=== PATIENT | male | born 1970 | race Caucasian/White ===

== ENCOUNTER 2016-08-08 20:23 | Observation (INO) | payer OTHER ==
[~2016-08-08] VITALS: Ht 182.9 cm; Wt 85.0 kg
[~2016-08-08 20:23] MED LIST: ACYC1CAP16 PO; METF500T PO; MULT-65 PO; OXYC1TAB13 PO; SUCR1S PO; VITA100T2 PO; XANA1TAB2 PO
[2016-08-08 20:35] VITALS: BP 156/89; PULSE 110; RESP 18; TEMP 98.6; O2SAT 93
--- NOTE | 2016-08-08 20:39 | PD ---
HPI Chief Complaint: Chest Pain Time Seen by Provider: 20:28 Travel History International Travel<30 days: No Contact w/Intl Traveler<30days: No Traveled to known affect area: No History of Present Illness HPI For 2 days this 45-year-old male has felt chest pressure. It started after he drank a glass and a half of wine and ate Italian food. He states at its worst the pain is 10 over 10. He reports radiation of pain to the posterior left neck. He reports chronic bilateral lower back pain which he attributes to the presence of cirrhosis. He suffers with diabetes mellitus 2 and reports noncompliance with medication times months at least. His father suffered a myocardial infarction at 55 years of age. The patient suffers alcohol-induced cirrhosis. He does not follow up with GI although did at one point in [place]. He smokes tobacco. He has not taken aspirin in the last week. He denies a history of recent stress test or cardiac catheterization. He denies hypertension hyperlipidemia. He tried drinking water after chest pain started however it made no difference. He arrives by EMS and notes that sublingual nitro alleviated his pain significantly. [facility] Past Medical History Arthritis: No Asthma: No Autoimmune Disease: No Blood Disorders: Yes (ESOPHAGEAL VARICES) Anxiety: No Depression: No Heart Rhythm Problems: No Cancer: No Cardiovascular Problems: Yes High Cholesterol: No Chemotherapy: No Chest Pain: No Congestive Heart Failure: No Cirrhosis: Yes (STAGE 4) COPD: No Diabetes: Yes Diminished Hearing: No Endocrine: No Gastrointestinal Disorders: Yes (CIRRHOSIS LIVER) GERD: Yes Genitourinary: No Hiatal Hernia: No Hypertension: Yes Immune Disorder: No Kidney Stones: No Musculoskeletal: No Neurologic: No Psychiatric: No Reproductive: No Respiratory: No Integumentary: Yes (PSORIASIS) Immunizations Current: Yes Migraines: No Pancreatitis: Yes Radiation Therapy: No Renal Failure: No Seizures: No Sickle Cell Disease: No Sleep Apnea: No Thyroid Disease: No Ulcer: No Past Surgical History Abdominal Surgery: No AICD: No Arteriovenous Shunt: No Cardiac Surgery: No Ear Surgery: No Endocrine Surgery: No Eye Surgery: No Genitourinary Surgery: No Gynecologic Surgery: No Insulin Pump: No Joint Replacement: No Neurologic Surgery: No Oral Surgery: No Pacemaker: No Thoracic Surgery: No Other Surgery: Yes (ESOPHAGEAL BANDING & LIVER BIOPSY) Social History Alcohol Use: Yes (pt states sober for 102 days and had 2 32 oz beer) Tobacco Use: Yes (1/2 PPD) Substance Use: Yes (marijaunia occasionally) Allergies-Medications (Allergen,Severity, Reaction): Coded Allergies: Dilaudid (Verified Allergy, Intermediate, HIVES, 01/23/16) *MDRO Multi-Drug Resistant Organism (Verified Adverse Reaction, Unknown, ) MRSA PCR (nares) positive - 12/02/15 Reported Meds & Prescriptions Reported Meds & Active Scripts Active Reported Xanax (Alprazolam) 1 Mg Tab 1 Mg PO Q6H PRN Zovirax (Acyclovir) 200 Mg Cap 200 Mg PO ONCE Roxicodone (Oxycodone HCl) 5 Mg Tab 5 Mg PO Q6H PRN Metformin (Metformin HCl) 500 Mg Tab 500 Mg PO BIDPC With meals Multi-Vitamin Daily (Multiple Vitamin) 1 Tab Tab 1 Tab PO DAILY Review of Systems Except as stated in HPI: all other systems reviewed are Neg Physical Exam Narrative GENERAL: 45-year-old male somewhat chronically ill in appearance SKIN: Warm and dry. HEAD: Atraumatic. Normocephalic. EYES: Pupils equal and round. Scleral icterus could be be present. ENT: No nasal bleeding or discharge. Mucous membranes pink and moist. NECK: Trachea midline. No JVD. CARDIOVASCULAR: Regular rate and rhythm. No murmur appreciated. RESPIRATORY: No accessory muscle use. Clear to auscultation. Breath sounds equal bilaterally. GASTROINTESTINAL: Diffuse nonspecific tenderness with voluntary guarding. No tenderness to percussion about the flanks. MUSCULOSKELETAL: No obvious deformities. No clubbing. No cyanosis. No edema. NEUROLOGICAL: Awake and alert. No obvious cranial nerve deficits. Motor grossly within normal limits. Normal speech. PSYCHIATRIC: Appropriate mood and affect; insight and judgment normal. Data Data Last Documented VS Vital Signs Date Time Temp Pulse Resp B/P Pulse Ox O2 Delivery O2 Flow Rate FiO2 08/08/16 20:48 109 18 97 Nasal Cannula 2 08/08/16 20:35 98.6 156/89 Orders Electrocardiogram (08/08/16 20:56) Ckmb (Isoenzyme) Profile (08/08/16 20:56) Complete Blood Count With Diff (08/08/16 20:56) Comprehensive Metabolic Panel (08/08/16 20:56) Magnesium (Mg) (08/08/16 20:56) Prothrombin Time / Inr (Pt) (08/08/16 20:56) Act Partial Throm Time (Ptt) (08/08/16 20:56) Troponin I (08/08/16 20:56) Lipase (08/08/16 20:56) Chest, Single Ap (08/08/16 20:56) Ecg Monitoring (08/08/16 20:56) Bilateral Bp Monitoring (08/08/16 20:56) Iv Access Insert/Monitor (08/08/16 20:56) Oximetry (08/08/16 20:56) Oxygen Administration (08/08/16 20:56) Sodium Chloride 0.9% Flush (Ns Flush) (08/08/16 21:00) Morphine Inj (Morphine Inj) (08/08/16 21:00) Aspirin (Aspirin) (08/08/16 21:00) CKMB (08/08/16 21:00) CKMB% (08/08/16 21:00) Insulin Human Regular Inj (Novolin R Inj (08/08/16 22:45) Blood Glucose (08/08/16 22:36) Blood Glucose (08/08/16 23:36) Morphine Inj (Morphine Inj) (08/08/16 22:45) Admit Order (Ed Use Only) (08/08/16 23:15) Activity Bed Rest With Brp (08/08/16 23:15) Vital Signs (Adult) Q4H (08/08/16 23:15) Cardiac Rhythm .As Directed (08/08/16 23:15) ^ Notify Dr: Other .PRN (08/08/16 23:15) ^ Notify DrMichele Parameters (08/08/16 23:15) Resp Oxygen Nasal Cannula (08/08/16 ) Ckmb (Isoenzyme) Profile (08/08/16 23:15) Ckmb (Isoenzyme) Profile (08/09/16 02:15) Troponin I (08/08/16 23:15) Troponin I (08/09/16 02:15) Electrocardiogram (08/08/16 23:15) Electrocardiogram (08/09/16 02:15) ^ Obtain (08/08/16 23:15) Sodium Chloride 0.9% Flush (Ns Flush) (08/08/16 23:15) Sodium Chloride 0.9% Flush (Ns Flush) (08/09/16 09:00) Morphine Inj (Morphine Inj) (08/08/16 23:15) Ondansetron Inj (Zofran Inj) (08/08/16 23:15) Nitroglycerin Sl (Nitrostat Sl) (08/08/16 23:15) Warehouse Helper / Telemetry DENNY.Q8H (08/08/16 23:15) CKMB (08/08/16 23:59) CKMB% (08/08/16 23:59) Labs Laboratory Tests Test 08/08/16 21:00 White Blood Count 4.5 TH/MM3 Red Blood Count 3.83 MIL/MM3 Hemoglobin 12.5 GM/DL Hematocrit 37.1 % Mean Corpuscular Volume 96.8 FL Mean Corpuscular Hemoglobin 32.8 PG Mean Corpuscular Hemoglobin 33.8 % Concent Red Cell Distribution Width 15.9 % Platelet Count 65 TH/MM3 Mean Platelet Volume 9.7 FL Neutrophils (%) (Auto) 54.8 % Lymphocytes (%) (Auto) 28.6 % Monocytes (%) (Auto) 13.6 % Eosinophils (%) (Auto) 1.9 % Basophils (%) (Auto) 1.1 % Neutrophils # (Auto) 2.4 TH/MM3 Lymphocytes # (Auto) 1.3 TH/MM3 Monocytes # (Auto) 0.6 TH/MM3 Eosinophils # (Auto) 0.1 TH/MM3 Basophils # (Auto) 0.0 TH/MM3 CBC Comment AUTO DIFF Differential Comment AUTO DIFF CONFIRMED Prothrombin Time 12.7 SEC Prothromb Time International 1.1 RATIO Ratio Activated Partial 27.2 SEC Thromboplast Time Sodium Level 143 MEQ/L Potassium Level 3.5 MEQ/L Chloride Level 105 MEQ/L Carbon Dioxide Level 28.8 MEQ/L Anion Gap 9 MEQ/L Blood Urea Nitrogen 3 MG/DL Creatinine 0.75 MG/DL Estimat Glomerular Filtration 114 ML/MIN Rate Random Glucose 329 MG/DL Calcium Level 7.7 MG/DL Magnesium Level 1.5 MG/DL Total Bilirubin 1.0 MG/DL Aspartate Amino Transf 91 U/L (AST/SGOT) Alanine Aminotransferase 50 U/L (ALT/SGPT) Alkaline Phosphatase 332 U/L Total Creatine Kinase 200 U/L Creatine Kinase MB 0.7 NG/ML Troponin I 0.05 NG/ML Total Protein 7.4 GM/DL Albumin 3.0 GM/DL Lipase 323 U/L MDM Medical Decision Making Medical Screen Exam Complete: Yes Emergency Medical Condition: Yes Medical Record Reviewed: Yes Differential Diagnosis NSTEMI, unstable angina, coronary vasospasm, PE, PTX, aortic dissection, pericarditis, myocarditis, endocarditis, PNA, esophageal disease, aneurysm, musculoskeletal etiologies, anxiety, cocaine/sympathomimetic abuse,Constipation , Gastritis, Acute Cholecystitis, Biliary Colic, Pancreatitis, PYLE, Hepatitis, Bowel Obstruction, Cystitis, Mesenteric Ischemia, AAA, Appendicitis, Renal Stone /Hydronephrosis, GERD, perforated viscous Narrative Course EKG reveals a sinus tachycardia at a rate of 105, normal axis and nonspecific T- wave changes throughout CBC & BMP Diagram 08/08/16 21:00 AST 91 Alk phos 332 Albumin 3.0 Lipase 323 Tn 0.05 INR 1.1 Overall the patient's LFTs and lipase are normal range for him. Hyperglycemia has been corrected. Serial enzymes and stress test considered reasonable next step for this patient. Diagnosis Primary Impression: Chest pain Qualified Code: R07.9 - Chest pain, unspecified type Additional Impressions: Elevated troponin I level Hyperglycemia Admitting Information Admitting Physician Requests: Observation Ishaan Haq MD Aug 08, 2016 20:39
[2016-08-08] MEDS ORDERED: SODIUM CHLORIDE 0.9% FLUSH 5 ML FLUSH IVF PRN ×2 (21:00→23:15)
[2016-08-08] MEDS ORDERED: ASPIRIN 325 MG TAB PO ONE (21:00)
[2016-08-08] MEDS ORDERED: MORPHINE SULFATE 4 MG/ML INJ IV PUSH ONE (21:00)
[2016-08-08 21:30] LABS: AUTOMATED NEUTROPHIL # 2.4 TH/MM3 (1.8-7.7); BASOPHIL % 1.1 % (0.0-2.0); EOSINOPHIL # 0.1 TH/MM3 (0-0.4); EOSINOPHIL % 1.9 % (0.0-4.0); HEMATOCRIT 37.1 % (39.0-51.0); LYMPH % 28.6 % (9.0-44.0); LYMPHOCYTE # 1.3 TH/MM3 (1.0-4.8); MEAN CELL VOLUME 96.8 FL (80.0-100.0); MEAN CORPUSCULAR HEMOGLOBIN 32.8 PG (27.0-34.0); MEAN CORPUSCULAR HGB CONC 33.8 % (32.0-36.0); MONO % 13.6 % (0.0-8.0); NEUT % 54.8 % (16.0-70.0); PLATELET COUNT 65 TH/MM3 (150-450); RED BLOOD COUNT 3.83 MIL/MM3 (4.50-5.90); RED CELL DISTRIBUTION WIDTH 15.9 % (11.6-17.2); WHITE BLOOD COUNT 4.5 TH/MM3 (4.0-11.0)
--- NOTE | 2016-08-08 21:35 | RADRPT ---
EXAM DATE/TIME: 08/08/2016 20:59 [facility] COMPARISON: CHEST SINGLE AP, December 06, 2015, 12:05. INDICATIONS : Chest pain for 2 days MEDICAL HISTORY : None. SURGICAL HISTORY : None. ENCOUNTER: Initial ACUITY: 2 days PAIN SCORE: 7/10 LOCATION: Right chest FINDINGS: A single view of the chest demonstrates the lungs to be symmetrically aerated without evidence of mas s, infiltrate or effusion. The cardiomediastinal contours are unremarkable. Osseous structures are intact. CONCLUSION: No acute disease. Kenneth Galvan MD on August 08, 2016 at 21:34 Board Certified Radiologist. This report was verified electronically.
[2016-08-08 21:39] LABS: HEMO FLAGS AUTO DIFF
[2016-08-08 21:42] LABS: APTT (PATIENT) 27.2 SEC (24.3-30.1); INTERNATIONAL NORMALIZED RATIO 1.1 RATIO; PROTHROMBIN TIME - PATIENT 12.7 SEC (9.8-11.6)
[2016-08-08 22:03] LABS: SCAN/DIFF AUTO DIFF CONFIRMED
[2016-08-08 22:18] LABS: ALKALINE PHOSPHATASE 332 U/L (45-117); ALT (GPT) 50 U/L (12-78); ANION GAP 9 MEQ/L (5-15); AST (GOT) 91 U/L (15-37); BICARBONATE 28.8 MEQ/L (21.0-32.0); BLOOD UREA NITROGEN 3 MG/DL (7-18); CHLORIDE 105 MEQ/L (98-107); CREATINE KINASE 200 U/L (39-308); GLOMERULAR FILTRATION RATE 114 ML/MIN (>89); MAGNESIUM 1.5 MG/DL (1.5-2.5); POTASSIUM 3.5 MEQ/L (3.5-5.1); SODIUM (NA) 143 MEQ/L (136-145)
[2016-08-08 22:31] LABS: CKMB 0.7 NG/ML (0.5-3.6)
[2016-08-08] MEDS ORDERED: MORPHINE SULFATE 8 MG/ML INJ IV PUSH ONE (22:45)
[2016-08-08] MEDS ORDERED: INSULIN HUMAN REGULAR 1,000 UNITS/10 ML VIAL IVP ONE (22:45)
[2016-08-08] MEDS ORDERED: ONDANSETRON HCL 4 MG/2 ML VIAL IV PRN (23:15)
[2016-08-08] MEDS ORDERED: NITROGLYCERIN 0.4 MG SL 25 TABS/BTL SL PRN (23:15)
[2016-08-08] MEDS ORDERED: MORPHINE SULFATE 4 MG/ML INJ IV PRN (23:15)
[2016-08-09 00:44] LABS: CREATINE KINASE 178 U/L (39-308)
[2016-08-09 00:45] VITALS: PULSE 116
[2016-08-09 00:57] LABS: CKMB 0.7 NG/ML (0.5-3.6)
[2016-08-09 03:42] VITALS: BP 140/83; PULSE 106; RESP 18; O2SAT 93
[2016-08-09 04:11] VITALS: PULSE 106
[2016-08-09 04:20] LABS: CREATINE KINASE 142 U/L (39-308)
[2016-08-09 04:33] LABS: CKMB 0.6 NG/ML (0.5-3.6)
[2016-08-09 06:56] VITALS: BP 117/71; PULSE 107; RESP 18; TEMP 97.9; O2SAT 95
[2016-08-09] MEDS ORDERED: SODIUM CHLORIDE 0.9% FLUSH 5 ML FLUSH IVF SCH (09:00)
[2016-08-09] MEDS ORDERED: REGADENOSON INJ 0.4 MG/5 ML SYR ONE (09:03)
[2016-08-09] MEDS ORDERED: MULTIVITAMIN TAB PO SCH (09:15)
[2016-08-09] MEDS ORDERED: GLUCAGON 1 MG/ML VIAL OTHER PRN (09:15)
[2016-08-09] MEDS ORDERED: DEXTROSE 50% IN WATER 50 ML VIAL(D50) IV PUSH PRN (09:15)
[2016-08-09] MEDS ORDERED: metFORMIN HCL 500 MG TAB PO SCH (09:15)
--- NOTE | 2016-08-09 10:53 | RADRPT ---
EXAM DATE/TIME: 08/09/2016 09:08 [facility] COMPARISON: No previous studies available for comparison. INDICATIONS : Chest pain radiating to back of neck for 2 days. Angina. DOSE: 26.9 mCi Tc99m Myoview at stress. 8.8 mCi Tc99m Myoview at rest. 0.4 mg Lexiscan STRESS SYMPTOMS: Nausea. EJECTION FRACTION: 67% MEDICAL HISTORY : Diabetes mellitus type 2. Gastroesophageal reflux disease. Hypertension. Cirrhosis SURGICAL HISTORY : Esophageal banding. ENCOUNTER: Initial ACUITY: 2 days PAIN SCALE: 10/10 LOCATION: chest TECHNIQUE: The patient underwent pharmacologic stress with infusion of prescribed dose. Continuous ECG tracing was monitored during stress. Gated SPECT imaging was performed after stress and conventional SPECT i maging was performed at rest. The examination was performed on a SPECT/CT scanner, both attenuation and non-corrected datasets were reviewed. FINDINGS: DISTRIBUTION: The maximum perfused segment at stress is in the inferior wall. PERFUSION STUDY: The pattern of perfusion at stress is within normal limits. GATED STUDY: There is intact wall motion and thickening without hypokinetic or dyskinetic segments. CONCLUSION: No reversible perfusion defects identified. No focal wall motion abnormalities. Ejection fraction wit hin normal limits. RISK CATEGORY: 1:Low Risk. Mark Lisa MD on August 09, 2016 at 10:48 Board Certified Radiologist. This report was verified electronically.
[2016-08-09 11:00] VITALS: PULSE 91
[2016-08-09] MEDS ORDERED: INSULIN ASPART SUPPLEMENTAL SCALE SQ SCH (11:00)
[2016-08-09 11:36] VITALS: BP 151/77; PULSE 85; RESP 20; TEMP 98.1; O2SAT 94
--- NOTE | 2016-08-09 11:38 | HHI.DCPOC ---
Discharge Care Plan Diagnosis: (1) Atypical chest pain Goals to Promote Your Health * To prevent worsening of your condition and complications * To maintain your health at the optimal level Directions to Meet Your Goals Take your medications as prescribed Follow your dietary instruction Follow activity as directed Keep your appointments as scheduled Take your immunizations and boosters as scheduled If your symptoms worsen call your PCP, if no PCP go to Urgent Care Center or Emergency Room Smoking is Dangerous to Your Health. Avoid second hand smoke Call the 24-hour hour crisis hotline for domestic abuse at Poonam Wilson Aug 09, 2016 11:38
--- NOTE | 2016-08-09 14:19 | MH ---
cc: ALAN MONTGOMERY MD DATE OF ADMISSION: 08/08/2016 DATE OF 1970 CHIEF COMPLAINT Chest pain. HISTORY OF PRESENT ILLNESS This is a 45-year-old patient who presents to the emergency room with an onset of chest pain two days ago. LOCATION His substernal left anterior chest with no radiation. Duration lasts approximately 10 minutes and described as a pressure. Associated symptoms included he was a little bit dizzy and nauseous. He denied any vomiting or diaphoresis or shortness of breath. No known precipitating factors or relieving factors. His primary care provider is Dr. Mathew. He denies having any chest pain in the past. PAST MEDICAL HISTORY 1. Hypertension. 2. Diabetes. 3. Cirrhosis. 4. Esophageal varices. PAST SURGICAL HISTORY He has had a liver biopsy. FAMILY HISTORY Noncontributory for any early onset cardiovascular disease. Both mother and father and younger siblings are alive and in good state of health. SOCIAL HISTORY He is currently not working. He is active, states he rides his bike and/or walks the beach on a daily basis. He smokes a 1/2-pack of cigarettes daily. This is decreased from 1-1/2 packs daily. He says he has been decreasing his tobacco use over the past 4-5 months. He will drink alcohol on occasionm, says he knows he is not supposed to drink alcohol and endorses drinking one to two glasses of wine weekly. Denies any illegal drug use past or present. PAST MEDICAL HISTORY Does have known hypertension and diabetes. No known hyperlipidemia. PAST CARDIAC TESTING None. ALLERGIES He has no allergies to medication. CURRENT MEDICATION LIST 1. Glucophage 500 mg b.i.d. 2. Multivitamin daily. 3. Xanax as needed for anxiety. 4. The patient also endorses he takes a medication for his esophageal varices; however, he is unsure of that name and/or dose. 5. Also states that he should be taking Glipizide daily. He is also unsure of that dose but had not been taking glipizide, in fact, he has not been taking his Glucophage either as he states he is trying to control his diabetes with diet and exercise. REVIEW OF SYSTEMS General: No fatigue, weakness, recent illness, fevers, chills or change in appetite. HEENT: Reports an occasional headache and was also dizzy a couple of days ago. He did not lose consciousness, although states he did fall due to his dizziness. No vision changes. No dysphagia. No nasal congestion or drainage. Cardiovascular: As stated above. Denies any current chest pain. There are no palpitations, intermittent leg pain. Reports dizziness over the past few months with position at times but it seems to be positional in time. Respiratory: No hemoptysis, cough or wheeze or shortness of breath. Abdomen: No bowel changes. No bloody stools. No melena, no constipation, pain or distension. Reports a good appetite. There is no nausea or vomiting. No hemoptysis. : No dysuria or hematuria. Extremities: No lower leg edema or pain. Musculoskeletal: No change in ROM. Reports chronic bilateral lower back pain for years. Neuro: No difficulty with balance, motor or sensory deficits. Psych: No anxiety or depression. Skin: No concerning lesions or rashes. Reports a healing sore on his right elbow that he sustained two days ago when he became dizzy and fell. PHYSICAL EXAMINATION Vital Signs: Temperature 98.1, pulse 85, respiratory 20, blood pressure 117/71 and he has 95% on room air. General: He is alert, well-nourished, well-developed, in no acute distress. A male who appears older than his stated age. Head: Normocephalic, atraumatic. Neck: Supple. Trachea is midline. Cardiovascular: Regular rate and rhythm without murmur, rub or gallop. S1, S2. No S3, no S4. Respiratory: Clear lungs throughout bilaterally with no crackles, wheezes or rhonchi. Nonlabored. Symmetrical chest rise. Abdomen: Soft, nontender, nondistended. Positive bowel tones. No masses. Extremities: Pulses +2 x 4. There is no dependent edema. Musculoskeletal: Normal tone x 4 nontender. No obvious deformities. Neuro Exam: CN II-XII grossly intact. Motor strength 5/5. He has high intact extraocular movements. Psych: He is alert and oriented x 3, has a pleasant affect, appropriate to mood, insight and judgment. Skin: Normal turgor, normal texture. Warm and dry and a healing abrasion on right elbow. LABORATORY CBC has a hemoglobin of 12.5 and a hematocrit of 37.1, otherwise unremarkable. Chemistry has a random glucose of 329 and alkaline phos of 332 and AST of 91, otherwise unremarkable. Three sets of cardiac enzymes all negative and unchanged. Coagulations unremarkable. CHEST X-RAY Read by the radiologist, has a conclusion of no acute disease. EKGS Three EKGs show a normal sinus rhythm with a nonspecific T-wave abnormality and a normal axis. ASSESSMENT AND PLAN 1. Chest pain. The patient has been [facility] He was ruled out with three sets of EKGs, cardiac enzymes and monitored throughout the evening. He was seen and evaluated by Dr. Alan Montgomery. It has been discussed with the patient that he will have had a chemical stress test this a.m. Naturally, if this test is unremarkable, he will be encouraged to follow with his primary care provider, Dr. Mathew. He is agreeable to this plan of care. 2. Anemia. His anemia is actually stable as the patient was admitted to the hospital last month and at that time his hemoglobin and hematocrit upon discharge was 11.4 and 33.3. He is not having any signs of bleeding. He has been encouraged to reestablish with a fraternity house cook in regards to his cirrhosis and esophageal varices and to remain compliant on the medication that is prescribed to him for his esophageal varices. 3. Diabetes. The patient has been strongly encouraged and stressed the importance of taking his prescription medication for his diabetes as prescribed. I encouraged him to continue to perform his daily activity, although educated the patient that diabetes is a progressive disease and therefore needs to be managed not only by medication, but also diet and exercise. The patient verbalizes understanding. 4. Tobacco use. He has been strongly encouraged and stressed the importance of tobacco cessation. Discussed and counseled the patient to quit smoking. 5. Chronic pain. The patient requesting a prescription for oxycodone, states he has been out for some time. Encouraged him to follow with primary care provider, Dr. Mathew, and he assured me that he is able to get an appointment with Dr. Mathew as a walk-in basis. Therefore, he will follow with primary care provider regarding prescription for pain medication. Dictated by: RICH Cruz MD DAVINA Arroyo/PALLAVI /12:32 PM /2:19 PM
--- NOTE | 2016-08-09 15:42 | EKG ---
Date Performed: 08/09/2016 Time Performed: 03:49:54 PTAGE: 45 years EKG: SINUS TACHYCARDIA NONSPECIFIC T-WAVE ABNORMALITY ABNORMAL RHYTHM ECG PREVIOUS TRACING : 08/08/2016 23.56 Since previous tracing, no significant change noted DOCTOR: Scott Vega Interpretating Date/Time 08/14/2016 07:45:20
--- NOTE | 2016-08-09 15:44 | EKG ---
Date Performed: 08/08/2016 Time Performed: 23:56:22 PTAGE: 45 years EKG: SINUS TACHYCARDIA NONSPECIFIC T-WAVE ABNORMALITY ABNORMAL RHYTHM ECG PREVIOUS TRACING : 08/08/2016 23.55 Since previous tracing, no significant change noted DOCTOR: Scott Vega Interpretating Date/Time 08/09/2016 15:42:33
--- NOTE | 2016-08-09 15:45 | EKG ---
Date Performed: 08/08/2016 Time Performed: 20:36:44 PTAGE: 45 years EKG: SINUS TACHYCARDIA NONSPECIFIC T-WAVE ABNORMALITY ABNORMAL RHYTHM ECG INTERPRETATION BASED O N A DEFAULT AGE OF 42 YEARS PREVIOUS TRACING : 12/02/2015 07.06 Since previous tracing, no significant change noted DOCTOR: Scott Vega Interpretating Date/Time 08/09/2016 15:43:16
--- NOTE | 2016-08-09 16:06 | TR ---
Date Performed: 08/09/2016 Time Performed: 09:41:51 DOCTOR: Scott Vega DRUG LIST: CLINICAL HISTORY: REASON FOR TEST: Angina REASON FOR ENDING: OBSERVATION: CONCLUSION: Lexiscan stress test was performed under standard four minute protocol. Radionuclid e was injected one minute prior to ending the test. No electrocardiographic abormalities were present to suggest ischemia. Nuclear imaging and interpretation are pending. COMMENTS:
== END 2016-08-09 12:51 | disposition home or self-care (01) ==
LOC: NEPE 20:23 → NEDA 23:18 → NEPFCDU 08-09 00:25
PROVIDERS: ADMIT Internal Medicine Cardiovascular Disease; ATTEND Internal Medicine Cardiovascular Disease
DX: R07.89 Other chest pain (principal); I10 Essential (primary) hypertension; E11.65 Type 2 diabetes mellitus with hyperglycemia; K74.60 Unspecified cirrhosis of liver; I85.10 Secondary esophageal varices without bleeding; D64.9 Anemia, unspecified; F17.210 Nicotine dependence, cigarettes, uncomplicated; F41.9 Anxiety disorder, unspecified; R42 Dizziness and giddiness
CPT/HCPCS: 71010; 78452; 80053; 82550; 82552; 82948; 83690; 83735; 84484; 85025; 85610; 85730; 93005; 93017; 96374; 96375; 96376; 99285; A9502; G0378; J1815; J2270; J2785

== ENCOUNTER 2016-08-11 21:06 | Emergency (ER) | payer OTHER ==
[~2016-08-11] VITALS: Ht 188 cm; Wt 82.0 kg
[~2016-08-11 21:06] MED LIST changes: -ACYC1CAP16 PO; -OXYC1TAB13 PO; -SUCR1S PO; -VITA100T2 PO
[2016-08-11] MEDS ORDERED: PROP20TA3 PO (21:10)
[2016-08-11 21:11] VITALS: BP 140/81; PULSE 88; RESP 16; TEMP 98.5; O2SAT 99
--- NOTE | 2016-08-11 21:52 | PD ---
HPI Chief Complaint: Back/ Neck Pain or Injury Time Seen by Provider: 21:31 Travel History International Travel<30 days: No Contact w/Intl Traveler<30days: No Traveled to known affect area: No History of Present Illness HPI The patient is a 45-year-old alcoholic male that complains of low back pain. He does have a history of chronic low back pain and history of pain shooting down his left leg months if not years. He does have a history of alcohol abuse. He denies any weakness or sensory loss on the legs. He does have pain located in the L5-S1 area. The pain is on both sides of the spinous processes and not in the middle. He does have a history of cirrhosis. His last drink of alcohol was around 7:45 PM tonight. He called the ambulance for his back pain. PFSH Past Medical History Arthritis: No Asthma: No Autoimmune Disease: No Blood Disorders: Yes (ESOPHAGEAL VARICES) Anxiety: No Depression: No Heart Rhythm Problems: No Cancer: No Cardiovascular Problems: Yes High Cholesterol: No Chemotherapy: No Chest Pain: No Congestive Heart Failure: No Cirrhosis: Yes (STAGE 4) COPD: No Diabetes: Yes Patient Takes Glucophage: Yes Diminished Hearing: No Endocrine: No Gastrointestinal Disorders: Yes (CIRRHOSIS LIVER) GERD: Yes Genitourinary: No Hiatal Hernia: No Hypertension: Yes Immune Disorder: No Kidney Stones: No Musculoskeletal: No Neurologic: No Psychiatric: No Reproductive: No Respiratory: No Integumentary: Yes (PSORIASIS) Immunizations Current: Yes Migraines: No Pancreatitis: Yes Radiation Therapy: No Renal Failure: No Seizures: No Sickle Cell Disease: No Sleep Apnea: No Thyroid Disease: No Ulcer: No ?: Not Past Surgical History Abdominal Surgery: No AICD: No Arteriovenous Shunt: No Cardiac Surgery: No Ear Surgery: No Endocrine Surgery: No Eye Surgery: No Genitourinary Surgery: No Gynecologic Surgery: No Insulin Pump: No Joint Replacement: No Neurologic Surgery: No Oral Surgery: No Pacemaker: No Thoracic Surgery: No Other Surgery: Yes (ESOPHAGEAL BANDING & LIVER BIOPSY) Social History Alcohol Use: Yes (OCC) Tobacco Use: Yes (1/2 PPD) Substance Use: Yes (marijaunia occasionally) Allergies-Medications (Allergen,Severity, Reaction): Coded Allergies: Dilaudid (Verified Allergy, Intermediate, HIVES, 01/23/16) *MDRO Multi-Drug Resistant Organism (Verified Adverse Reaction, Unknown, ) MRSA PCR (nares) positive - 12/02/15 Reported Meds & Prescriptions Reported Meds & Active Scripts Active Reported Propranolol (Propranolol HCl) 20 Mg Tab 20 Mg PO Q12HR Xanax (Alprazolam) 1 Mg Tab 1 Mg PO Q6H PRN Metformin (Metformin HCl) 500 Mg Tab 500 Mg PO BIDPC With meals Multi-Vitamin Daily (Multiple Vitamin) 1 Tab Tab 1 Tab PO DAILY Review of Systems Except as stated in HPI: all other systems reviewed are Neg Physical Exam Narrative GENERAL: The patient is alert, oriented 3 and slight apparent distress with his low back pain. His vital signs are essentially normal except for blood pressure 140/81. SKIN: Warm and dry. HEAD: Atraumatic. Normocephalic. EYES: Pupils equal and round. No scleral icterus. He does have conjunctival injection with clear drainage. ENT: No nasal bleeding or discharge. Mucous membranes pink and moist. NECK: Trachea midline. No JVD. CARDIOVASCULAR: Regular rate and rhythm. No murmur appreciated. RESPIRATORY: No accessory muscle use. Clear to auscultation. Breath sounds equal bilaterally. GASTROINTESTINAL: Abdomen soft, non-tender, nondistended. Hepatic and splenic margins not palpable. MUSCULOSKELETAL: No obvious deformities. No clubbing. No cyanosis. No edema. The patient is tender to both sides of the L4 5 S1 area and not directly over the spinous processes. Straight leg raising shows 2+ reflexes over the patella and 0+1 bilaterally over the Achilles. Pinprick shows decreased pinprick sensation on the right. Straight leg raising is normal. NEUROLOGICAL: Awake and alert. No obvious cranial nerve deficits. Motor grossly within normal limits. Normal speech. PSYCHIATRIC: Appropriate mood and affect; insight and judgment normal. Data Data Last Documented VS Vital Signs Date Time Temp Pulse Resp B/P Pulse Ox O2 Delivery O2 Flow Rate FiO2 08/11/16 21:11 98.5 88 16 140/81 99 Orders Complete Blood Count With Diff (08/11/16 21:56) Comprehensive Metabolic Panel (08/11/16 21:56) Magnesium (Mg) (08/11/16 21:56) Alcohol (Ethanol) (08/11/16 21:56) Ketorolac Inj (Toradol Inj) (08/11/16 22:00) Sodium Chlor 0.9% 1000 Ml Inj (Ns 1000 M (08/11/16 22:00) Calcium Carbonate (Oscal) (08/11/16 23:15) Labs Laboratory Tests Test 08/11/16 22:15 White Blood Count 3.9 TH/MM3 Red Blood Count 3.79 MIL/MM3 Hemoglobin 11.9 GM/DL Hematocrit 36.3 % Mean Corpuscular Volume 95.9 FL Mean Corpuscular Hemoglobin 31.4 PG Mean Corpuscular Hemoglobin 32.8 % Concent Red Cell Distribution Width 15.0 % Platelet Count 42 TH/MM3 Mean Platelet Volume 9.0 FL Neutrophils (%) (Auto) 56.5 % Lymphocytes (%) (Auto) 30.5 % Monocytes (%) (Auto) 8.8 % Eosinophils (%) (Auto) 2.5 % Basophils (%) (Auto) 1.7 % Neutrophils # (Auto) 2.2 TH/MM3 Lymphocytes # (Auto) 1.2 TH/MM3 Monocytes # (Auto) 0.3 TH/MM3 Eosinophils # (Auto) 0.1 TH/MM3 Basophils # (Auto) 0.1 TH/MM3 CBC Comment AUTO DIFF Differential Comment AUTO DIFF CONFIRMED Platelet Estimate LOW Platelet Morphology Comment NORMAL Sodium Level 144 MEQ/L Potassium Level 3.5 MEQ/L Chloride Level 107 MEQ/L Carbon Dioxide Level 27.6 MEQ/L Anion Gap 9 MEQ/L Blood Urea Nitrogen 3 MG/DL Creatinine 0.60 MG/DL Estimat Glomerular Filtration 147 ML/MIN Rate Random Glucose 293 MG/DL Calcium Level 7.1 MG/DL Protein Corrected Calcium 7.1 MG/DL Magnesium Level 1.3 MG/DL Total Bilirubin 1.1 MG/DL Aspartate Amino Transf 58 U/L (AST/SGOT) Alanine Aminotransferase 30 U/L (ALT/SGPT) Alkaline Phosphatase 288 U/L Total Protein 7.1 GM/DL Albumin 2.5 GM/DL Ethyl Alcohol Level 452 MG/DL MDM Medical Decision Making Medical Screen Exam Complete: Yes Emergency Medical Condition: Yes Medical Record Reviewed: Yes Interpretation(s) The alcohol level is 452. The CBC shows a white count of 3800 with a hemoglobin of 11.9 and hematocrit of 36.3 and platelet count of only 42,000 But is otherwise unremarkable. The complete metabolic profile shows a glucose of 293, calcium 7.1 which is protein corrected, magnesium level I.3, total bilirubin 1.1, AST of 58 and alkaline phosphatase of 288 and albumin of 2.5. Differential Diagnosis Acute exacerbation of chronic back pain, herniated nucleus pulposus, alcohol intoxication, hypomagnesemia, hypocalcemia, hypoproteinemia, renal insufficiency , cirrhosis Narrative Course The patient has alcohol intoxication/abuse, ongoing cirrhosis and hypomagnesemia and hypocalcemia. Plan: The patient was warned that he needs to quit alcohol, that his his most important problem, and he will of alcohol related problems if he does not quit. Diagnosis Primary Impression: Alcohol abuse with intoxication Additional Impressions: Hypomagnesemia Hypocalcemia Hypoproteinemia Additional Instructions: As we discussed, your life depends on you quitting alcohol. You have cirrhosis , low calcium, low magnesium and low protein and your blood. Major body does not get the nutrients it needs one so much of your food intake is alcohol. Med/Other Pt SpecificInfo: Prescription(s) given Scripts Calcium Carbonate 1,500 Mg Tab1,500 Mg PO DAILY #30 TAB Ref 0 1,500 mg calcium carbonate (600 mg elemental calcium) Prov:Mihir Brewer MD 08/12/16 Magnesium Oxide 400 Mg [id number] Mg PO DAILY #30 TAB Ref 0 Prov:Mihir Brewer MD 08/12/16 Disposition: 01 DISCHARGE HOME Condition: Stable Mihir Brewer MD Aug 11, 2016 21:52
[2016-08-11] MEDS ORDERED: KETOROLAC TROMETHAMINE 60 MG/2 ML (IM) VIAL IVP ONE (22:00)
[2016-08-11 22:24] LABS: AUTOMATED NEUTROPHIL # 2.2 TH/MM3 (1.8-7.7); BASOPHIL # 0.1 TH/MM3 (0-0.2); BASOPHIL % 1.7 % (0.0-2.0); EOSINOPHIL # 0.1 TH/MM3 (0-0.4); EOSINOPHIL % 2.5 % (0.0-4.0); HEMATOCRIT 36.3 % (39.0-51.0); LYMPH % 30.5 % (9.0-44.0); LYMPHOCYTE # 1.2 TH/MM3 (1.0-4.8); MEAN CELL VOLUME 95.9 FL (80.0-100.0); MEAN CORPUSCULAR HEMOGLOBIN 31.4 PG (27.0-34.0); MEAN CORPUSCULAR HGB CONC 32.8 % (32.0-36.0); MONO % 8.8 % (0.0-8.0); NEUT % 56.5 % (16.0-70.0); PLATELET COUNT 42 TH/MM3 (150-450); RED BLOOD COUNT 3.79 MIL/MM3 (4.50-5.90); WHITE BLOOD COUNT 3.9 TH/MM3 (4.0-11.0)
[2016-08-11] MEDS: SODIUM CHLOR 0.9% 1000 ML INJ 1,000 ML IV SCH ×2 (22:26→23:47)
[2016-08-11 22:30] LABS: HEMO FLAGS AUTO DIFF
[2016-08-11 22:36] LABS: POTASSIUM 3.5 MEQ/L (3.5-5.1)
[2016-08-11 22:45] LABS: BICARBONATE 27.6 MEQ/L (21.0-32.0); MAGNESIUM 1.3 MG/DL (1.5-2.5); TOTAL BILIRUBIN ADULT 1.1 MG/DL (0.2-1.0)
[2016-08-11 22:49] LABS: CALCIUM-PROTEIN CORRECTED 7.1 MG/DL (8.5-10.1)
[2016-08-11] MEDS ORDERED: CALCIUM CARBONATE 1.25 GM (CA 500 MG) TAB PO ONE (23:15)
[2016-08-11 23:50] LABS: PLATELET ESTIMATE SMEAR LOW (NORMAL); PLATELET MORPHOLOGY NORMAL (NORMAL)
[2016-08-11 23:51] LABS: SCAN/DIFF AUTO DIFF CONFIRMED
[2016-08-12 00:02] VITALS: BP 142/74; PULSE 84; RESP 16; O2SAT 99
[2016-08-12] MEDS ORDERED: CALC600T4 PO (00:11)
[2016-08-12] MEDS ORDERED: MAGN400T2 PO (00:11)
[2016-08-12 02:30] VITALS: BP 128/72; PULSE 87; RESP 16; O2SAT 99
[2016-08-12 05:00] VITALS: BP 138/74; PULSE 82; RESP 16; O2SAT 99
[2016-08-12 06:10] VITALS: BP 127/72
== END 2016-08-12 06:15 | disposition home or self-care (01) ==
LOC: PHED 21:06
DX: F10.129 Alcohol abuse with intoxication, unspecified (principal); E83.42 Hypomagnesemia; E83.51 Hypocalcemia; E77.8 Other disorders of glycoprotein metabolism; G89.29 Other chronic pain; M54.5 Low back pain; K74.60 Unspecified cirrhosis of liver; E11.9 Type 2 diabetes mellitus without complications; I10 Essential (primary) hypertension; K85.90 Acute pancreatitis without necrosis or infection, unspecified; F17.210 Nicotine dependence, cigarettes, uncomplicated
CPT/HCPCS: 80053; 80320; 83735; 85025; 96361; 96374; 99284; J1885; J7030

== ENCOUNTER 2016-09-24 10:50 | Emergency (ER) | payer SELFPAY ==
[~2016-09-24] VITALS: Ht 182.9 cm; Wt 83.0 kg
[~2016-09-24 10:50] MED LIST changes: +CALC600T4 PO; +MAGN400T2 PO; +PROP20TA3 PO
[2016-09-24 11:02] VITALS: BP 154/87; PULSE 112; RESP 16; TEMP 98.3; O2SAT 92
[2016-09-24] MEDS ORDERED: SODIUM CHLORIDE 0.9% FLUSH 5 ML FLUSH IVF PRN (11:30)
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
[2016-09-24 12:20] LABS: AUTOMATED NEUTROPHIL # 2.5 TH/MM3 (1.8-7.7); BASOPHIL # 0.1 TH/MM3 (0-0.2); BASOPHIL % 1.7 % (0.0-2.0); EOSINOPHIL # 0.1 TH/MM3 (0-0.4); EOSINOPHIL % 1.6 % (0.0-4.0); HEMATOCRIT 36.4 % (39.0-51.0); LYMPH % 33.9 % (9.0-44.0); LYMPHOCYTE # 1.8 TH/MM3 (1.0-4.8); MEAN CORPUSCULAR HEMOGLOBIN 32.6 PG (27.0-34.0); MEAN CORPUSCULAR HGB CONC 32.6 % (32.0-36.0); NEUT % 46.8 % (16.0-70.0); PLATELET COUNT 70 TH/MM3 (150-450); RED BLOOD COUNT 3.64 MIL/MM3 (4.50-5.90); RED CELL DISTRIBUTION WIDTH 17.5 % (11.6-17.2); WHITE BLOOD COUNT 5.4 TH/MM3 (4.0-11.0)
[2016-09-24 12:22] LABS: HEMO FLAGS AUTO DIFF
[2016-09-24 12:38] LABS: ANION GAP 11 MEQ/L (5-15); AST (GOT) 64 U/L (15-37); BICARBONATE 30.2 MEQ/L (21.0-32.0); BLOOD UREA NITROGEN 8 MG/DL (7-18); CHLORIDE 95 MEQ/L (98-107); GLOMERULAR FILTRATION RATE 109 ML/MIN (>89); POTASSIUM 3.7 MEQ/L (3.5-5.1); SODIUM (NA) 136 MEQ/L (136-145)
[2016-09-24 12:41] LABS: ALKALINE PHOSPHATASE 371 U/L (45-117); ALT (GPT) 33 U/L (12-78); TOTAL BILIRUBIN ADULT 1.4 MG/DL (0.2-1.0)
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
[2016-09-24 13:00] LABS: PLATELET ESTIMATE SMEAR LOW (NORMAL); PLATELET MORPHOLOGY NORMAL (NORMAL); SCAN/DIFF AUTO DIFF CONFIRMED; TARGET CELLS 2+ (NORMAL)
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
[2016-09-24] MEDS ORDERED: IOHEXOL 350 MG/ML 10 ML VIAL (for RAD DIAG) IV ONE (13:47)
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
[2016-09-24] MEDS ORDERED: SODIUM CHLOR 0.9% 1000 ML INJ 1,000 ML IV ONE (15:00)
[2016-09-24] MEDS ORDERED: INSULIN HUMAN REGULAR 1,000 UNITS/10 ML VIAL IV PUSH ONE (15:00)
[2016-09-24 15:37] VITALS: BP 172/85; PULSE 100; RESP 20; O2SAT 99
[2016-09-24] MEDS ORDERED: chlordiazePOXIDE 25 MG CAP PO PRN (18:00)
[2016-09-24 18:26] VITALS: BP 149/65; PULSE 89; RESP 16; TEMP 98.3; O2SAT 99
== END 2016-09-24 18:36 | disposition home or self-care (01) ==
LOC: NEPE 10:50
DX: F10.229 Alcohol dependence with intoxication, unspecified (principal); K74.60 Unspecified cirrhosis of liver; E11.9 Type 2 diabetes mellitus without complications; I10 Essential (primary) hypertension; F17.210 Nicotine dependence, cigarettes, uncomplicated; F12.90 Cannabis use, unspecified, uncomplicated; Y90.8 Blood alcohol level of 240 mg/100 ml or more; V09.9XXA Pedestrian injured in unspecified transport accident, initial encounter
CPT/HCPCS: 70450; 71010; 72125; 72170; 73552; 74177; 80053; 80307; 83690; 85025; 96361; 96374; 99284; J1815; J7030; Q9967

== ENCOUNTER 2016-09-26 22:13 | Inpatient (IN) | payer SELFPAY ==
[~2016-09-26] VITALS: Ht 182.9 cm; Wt 81.8 kg
[2016-09-26 22:18] VITALS: BP 169/90; PULSE 104; RESP 17; TEMP 98.9; O2SAT 96
[2016-09-26] MEDS ORDERED: SODIUM CHLOR 0.9% 1000 ML INJ 1,000 ML IV SCH (22:41)
[2016-09-26] MEDS ORDERED: MORPHINE SULFATE 4 MG/ML INJ IV PUSH ONE (22:45)
[2016-09-26] MEDS ORDERED: SODIUM CHLORIDE 0.9% FLUSH 10 ML FLUSH IV FLUSH PRN (22:45)
[2016-09-26] MEDS ORDERED: PANTOPRAZOLE SODIUM 40 MG VIAL IVP ONE (22:45)
[2016-09-26] MEDS ORDERED: ONDANSETRON HCL 4 MG/2 ML VIAL IVP ONE (22:45)
[2016-09-26] MEDS ORDERED: OCTREOTIDE INJ 500 MCG in SODIUM CHLORID 0.9% 500 ML INJ 500 ML IV ONE (23:00)
[2016-09-26 23:10] LABS: AUTOMATED NEUTROPHIL # 2.3 TH/MM3 (1.8-7.7); BASOPHIL % 1.2 % (0.0-2.0); EOSINOPHIL # 0.1 TH/MM3 (0-0.4); EOSINOPHIL % 1.5 % (0.0-4.0); HEMATOCRIT 33.6 % (39.0-51.0); LYMPH % 28.3 % (9.0-44.0); LYMPHOCYTE # 1.2 TH/MM3 (1.0-4.8); MEAN CELL VOLUME 98.4 FL (80.0-100.0); MEAN CORPUSCULAR HEMOGLOBIN 32.7 PG (27.0-34.0); MEAN CORPUSCULAR HGB CONC 33.3 % (32.0-36.0); PLATELET COUNT 58 TH/MM3 (150-450); RED BLOOD COUNT 3.41 MIL/MM3 (4.50-5.90); RED CELL DISTRIBUTION WIDTH 16.8 % (11.6-17.2); WHITE BLOOD COUNT 4.2 TH/MM3 (4.0-11.0)
[2016-09-26 23:14] LABS: HEMO FLAGS AUTO DIFF
--- NOTE | 2016-09-26 23:15 | RADRPT ---
EXAM DATE/TIME: 09/26/2016 22:54 [facility] COMPARISON: CHEST SINGLE AP, September 24, 2016, 12:20. INDICATIONS : Hemoptysis. MEDICAL HISTORY : None. SURGICAL HISTORY : None. ENCOUNTER: Initial ACUITY: 2 days PAIN SCORE: 7/10 LOCATION: Bilateral abdomen FINDINGS: A single view of the chest demonstrates the lungs to be symmetrically aerated without evidence of mas s, infiltrate or effusion. The cardiomediastinal contours are unremarkable. Osseous structures are intact. CONCLUSION: No acute disease. Vincent Mendosa MD on September 26, 2016 at 23:13 Board Certified Radiologist. This report was verified electronically.
--- NOTE | 2016-09-26 23:18 | PD ---
HPI Chief Complaint: Bleeding Time Seen by Provider: 22:32 Travel History International Travel<30 days: No Contact w/Intl Traveler<30days: No Traveled to known affect area: No History of Present Illness HPI Patient is a 45-year-old with history of alcoholism and esophageal varices, presents to emergency room for evaluation. Patient reports that he is an alcoholic, reports that he drank about 5 beers today, reports that since 4 PM this afternoon, he began vomiting up blood. Reports that he must have vomited at least 3 times and thinks that he lost about 2 pints of blood. Reports that the last time this happened was around 10 years ago and he was admitted to the hospital and had EGD and had his esophageal varices banded. Patient reports that he has been having increased diffuse abdominal pain, reports increased nausea and vomiting. Patient reports he currently does not take any medications at this time, reports that he is supposed be on some Carafate as well as lactulose. PFSH Past Medical History Arthritis: No Asthma: No Autoimmune Disease: No Blood Disorders: Yes (ESOPHAGEAL VARICES) Anxiety: No Depression: No Heart Rhythm Problems: No Cancer: No Cardiovascular Problems: Yes (HTN) High Cholesterol: No Chemotherapy: No Chest Pain: No Congestive Heart Failure: No Cirrhosis: Yes (STAGE 4) COPD: No Diabetes: Yes Patient Takes Glucophage: Yes Diminished Hearing: No Endocrine: No Gastrointestinal Disorders: Yes (CIRRHOSIS LIVER) GERD: Yes Genitourinary: No Hiatal Hernia: No Hypertension: Yes Immune Disorder: No Kidney Stones: No Musculoskeletal: No Neurologic: No Psychiatric: No Reproductive: No Respiratory: No Integumentary: Yes (PSORIASIS) Immunizations Current: Yes Migraines: No Pancreatitis: Yes Radiation Therapy: No Renal Failure: No Seizures: No Sickle Cell Disease: No Sleep Apnea: No Thyroid Disease: No Ulcer: No Past Surgical History Abdominal Surgery: No AICD: No Arteriovenous Shunt: No Cardiac Surgery: No Ear Surgery: No Endocrine Surgery: No Eye Surgery: No Genitourinary Surgery: No Gynecologic Surgery: No Insulin Pump: No Joint Replacement: No Neurologic Surgery: No Oral Surgery: No Pacemaker: No Thoracic Surgery: No Other Surgery: Yes (ESOPHAGEAL BANDING & LIVER BIOPSY) Social History Alcohol Use: Yes (CHRONIC 1/2 GALLON MOST DAYS) Tobacco Use: Yes (1/2 PPD) Substance Use: Yes (marijaunia occasionally) Allergies-Medications (Allergen,Severity, Reaction): Coded Allergies: Penicillin (Verified Allergy, Severe, Hives, 09/26/16) Dilaudid (Verified Allergy, Intermediate, HIVES, 09/26/16) *MDRO Multi-Drug Resistant Organism (Verified Adverse Reaction, Unknown, ) MRSA PCR (nares) positive - 12/02/15 Reported Meds & Prescriptions Reported Meds & Active Scripts Active Calcium Carbonate 1,500 Mg Tab 1,500 Mg PO DAILY 1,500 mg calcium carbonate (600 mg elemental calcium) Magnesium Oxide 400 Mg Tab 400 Mg PO DAILY Reported Propranolol (Propranolol HCl) 20 Mg Tab 20 Mg PO Q12HR Xanax (Alprazolam) 1 Mg Tab 1 Mg PO Q6H PRN Metformin (Metformin HCl) 500 Mg Tab 500 Mg PO BIDPC With meals Multi-Vitamin Daily (Multiple Vitamin) 1 Tab Tab 1 Tab PO DAILY Review of Systems General / Constitutional: No: Fever Eyes: No: Visual changes HENT: No: Headaches Cardiovascular: No: Chest Pain or Discomfort Respiratory: No: Shortness of Breath Gastrointestinal: Positive: Nausea, Vomiting, Abdominal Pain, Hematemesis Genitourinary: No: Dysuria Musculoskeletal: No: Pain Skin: No Rash Neurologic: No: Weakness Psychiatric: No: Depression Endocrine: No: Polydipsia Hematologic/Lymphatic: No: Easy Bruising Physical Exam Narrative GENERAL: Moderate distress SKIN: Warm and dry. HEAD: Atraumatic. Normocephalic. EYES: Pupils equal and round. No scleral icterus. No injection or drainage. ENT: No nasal bleeding or discharge. Mucous membranes pink and moist. NECK: Trachea midline. No JVD. CARDIOVASCULAR: Regular rate and rhythm. No murmur appreciated. RESPIRATORY: No accessory muscle use. Clear to auscultation. Breath sounds equal bilaterally. GASTROINTESTINAL: Abdomen distended, diffusely tender, HEME neg stool, light green stool, exam performed with Pat at bedside MUSCULOSKELETAL: No obvious deformities. No clubbing. No cyanosis. No edema. NEUROLOGICAL: Awake and alert. No obvious cranial nerve deficits. Motor grossly within normal limits. Normal speech. PSYCHIATRIC: Appropriate mood and affect; insight and judgment normal. Data Data Last Documented VS Vital Signs Date Time Temp Pulse Resp B/P Pulse Ox O2 Delivery O2 Flow Rate FiO2 09/26/16 22:24 102 17 97 Room Air 09/26/16 22:18 98.9 169/90 Orders Ammonia (09/26/16 22:41) Alcohol (Ethanol) (09/26/16 22:41) Complete Blood Count With Diff (09/26/16 22:41) Lipase (09/26/16 22:41) Lactic Acid (09/26/16 22:41) Prothrombin Time / Inr (Pt) (09/26/16 22:41) Morphine Inj (Morphine Inj) (09/26/16 22:45) Ondansetron Inj (Zofran Inj) (09/26/16 22:45) Pantoprazole Inj (Protonix Inj) (09/26/16 22:45) Electrocardiogram (09/26/16 22:41) Ct Abd/Pel W/O Iv Contrast (09/26/16 22:45) Octreotide Inj (Sandostatin Inj) (09/26/16 23:00) Chest, Single Ap (09/26/16 ) Blood Culture (09/26/16 23:32) Vancomycin Inj (Vancomycin Inj) (09/26/16 23:32) Aztreonam Inj (Azactam Inj) (09/26/16 23:32) Metronidazole 500 Mg Inj (Flagyl 500 Mg (09/26/16 23:32) Comprehensive Metabolic Panel (09/26/16 23:42) Act Partial Throm Time (Ptt) (09/26/16 23:44) Pantoprazole Inj (Protonix Inj) (09/27/16 01:45) Pantoprazole Inj (Protonix Inj) (09/27/16 01:45) Admit Order (Ed Use Only) (09/27/16 00:34) Labs Laboratory Tests Test 09/26/16 09/26/16 22:48 22:53 Ammonia 42 MCMOL/L Lipase 184 U/L Ethyl Alcohol Level 327 MG/DL Sodium Level 136 MEQ/L Potassium Level 3.4 MEQ/L Chloride Level 96 MEQ/L Carbon Dioxide Level 29.2 MEQ/L Anion Gap 11 MEQ/L Blood Urea Nitrogen 3 MG/DL Creatinine 0.62 MG/DL Estimat Glomerular Filtration 142 ML/MIN Rate Random Glucose 330 MG/DL Calcium Level 7.8 MG/DL Total Bilirubin 1.7 MG/DL Aspartate Amino Transf 76 U/L (AST/SGOT) Alanine Aminotransferase 30 U/L (ALT/SGPT) Alkaline Phosphatase 265 U/L Total Protein 7.3 GM/DL Albumin 2.8 GM/DL White Blood Count 4.2 TH/MM3 Red Blood Count 3.41 MIL/MM3 Hemoglobin 11.2 GM/DL Hematocrit 33.6 % Mean Corpuscular Volume 98.4 FL Mean Corpuscular Hemoglobin 32.7 PG Mean Corpuscular Hemoglobin 33.3 % Concent Red Cell Distribution Width 16.8 % Platelet Count 58 TH/MM3 Mean Platelet Volume 10.0 FL Neutrophils (%) (Auto) 55.0 % Lymphocytes (%) (Auto) 28.3 % Monocytes (%) (Auto) 14.0 % Eosinophils (%) (Auto) 1.5 % Basophils (%) (Auto) 1.2 % Neutrophils # (Auto) 2.3 TH/MM3 Lymphocytes # (Auto) 1.2 TH/MM3 Monocytes # (Auto) 0.6 TH/MM3 Eosinophils # (Auto) 0.1 TH/MM3 Basophils # (Auto) 0.0 TH/MM3 CBC Comment AUTO DIFF Differential Comment AUTO DIFF CONFIRMED Platelet Estimate LOW Platelet Morphology Comment NORMAL Prothrombin Time 12.0 SEC Prothromb Time International 1.1 RATIO Ratio Lactic Acid Level 3.6 mmol/L Activated Partial 27.3 SEC Thromboplast Time MDM Medical Decision Making Medical Screen Exam Complete: Yes Emergency Medical Condition: Yes Interpretation(s) Vital Signs Date Time Temp Pulse Resp B/P Pulse Ox O2 Delivery O2 Flow Rate FiO2 09/26/16 22:24 102 17 97 Room Air 09/26/16 22:18 98.9 104 17 169/90 96 Differential Diagnosis Esophageal varices, liver cirrhosis, alcoholism, alcohol withdrawal, GERD, hepatic encephalopathy, electrolyte abnormality Narrative Course Patient is a 45-year-old male who presents to emergency room for evaluation of alcoholism and esophageal varices. Patient reports that he had 5 drinks today and started vomiting of blood. Patient has a history of esophageal varices in the past. Patient currently with no hematemesis. Labs as well as type and screen ordered. An ammonia level was ordered as well. Ct abdomen and pelvis without contrast was ordered to further evaluate for his abdominal pain. Octreotide ordered for gastric varices bleeding Hemoglobin is currently 11.2, patient has been typed and screened Lactic acid 3.6 - source of infection is another this time. Patient will be pancultured, given his allergy to penicillin, will give Azactam, vancomycin as well as Flagyl. Critical Care Narrative Aggregate critical care time was 45 minutes. Time to perform other separately billable procedures was not included in the critical care time. My time did not include minutes spent treating any other patients simultaneously or on activities that did not directly contribute to the patient's treatment. The services I provided to this patient were to treat and/or prevent clinically significant deterioration that could result in: , decompensation, deterioration I provided critical care services requiring my management, as noted below: Chart data review, documentation time, medication orders and management, vital sign assessments/reviewing monitor data, ordering and reviewing lab tests, ordering and interpreting/reviewing x-rays and diagnostic studies, care of the patient and discussion of the patient with the admitting physicians. Physician Communication Physician Communication case reviewed with dr mcmahon who accepts pt to service Diagnosis Primary Impression: GI (gastrointestinal bleed) Qualified Code: K29.21 - Gastrointestinal hemorrhage associated with alcoholic gastritis Additional Impressions: Lactic acidosis History of esophageal varices Pneumobilia impending delirium tremors Alcohol abuse Admitting Information Admitting Physician Requests: Admit Alyce Long DO Sep 26, 2016 23:18
[2016-09-26 23:28] LABS: INTERNATIONAL NORMALIZED RATIO 1.1 RATIO
[2016-09-26] MEDS ORDERED: metroNIDAZOLE 500 MG INJ 100 ML IV STA (23:32)
[2016-09-26] MEDS ORDERED: VANCOMYCIN INJ 1,000 MG in SODIUM CHLOR 0.9% 250 ML INJ 250 ML IV STA (23:32)
[2016-09-26] MEDS ORDERED: AZTREONAM INJ 2,000 MG in SODIUM CHLORIDE 0.9% INJ 100 ML IV STA (23:32)
[2016-09-26 23:37] LABS: PLATELET ESTIMATE SMEAR LOW (NORMAL); PLATELET MORPHOLOGY NORMAL (NORMAL); SCAN/DIFF AUTO DIFF CONFIRMED
[2016-09-27] VITALS (19 sets, daily range): BP systolic 147–170; BP diastolic 76–98; PULSE 84–115; RESP 15–20; TEMP 97.9–99.1; O2SAT 95–100
--- NOTE | 2016-09-27 00:07 | RADRPT ---
EXAM DATE/TIME: 09/26/2016 23:16 [facility] COMPARISON: CT ABDOMEN & PELVIS W/O CONTRAST, December 01, 2015, 21:42. INDICATIONS : Vomiting up blood. History of esophageal varices. ORAL CONTRAST: No oral contrast ingested. RADIATION DOSE: 9.96 CTDIvol (mGy) MEDICAL HISTORY : Cardiovascular disease. Hypertension. Diabetes mellitus type 2.Pancreatitis Cirrosis SURGICAL HISTORY : None. ENCOUNTER: Initial ACUITY: 1 day PAIN SCALE: 0/10 LOCATION: abdomen TECHNIQUE: Volumetric scanning of the abdomen and pelvis was performed. Using automated exposure control and ad justment of the mA and/or kV according to patient size, radiation dose was kept as low as reasonably achievable to obtain optimal diagnostic quality images. FINDINGS: There is cirrhosis and portal hypertension with a nodular hepatic contour, splenomegaly, and numerous abdominal varices with recanalization of the umbilical vein and abdominal wall varices. There is mod erate ascites. Urinary bladder is unremarkable. No evidence of bowel obstruction. The pancreas, adren al glands, left kidney unremarkable. Nonobstructing 2 mm right lower pole renal calculus and 1.5 mm r ight upper pole renal calculus. Cholelithiasis is present. There is pneumobilia identified in the exp ected location of common bile duct and common hepatic duct. Scattered atherosclerotic calcifications of the aorta and iliac vessels are seen. The stomach is not well-distended and there is diffuse gastr ic wall thickening suspected. Osseous structures are intact. CONCLUSION: 1. Cirrhosis and portal hypertension with ascites and extensive varices. 2. Pneumobilia. 3. The stomach is not well-distended and there is gastric wall thickening suspected. 4. Gallbladder wall thickening is noted and cholelithiasis. . Vincent Mendosa MD on September 27, 2016 at 0:01 Board Certified Radiologist. This report was verified electronically.
[2016-09-27 00:33] LABS: APTT (PATIENT) 27.3 SEC (24.3-30.1)
[2016-09-27 00:35] LABS: ALT (GPT) 30 U/L (12-78); ANION GAP 11 MEQ/L (5-15); AST (GOT) 76 U/L (15-37); BICARBONATE 29.2 MEQ/L (21.0-32.0); BLOOD UREA NITROGEN 3 MG/DL (7-18); CHLORIDE 96 MEQ/L (98-107); GLOMERULAR FILTRATION RATE 142 ML/MIN (>89); POTASSIUM 3.4 MEQ/L (3.5-5.1); SODIUM (NA) 136 MEQ/L (136-145)
[2016-09-27 00:37] LABS: ALKALINE PHOSPHATASE 265 U/L (45-117); TOTAL BILIRUBIN ADULT 1.7 MG/DL (0.2-1.0)
[2016-09-27] MEDS ORDERED: RESP: ALBUTEROL 2.5 MG/IPRATROPIUM 0.5 MG NEB (PRN) INH (00:45)
[2016-09-27] MEDS ORDERED: MISCELLANEOUS NURSING INFORMATION XX SCH (00:45)
[2016-09-27] MEDS ORDERED: CHLORHEXIDINE GLUCONATE 2 % 1 PACK (2 CLOTHS) TOP PRN (00:45)
[2016-09-27] MEDS ORDERED: METOCLOPRAMIDE HCL 10 MG/2 ML VIAL IV PRN (00:45)
[2016-09-27] MEDS ORDERED: ACETAMINOPHEN 325 MG TAB PO PRN (00:45)
[2016-09-27] MEDS ORDERED: LORazepam 2 MG/ML VIAL IV PRN (00:45)
[2016-09-27] MEDS ORDERED: PANTOPRAZOLE SODIUM 40 MG VIAL IV SCH (00:45)
[2016-09-27] MEDS ORDERED: chlordiazePOXIDE 25 MG CAP PO PRN (01:15)
[2016-09-27 01:23] LABS: BLOOD, URINE NEG (NEG); GLUCOSE,URINE 1000 mg/dL (NEG); KETONE, URINE 10 mg/dL (NEG); NITRITE,URINE NEG (NEG); URINE COLOR YELLOW (YELLW/STRAW)
[2016-09-27 01:25] LABS: COMMENT (UR) CULT NOT INDICATED; CULTURE IF INDICATED CULT NOT INDICATED
[2016-09-27] MEDS ORDERED: PANTOPRAZOLE INJ 80 MG in SODIUM CHLORIDE 0.9% INJ 100 ML IV SCH (01:45)
[2016-09-27] MEDS ORDERED: PANTOPRAZOLE INJ 80 MG in SODIUM CHLORIDE 0.9% INJ 35 ML IV ONE (01:45)
--- NOTE | 2016-09-27 02:04 | HHI.HP ---
HPI Service Critical Care Medicine Primary Care Physician Nilesh Mathew MD Admission Diagnosis GI BLEED Diagnosis: Travel History International Travel<30 Days: No Contact w/Intl Traveler <30 Da: No Traveled to Known Affected Are: No History of Present Illness 45-year-old unfortunate male with history of alcoholism and esophageal varices, presents for evaluation of hematemesis. Patient reports that he is an alcoholic , he drank about 5 beers today; however his alcohol level is 324 which doesn't correlate with 5 beers, reports that since 4 PM this afternoon, he began vomiting up blood. Reports that he must have vomited at least 3 times and thinks that he lost about 2 pints of blood. This has happened before 10 years ago and he was admitted to the hospital and had EGD and had his esophageal varices banded. Review of Systems Constitutional: COMPLAINS OF: Diaphoretic episodes, Fatigue, DENIES: Fever, Weight gain, Weight loss, Chills, Dizziness, Change in appetite, Night Sweats Endocrine: DENIES: Heat/cold intolerance, Polydipsia, Polyuria, Polyphagia Eyes: DENIES: Blurred vision, Diplopia, Eye inflammation, Eye pain, Vision loss , Photosensitivity, Double Vision Ears, nose, mouth, throat: DENIES: Tinnitus, Hearing loss, Vertigo, Nasal discharge, Oral lesions, Throat pain, Hoarseness, Ear Pain, Running Nose, Epistaxis, Sinus Pain, Toothache, Odynophagia Respiratory: DENIES: Apneas, Cough, Snoring, Wheezing, Hemoptysis, Sputum production, Shortness of breath Cardiovascular: DENIES: Chest pain, Palpitations, Syncope, Dyspnea on Exertion , PND, Lower Extremity Edema, Orthopnea, Claudication Gastrointestinal: COMPLAINS OF: Abdominal pain, Nausea, Vomiting, DENIES: Black stools, Bloody stools, Constipation, Diarrhea, Difficulty Swallowing, Anorexia Genitourinary: DENIES: Sexual dysfunction, Urinary frequency, Urinary incontinence, Urgency, Hematuria, Dysuria, Nocturia, Penile Discharge, Testicular Pain, Testicular Swelling Musculoskeletal: DENIES: Joint pain, Muscle aches, Stiffness, Joint Swelling, Back pain, Neck pain Integumentary: DENIES: Abnormal pigmentation, Nail changes, Pruritus, Rash Hematologic/lymphatic: DENIES: Bruising, Lymphadenopathy Immunologic/allergic: DENIES: Eczema, Urticaria Neurologic: DENIES: Abnormal gait, Headache, Localized weakness, Paresthesias, Seizures, Speech Problems, Tremor, Poor Balance Psychiatric: DENIES: Anxiety, Confusion, Mood changes, Depression, Hallucinations, Agitation, Suicidal Ideation, Homicidal Ideation, Delusions Past Family Social History Allergies: Coded Allergies: Penicillin (Verified Allergy, Severe, Hives, 09/26/16) Dilaudid (Verified Allergy, Intermediate, HIVES, 09/26/16) *MDRO Multi-Drug Resistant Organism (Verified Adverse Reaction, Unknown, ) MRSA PCR (nares) positive - 12/02/15 Past Medical History Alcoholic cirrhosis Hepatic encephalopathy Thrombosis of mesenteric vein Pancytopenia and chronic thrombocytopenia Diabetes mellitus type 2 Past Surgical History Patient denies (other than GI endoscopic procedures) Reported Medications Reported Meds & Active Scripts Active Calcium Carbonate 1,500 Mg Tab 1,500 Mg PO DAILY 1,500 mg calcium carbonate (600 mg elemental calcium) Magnesium Oxide 400 Mg Tab 400 Mg PO DAILY Reported Propranolol (Propranolol HCl) 20 Mg Tab 20 Mg PO Q12HR Xanax (Alprazolam) 1 Mg Tab 1 Mg PO Q6H PRN Metformin (Metformin HCl) 500 Mg Tab 500 Mg PO BIDPC With meals Multi-Vitamin Daily (Multiple Vitamin) 1 Tab Tab 1 Tab PO DAILY Active Ordered Medications Current Medications Medications (Trade) Dose Ordered Sig/Moni Route PRN Reason Start Time Stop Time Status Last Admin Dose Admin Sodium Chloride (NS 1000 ml Inj) 1,000 ml @ 125 mls/hr Q8H IV 09/27/16 00:45 Acetaminophen (Tylenol) 650 mg Q6H PRN PO PAIN 1-5 AND/OR FEVER >101F 09/27/16 00:45 Morphine Sulfate (Morphine Inj) 2 mg Q2H PRN IV PAIN SCALE 6 TO 10 09/27/16 00:45 Pantoprazole Sodium (Protonix Inj) 40 mg Q12H IV 09/27/16 00:45 Lorazepam (Ativan Inj) 1 mg Q1H PRN IV Agitation/Sedation 09/27/16 00:45 Ondansetron HCl (Zofran Inj) 4 mg Q6H PRN IV NAUSEA OR VOMITING 09/27/16 00:45 Metoclopramide HCl (Reglan Inj) 10 mg Q6H PRN IV NAUSEA OR VOMITING 09/27/16 00:45 Zolpidem Tartrate (Ambien) 5 mg HS PRN PO INSOMNIA 09/27/16 00:45 Miscellaneous Information 1 Q361D XX 09/27/16 00:45 Chlorhexidine Gluconate (Chlorhexidine 2% Cloth) 3 pack Taper DAILY@04 TOP 09/27/16 04:00 09/23/17 03:59 Chlorhexidine Gluconate 3 pack 3 pack UNSCH PRN TOP HYGIENIC CARE 09/27/16 00:45 Octreotide Acetate/Sodium Chloride (SandoSTATIN INJ/ NS 500 ml Inj) 500.0 ml @ 25 mls/hr Q20H IV 09/27/16 20:00 Chlordiazepoxide (Librium) 50 mg Taper Q6H PRN PO WITHDRAWAL 09/27/16 01:15 10/04/16 01:14 Family History Noncontributory Social History Smokes pack per day Heavy alcohol use Denies illicit drug abuse Physical Exam Vital Signs Vital Signs Date Time Temp Pulse Resp B/P Pulse Ox O2 Delivery O2 Flow Rate FiO2 09/26/16 22:24 102 17 97 Room Air 09/26/16 22:18 98.9 104 17 169/90 96 Physical Exam GENERAL: Well-nourished, well-developed. Alcohol smelling patient SKIN: Warm and dry. HEAD: Normocephalic. EYES: No scleral icterus. No injection or drainage. NECK: Supple, trachea midline. No JVD or lymphadenopathy. CARDIOVASCULAR: Regular rate and rhythm without murmurs, gallops, or rubs. RESPIRATORY: Breath sounds equal bilaterally. No accessory muscle use. GASTROINTESTINAL: Abdomen soft, non-tender, distended. Ascites MUSCULOSKELETAL: No cyanosis, or edema. BACK: Nontender without obvious deformity. No CVA tenderness. EXTREMITIES: Nonfocal, no edema clubbing or cyanosis Laboratory Laboratory Tests Test 09/26/16 09/26/16 09/27/16 22:48 22:53 00:30 Ammonia 42 Lipase 184 Ethyl Alcohol Level 327 Sodium Level 136 Potassium Level 3.4 Chloride Level 96 Carbon Dioxide Level 29.2 Anion Gap 11 Blood Urea Nitrogen 3 Creatinine 0.62 Estimat Glomerular Filtration 142 Rate Random Glucose 330 Calcium Level 7.8 Total Bilirubin 1.7 Aspartate Amino Transf 76 (AST/SGOT) Alanine Aminotransferase 30 (ALT/SGPT) Alkaline Phosphatase 265 Total Protein 7.3 Albumin 2.8 White Blood Count 4.2 Red Blood Count 3.41 Hemoglobin 11.2 Hematocrit 33.6 Mean Corpuscular Volume 98.4 Mean Corpuscular Hemoglobin 32.7 Mean Corpuscular Hemoglobin 33.3 Concent Red Cell Distribution Width 16.8 Platelet Count 58 Mean Platelet Volume 10.0 Neutrophils (%) (Auto) 55.0 Lymphocytes (%) (Auto) 28.3 Monocytes (%) (Auto) 14.0 Eosinophils (%) (Auto) 1.5 Basophils (%) (Auto) 1.2 Neutrophils # (Auto) 2.3 Lymphocytes # (Auto) 1.2 Monocytes # (Auto) 0.6 Eosinophils # (Auto) 0.1 Basophils # (Auto) 0.0 CBC Comment AUTO DIFF Differential Comment AUTO DIFF CONFIRMED Platelet Estimate LOW Platelet Morphology Comment NORMAL Prothrombin Time 12.0 Prothromb Time International 1.1 Ratio Lactic Acid Level 3.6 Activated Partial 27.3 Thromboplast Time Urine Color YELLOW Urine Turbidity CLEAR Urine pH 7.0 Urine Specific [place] 1.020 Urine Protein NEG Urine Glucose (UA) 1000 Urine Ketones 10 Urine Occult Blood NEG Urine Nitrite NEG Urine Bilirubin NEG Urine Urobilinogen LESS THAN 2.0 Urine Leukocyte Esterase NEG Urine RBC LESS THAN 1 Urine WBC LESS THAN 1 Microscopic Urinalysis Comment CULT NOT INDICATED Date/Time Procedure Status Source Growth 09/27/16 00:59 Aerobic Blood Culture Received Blood Peripheral Pending 09/27/16 00:59 Anaerobic Blood Culture Received Blood Peripheral Pending Result Diagram: 09/26/16 2253 09/26/16 2248 Imaging Last 24 hours Impressions Abdomen/Pelvis CT 09/26/165 Signed Impressions: Service Date/Time: Monday, September 26, 2016 23:16 - CONCLUSION: 1. Cirrhosis and portal hypertension with ascites and extensive varices. 2. Pneumobilia. 3. The stomach is not well-distended and there is gastric wall thickening suspected. 4. Gallbladder wall thickening is noted and cholelithiasis. . Vincent Mendosa MD Assessment and Plan Assessment and Plan Hematemesis - Possible variceal bleed - Admit to ICU - 2 Large-bore IV access - GI consult - Azactam and Flagyl prophylaxis - Series of H&H - Octreotide drip - Protonix IV twice a day Liver cirrhosis - Alcohol cessation counseling provided - Supportive care Hepatic encephalopathy - Monitor ammonia level - Lactulose when necessary Alcoholism - [facility] protocol - Librium taper Diabetes mellitus type 2 - Insulin sliding scale DVT GI prophylaxis - Teds SCDs Protonix Critical Care: The total critical care time was 35 minutes. Time to perform other separately billable procedures was not included in the critical care time. Terrell Murillo MD Sep 27, 2016 02:03
[2016-09-27] MEDS ORDERED: DEXTROSE 50% IN WATER 50 ML VIAL(D50) IV PUSH PRN (02:30)
[2016-09-27] MEDS ORDERED: GLUCAGON 1 MG/ML VIAL OTHER PRN (02:30)
[2016-09-27] MEDS ORDERED: ALPRAZolam 1 MG TAB PO PRN (02:30)
[2016-09-27] MEDS: SODIUM CHLOR 0.9% 1000 ML INJ 1,000 ML IV SCH ×3 (02:32→16:45)
[2016-09-27] MEDS: MORPHINE SULFATE 4 MG/ML INJ IV PRN ×6 (02:33→22:39)
[2016-09-27 02:42] LABS: AMPHETAMINE, URINE NEG (NEG); BARBITURATES, URINE NEG (NEG); COCAINE, URINE NEG (NEG)
[2016-09-27] MEDS: CHLORHEXIDINE GLUCONATE 2 % 1 PACK (2 CLOTHS) TOP SCH (04:00)
[2016-09-27 04:28] LABS: HEMATOCRIT 32.8 % (39.0-51.0)
[2016-09-27 04:37] LABS: REVIEW FLAG FINAL
[2016-09-27] MEDS: ONDANSETRON HCL 4 MG/2 ML VIAL IV PRN ×2 (04:52→20:34)
[2016-09-27] MEDS: INSULIN ASPART SUPPLEMENTAL SCALE SQ SCH ×4 (06:31→17:23)
[2016-09-27] MEDS ORDERED: POTASSIUM CHLOR 40 MEQ PREMIX 100 ML IV PRN ×2 (07:15)
[2016-09-27] MEDS ORDERED: POTASSIUM CHLOR 20 MEQ PREMIX 100 ML IV PRN ×2 (07:15)
[2016-09-27] MEDS ORDERED: POTASSIUM PHOSPHATE INJ 30 MMOL in SODIUM CHLOR 0.9% 250 ML INJ 250 ML IV PRN (07:15)
[2016-09-27] MEDS ORDERED: POTASSIUM PHOSPHATE MONOBASIC 500 MG TAB PO PRN (07:15)
[2016-09-27] MEDS ORDERED: MAGNESIUM OXIDE 400 MG TAB PO PRN (07:15)
[2016-09-27] MEDS ORDERED: SODIUM PHOSPHATE INJ 30 MMOL in SODIUM CHLOR 0.9% 250 ML INJ 240 ML IV PRN (07:15)
[2016-09-27] MEDS ORDERED: MAGNESIUM SULFATE INJ 4 GM in SODIUM CHLORIDE 0.9% INJ 92 ML IV PRN (07:15)
[2016-09-27] MEDS ORDERED: MAGNESIUM SULFATE INJ 2 GM in SODIUM CHLORIDE 0.9% INJ 96 ML IV PRN (07:15)
[2016-09-27] MEDS ORDERED: POTASSIUM PHOSPHATE MONOBASIC 500 MG TAB PO/TUBE PRN (07:15)
[2016-09-27] MEDS: PANTOPRAZOLE INJ 80 MG in SODIUM CHLORIDE 0.9% INJ 100 ML IV SCH ×2 (08:31→20:34)
[2016-09-27] MEDS: THIAMINE INJ 100 MG in SODIUM CHLORIDE 0.9% INJ 100 ML IV SCH (08:31)
[2016-09-27] MEDS: MAGNESIUM OXIDE 400 MG TAB PO SCH (08:32)
[2016-09-27] MEDS: MULTIVITAMIN TAB PO SCH (08:32)
[2016-09-27] MEDS: PROPRANOLOL HCL 20 MG TAB PO SCH ×2 (08:32→20:34)
--- NOTE | 2016-09-27 08:50 | PD.CONS ---
HPI History of Present Illness This is a 45 year old male patient with a history of known esophageal varices and liver cirrhosis secondary to alcohol abuse. He came to the ER for evaluation of hematemesis. He reports that he started having black tarry stool yesterday morning and then had a couple of episodes of vomiting "about 2 pints" of dark red blood. He did this about 2 times. He also has associated abdominal pain that he describes as a "stabbing" pain to his mid abdomen and upper abdominal area. This is intermittent and radiates to his back. This is aggravated by food intake and movement. He denies any heartburn. He is not on any medications for his stomach. He drinks 5-10 beers 3 times a week and last had 5 beers yesterday. He was last evaluated with EGD (01/23/16)---> portal gastropathy, esophageal varices grade 1-2, no active or signs of active bleeding. S/P Colonoscopy (01/24/16)---> cecum and ascending colon AVMs- APC, diverticulosis, internal hemorrhoids. No active bleeding. He does not take Ibuprofen. 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 Diabetes mellitus type 2 Esophageal varices Anxiety and depression GERD Psoriasis Rubi herpes Alcoholic Pancreatitis Internal hemorrhoids Portal gastropathy AVMs of the cecum and ascending colon Diverticulosis Past Surgical History EGD Liver biopsy (Patito De Los Santos) Coded Allergies: Penicillin (Verified Allergy, Severe, Hives, 09/26/16) Dilaudid (Verified Allergy, Intermediate, HIVES, 09/26/16) *MDRO Multi-Drug Resistant Organism (Verified Adverse Reaction, Unknown, ) MRSA PCR (nares) positive - 12/02/15 Medications Allergies Coded Allergies Type Severity Reaction Last Updated Verified Penicillin Allergy Severe Hives 09/26/16 Yes Dilaudid Allergy Intermediate HIVES 09/26/16 Yes *MDRO Multi-Drug Resistant Organism Adverse Reaction Unknown 09/26/16 Yes Active Scripts Medications Dose Route/Sig Days Date Category Dose Instructions Calcium Carbonate 1,500 Mg Tab 1,500 Mg PO DAILY 08/12/16 Rx 1,500 mg calcium carbonate (600 mg elemental calcium) Magnesium Oxide 400 Mg Tab 400 Mg PO DAILY 08/12/16 Rx Propranolol (Propranolol HCl) 20 Mg Tab 20 Mg PO Q12HR 08/11/16 Reported Xanax (Alprazolam) 1 Mg Tab 1 Mg PO Q6H PRN 06/14/16 Reported Metformin (Metformin HCl) 500 Mg Tab 500 Mg PO BIDPC 06/14/16 Reported With meals Multi-Vitamin Daily (Multiple Vitamin) 1 Tab Tab 1 Tab PO DAILY 06/14/16 Reported Family History Family history of strokes and both grandparents but denies any history of known liver disease Social History Smokes one half pack of cigarettes per day since the age of 20 History alcoholism. Currently drinking 5-10 beers 3x a week No illicit drug use (Patito De Los Santos) Review of Systems Constitutional: DENIES: Fatigue, Fever, Chills, Change in appetite Respiratory: DENIES: Cough Cardiovascular: DENIES: Chest pain Gastrointestinal: COMPLAINS OF: Abdominal pain, Black stools, Diarrhea, Nausea , Vomiting, Swelling of Abdomen, Hematemesis, DENIES: Bloody stools, Constipation Musculoskeletal: COMPLAINS OF: Back pain Hematologic/lymphatic: DENIES: Bruising Neurologic: DENIES: Headache Psychiatric: DENIES: Confusion (Patito De Los Santos) GI Exam Vitals I&O Vital Signs Date Time Temp Pulse Resp B/P Pulse Ox O2 Delivery O2 Flow Rate FiO2 09/27/16 06:00 100 09/27/16 05:41 20 09/27/16 05:24 99.1 93 16 157/89 100 09/27/16 05:00 103 09/27/16 04:42 98.6 101 16 155/81 98 Nasal Cannula 2 09/27/16 04:32 99 15 155/81 98 Room Air 09/27/16 04:25 98.6 100 15 167/88 97 Nasal Cannula 2 09/27/16 03:04 15 97 Nasal Cannula 2 09/27/16 02:58 101 17 147/81 98 Room Air 09/26/16 22:24 102 17 97 Room Air 09/26/16 22:18 98.9 104 17 169/90 96 I/O 09/26/16 09/26/16 09/26/16 09/27/16 09/27/16 09/27/16 07:00 15:00 23:00 07:00 15:00 23:00 Intake Total 1138 ml Output Total 0 ml Balance 1138 ml Intake IV Total 839 ml Platelets 299 ml Output Urine Total 0 ml # Bowel Movements 0 Imaging Last Impressions Abdomen/Pelvis CT 09/26/16 2245 Signed Impressions: Service Date/Time: Monday, September 26, 2016 23:16 - CONCLUSION: 1. Cirrhosis and portal hypertension with ascites and extensive varices. 2. Pneumobilia. 3. The stomach is not well-distended and there is gastric wall thickening suspected. 4. Gallbladder wall thickening is noted and cholelithiasis. . Vincent Mendosa MD Chest X-Ray 09/26/16 0000 Signed Impressions: Service Date/Time: Monday, September 26, 2016 22:54 - CONCLUSION: No acute disease. Vincent Mendosa MD Laboratory Test 09/26/16 09/26/16 09/27/16 09/27/16 22:48 22:53 00:30 02:28 Ammonia 42 MCMOL/L Lipase 184 U/L Ethyl Alcohol Level 327 MG/DL Sodium Level 136 MEQ/L Potassium Level 3.4 MEQ/L Chloride Level 96 MEQ/L Carbon Dioxide Level 29.2 MEQ/L Anion Gap 11 MEQ/L Blood Urea Nitrogen 3 MG/DL Creatinine 0.62 MG/DL Estimat Glomerular Filtration 142 ML/MIN Rate Random Glucose 330 MG/DL Calcium Level 7.8 MG/DL Total Bilirubin 1.7 MG/DL Aspartate Amino Transf 76 U/L (AST/SGOT) Alanine Aminotransferase 30 U/L (ALT/SGPT) Alkaline Phosphatase 265 U/L Total Protein 7.3 GM/DL Albumin 2.8 GM/DL White Blood Count 4.2 TH/MM3 Red Blood Count 3.41 MIL/MM3 Hemoglobin 11.2 GM/DL Hematocrit 33.6 % Mean Corpuscular Volume 98.4 FL Mean Corpuscular Hemoglobin 32.7 PG Mean Corpuscular Hemoglobin 33.3 % Concent Red Cell Distribution Width 16.8 % Platelet Count 58 TH/MM3 Mean Platelet Volume 10.0 FL Neutrophils (%) (Auto) 55.0 % Lymphocytes (%) (Auto) 28.3 % Monocytes (%) (Auto) 14.0 % Eosinophils (%) (Auto) 1.5 % Basophils (%) (Auto) 1.2 % Neutrophils # (Auto) 2.3 TH/MM3 Lymphocytes # (Auto) 1.2 TH/MM3 Monocytes # (Auto) 0.6 TH/MM3 Eosinophils # (Auto) 0.1 TH/MM3 Basophils # (Auto) 0.0 TH/MM3 CBC Comment AUTO DIFF Differential Comment AUTO DIFF CONFIRMED Platelet Estimate LOW Platelet Morphology Comment NORMAL Prothrombin Time 12.0 SEC Prothromb Time International 1.1 RATIO Ratio Lactic Acid Level 3.6 mmol/L Activated Partial 27.3 SEC Thromboplast Time Urine Color YELLOW Urine Turbidity CLEAR Urine pH 7.0 Urine Specific [place] 1.020 Urine Protein NEG mg/dL Urine Glucose (UA) 1000 mg/dL Urine Ketones 10 mg/dL Urine Occult Blood NEG Urine Nitrite NEG Urine Bilirubin NEG Urine Urobilinogen LESS THAN 2.0 MG/DL Urine Leukocyte Esterase NEG Urine RBC LESS THAN 1 /hpf Urine WBC LESS THAN 1 /hpf Microscopic Urinalysis Comment CULT NOT INDICATED Urine Opiates Screen NEG Urine Barbiturates Screen NEG Urine Amphetamines Screen NEG Urine Benzodiazepines Screen NEG Urine Cocaine Screen NEG Urine Cannabinoids Screen NEG Blood Bank Comment Test 09/27/16 09/27/16 03:55 05:10 Hemoglobin 11.1 GM/DL Hematocrit 32.8 % Nasal Screen MRSA (PCR) NEGATIVE Date/Time Procedure Status Source Growth 09/27/16 00:59 Aerobic Blood Culture Received Blood Peripheral Pending 09/27/16 00:59 Anaerobic Blood Culture Received Blood Peripheral Pending Physical Examination HEENT: Normocephalic; atraumatic; no jaundice. Throat is clear. NECK: Neck is supple, no JVD, no lymphadenopathy. CHEST: CTA CARDIAC: Regular, tachycardic ABDOMEN: Soft, nondistended, nontender; hepatosplenomegaly; bowel sounds are present in all four quadrants. Ascites EXTREMITIES: No clubbing, cyanosis, or edema. SKIN: Normal; no rash; no jaundice. 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 (Patito De Los Santos [facility]) Assessment and Plan Plan ASSESSMENT: - Upper GIB, Hematemesis, Melena. Reports melena and hematemesis started yesterday. 2 episodes of vomiting "about 2 pints" of red blood. Pt with known cirrhosis, varices. Continues to drink etoh. No NSAIDs. EGD (01/23/16)---> portal gastropathy, esophageal varices grade 1-2, no active or signs of active bleeding. S/P Colonoscopy (01/24/16)-- -> cecum and ascending colon AVMs- APC, diverticulosis, internal hemorrhoids. No active bleeding. No hematemesis since arrival to hospital- vomited bilious material. 32.8. - Nausea/Vomiting, Abdominal pain. Started yesterday. Abdomen/Pelvis CT ()----> 1. Cirrhosis and portal hypertension with ascites and extensive varices. 2. Pneumobilia. 3. The stomach is not well-distended and there is gastric wall thickening suspected. 4. Gallbladder wall thickening is noted and cholelithiasis. Zofran. - Elevated LFTs, Liver cirrhosis. CT as above. T. Bili 1.7, AST 76, ALT 30, Alk PHosph 265. - Anemia. .8. Protonix/Octreotide Gtt. - Thrombocytopenia. Plt 58. - Ascites. PLAN: - Plan for EGD with possible band ligation - Obtain consents - NPO - Protonix Gtt - Octreotide Gtt - Monitor HH - Spironolactone 25mg po daily - Lasix 20mg po daily - Transfuse as necessary - Supportive care - Further recommendations to follow based on results of above - Pt seen and examined by Dr. Caicedo and myself and this note is written on her behalf (Patito De Los Santos) Physician Comments seen, examined agree with above (Arlen Caicedo MD) Patito De Los Santos Sep 27, 2016 08:50 Arlen Caicedo MD Sep 27, 2016 17:00
[2016-09-27] MEDS: SPIRONOLACTONE 25 MG TAB PO SCH (09:57)
[2016-09-27] MEDS: FUROSEMIDE 40 MG TAB PO SCH (09:58)
[2016-09-27] MEDS ORDERED: ONDANSETRON HCL 4 MG/2 ML VIAL IV PUSH ONE (12:00)
--- NOTE | 2016-09-27 14:32 | EKG ---
Date Performed: 09/27/2016 Time Performed: 02:07:54 PTAGE: 45 years EKG: SINUS TACHYCARDIA MARKED RIGHT AXIS DEVIATION NONSPECIFIC T-WAVE ABNORMALITY Likely limb le ad reversal, recommend repeat ekg ABNORMAL ECG PREVIOUS TRACING : 08/09/2016 03.49 DOCTOR: Mickey Gerber Interpretating Date/Time 09/27/2016 14:30:24
[2016-09-27 15:52] LABS: AUTOMATED NEUTROPHIL # 2.4 TH/MM3 (1.8-7.7); BASOPHIL % 1.2 % (0.0-2.0); EOSINOPHIL # 0.1 TH/MM3 (0-0.4); EOSINOPHIL % 1.8 % (0.0-4.0); HEMATOCRIT 33.3 % (39.0-51.0); LYMPH % 17.8 % (9.0-44.0); LYMPHOCYTE # 0.6 TH/MM3 (1.0-4.8); MEAN CELL VOLUME 97.1 FL (80.0-100.0); MEAN CORPUSCULAR HEMOGLOBIN 33.4 PG (27.0-34.0); MEAN CORPUSCULAR HGB CONC 34.4 % (32.0-36.0); MONO % 10.5 % (0.0-8.0); NEUT % 68.7 % (16.0-70.0); PLATELET COUNT 71 TH/MM3 (150-450); RED BLOOD COUNT 3.43 MIL/MM3 (4.50-5.90); RED CELL DISTRIBUTION WIDTH 16.4 % (11.6-17.2); WHITE BLOOD COUNT 3.5 TH/MM3 (4.0-11.0)
[2016-09-27 15:56] LABS: HEMO FLAGS AUTO DIFF
[2016-09-27 16:07] LABS: POTASSIUM 3.5 MEQ/L (3.5-5.1)
[2016-09-27] MEDS ORDERED: PROPOFOL 200 MG/20 ML AMP IV ONE (16:36)
--- NOTE | 2016-09-27 16:44 | GIPROC ---
[facility] [address] [facility]. [facility], [address] EGD PROCEDURE REPORT EXAM DATE: 09/27/2016 PATIENT NAME: Kar Jonas MR #: [id number] BIRTHDATE: 1970 ATTENDING: Alren Caicedo MD ORDER #: [id number] RF TECHNICIAN: Enrique Godinez and Vadim Rodriguez STATUS: inpatient INDICATIONS: The patient is a 45 yr old male here for an EGD due to gi bleeding, cirrhosis PROCEDURE PERFORMED: EGD w/ biopsy MEDICATIONS: Per Anesthesia and None. TOPICAL ANESTHETIC: CONSENT: The patient understands the risks and benefits of the procedure and understands that these risks include, but are not limited to: sedation, allergic reaction, infection, perforation and/or bleeding. Alternative means of evaluation and treatment include, among others: physical exam, x-rays, and/or surgical intervention. The patient elects to proceed with this endoscopic procedure. medical equipment was checked for proper function. Hand hygiene and appropriate measures for infection prevention was taken. After the risks, benefits and alternatives of the procedure were thoroughly explained, Informed consent was verified, confirmed and timeout was successfully executed by the treatment team. The patient was anesthetized with topical anesthesia and the Pentax EG-[id number] endoscope was introduced through the mouth and advanced to the second portion of the duodenum. Retroflexed views revealed a hiatal hernia The gastroscope was then slowly withdrawn and removed. Bile -200 cc suctioned gastrtis antrum-biopsy duodenitis second portion-biopsy esophagel varices grade 2 no need for banding. ADVERSE EVENTS: There were no complications. IMPRESSIONS: 1. Bile -200 cc suctioned gastrtis antrum-biopsy duodenitis second portion-biopsy esophagel varices grade 2 no need for banding 2. Retroflexed views revealed a hiatal hernia RECOMMENDATIONS: 1. Await biopsy results. Biopsy results will not be ready for 7-10 days. If you don't hear from us in two weeks, call our office for biopsy results. 2. Anti-reflux regimen 3. Trial of reglan if further n, v insert ngt PATIENT CONDITION: stable DISPOSITION: Inpatient REPEAT EXAM: Return as needed for EGD Arlen Caicedo MD eSigned: Arlen Caicedo MD 09/27/2016 4:43 PM cc:
[2016-09-27] MEDS ORDERED: *RESP: ALBUTEROL 2.5 MG/3 ML NEB (PRN) PERIprocedural Use ONLY NEB ONE (17:00)
[2016-09-27 17:20] LABS: BANDS 9 % (0-6); BASOPHILS 2 % (0-2); EOSINOPHILS 1 % (0-4); METAMYELOCYTES 1 % (0-1); MYELOCYTES 1 % (0-0); NEUTROPHIL # MANUAL DIFF 2.8 TH/MM3 (1.8-7.7); POLYS (SEG NEUTROPHILS) 68 % (16-70); WBC DIFF SAMPLE 100
[2016-09-27 17:30] LABS: PLATELET ESTIMATE SMEAR LOW (NORMAL); PLATELET MORPHOLOGY NORMAL (NORMAL); SCAN/DIFF FINAL DIFF MANUAL
[2016-09-27] MEDS ORDERED: DO NOT ADM ANY ANTICOAGULANT DRUGS XX PRN (17:30)
[2016-09-27 17:32] LABS: STOMATOCYTES 1+ (NORMAL); TEARDROP RBCS 1+ (NORMAL)
[2016-09-27] MEDS: OCTREOTIDE INJ 500 MCG in SODIUM CHLORID 0.9% 500 ML INJ 499.5 ML IV SCH (20:34)
--- NOTE | 2016-09-27 22:11 | HHI.PR ---
Subjective History of Present Illness Patient seen and examined on 09/27/16. Vitals/Results Intake & Output 09/26/16 09/26/16 09/27/16 15:00 23:00 07:00 Intake Total 1138 ml Output Total 0 ml Balance 1138 ml IV Total 839 ml Platelets 299 ml Output Urine Total 0 ml # Bowel Movements 0 Vital Signs Vital Signs Date Time Temp Pulse Resp B/P Pulse Ox O2 Delivery O2 Flow Rate FiO2 09/27/16 18:16 100 09/27/16 17:27 98.6 95 16 130/79 92 Nasal Cannula 2 09/27/16 17:15 90 16 146/93 99 Nasal Cannula 2 09/27/16 17:00 91 16 142/84 94 Nasal Cannula 2 09/27/16 16:54 98.6 91 16 130/79 98 Nasal Cannula 2 09/27/16 16:00 93 09/27/16 16:00 98.0 93 18 150/80 97 09/27/16 14:00 100 09/27/16 13:58 20 09/27/16 12:00 93 09/27/16 12:00 98.0 93 18 150/80 97 09/27/16 11:16 95 Nasal Cannula 2.00 09/27/16 10:00 100 09/27/16 08:00 90 09/27/16 08:00 97.9 115 20 170/98 98 09/27/16 06:00 100 09/27/16 05:24 99.1 93 16 157/89 100 09/27/16 05:00 103 09/27/16 04:42 98.6 101 16 155/81 98 Nasal Cannula 2 09/27/16 04:32 99 15 155/81 98 Room Air 09/27/16 04:25 98.6 100 15 167/88 97 Nasal Cannula 2 09/27/16 03:04 15 97 Nasal Cannula 2 09/27/16 02:58 101 17 147/81 98 Room Air 09/26/16 22:24 102 17 97 Room Air 09/26/16 22:18 98.9 104 17 169/90 96 CBC/BMP: 09/27/16 1526 09/27/16 1526 Lab Results Laboratory Tests Test 09/26/16 09/26/16 09/27/16 09/27/16 22:48 22:53 00:30 02:28 Ammonia 42 MCMOL/L Lipase 184 U/L Ethyl Alcohol Level 327 MG/DL Sodium Level 136 MEQ/L Potassium Level 3.4 MEQ/L Chloride Level 96 MEQ/L Carbon Dioxide Level 29.2 MEQ/L Anion Gap 11 MEQ/L Blood Urea Nitrogen 3 MG/DL Creatinine 0.62 MG/DL Estimat Glomerular Filtration 142 ML/MIN Rate Random Glucose 330 MG/DL Calcium Level 7.8 MG/DL Total Bilirubin 1.7 MG/DL Aspartate Amino Transf 76 U/L (AST/SGOT) Alanine Aminotransferase 30 U/L (ALT/SGPT) Alkaline Phosphatase 265 U/L Total Protein 7.3 GM/DL Albumin 2.8 GM/DL White Blood Count 4.2 TH/MM3 Red Blood Count 3.41 MIL/MM3 Hemoglobin 11.2 GM/DL Hematocrit 33.6 % Mean Corpuscular Volume 98.4 FL Mean Corpuscular Hemoglobin 32.7 PG Mean Corpuscular Hemoglobin 33.3 % Concent Red Cell Distribution Width 16.8 % Platelet Count 58 TH/MM3 Mean Platelet Volume 10.0 FL Neutrophils (%) (Auto) 55.0 % Lymphocytes (%) (Auto) 28.3 % Monocytes (%) (Auto) 14.0 % Eosinophils (%) (Auto) 1.5 % Basophils (%) (Auto) 1.2 % Neutrophils # (Auto) 2.3 TH/MM3 Lymphocytes # (Auto) 1.2 TH/MM3 Monocytes # (Auto) 0.6 TH/MM3 Eosinophils # (Auto) 0.1 TH/MM3 Basophils # (Auto) 0.0 TH/MM3 CBC Comment AUTO DIFF Differential Comment AUTO DIFF CONFIRMED Platelet Estimate LOW Platelet Morphology Comment NORMAL Prothrombin Time 12.0 SEC Prothromb Time International 1.1 RATIO Ratio Lactic Acid Level 3.6 mmol/L Activated Partial 27.3 SEC Thromboplast Time Urine Color YELLOW Urine Turbidity CLEAR Urine pH 7.0 Urine Specific [place] 1.020 Urine Protein NEG mg/dL Urine Glucose (UA) 1000 mg/dL Urine Ketones 10 mg/dL Urine Occult Blood NEG Urine Nitrite NEG Urine Bilirubin NEG Urine Urobilinogen LESS THAN 2.0 MG/DL Urine Leukocyte Esterase NEG Urine RBC LESS THAN 1 /hpf Urine WBC LESS THAN 1 /hpf Microscopic Urinalysis Comment CULT NOT INDICATED Urine Opiates Screen NEG Urine Barbiturates Screen NEG Urine Amphetamines Screen NEG Urine Benzodiazepines Screen NEG Urine Cocaine Screen NEG Urine Cannabinoids Screen NEG Blood Bank Comment Test 09/27/16 09/27/16 09/27/16 03:55 05:10 15:26 Hemoglobin 11.1 GM/DL 11.5 GM/DL Hematocrit 32.8 % 33.3 % Nasal Screen MRSA (PCR) NEGATIVE White Blood Count 3.5 TH/MM3 Red Blood Count 3.43 MIL/MM3 Mean Corpuscular Volume 97.1 FL Mean Corpuscular Hemoglobin 33.4 PG Mean Corpuscular Hemoglobin 34.4 % Concent Red Cell Distribution Width 16.4 % Platelet Count 71 TH/MM3 Mean Platelet Volume 9.1 FL Neutrophils (%) (Auto) 68.7 % Lymphocytes (%) (Auto) 17.8 % Monocytes (%) (Auto) 10.5 % Eosinophils (%) (Auto) 1.8 % Basophils (%) (Auto) 1.2 % Neutrophils # (Auto) 2.4 TH/MM3 Lymphocytes # (Auto) 0.6 TH/MM3 Monocytes # (Auto) 0.4 TH/MM3 Eosinophils # (Auto) 0.1 TH/MM3 Basophils # (Auto) 0.0 TH/MM3 CBC Comment AUTO DIFF Differential Total Cells 100 Counted Neutrophils % (Manual) 68 % Band Neutrophils % 9 % Lymphocytes % 14 % Monocytes % 4 % Eosinophils % 1 % Basophils % 2 % Neutrophils # (Manual) 2.8 TH/MM3 Metamyelocytes 1 % Myelocytes 1 % Differential Comment FINAL DIFF MANUAL Platelet Estimate LOW Platelet Morphology Comment NORMAL Tear Drop Cells 1+ Stomatocytes 1+ Potassium Level 3.5 MEQ/L Phosphorus Level 1.7 MG/DL Magnesium Level 1.0 MG/DL Microbiology Microbiology 09/27/16 Aerobic Blood Culture, Received Pending 09/27/16 Anaerobic Blood Culture, Received Pending 09/27/16 Aerobic Blood Culture, Received Pending 09/27/16 Anaerobic Blood Culture, Received Pending Assessment/Plan Assessment/Plan Patient seen and examined on 09/27/16. Discussed Condition with: Patient Nilesh Mathew MD Sep 27, 2016 22:11
[2016-09-28] VITALS (14 sets, daily range): BP systolic 112–167; BP diastolic 64–87; PULSE 67–91; RESP 12–18; TEMP 98.1–99.7; O2SAT 95–98
[2016-09-28] MEDS: MORPHINE SULFATE 4 MG/ML INJ IV PRN ×5 (01:34→22:00)
[2016-09-28] MEDS: SODIUM CHLOR 0.9% 1000 ML INJ 1,000 ML IV SCH (01:40)
[2016-09-28 03:48] LABS: AUTOMATED NEUTROPHIL # 4.4 TH/MM3 (1.8-7.7); BASOPHIL % 0.9 % (0.0-2.0); EOSINOPHIL # 0.1 TH/MM3 (0-0.4); EOSINOPHIL % 1.3 % (0.0-4.0); HEMATOCRIT 33.4 % (39.0-51.0); LYMPHOCYTE # 0.6 TH/MM3 (1.0-4.8); MEAN CELL VOLUME 97.5 FL (80.0-100.0); MEAN CORPUSCULAR HEMOGLOBIN 32.8 PG (27.0-34.0); MEAN CORPUSCULAR HGB CONC 33.6 % (32.0-36.0); MONO % 10.2 % (0.0-8.0); NEUT % 76.6 % (16.0-70.0); PLATELET COUNT 59 TH/MM3 (150-450); RED BLOOD COUNT 3.42 MIL/MM3 (4.50-5.90); RED CELL DISTRIBUTION WIDTH 16.5 % (11.6-17.2); WHITE BLOOD COUNT 5.7 TH/MM3 (4.0-11.0)
[2016-09-28 03:53] LABS: HEMO FLAGS AUTO DIFF
[2016-09-28 03:59] LABS: INTERNATIONAL NORMALIZED RATIO 1.3 RATIO; PROTHROMBIN TIME - PATIENT 14.2 SEC (9.8-11.6)
[2016-09-28 04:33] LABS: BICARBONATE 30.7 MEQ/L (21.0-32.0); MAGNESIUM 0.9 MG/DL (1.5-2.5); POTASSIUM 3.5 MEQ/L (3.5-5.1); TOTAL BILIRUBIN ADULT 3.9 MG/DL (0.2-1.0)
[2016-09-28 04:35] LABS: CALCIUM-PROTEIN CORRECTED 7.1 MG/DL (8.5-10.1)
[2016-09-28] MEDS: CHLORHEXIDINE GLUCONATE 2 % 1 PACK (2 CLOTHS) TOP SCH ×2 (04:45→21:00)
[2016-09-28 05:23] LABS: STOMATOCYTES 1+ (NORMAL)
[2016-09-28 05:24] LABS: PLATELET ESTIMATE SMEAR LOW (NORMAL); PLATELET MORPHOLOGY NORMAL (NORMAL); SCAN/DIFF AUTO DIFF CONFIRMED
[2016-09-28] MEDS: INSULIN ASPART SUPPLEMENTAL SCALE SQ SCH ×4 (06:17→20:46)
[2016-09-28] MEDS ORDERED: CALCIUM GLUCONATE INJ 2 GM in SODIUM CHLORIDE 0.9% INJ 100 ML IV ONE (06:45)
[2016-09-28] MEDS: OCTREOTIDE INJ 500 MCG in SODIUM CHLORID 0.9% 500 ML INJ 499.5 ML IV SCH (08:20)
[2016-09-28] MEDS: MULTIVITAMIN TAB PO SCH (08:21)
[2016-09-28] MEDS: MAGNESIUM OXIDE 400 MG TAB PO SCH (08:21)
[2016-09-28] MEDS: PROPRANOLOL HCL 20 MG TAB PO SCH ×2 (08:21→20:45)
[2016-09-28] MEDS: FUROSEMIDE 40 MG TAB PO SCH (08:21)
[2016-09-28] MEDS: SPIRONOLACTONE 25 MG TAB PO SCH (08:21)
[2016-09-28] MEDS: PANTOPRAZOLE INJ 80 MG in SODIUM CHLORIDE 0.9% INJ 100 ML IV SCH ×3 (09:30→20:46)
[2016-09-28] MEDS: THIAMINE INJ 100 MG in SODIUM CHLORIDE 0.9% INJ 100 ML IV SCH (09:31)
[2016-09-28] MEDS ORDERED: amLODIPine BESYLATE 5 MG TAB PO SCH (09:45)
--- NOTE | 2016-09-28 14:12 | MH ---
cc: CCList DATE OF ADMISSION: 09/27/2016 CHIEF COMPLAINT Bloody vomiting. HISTORY OF PRESENT ILLNESS This is a 45-year-old male with past medical-surgical history significant for end-stage liver disease with esophageal varices, hypertension, cirrhosis of the liver, stage IV hypertension, psoriasis, history of esophageal banding and liver biopsy in the past. He is a history of chronic alcohol abuse and is a smoker and abuses marijuana currently. He came to the ER at [facility] with bloody vomiting and he has vomited at least three times and thinks that he has lost about two pints of blood. 2.0 blood. He reports that the last time this happened was about 10 years ago and was admitted to the hospital and the EGD and esophageal varices were banded. The patient also increased diffuse abdominal pain and nausea, vomiting and when I saw the patient the patient nausea, vomiting was better. Other than that, nothing significant. PAST MEDICAL/PAST SURGICAL HISTORY: As dictated above. Also anxiety. Diabetes mellitus. SOCIAL HISTORY Chronic alcohol abuser, also smokes one half pack per day for many years. Abuses marijuana, lives at home. FAMILY HISTORY Nothing significant. ALLERGIES PENICILLIN DILAUDID MEDICATIONS: Calcium carbonate 1500 mg p.o. daily. Magnesium sulfate 400 mg p.o. daily Propranolol 20 mg p.o. q. 12-hour Xanax 1 mg p.o. q. 6-hour Metformin 500 mg p.o. b.i.d. Multivitamin p.o. daily. REVIEW OF SYSTEMS Positive for feeling weak and tired and abdominal pain and nausea. All other review of systems are negative. PHYSICAL EXAMINATION IN GENERAL: This is a 45-year-old male laying on the bed not in acute distress. VITAL SIGNS: Temperature is 98.8, heart rate 78, respirations 16, blood pressure 150/87, O2 saturation 95% room air. HEAD, EYES, EARS, NOSE, AND THROAT: Normocephalic, atraumatic. Extraocular muscles intact, Pupils equal, round, reactive to light and accommodation, oral mucosa is moist. NECK: The neck is supple. No visible thyromegaly or neck mass. Trachea central. CARDIOVASCULAR SYSTEM: Regular rate and rhythm. RESPIRATIONS: Clear to auscultation bilaterally. ABDOMEN: Soft, diffusely tender on superficial palpation, deep palpation not done, distended abdomen. EXTREMITIES: No cyanosis or clubbing full range of motion of all extremities. NEUROLOGIC: Awake, alert, oriented x4. No focal deficits. SKIN: Warm and dry. PSYCHIATRIC: The patient is cooperative mood, affect is normal. LABORATORY DATA Include CBC showed WBC count is 5.7, hemoglobin 11.2 low, hematocrit 33.4 low platelet count 59 low. Neutrophil 76.6 high, monos 10.2 high. BMP totally unremarkable except for sodium 134 low, chloride 95 low. In 0.57 low, glucose 172 high, glucose was 330 now it is 172, calcium 7.0, zero low, corrected calcium is 7.1, phosphorus 1.3 low, magnesium 0.9 low, total bilirubin 3.9 high AST 94 high alkaline phosphatase 193 high, albumin 2.5 low, lipase 184 folate level 40 to high. PT 14.2, INR 0.3, APTT 27.3. Urinalysis done shows glucose one 1000 high, ketones 10 high. Urine toxicology screen is negative. Alcohol level 327 high nasal MRSA screen negative. Blood cultures x2 done negative for 1 day. Chest x-ray Was done shows nothing acute. CT abdomen and pelvis was done shows cirrhosis and portal hypertension with ascites and extensive basis. Neuro media the stomach is not well distended and there is a gastric wall thickening suspected on the gallbladder wall thickening is noted as an cholelithiasis. ASSESSMENT/PLAN 1. This is a 42-day-old male who came to the ER diagnosed with 2. Upper GI bleed, hematemesis to episode of vomiting about 2.048, blood cell loss monitoring H&H. No and status post total gastropathy and esophageal varices status post colonoscopy on 719-1016 mL, ascending colon have AVM or formation diverticulosis, internal hemorrhoids the patient a going to get upper endoscopy by GI soon. Further recommendation per GI. 3. Excessive nausea or vomiting with abdominal pain which is improved. 4. Cirrhosis with portal hypertension with massive ascites with hemobilia stomach is well distended. 5. Gallbladder wall thickening and with cholelithiasis. 6. Elevated liver function tests, secondary to alcoholic hepatitis. 7. Anemia secondary to acute blood loss. The patient is on Protonix and . 8. We will monitor H&H. 9. Thrombocytopenia, platelet count 58, secondary to alcoholic liver disease. Massive ascites. 10. Diabetes mellitus ADA diet regular diet. 11. NovoLog low-dose sliding scale. 12. Check blood sugars at bedtime monitor blood sugar. 13. Anxiety, holding anxiety medications. 14. Supportive care. 15. Deep venous thrombosis prophylaxis. 16. Sequential compression devices 17. GI prophylaxis Protonix 40 mg p.o. daily. 18. We are going to manage the patient daily basis and make a recommendation daily basis. Nilesh Mathew MD EA/jessica /11:28 AM /11:43 AM
--- NOTE | 2016-09-28 14:50 | HHI.PR ---
Subjective Remarks Patient denies nausea or vomiting denies cp/sob states has not had a bowel movement yet deneis fevers/chills c/o headache glucose seems to be improving Patient has low Calcium, low phosphorus, low magnesium Objective Vitals Vital Signs Date Time Temp Pulse Resp B/P Pulse Ox O2 Delivery O2 Flow Rate FiO2 09/28/16 12:00 98.9 81 16 167/87 09/28/16 12:00 67 09/28/16 10:00 78 09/28/16 08:15 95 Nasal Cannula 2.00 09/28/16 08:00 78 09/28/16 08:00 98.9 78 16 150/87 09/28/16 06:00 78 09/28/16 04:54 18 09/28/16 04:00 98.9 78 16 163/85 09/28/16 04:00 78 09/28/16 02:00 80 09/28/16 00:00 80 09/28/16 00:00 95 Nasal Cannula 4.00 09/28/16 00:00 99.7 80 12 151/77 09/27/16 22:00 84 09/27/16 21:30 156/76 09/27/16 20:00 99.1 91 18 96 09/27/16 20:00 96 Nasal Cannula 5.00 09/27/16 20:00 91 09/27/16 19:45 96 Nasal Cannula 2.00 09/27/16 18:16 100 09/27/16 17:27 98.6 95 16 130/79 92 Nasal Cannula 2 09/27/16 17:15 90 16 146/93 99 Nasal Cannula 2 09/27/16 17:00 91 16 142/84 94 Nasal Cannula 2 09/27/16 16:54 98.6 91 16 130/79 98 Nasal Cannula 2 09/27/16 16:00 93 09/27/16 16:00 98.0 93 18 150/80 97 I/O 09/27/16 09/27/16 09/27/16 09/28/16 09/28/16 09/28/16 07:00 15:00 23:00 07:00 15:00 23:00 Intake Total 1138 ml 875 ml 1091 ml 1130 ml Output Total 0 ml 950 ml 575 ml 1450 ml Balance 1138 ml -75 ml 516 ml -320 ml Intake Oral 0 ml 30 ml 30 ml IV Total 839 ml 875 ml 761 ml 1100 ml Platelets 299 ml Other 300 ml Output Urine Total 0 ml 950 ml 575 ml 1450 ml # Bowel Movements 0 0 0 Result Diagram: 09/28/16 0330 09/28/16 0330 Imaging Last Impressions Abdomen/Pelvis CT 09/26/16 2245 Signed Impressions: Service Date/Time: Monday, September 26, 2016 23:16 - CONCLUSION: 1. Cirrhosis and portal hypertension with ascites and extensive varices. 2. Pneumobilia. 3. The stomach is not well-distended and there is gastric wall thickening suspected. 4. Gallbladder wall thickening is noted and cholelithiasis. . Vincent Mendosa MD Chest X-Ray 09/26/16 0000 Signed Impressions: Service Date/Time: Monday, September 26, 2016 22:54 - CONCLUSION: No acute disease. Vincent Mendosa MD Objective Remarks GENERAL: Well-nourished, well-developed. SKIN: Warm and dry. HEAD: Normocephalic. EYES: No scleral icterus. No injection or drainage. NECK: Supple, trachea midline. No JVD or lymphadenopathy. CARDIOVASCULAR: Regular rate and rhythm without murmurs, gallops, or rubs. RESPIRATORY: Breath sounds equal bilaterally. No accessory muscle use. GASTROINTESTINAL: Abdomen soft, tender to palpation over epigastric region and right upper quadrant. MUSCULOSKELETAL: No cyanosis, or edema. BACK: Nontender without obvious deformity. No CVA tenderness. EXTREMITIES: Nonfocal, no edema clubbing or cyanosis Medications and IVs Current Medications Medications (Trade) Dose Ordered Sig/Moni Route Start Time Stop Time Status Last Admin (NS 1000 ml Inj) 1,000 ml @ 125 mls/hr Q8H IV 09/27/16 00:45 09/28/16 01:40 (Tylenol) 650 mg Q6H PRN PO 09/27/16 00:45 (Morphine Inj) 2 mg Q2H PRN IV 09/27/16 00:45 09/28/16 08:21 (Ativan Inj) 1 mg Q1H PRN IV 09/27/16 00:45 (Zofran Inj) 4 mg Q6H PRN IV 09/27/16 00:45 09/27/16 20:34 (Reglan Inj) 10 mg Q6H PRN IV 09/27/16 00:45 (Ambien) 5 mg HS PRN PO 09/27/16 00:45 Miscellaneous Information 1 Q361D XX 09/27/16 00:45 09/27/16 05:35 (Chlorhexidine 2% Cloth) 3 pack Taper DAILY@04 TOP 09/27/16 04:00 09/23/17 03:59 09/28/16 04:45 Chlorhexidine Gluconate 3 pack 3 pack UNSCH PRN TOP 09/27/16 00:45 (SandoSTATIN INJ/ NS 500 ml Inj) 500.0 ml @ 25 mls/hr Q20H IV 09/27/16 20:00 09/28/16 08:20 (Librium) 25 mg Taper Q6H PRN PO 09/27/16 01:15 10/04/16 01:14 09/28/16 09:30 (Xanax) 1 mg Q6H PRN PO 09/27/16 02:30 09/28/16 09:30 (Mag-Ox) 400 mg DAILY PO 09/27/16 09:00 09/28/16 08:21 (Theragran) 1 tab DAILY PO 09/27/16 09:00 09/28/16 08:21 (Inderal) 20 mg Q12HR PO 09/27/16 09:00 09/28/16 08:21 (D50w (Vial) Inj) 25 ml UNSCH PRN IV PUSH 09/27/16 02:30 Glucagon 1 mg 1 mg UNSCH PRN OTHER 09/27/16 02:30 Pantoprazole Sodium 80 mg/ Sodium Chloride 100 ml @ 10 mls/hr Q10H IV 09/27/16 08:15 09/28/16 09:30 Thiamine HCl 100 mg/Sodium Chloride 101 ml @ 101 mls/hr DAILY IV 09/27/16 09:00 10/02/16 08:59 09/28/16 09:31 Potassium Chloride 100 ml @ 50 mls/hr Q2H PRN IV 09/27/16 07:15 Potassium Chloride 100 ml @ 50 mls/hr Q2H PRN IV 09/27/16 07:15 Potassium Chloride 100 ml @ 25 mls/hr UNSCH PRN IV 09/27/16 07:15 Potassium Chloride 100 ml @ 50 mls/hr Q2H PRN IV 09/27/16 07:15 (Magnesium Sulfate Inj/NS Inj) 100 ml @ 50 mls/hr UNSCH PRN IV 09/27/16 07:15 Magnesium Oxide 800 mg 800 mg UNSCH PRN PO 09/27/16 07:15 (Magnesium Sulfate Inj/NS Inj) 100 ml @ 50 mls/hr UNSCH PRN IV 09/27/16 07:15 Potassium Phosphate 2000 mg 2,000 mg Q4H PRN PO 09/27/16 07:15 (Sodium Phosphate Inj/NS 250 ml Inj) 250 ml @ 42 mls/hr UNSCH PRN IV 09/27/16 07:15 Potassium Phosphate 2000 mg 2,000 mg UNSCH PRN PO/TUBE 09/27/16 07:15 (Potassium Phosphate Inj/NS 250 ml Inj) 260 ml @ 42 mls/hr UNSCH PRN IV 09/27/16 07:15 (Aldactone) 25 mg DAILY PO 09/27/16 09:00 09/28/16 08:21 (Lasix) 40 mg DAILY PO 09/27/16 09:00 09/28/16 08:21 Miscellaneous Information ALL NURSING DEPARTME... UNSCH PRN XX 09/27/16 17:30 09/28/16 17:29 (Norvasc) 5 mg DAILY PO 09/28/16 09:45 Urinary Catheter: No Vascular Central Line Catheter: No A/P Problem List: (1) Hematemesis ICD Code: K92.0 Status: Acute Plan: Patient was admitted to the intensive care unit and initially cared by corporate pilot. Gi consulted and following patient. Hemoglobin is stable, continue to monitor H/H sp EGD which showed Gastritis, esophagitis and Grade II esophageal varices. Continue IV Protonix and IV octreotide. (2) Cirrhosis of liver ICD Code: K74.60 Status: Chronic Plan: fu Gi recommendations. Continue spironolactone and propranolol. (3) Esophageal varices ICD Code: I85.00 Status: Acute Plan: On propranolol. will increase dose to 40 mg po bid since patient's blood pressure is elevated. (4) Lactic acidosis ICD Code: E87.2 Status: Acute Plan: resolved after IV fluid administration. (5) Pneumobilia ICD Code: K83.8 Status: Acute Plan: fu GI recommendations. (6) Alcohol abuse ICD Code: F10.10 Status: Acute Plan: advised alcohol cessation. (7) Thickening of wall of gallbladder ICD Code: K82.8 Status: Acute Plan: As seen on CT of abdomen and pelvis. ? Chronic Cholecystitis. I will obtain an abdominal ultrasound. Discussed with Patito De Los Santos the GI PA (8) Hyponatremia ICD Code: E87.1 Status: Acute Plan: Mild. Likely hypervolemic in nature. Continue po lasix and monitor BMP. (9) Hypocalcemia ICD Code: E83.51 Status: Acute Plan: Likely due to poor po intake from etoh abuse. replace as per ICU protocol. (10) Hypomagnesemia ICD Code: E83.42 Status: Acute Plan: Likely due to poor po intake from etoh abuse. replace as per ICU protocol. (11) Hypophosphatemia ICD Code: E83.39 Status: Acute Plan: likely nutritional deficiency. replace as pr icu protocol. Assessment and Plan DVT Prophylaxis: SCD's, no chemoprophylaxis due to GI bleed. Discharge Planning ok to tranfer to the medical floor. Dc pending us, GI clearance. Problem Qualifiers (1) Hematemesis: Qualified Code: K92.0 - Hematemesis with nausea (2) Cirrhosis of liver: (3) Esophageal varices: Qualified Code: I85.10 - Secondary esophageal varices without bleeding Jamari Salazar MD Sep 28, 2016 14:50
--- NOTE | 2016-09-28 15:41 | HHI.PR ---
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 Review of Systems Constitutional Constitutional: Fatigue, Weakness GI/Abdomen GI/Abdominal Exam: Nausea, Abdominal Pain GI/Abdomen Remarks distended abdomen. Vitals/Results Intake & Output 09/27/16 09/27/16 09/28/16 15:00 23:00 07:00 Intake Total 875 ml 1091 ml 1130 ml Output Total 950 ml 575 ml 1450 ml Balance -75 ml 516 ml -320 ml Intake Oral 0 ml 30 ml 30 ml IV Total 875 ml 761 ml 1100 ml Other 300 ml Output Urine Total 950 ml 575 ml 1450 ml # Bowel Movements 0 0 Vital Signs Vital Signs Date Time Temp Pulse Resp B/P Pulse Ox O2 Delivery O2 Flow Rate FiO2 09/28/16 14:00 67 09/28/16 12:00 98.9 81 16 167/87 09/28/16 12:00 67 09/28/16 10:00 78 09/28/16 08:15 95 Nasal Cannula 2.00 09/28/16 08:00 78 09/28/16 08:00 98.9 78 16 150/87 09/28/16 06:00 78 09/28/16 04:54 18 09/28/16 04:00 98.9 78 16 163/85 09/28/16 04:00 78 09/28/16 02:00 80 09/28/16 00:00 80 09/28/16 00:00 95 Nasal Cannula 4.00 09/28/16 00:00 99.7 80 12 151/77 09/27/16 22:00 84 09/27/16 21:30 156/76 09/27/16 20:00 99.1 91 18 96 09/27/16 20:00 96 Nasal Cannula 5.00 09/27/16 20:00 91 09/27/16 19:45 96 Nasal Cannula 2.00 09/27/16 18:16 100 09/27/16 17:27 98.6 95 16 130/79 92 Nasal Cannula 2 09/27/16 17:15 90 16 146/93 99 Nasal Cannula 2 09/27/16 17:00 91 16 142/84 94 Nasal Cannula 2 09/27/16 16:54 98.6 91 16 130/79 98 Nasal Cannula 2 3/23/17 16:00 93 09/27/16 16:00 98.0 93 18 150/80 97 CBC/BMP: 09/28/16 0330 09/28/16 0330 Lab Results Laboratory Tests Test 09/28/16 03:30 White Blood Count 5.7 TH/MM3 Red Blood Count 3.42 MIL/MM3 Hemoglobin 11.2 GM/DL Hematocrit 33.4 % Mean Corpuscular Volume 97.5 FL Mean Corpuscular Hemoglobin 32.8 PG Mean Corpuscular Hemoglobin 33.6 % Concent Red Cell Distribution Width 16.5 % Platelet Count 59 TH/MM3 Mean Platelet Volume 9.0 FL Neutrophils (%) (Auto) 76.6 % Lymphocytes (%) (Auto) 11.0 % Monocytes (%) (Auto) 10.2 % Eosinophils (%) (Auto) 1.3 % Basophils (%) (Auto) 0.9 % Neutrophils # (Auto) 4.4 TH/MM3 Lymphocytes # (Auto) 0.6 TH/MM3 Monocytes # (Auto) 0.6 TH/MM3 Eosinophils # (Auto) 0.1 TH/MM3 Basophils # (Auto) 0.0 TH/MM3 CBC Comment AUTO DIFF Differential Comment AUTO DIFF CONFIRMED Platelet Estimate LOW Platelet Morphology Comment NORMAL Stomatocytes 1+ Prothrombin Time 14.2 SEC Prothromb Time International 1.3 RATIO Ratio Sodium Level 134 MEQ/L Potassium Level 3.5 MEQ/L Chloride Level 95 MEQ/L Carbon Dioxide Level 30.7 MEQ/L Anion Gap 8 MEQ/L Blood Urea Nitrogen 3 MG/DL Creatinine 0.57 MG/DL Estimat Glomerular Filtration 156 ML/MIN Rate Random Glucose 172 MG/DL Lactic Acid Level 1.5 mmol/L Calcium Level 7.0 MG/DL Protein Corrected Calcium 7.1 MG/DL Phosphorus Level 1.3 MG/DL Magnesium Level 0.9 MG/DL Total Bilirubin 3.9 MG/DL Aspartate Amino Transf 94 U/L (AST/SGOT) Alanine Aminotransferase 34 U/L (ALT/SGPT) Alkaline Phosphatase 193 U/L Total Protein 6.9 GM/DL Albumin 2.5 GM/DL Lipase 93 U/L Physical Exam General General Appearance: No Acute Distress, Comfortable Eyes Eye Exam: Pupils Equal, Pupils Reactive, Sclera White, Extraocular Movement Intact Throat Throat Exam: Oral Mucosa [place] & Moist, Oral Pharynx Normal Neck Neck Exam: Neck Supple, Trachea Midline Pulmonary Resp Exam: Clear Bilaterally, Breath Sounds Equal Cardiology CV Exam: Regular, Normal Sinus Rhythm Gastrointestinal/Abdomen GI Exam: Bowel Sounds Present, Distended GI Remarks Massive Ascities and diffuse abdominal tenderness. Musculoskeletal MS Exam: Normal Tone Integumentary Skin Exam: Warm, Dry Neurologic Neuro Exam: Alert, Awake, Oriented, Speech Clear, Moving All Extremities, No Focal Deficits Psychiatric Psych Exam: Appropriate Responses VTE Prophylaxis VTE Prophylaxis Device: SCDs PUD Prophylasis PUD Prophylaxis: Protonix Assessment/Plan Problem List: (1) Hematemesis Plan: Patient was admitted to the intensive care unit and initially cared by residential support worker. Gi consulted and following patient. Hemoglobin is stable, continue to monitor H/H sp EGD which showed Gastritis, esophagitis and Grade II esophageal varices. Continue IV Protonix and IV octreotide. (2) Cirrhosis of liver Plan: fu Gi recommendations. Continue spironolactone and propranolol. (3) Esophageal varices Plan: On propranolol. will increase dose to 40 mg po bid since patient's blood pressure is elevated. (4) Lactic acidosis Plan: resolved after IV fluid administration. (5) Pneumobilia Plan: fu GI recommendations. (6) Alcohol abuse Plan: advised alcohol cessation. (7) Thickening of wall of gallbladder Plan: As seen on CT of abdomen and pelvis. ? Chronic Cholecystitis. I will obtain an abdominal ultrasound. Discussed with Patito De Los Santos the GI PA (8) Hyponatremia Plan: Mild. Likely hypervolemic in nature. Continue po lasix and monitor BMP. (9) Hypocalcemia Plan: Likely due to poor po intake from etoh abuse. replace as per ICU protocol. (10) Hypomagnesemia Plan: Likely due to poor po intake from etoh abuse. replace as per ICU protocol. (11) Hypophosphatemia Plan: likely nutritional deficiency. replace as pr icu protocol. Assessment/Plan ASSESSMENT/PLAN 1. This is a 40-day-old male who came to the ER diagnosed with 2. Upper GI bleed, hematemesis monitoring H & H. 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 Further recommendation per GI. 3. Excessive nausea or vomiting with abdominal pain which is improved. 4. Cirrhosis with portal hypertension with massive ascites with stomach is well distended. 5. Gallbladder wall thickening and with cholelithiasis. 6. Elevated liver function tests, secondary to alcoholic hepatitis. 7. Anemia secondary to acute blood loss. The patient is on Protonix and We will monitor H&H. 8. Thrombocytopenia, platelet count 58, secondary to alcoholic liver disease. 9. Diabetes mellitus ADA diet regular diet...NovoLog low-dose sliding scale..Check blood sugars at bedtime monitor blood sugar. 10. Anxiety, holding anxiety medications. 11. Supportive care. 12. Deep venous thrombosis prophylaxis...Sequential compression devices 13. GI prophylaxis Protonix 40 mg p.o. daily. 14. We are going to manage the patient daily basis and make a recommendation daily basis. Check CBC with diff CMP in AM. Discussed Condition with: Patient Problem Qualifiers (1) Hematemesis: Qualified Code: K92.0 - Hematemesis with nausea (2) Cirrhosis of liver: (3) Esophageal varices: Qualified Code: I85.10 - Secondary esophageal varices without bleeding Nilesh Mathew MD Sep 28, 2016 15:41
--- NOTE | 2016-09-28 15:49 | HHI.GIFU ---
Subjective Remarks Resting in bed. No bleeding. No n/v. Does have epigastric pain radiating to back. This is epigastric and RUQ. (Patito De Los Santos) Objective Vitals I&O Vital Signs Date Time Temp Pulse Resp B/P Pulse Ox O2 Delivery O2 Flow Rate FiO2 09/28/16 14:00 67 09/28/16 12:00 98.9 81 16 167/87 09/28/16 12:00 67 09/28/16 10:00 78 09/28/16 08:15 95 Nasal Cannula 2.00 09/28/16 08:00 78 09/28/16 08:00 98.9 78 16 150/87 09/28/16 06:00 78 09/28/16 04:54 18 09/28/16 04:00 98.9 78 16 163/85 09/28/16 04:00 78 09/28/16 02:00 80 09/28/16 00:00 80 09/28/16 00:00 95 Nasal Cannula 4.00 09/28/16 00:00 99.7 80 12 151/77 09/27/16 22:00 84 09/27/16 21:30 156/76 09/27/16 20:00 99.1 91 18 96 09/27/16 20:00 96 Nasal Cannula 5.00 09/27/16 20:00 91 09/27/16 19:45 96 Nasal Cannula 2.00 09/27/16 18:16 100 09/27/16 17:27 98.6 95 16 130/79 92 Nasal Cannula 2 09/27/16 17:15 90 16 146/93 99 Nasal Cannula 2 09/27/16 17:00 91 16 142/84 94 Nasal Cannula 2 09/27/16 16:54 98.6 91 16 130/79 98 Nasal Cannula 2 09/27/16 16:00 93 09/27/16 16:00 98.0 93 18 150/80 97 I/O 09/27/16 09/27/16 09/27/16 09/28/16 09/28/16 09/28/16 07:00 15:00 23:00 07:00 15:00 23:00 Intake Total 1138 ml 875 ml 1091 ml 1130 ml 1870 ml Output Total 0 ml 950 ml 575 ml 1450 ml 1800 ml Balance 1138 ml -75 ml 516 ml -320 ml 70 ml Intake Oral 0 ml 30 ml 30 ml 120 ml IV Total 839 ml 875 ml 761 ml 1100 ml 1750 ml Platelets 299 ml Other 300 ml Output Urine Total 0 ml 950 ml 575 ml 1450 ml 1800 ml # Bowel Movements 0 0 0 0 Laboratory Laboratory Tests Test 09/28/16 03:30 White Blood Count 5.7 Red Blood Count 3.42 Hemoglobin 11.2 Hematocrit 33.4 Mean Corpuscular Volume 97.5 Mean Corpuscular Hemoglobin 32.8 Mean Corpuscular Hemoglobin 33.6 Concent Red Cell Distribution Width 16.5 Platelet Count 59 Mean Platelet Volume 9.0 Neutrophils (%) (Auto) 76.6 Lymphocytes (%) (Auto) 11.0 Monocytes (%) (Auto) 10.2 Eosinophils (%) (Auto) 1.3 Basophils (%) (Auto) 0.9 Neutrophils # (Auto) 4.4 Lymphocytes # (Auto) 0.6 Monocytes # (Auto) 0.6 Eosinophils # (Auto) 0.1 Basophils # (Auto) 0.0 CBC Comment AUTO DIFF Differential Comment AUTO DIFF CONFIRMED Platelet Estimate LOW Platelet Morphology Comment NORMAL Stomatocytes 1+ Prothrombin Time 14.2 Prothromb Time International 1.3 Ratio Sodium Level 134 Potassium Level 3.5 Chloride Level 95 Carbon Dioxide Level 30.7 Anion Gap 8 Blood Urea Nitrogen 3 Creatinine 0.57 Estimat Glomerular Filtration 156 Rate Random Glucose 172 Lactic Acid Level 1.5 Calcium Level 7.0 Protein Corrected Calcium 7.1 Phosphorus Level 1.3 Magnesium Level 0.9 Total Bilirubin 3.9 Aspartate Amino Transf 94 (AST/SGOT) Alanine Aminotransferase 34 (ALT/SGPT) Alkaline Phosphatase 193 Total Protein 6.9 Albumin 2.5 Lipase 93 Date/Time Procedure Status Source Growth 09/27/16 00:59 Aerobic Blood Culture - Preliminary Resulted Blood Peripheral NO GROWTH IN 1 DAY 09/27/16 00:59 Anaerobic Blood Culture - Preliminary Resulted Blood Peripheral NO GROWTH IN 1 DAY Imaging Last Impressions Abdomen/Pelvis CT 09/26/16 [id number] Signed Impressions: Service Date/Time: Monday, September 26, 2016 23:16 - CONCLUSION: 1. Cirrhosis and portal hypertension with ascites and extensive varices. 2. Pneumobilia. 3. The stomach is not well-distended and there is gastric wall thickening suspected. 4. Gallbladder wall thickening is noted and cholelithiasis. . Vincent Mendosa MD Chest X-Ray 09/26/16 0000 Signed Impressions: Service Date/Time: Monday, September 26, 2016 22:54 - CONCLUSION: No acute disease. Vincent Mendosa MD Physical Exam HEENT: Normocephalic; atraumatic; no jaundice. CHEST: CTA. CARDIAC: RRR. ABDOMEN: Soft, nondistended, nontender; hepatosplenomegaly; bowel sounds are present in all four quadrants. EXTREMITIES: No clubbing, cyanosis, or edema. SKIN: Normal; no rash; no jaundice. PYROTECHNICS PRESS TENDER: No focal deficits; lethargic and oriented times three. (Patito De Los Santos) Assessment and Plan Plan ASSESSMENT: - Upper GIB, Hematemesis, Melena. Reports melena and hematemesis started yesterday. 2 episodes of vomiting "about 2 pints" of red blood. Pt with known cirrhosis, varices. Continues to drink etoh. No NSAIDs. EGD (01/23/16)---> portal gastropathy, esophageal varices grade 1-2, no active or signs of active bleeding. S/P Colonoscopy (01/24/16)-- -> cecum and ascending colon AVMs- APC, diverticulosis, internal hemorrhoids. No active bleeding. S/P EGD (09/27/16)-----> duodenitis , gastritis, grade II esophageal varices. 11.2/33.4. - Nausea/Vomiting, Abdominal pain. Started yesterday. Abdomen/Pelvis CT ()----> 1. Cirrhosis and portal hypertension with ascites and extensive varices. 2. Pneumobilia. 3. The stomach is not well-distended and there is gastric wall thickening suspected. 4. Gallbladder wall thickening is noted and cholelithiasis. Zofran. EGD as above. Still has abdominal pain. US ordered by primary. - Elevated LFTs, Liver cirrhosis. CT as above. T. Bili 3.9, AST 94, ALT 34, Alk PHosph 193. - Anemia. 11.2/33.4 Protonix/Octreotide Gtt. - Thrombocytopenia. Plt 58. - Ascites. PLAN: - Full liquids - Will d/c Protonix Gtt in am - Will d/c Octreotide Gtt in am - Will start protonix 40mg po BID in am - Spironolactone 25mg po daily - Lasix 40mg po daily - Transfuse as necessary - Supportive care - Further recommendations to follow based on results of above - Pt seen and examined by Dr. Caicedo and myself and this note is written on her behalf (Patito De Los Santos) Physician Comments seen, examined agree with above (Arlen Caicedo MD) Patito De Los Santos Sep 28, 2016 15:49 Arlen Caicedo MD Sep 28, 2016 16:44
[2016-09-28] MEDS ORDERED: PANTOPRAZOLE SOD 40 MG DELAYED RELEASE TAB PO SCH (21:00)
[2016-09-28 21:06] LABS: MAGNESIUM 1.4 MG/DL (1.5-2.5)
[2016-09-29] VITALS (13 sets, daily range): BP systolic 107–156; BP diastolic 57–84; PULSE 50–94; RESP 14–19; TEMP 98.4–100.8; O2SAT 94–99
[2016-09-29] MEDS: SODIUM CHLOR 0.9% 1000 ML INJ 1,000 ML IV SCH ×3 (03:44→17:49)
[2016-09-29] MEDS: MORPHINE SULFATE 4 MG/ML INJ IV PRN (03:44)
[2016-09-29 04:57] LABS: AUTOMATED NEUTROPHIL # 2.8 TH/MM3 (1.8-7.7); BASOPHIL # 0.1 TH/MM3 (0-0.2); BASOPHIL % 1.6 % (0.0-2.0); EOSINOPHIL # 0.1 TH/MM3 (0-0.4); EOSINOPHIL % 2.6 % (0.0-4.0); HEMATOCRIT 33.2 % (39.0-51.0); LYMPH % 16.3 % (9.0-44.0); LYMPHOCYTE # 0.7 TH/MM3 (1.0-4.8); MEAN CELL VOLUME 97.8 FL (80.0-100.0); MEAN CORPUSCULAR HEMOGLOBIN 32.6 PG (27.0-34.0); MEAN CORPUSCULAR HGB CONC 33.3 % (32.0-36.0); MONO % 11.8 % (0.0-8.0); NEUT % 67.7 % (16.0-70.0); PLATELET COUNT 62 TH/MM3 (150-450); RED BLOOD COUNT 3.39 MIL/MM3 (4.50-5.90); RED CELL DISTRIBUTION WIDTH 16.5 % (11.6-17.2); WHITE BLOOD COUNT 4.2 TH/MM3 (4.0-11.0)
[2016-09-29 05:03] LABS: HEMO FLAGS AUTO DIFF
[2016-09-29 06:01] LABS: BICARBONATE 31.6 MEQ/L (21.0-32.0); POTASSIUM 3.2 MEQ/L (3.5-5.1); TOTAL BILIRUBIN ADULT 2.3 MG/DL (0.2-1.0)
[2016-09-29 06:20] LABS: CALCIUM-PROTEIN CORRECTED 7.2 MG/DL (8.5-10.1)
[2016-09-29] MEDS ORDERED: CALCIUM GLUCONATE INJ 1 GM in SODIUM CHLORIDE 0.9% INJ 90 ML IV ONE (06:45)
[2016-09-29] MEDS: INSULIN ASPART SUPPLEMENTAL SCALE SQ SCH ×4 (07:25→21:00)
[2016-09-29] MEDS: PROPRANOLOL HCL 20 MG TAB PO SCH ×2 (08:11→21:08)
[2016-09-29] MEDS: SPIRONOLACTONE 25 MG TAB PO SCH (08:11)
[2016-09-29] MEDS: THIAMINE INJ 100 MG in SODIUM CHLORIDE 0.9% INJ 100 ML IV SCH (08:11)
[2016-09-29] MEDS: MULTIVITAMIN TAB PO SCH (08:11)
[2016-09-29] MEDS: FUROSEMIDE 40 MG TAB PO SCH (08:11)
[2016-09-29] MEDS: PANTOPRAZOLE SOD 40 MG DELAYED RELEASE TAB PO SCH ×2 (08:12→21:08)
[2016-09-29] MEDS: MAGNESIUM OXIDE 400 MG TAB PO SCH (08:12)
[2016-09-29 09:30] LABS: PLATELET ESTIMATE SMEAR LOW (NORMAL)
[2016-09-29 09:31] LABS: PLATELET MORPHOLOGY ENLARGED (NORMAL); SCAN/DIFF AUTO DIFF CONFIRMED
--- NOTE | 2016-09-29 09:44 | HHI.PR ---
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 Patient denies nausea or vomiting states has not had a bowel movement yet c/o headache glucose seems to be improving Patient has low Calcium, low phosphorus, low magnesium Review of Systems Constitutional Constitutional: Fatigue, Weakness GI/Abdomen GI/Abdominal Exam: Abdominal Pain GI/Abdomen Remarks distended abdomen. Vitals/Results Intake & Output 09/28/16 09/28/16 09/29/16 15:00 23:00 07:00 Intake Total 1870 ml 2068 ml 1395 ml Output Total 1800 ml 1600 ml 1600 ml Balance 70 ml 468 ml -205 ml Intake Oral 120 ml 1100 ml 30 ml IV Total 1750 ml 968 ml 1365 ml Output Urine Total 1800 ml 1600 ml 1600 ml # Bowel Movements 0 0 0 Vital Signs Vital Signs Date Time Temp Pulse Resp B/P Pulse Ox O2 Delivery O2 Flow Rate FiO2 09/29/16 08:00 93 09/29/16 08:00 98.9 93 16 129/58 99 09/29/16 07:00 99 Nasal Cannula 4.00 09/29/16 06:00 80 09/29/16 04:00 100.1 80 18 117/71 99 09/29/16 04:00 80 09/29/16 02:00 80 09/29/16 00:00 90 09/29/16 00:00 99.4 90 14 107/61 95 09/28/16 22:05 16 09/28/16 22:00 82 09/28/16 20:00 91 09/28/16 20:00 98.1 91 18 112/64 98 09/28/16 20:00 98 Nasal Cannula 4.00 09/28/16 19:32 96 Nasal Cannula 2.00 09/28/16 18:00 79 09/28/16 16:00 98.8 82 16 149/64 09/28/16 16:00 67 09/28/16 14:00 67 09/28/16 12:00 98.9 81 16 167/87 09/28/16 12:00 67 09/28/16 10:00 78 CBC/BMP: 09/29/16 0436 09/29/16 0436 Lab Results Laboratory Tests Test 09/28/16 09/29/16 20:13 04:36 Calcium Level 7.5 MG/DL 6.8 MG/DL Phosphorus Level 1.1 MG/DL Magnesium Level 1.4 MG/DL White Blood Count 4.2 TH/MM3 Red Blood Count 3.39 MIL/MM3 Hemoglobin 11.0 GM/DL Hematocrit 33.2 % Mean Corpuscular Volume 97.8 FL Mean Corpuscular Hemoglobin 32.6 PG Mean Corpuscular Hemoglobin 33.3 % Concent Red Cell Distribution Width 16.5 % Platelet Count 62 TH/MM3 Mean Platelet Volume 9.5 FL Neutrophils (%) (Auto) 67.7 % Lymphocytes (%) (Auto) 16.3 % Monocytes (%) (Auto) 11.8 % Eosinophils (%) (Auto) 2.6 % Basophils (%) (Auto) 1.6 % Neutrophils # (Auto) 2.8 TH/MM3 Lymphocytes # (Auto) 0.7 TH/MM3 Monocytes # (Auto) 0.5 TH/MM3 Eosinophils # (Auto) 0.1 TH/MM3 Basophils # (Auto) 0.1 TH/MM3 CBC Comment AUTO DIFF Differential Comment AUTO DIFF CONFIRMED Platelet Estimate LOW Platelet Morphology Comment ENLARGED Sodium Level 132 MEQ/L Potassium Level 3.2 MEQ/L Chloride Level 91 MEQ/L Carbon Dioxide Level 31.6 MEQ/L Anion Gap 9 MEQ/L Blood Urea Nitrogen 4 MG/DL Creatinine 0.70 MG/DL Estimat Glomerular Filtration 123 ML/MIN Rate Random Glucose 314 MG/DL Protein Corrected Calcium 7.2 MG/DL Total Bilirubin 2.3 MG/DL Aspartate Amino Transf 73 U/L (AST/SGOT) Alanine Aminotransferase 28 U/L (ALT/SGPT) Alkaline Phosphatase 176 U/L Total Protein 6.4 GM/DL Albumin 2.2 GM/DL Physical Exam General General Appearance: No Acute Distress, Comfortable Eyes Eye Exam: Pupils Equal, Pupils Reactive, Sclera White, Extraocular Movement Intact Throat Throat Exam: Oral Mucosa [place] & Moist, Oral Pharynx Normal Neck Neck Exam: Neck Supple, Trachea Midline Pulmonary Resp Exam: Clear Bilaterally, Breath Sounds Equal Cardiology CV Exam: Regular, Normal Sinus Rhythm Gastrointestinal/Abdomen GI Exam: Bowel Sounds Present, Distended GI Remarks Massive Ascities and diffuse abdominal tenderness. Musculoskeletal MS Exam: Normal Tone Integumentary Skin Exam: Warm, Dry Neurologic Neuro Exam: Alert, Awake, Oriented, Speech Clear, Moving All Extremities, No Focal Deficits Psychiatric Psych Exam: Appropriate Responses VTE Prophylaxis VTE Prophylaxis Device: SCDs PUD Prophylasis PUD Prophylaxis: Protonix Assessment/Plan Problem List: (1) Hematemesis Plan: Patient was admitted to the intensive care unit and initially cared by hat cleaner. Gi input noted and following patient. Hemoglobin is stable, continue to monitor H/H sp EGD which showed Gastritis, esophagitis and Grade II esophageal varices. Continue IV Protonix and IV octreotide. (2) Cirrhosis of liver Plan: fu Gi recommendations. Continue spironolactone and propranolol. (3) Esophageal varices (4) Lactic acidosis Plan: resolved after IV fluid administration. (5) Pneumobilia Plan: fu GI recommendations. (6) Alcohol abuse Plan: advised alcohol cessation. (7) Thickening of wall of gallbladder Plan: As seen on CT of abdomen and pelvis. ? Chronic Cholecystitis. I (8) Hyponatremia Plan: Mild. Likely hypervolemic in nature. Continue po lasix and monitor BMP. (9) Hypocalcemia Plan: Likely due to poor po intake from etoh abuse. replace as per ICU protocol. (10) Hypomagnesemia Plan: Likely due to poor po intake from etoh abuse. replace as per ICU protocol. (11) Hypophosphatemia Plan: likely nutritional deficiency. replace as pr icu protocol. Assessment/Plan ASSESSMENT/PLAN 1. This is a 40-day-old male who came to the ER diagnosed with 2. Upper GI bleed, hematemesis monitoring H & H. 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 Further recommendation per GI. 3. Excessive nausea or vomiting with abdominal pain which is improved. 4. Cirrhosis with portal hypertension with massive ascites with stomach is well distended. 5. Gallbladder wall thickening and with cholelithiasis. 6. Elevated liver function tests, secondary to alcoholic hepatitis. 7. Anemia secondary to acute blood loss. The patient is on Protonix and We will monitor H&H. 8. Thrombocytopenia, platelet count 58, secondary to alcoholic liver disease. 9. Diabetes mellitus ADA diet regular diet...NovoLog low-dose sliding scale..Check blood sugars at bedtime monitor blood sugar. 10. Anxiety, holding anxiety medications. 11. Supportive care. 12. Deep venous thrombosis prophylaxis...Sequential compression devices 13. GI prophylaxis Protonix 40 mg p.o. daily. 14. We are going to manage the patient daily basis and make a recommendation daily basis. Check CBC with diff CMP in AM. Discussed Condition with: Patient Problem Qualifiers (1) Cirrhosis of liver: (2) Esophageal varices: Qualified Code: I85.10 - Secondary esophageal varices without bleeding Nilesh Mathew MD Sep 29, 2016 09:44
--- NOTE | 2016-09-29 14:26 | HHI.GIFU ---
Subjective Remarks patient is resting in bed, no more bleeding, no nausea, no vomiting, no bm. He reports right sided abdomen on going for 2 weeks, bad at times. (eKily,Marissa VILLANUEVA) Objective Vitals I&O Vital Signs Date Time Temp Pulse Resp B/P Pulse Ox O2 Delivery O2 Flow Rate FiO2 09/29/16 12:00 81 09/29/16 12:00 98.8 81 19 118/63 94 09/29/16 10:00 75 09/29/16 08:17 96 Nasal Cannula 2.00 09/29/16 08:00 93 09/29/16 08:00 98.9 93 16 129/58 99 09/29/16 07:00 99 Nasal Cannula 4.00 09/29/16 06:00 80 09/29/16 04:00 100.1 80 18 117/71 99 09/29/16 04:00 80 09/29/16 02:00 80 09/29/16 00:00 90 09/29/16 00:00 99.4 90 14 107/61 95 09/28/16 22:05 16 09/28/16 22:00 82 09/28/16 20:00 91 09/28/16 20:00 98.1 91 18 112/64 98 09/28/16 20:00 98 Nasal Cannula 4.00 09/28/16 19:32 96 Nasal Cannula 2.00 09/28/16 18:00 79 09/28/16 16:00 98.8 82 16 149/64 09/28/16 16:00 67 I/O 09/28/16 09/28/16 09/28/16 09/29/16 09/29/16 09/29/16 07:00 15:00 23:00 07:00 15:00 23:00 Intake Total 1130 ml 1870 ml 2068 ml 1395 ml Output Total 1450 ml 1800 ml 1600 ml 1600 ml Balance -320 ml 70 ml 468 ml -205 ml Intake Oral 30 ml 120 ml 1100 ml 30 ml IV Total 1100 ml 1750 ml 968 ml 1365 ml Output Urine Total 1450 ml 1800 ml 1600 ml 1600 ml # Bowel Movements 0 0 0 0 Laboratory Laboratory Tests Test 09/28/16 09/29/16 20:13 04:36 Calcium Level 7.5 6.8 Phosphorus Level 1.1 Magnesium Level 1.4 White Blood Count 4.2 Red Blood Count 3.39 Hemoglobin 11.0 Hematocrit 33.2 Mean Corpuscular Volume 97.8 Mean Corpuscular Hemoglobin 32.6 Mean Corpuscular Hemoglobin 33.3 Concent Red Cell Distribution Width 16.5 Platelet Count 62 Mean Platelet Volume 9.5 Neutrophils (%) (Auto) 67.7 Lymphocytes (%) (Auto) 16.3 Monocytes (%) (Auto) 11.8 Eosinophils (%) (Auto) 2.6 Basophils (%) (Auto) 1.6 Neutrophils # (Auto) 2.8 Lymphocytes # (Auto) 0.7 Monocytes # (Auto) 0.5 Eosinophils # (Auto) 0.1 Basophils # (Auto) 0.1 CBC Comment AUTO DIFF Differential Comment AUTO DIFF CONFIRMED Platelet Estimate LOW Platelet Morphology Comment ENLARGED Sodium Level 132 Potassium Level 3.2 Chloride Level 91 Carbon Dioxide Level 31.6 Anion Gap 9 Blood Urea Nitrogen 4 Creatinine 0.70 Estimat Glomerular Filtration 123 Rate Random Glucose 314 Protein Corrected Calcium 7.2 Total Bilirubin 2.3 Aspartate Amino Transf 73 (AST/SGOT) Alanine Aminotransferase 28 (ALT/SGPT) Alkaline Phosphatase 176 Total Protein 6.4 Albumin 2.2 Date/Time Procedure Status Source Growth 09/27/16 00:59 Aerobic Blood Culture - Preliminary Resulted Blood Peripheral NO GROWTH IN 2 DAYS 09/27/16 00:59 Anaerobic Blood Culture - Preliminary Resulted Blood Peripheral NO GROWTH IN 2 DAYS Imaging Last Impressions Abdomen/Pelvis CT 09/26/16 2245 Signed Impressions: Service Date/Time: Monday, September 26, 2016 23:16 - CONCLUSION: 1. Cirrhosis and portal hypertension with ascites and extensive varices. 2. Pneumobilia. 3. The stomach is not well-distended and there is gastric wall thickening suspected. 4. Gallbladder wall thickening is noted and cholelithiasis. . Vincent Mendosa MD Chest X-Ray 09/26/16 0000 Signed Impressions: Service Date/Time: Monday, September 26, 2016 22:54 - CONCLUSION: No acute disease. Vincent Mendosa MD Physical Exam HEENT: Normocephalic; atraumatic; no jaundice. CHEST: CTA. CARDIAC: RRR. ABDOMEN: Soft, nondistended, nontender; hepatosplenomegaly; bowel sounds are present in all four quadrants. EXTREMITIES: No clubbing, cyanosis, or edema. SKIN: Normal; no rash; no jaundice. IRRIGATION WORKER: No focal deficits; lethargic and oriented times three. (Marissa Michaud) Assessment and Plan Plan ASSESSMENT: - Upper GIB, Hematemesis, Melena. No more bleeding. S/P EGD (09/27/16)-----> duodenitis, gastritis, grade II esophageal varices. hh stable Pt with known cirrhosis, varices. Continues to drink etoh. No NSAIDs. EGD (01/23/16)---> portal gastropathy, esophageal varices grade 1-2, no active or signs of active bleeding. S/P Colonoscopy (01/24/16)-- -> cecum and ascending colon AVMs- APC, diverticulosis, internal hemorrhoids. No active bleeding. - Nausea/Vomiting, Abdominal pain. no more N/V but still have abdomen pain. Abdomen/Pelvis CT (09/26/16)----> 1. Cirrhosis and portal hypertension with ascites and extensive varices. 2. Pneumobilia. 3. The stomach is not well-distended and there is gastric wall thickening suspected. 4. Gallbladder wall thickening is noted and cholelithiasis. Zofran. EGD as above. Still has abdominal pain. US ordered by primary. - Elevated LFTs, Liver cirrhosis. CT as above. stable - Anemia. Secondary to above, no more bleeding, hh stable - Thrombocytopenia. Plt 62 - Ascites. PLAN: - low salt diet - d/c Protonix Gtt in am - d/c Octreotide Gtt in am - Protonix 40mg po BID in am - Spironolactone 25mg po daily - Lasix 40mg po daily - Transfuse as necessary - Supportive care - Further recommendations to follow based on results of above - Pt seen and examined by Dr. Caicedo and myself and this note is written on her behalf (Marissa Michaud) Physician Comments seen, examined agree with above ok to dc home from gi point gi will sign off fu gi in 2 weeks (Arlen Caicedo MD) Marissa Michaud Sep 29, 2016 14:26 Arlen Caicedo MD Sep 29, 2016 15:49
[2016-09-30] VITALS (13 sets, daily range): BP systolic 105–135; BP diastolic 56–83; PULSE 70–87; RESP 18–24; TEMP 98.9–100.1; O2SAT 90–99
[2016-09-30] MEDS: SODIUM CHLOR 0.9% 1000 ML INJ 1,000 ML IV SCH ×3 (00:37→20:10)
[2016-09-30] MEDS: CHLORHEXIDINE GLUCONATE 2 % 1 PACK (2 CLOTHS) TOP SCH (00:38)
[2016-09-30 04:12] LABS: HEMATOCRIT 32.8 % (39.0-51.0)
[2016-09-30 04:16] LABS: REVIEW FLAG FINAL
[2016-09-30] MEDS: INSULIN ASPART SUPPLEMENTAL SCALE SQ SCH ×4 (06:27→20:08)
[2016-09-30] MEDS: MAGNESIUM OXIDE 400 MG TAB PO SCH (09:08)
[2016-09-30] MEDS: FUROSEMIDE 40 MG TAB PO SCH (09:08)
[2016-09-30] MEDS: THIAMINE INJ 100 MG in SODIUM CHLORIDE 0.9% INJ 100 ML IV SCH (09:08)
[2016-09-30] MEDS: MULTIVITAMIN TAB PO SCH (09:08)
[2016-09-30] MEDS: PANTOPRAZOLE SOD 40 MG DELAYED RELEASE TAB PO SCH ×2 (09:08→20:08)
[2016-09-30] MEDS: SPIRONOLACTONE 25 MG TAB PO SCH (09:08)
[2016-09-30] MEDS: PROPRANOLOL HCL 20 MG TAB PO SCH ×2 (09:09→20:08)
[2016-09-30] MEDS: MORPHINE SULFATE 4 MG/ML INJ IV PRN (20:09)
[2016-10-01] VITALS (13 sets, daily range): BP systolic 69–131; BP diastolic 59–86; PULSE 68–83; RESP 12–21; TEMP 98–98.8; O2SAT 92–100
[2016-10-01] MEDS: CHLORHEXIDINE GLUCONATE 2 % 1 PACK (2 CLOTHS) TOP SCH (04:00)
[2016-10-01] MEDS: SODIUM CHLOR 0.9% 1000 ML INJ 1,000 ML IV SCH ×3 (06:46→22:17)
[2016-10-01] MEDS: INSULIN ASPART SUPPLEMENTAL SCALE SQ SCH ×4 (06:46→22:08)
--- NOTE | 2016-10-01 08:15 | HHI.PR ---
Subjective History of Present Illness Patient seen on 09/30/16. 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 Review of Systems Constitutional Constitutional: Fatigue, Weakness GI/Abdomen GI/Abdominal Exam: Abdominal Pain GI/Abdomen Remarks distended abdomen. Vitals/Results Intake & Output 09/30/16 09/30/16 10/01/16 15:00 23:00 07:00 Intake Total 1816 ml 1391 ml 1400 ml Output Total 2800 ml 950 ml 1100 ml Balance -984 ml 441 ml 300 ml Intake Oral 640 ml 720 ml 480 ml IV Total 1176 ml 671 ml 920 ml Output Urine Total 2800 ml 950 ml 1100 ml # Voids 3 4 Vital Signs Vital Signs Date Time Temp Pulse Resp B/P Pulse Ox O2 Delivery O2 Flow Rate FiO2 10/01/16 08:07 97 10/01/16 06:00 72 10/01/16 04:00 98.0 70 12 119/64 94 10/01/16 04:00 70 10/01/16 02:00 72 10/01/16 00:00 98.8 75 21 127/71 92 10/01/16 00:00 75 09/30/16 22:00 80 09/30/16 20:14 24 09/30/16 20:00 83 09/30/16 20:00 99.5 83 24 130/83 95 09/30/16 19:50 94 09/30/16 19:00 95 Room Air 09/30/16 18:00 84 09/30/16 16:00 79 09/30/16 16:00 99.8 79 20 113/59 97 09/30/16 14:00 87 09/30/16 12:00 99.3 70 18 105/56 98 09/30/16 12:00 70 09/30/16 10:00 74 CBC/BMP: 09/30/16 0326 09/29/16 0436 Physical Exam General General Appearance: No Acute Distress, Comfortable Eyes Eye Exam: Pupils Equal, Pupils Reactive, Sclera White, Extraocular Movement Intact Throat Throat Exam: Oral Mucosa [place] & Moist, Oral Pharynx Normal Neck Neck Exam: Neck Supple, Trachea Midline Pulmonary Resp Exam: Clear Bilaterally, Breath Sounds Equal Cardiology CV Exam: Regular, Normal Sinus Rhythm Gastrointestinal/Abdomen GI Exam: Bowel Sounds Present, Distended GI Remarks Massive Ascities and diffuse abdominal tenderness. Musculoskeletal MS Exam: Normal Tone Integumentary Skin Exam: Warm, Dry Neurologic Neuro Exam: Alert, Awake, Oriented, Speech Clear, Moving All Extremities, No Focal Deficits Psychiatric Psych Exam: Appropriate Responses VTE Prophylaxis VTE Prophylaxis Device: SCDs PUD Prophylasis PUD Prophylaxis: Protonix Assessment/Plan Problem List: (1) Hematemesis (2) Cirrhosis of liver Plan: fu Gi recommendations. Continue spironolactone and propranolol. (3) Esophageal varices (4) Lactic acidosis Plan: resolved after IV fluid administration. (5) Pneumobilia Plan: fu GI recommendations. (6) Alcohol abuse Plan: advised alcohol cessation. (7) Thickening of wall of gallbladder Plan: As seen on CT of abdomen and pelvis. ? Chronic Cholecystitis. I (8) Hyponatremia Plan: Likely hypervolemic in nature. Continue po lasix and monitor BMP. (9) Hypocalcemia Plan: Likely due to poor po intake from etoh abuse. replace as per ICU protocol. (10) Hypomagnesemia Plan: Likely due to poor po intake from etoh abuse. replace as per ICU protocol. (11) Hypophosphatemia Plan: likely nutritional deficiency. replace as pr icu protocol. Assessment/Plan ASSESSMENT/PLAN 1. This is a 40-day-old male who came to the ER diagnosed with 2. Upper GI bleed, hematemesis monitoring H & H. 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 Further recommendation per GI. 3. Excessive nausea or vomiting with abdominal pain which is improved. 4. Cirrhosis with portal hypertension with massive ascites with stomach is well distended. 5. Gallbladder wall thickening and with cholelithiasis. 6. Elevated liver function tests, secondary to alcoholic hepatitis. 7. Anemia secondary to acute blood loss. The patient is on Protonix and We will monitor H&H. 8. Thrombocytopenia, platelet count 58, secondary to alcoholic liver disease. 9. Diabetes mellitus ADA diet regular diet...NovoLog low-dose sliding scale..Check blood sugars at bedtime monitor blood sugar. 10. Anxiety, holding anxiety medications. 11. Supportive care. 12. Deep venous thrombosis prophylaxis...Sequential compression devices 13. GI prophylaxis Protonix 40 mg p.o. daily. 14. We are going to manage the patient daily basis and make a recommendation daily basis. Check CBC with diff CMP in AM. Discussed Condition with: Patient Problem Qualifiers (1) Cirrhosis of liver: (2) Esophageal varices: Qualified Code: I85.10 - Secondary esophageal varices without bleeding Nilesh Mathew MD Oct 01, 2016 08:15 (3) Esophageal varices: Qualified Code: I85.10 - Secondary esophageal varices without bleeding Nilesh Mathew MD Oct 01, 2016 08:15
--- NOTE | 2016-10-01 08:15 | HHI.PR ---
Subjective History of Present Illness Patient denies nausea or vomiting denies CP/ SOB. 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 Review of Systems Constitutional Constitutional: Fatigue, Weakness GI/Abdomen GI/Abdominal Exam: Nausea, Abdominal Pain GI/Abdomen Remarks distended abdomen. Vitals/Results Intake & Output 09/30/16 09/30/16 10/01/16 15:00 23:00 07:00 Intake Total 1816 ml 1391 ml 1400 ml Output Total 2800 ml 950 ml 1100 ml Balance -984 ml 441 ml 300 ml Intake Oral 640 ml 720 ml 480 ml IV Total 1176 ml 671 ml 920 ml Output Urine Total 2800 ml 950 ml 1100 ml # Voids 3 4 Vital Signs Vital Signs Date Time Temp Pulse Resp B/P Pulse Ox O2 Delivery O2 Flow Rate FiO2 10/01/16 08:07 97 10/01/16 06:00 72 10/01/16 04:00 98.0 70 12 119/64 94 10/01/16 04:00 70 10/01/16 02:00 72 10/01/16 00:00 98.8 75 21 127/71 92 10/01/16 00:00 75 09/30/16 22:00 80 09/30/16 20:14 24 09/30/16 20:00 83 09/30/16 20:00 99.5 83 24 130/83 95 09/30/16 19:50 94 09/30/16 19:00 95 Room Air 09/30/16 18:00 84 09/30/16 16:00 79 09/30/16 16:00 99.8 79 20 113/59 97 09/30/16 14:00 87 09/30/16 12:00 99.3 70 18 105/56 98 09/30/16 12:00 70 09/30/16 10:00 74 CBC/BMP: 09/30/16 0326 09/29/16 0436 Physical Exam General General Appearance: Well Developed, No Acute Distress, Comfortable Eyes Eye Exam: Pupils Equal, Pupils Reactive, Sclera White, Extraocular Movement Intact Throat Throat Exam: Oral Mucosa [place] & Moist, Oral Pharynx Normal Neck Neck Exam: Neck Supple, Trachea Midline Pulmonary Resp Exam: Clear Bilaterally, Breath Sounds Equal Cardiology CV Exam: Regular, Normal Sinus Rhythm Gastrointestinal/Abdomen GI Exam: Bowel Sounds Present, Distended GI Remarks Massive Ascities and diffuse abdominal tenderness. Musculoskeletal MS Exam: Normal Tone Integumentary Skin Exam: Warm, Dry Neurologic Neuro Exam: Alert, Awake, Oriented, Speech Clear, Moving All Extremities, No Focal Deficits Psychiatric Psych Exam: Appropriate Responses VTE Prophylaxis VTE Prophylaxis Device: SCDs PUD Prophylasis PUD Prophylaxis: Protonix Assessment/Plan Problem List: (1) Hematemesis Plan: Patient was admitted to the intensive care unit and initially cared by repair department supervisor. Hemoglobin is stable, continue to monitor H/H sp EGD which showed Gastritis, esophagitis and Grade II esophageal varices. (2) Cirrhosis of liver Plan: fu Gi recommendations. Continue spironolactone and propranolol. (3) Esophageal varices Plan: On propranolol. (4) Lactic acidosis Plan: resolved after IV fluid administration. (5) Pneumobilia Plan: fu GI recommendations. (6) Alcohol abuse Plan: advised alcohol cessation. (7) Thickening of wall of gallbladder Plan: As seen on CT of abdomen and pelvis. ? Chronic Cholecystitis. Abdominal ultrasound. (8) Hyponatremia Plan: Mild. Likely hypervolemic in nature. Continue po lasix and monitor BMP. (9) Hypocalcemia Plan: Likely due to poor po intake from etoh abuse. replace as per ICU protocol. (10) Hypomagnesemia Plan: Likely due to poor po intake from etoh abuse. replace as per ICU protocol. (11) Hypophosphatemia Plan: likely nutritional deficiency. replace as pr icu protocol. Assessment/Plan ASSESSMENT/PLAN 1. This is a 40-day-old male who came to the ER diagnosed with 2. Upper GI bleed, hematemesis monitoring H & H. 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 Further recommendation per GI. 3. Excessive nausea or vomiting with abdominal pain which is improved. 4. Cirrhosis with portal hypertension with massive ascites with stomach is well distended. 5. Gallbladder wall thickening and with cholelithiasis. 6. Elevated liver function tests, secondary to alcoholic hepatitis. 7. Anemia secondary to acute blood loss. The patient is on Protonix and We will monitor H&H. 8. Thrombocytopenia, platelet count 58, secondary to alcoholic liver disease. 9. Diabetes mellitus ADA diet regular diet...NovoLog low-dose sliding scale..Check blood sugars at bedtime monitor blood sugar. 10. Anxiety, holding anxiety medications. 11. Supportive care. 12. Deep venous thrombosis prophylaxis...Sequential compression devices 13. GI prophylaxis Protonix 40 mg p.o. daily. 14. We are going to manage the patient daily basis and make a recommendation daily basis. Check CBC with diff CMP in AM. Discussed Condition with: Patient Problem Qualifiers (1) Cirrhosis of liver: (2) Esophageal varices: Qualified Code: I85.10 - Secondary esophageal varices without bleeding Nilesh Mathew MD Oct 01, 2016 08:15
[2016-10-01] MEDS: MAGNESIUM OXIDE 400 MG TAB PO SCH (08:50)
[2016-10-01] MEDS: SPIRONOLACTONE 25 MG TAB PO SCH (08:50)
[2016-10-01] MEDS: MULTIVITAMIN TAB PO SCH (08:50)
[2016-10-01] MEDS: PROPRANOLOL HCL 20 MG TAB PO SCH ×2 (08:50→22:09)
[2016-10-01] MEDS: FUROSEMIDE 40 MG TAB PO SCH (08:50)
[2016-10-01] MEDS: PANTOPRAZOLE SOD 40 MG DELAYED RELEASE TAB PO SCH ×2 (08:51→22:09)
[2016-10-01] MEDS: MORPHINE SULFATE 4 MG/ML INJ IV PRN ×4 (08:56→22:17)
[2016-10-01] MEDS: ZOLPIDEM TARTRATE 5 MG TAB PO PRN (22:24)
[2016-10-02 00:04] VITALS: BP 125/67; PULSE 80; RESP 20; TEMP 98.5; O2SAT 100
[2016-10-02] MEDS: MORPHINE SULFATE 4 MG/ML INJ IV PRN ×8 (00:21→22:19)
[2016-10-02 04:00] VITALS: BP 121/69; PULSE 78; RESP 18; TEMP 98.5; O2SAT 96
[2016-10-02] MEDS: CHLORHEXIDINE GLUCONATE 2 % 1 PACK (2 CLOTHS) TOP SCH (04:00)
[2016-10-02] MEDS: INSULIN ASPART SUPPLEMENTAL SCALE SQ SCH ×4 (06:44→22:20)
[2016-10-02] MEDS: MAGNESIUM OXIDE 400 MG TAB PO SCH (07:46)
[2016-10-02] MEDS: MULTIVITAMIN TAB PO SCH (07:46)
[2016-10-02] MEDS: PROPRANOLOL HCL 20 MG TAB PO SCH ×2 (07:46→22:19)
[2016-10-02] MEDS: FUROSEMIDE 40 MG TAB PO SCH (07:47)
[2016-10-02] MEDS: SPIRONOLACTONE 25 MG TAB PO SCH (07:47)
[2016-10-02] MEDS: PANTOPRAZOLE SOD 40 MG DELAYED RELEASE TAB PO SCH ×2 (07:47→22:19)
[2016-10-02 07:59] LABS: BASOPHIL % 0.5 % (0.0-2.0); EOSINOPHIL # 0.1 TH/MM3 (0-0.4); EOSINOPHIL % 2.7 % (0.0-4.0); HEMATOCRIT 33.4 % (39.0-51.0); LYMPH % 22.1 % (9.0-44.0); LYMPHOCYTE # 1.2 TH/MM3 (1.0-4.8); MEAN CELL VOLUME 100.2 FL (80.0-100.0); MEAN CORPUSCULAR HEMOGLOBIN 32.9 PG (27.0-34.0); MEAN CORPUSCULAR HGB CONC 32.9 % (32.0-36.0); NEUT % 57.7 % (16.0-70.0); PLATELET COUNT 57 TH/MM3 (150-450); RED BLOOD COUNT 3.33 MIL/MM3 (4.50-5.90); RED CELL DISTRIBUTION WIDTH 17.6 % (11.6-17.2); WHITE BLOOD COUNT 5.2 TH/MM3 (4.0-11.0)
[2016-10-02 08:00] VITALS: BP 132/78; PULSE 80; RESP 20; TEMP 98.4; O2SAT 97
[2016-10-02 08:05] LABS: HEMO FLAGS AUTO DIFF
--- NOTE | 2016-10-02 08:28 | HHI.PR ---
Subjective History of Present Illness Patient feel weak and tired. denies cp/sob deneis fevers/chills Patient has low Calcium, low phosphorus, low magnesium will replace and monitor. Review of Systems Constitutional Constitutional: Fatigue, Weakness GI/Abdomen GI/Abdominal Exam: Abdominal Pain GI/Abdomen Remarks distended abdomen. Vitals/Results Intake & Output 10/01/16 10/01/16 10/02/16 15:00 23:00 07:00 Intake Total 380 ml 2032 ml Output Total 1200 ml 1350 ml 1500 ml Balance -820 ml 682 ml -1500 ml Intake Oral 380 ml IV Total 2032 ml Output Urine Total 1200 ml 1350 ml 1500 ml Vital Signs Vital Signs Date Time Temp Pulse Resp B/P Pulse Ox O2 Delivery O2 Flow Rate FiO2 10/02/16 08:00 98.4 80 20 132/78 97 10/02/16 07:49 Room Air 10/02/16 04:00 98.5 78 18 121/69 96 10/02/16 01:06 Room Air 10/02/16 00:04 98.5 80 20 125/67 100 10/01/16 20:00 70 10/01/16 20:00 98.0 78 20 124/67 100 10/01/16 16:00 98.6 70 18 126/73 99 10/01/16 14:17 68 10/01/16 13:34 Room Air 10/01/16 13:00 98.1 72 18 131/86 100 10/01/16 12:00 78 10/01/16 12:00 98.1 81 18 113/59 97 10/01/16 10:00 83 CBC/BMP: 10/02/16 0647 09/29/16 0436 Lab Results Laboratory Tests Test 10/02/16 06:47 White Blood Count 5.2 TH/MM3 Red Blood Count 3.33 MIL/MM3 Hemoglobin 11.0 GM/DL Hematocrit 33.4 % Mean Corpuscular Volume 100.2 FL Mean Corpuscular Hemoglobin 32.9 PG Mean Corpuscular Hemoglobin 32.9 % Concent Red Cell Distribution Width 17.6 % Platelet Count 57 TH/MM3 Mean Platelet Volume 10.4 FL Neutrophils (%) (Auto) 57.7 % Lymphocytes (%) (Auto) 22.1 % Monocytes (%) (Auto) 17.0 % Eosinophils (%) (Auto) 2.7 % Basophils (%) (Auto) 0.5 % Neutrophils # (Auto) 3.0 TH/MM3 Lymphocytes # (Auto) 1.2 TH/MM3 Monocytes # (Auto) 0.9 TH/MM3 Eosinophils # (Auto) 0.1 TH/MM3 Basophils # (Auto) 0.0 TH/MM3 CBC Comment AUTO DIFF Physical Exam General General Appearance: Well Developed, No Acute Distress, Comfortable Eyes Eye Exam: Pupils Equal, Pupils Reactive, Sclera White, Extraocular Movement Intact Throat Throat Exam: Oral Mucosa [place] & Moist, Oral Pharynx Normal Neck Neck Exam: Neck Supple, Trachea Midline Pulmonary Resp Exam: Clear Bilaterally, Breath Sounds Equal Cardiology CV Exam: Regular, Normal Sinus Rhythm Gastrointestinal/Abdomen GI Exam: Bowel Sounds Present, Distended GI Remarks Massive Ascities and diffuse abdominal tenderness. Musculoskeletal MS Exam: Normal Tone Integumentary Skin Exam: Warm, Dry Neurologic Neuro Exam: Alert, Awake, Oriented, Speech Clear, Moving All Extremities, No Focal Deficits Psychiatric Psych Exam: Appropriate Responses VTE Prophylaxis VTE Prophylaxis Device: SCDs PUD Prophylasis PUD Prophylaxis: Protonix Assessment/Plan Problem List: (1) Hematemesis (2) Cirrhosis of liver Plan: fu Gi recommendations. Continue spironolactone and propranolol. (3) Esophageal varices (4) Lactic acidosis Plan: resolved after IV fluid administration. (5) Pneumobilia Plan: fu GI recommendations. (6) Alcohol abuse Plan: advised alcohol cessation. (7) Thickening of wall of gallbladder Plan: As seen on CT of abdomen and pelvis. ? Chronic Cholecystitis. I (8) Hyponatremia Plan: Likely hypervolemic in nature. Continue po lasix and monitor BMP. (9) Hypocalcemia Plan: Likely due to poor po intake from etoh abuse. replace as per ICU protocol. (10) Hypomagnesemia Plan: Likely due to poor po intake from etoh abuse. replace as per ICU protocol. (11) Hypophosphatemia Plan: likely nutritional deficiency. replace as pr icu protocol. Assessment/Plan ASSESSMENT/PLAN 1. This is a 40-day-old male who came to the ER diagnosed with 2. Upper GI bleed, hematemesis monitoring H & H. 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 Further recommendation per GI. 3. Excessive nausea or vomiting with abdominal pain which is improved. 4. Cirrhosis with portal hypertension with massive ascites with stomach is well distended. 5. Gallbladder wall thickening and with cholelithiasis. 6. Elevated liver function tests, secondary to alcoholic hepatitis. 7. Anemia secondary to acute blood loss. The patient is on Protonix and We will monitor H&H. 8. Thrombocytopenia, platelet count 58, secondary to alcoholic liver disease. 9. Diabetes mellitus ADA diet regular diet...NovoLog low-dose sliding scale..Check blood sugars at bedtime monitor blood sugar. 10. Anxiety, holding anxiety medications. 11. Supportive care. 12. Deep venous thrombosis prophylaxis...Sequential compression devices 13. GI prophylaxis Protonix 40 mg p.o. daily. 14. We are going to manage the patient daily basis and make a recommendation daily basis. Check CBC with diff CMP in AM. Discussed Condition with: Patient Problem Qualifiers (1) Cirrhosis of liver: (2) Esophageal varices: Qualified Code: I85.10 - Secondary esophageal varices without bleeding Nilesh Mathew MD Oct 02, 2016 08:28
[2016-10-02 08:31] LABS: ALKALINE PHOSPHATASE 210 U/L (45-117); ALT (GPT) 24 U/L (12-78); ANION GAP 9 MEQ/L (5-15); AST (GOT) 45 U/L (15-37); BICARBONATE 27.2 MEQ/L (21.0-32.0); BLOOD UREA NITROGEN 6 MG/DL (7-18); CHLORIDE 101 MEQ/L (98-107); GLOMERULAR FILTRATION RATE 153 ML/MIN (>89); POTASSIUM 3.4 MEQ/L (3.5-5.1); SODIUM (NA) 137 MEQ/L (136-145); TOTAL BILIRUBIN ADULT 1.6 MG/DL (0.2-1.0)
[2016-10-02] MEDS: SODIUM CHLOR 0.9% 1000 ML INJ 1,000 ML IV SCH ×2 (08:45→16:45)
[2016-10-02 09:36] LABS: PLATELET ESTIMATE SMEAR LOW (NORMAL); PLATELET MORPHOLOGY NORMAL (NORMAL); SCAN/DIFF AUTO DIFF CONFIRMED
[2016-10-02 12:00] VITALS: BP 120/61; PULSE 75; RESP 18; TEMP 98.4; O2SAT 100
[2016-10-02 16:00] VITALS: BP 142/79; PULSE 80; RESP 22; TEMP 98.3; O2SAT 100
[2016-10-02 20:01] VITALS: BP 116/68; PULSE 72; RESP 18; TEMP 98.4; O2SAT 100
[2016-10-02] MEDS: ZOLPIDEM TARTRATE 5 MG TAB PO PRN (22:19)
[2016-10-03] VITALS: BP 125/60; PULSE 78; RESP 16; TEMP 98.6; O2SAT 98
[2016-10-03] MEDS: SODIUM CHLOR 0.9% 1000 ML INJ 1,000 ML IV SCH ×3 (00:35→16:45)
[2016-10-03] MEDS: MORPHINE SULFATE 4 MG/ML INJ IV PRN ×5 (00:49→23:53)
[2016-10-03 04:00] VITALS: BP 120/64; PULSE 84; RESP 16; TEMP 98; O2SAT 98
[2016-10-03] MEDS: CHLORHEXIDINE GLUCONATE 2 % 1 PACK (2 CLOTHS) TOP SCH (04:00)
[2016-10-03] MEDS: INSULIN ASPART SUPPLEMENTAL SCALE SQ SCH ×4 (05:48→21:00)
[2016-10-03 07:24] LABS: ALKALINE PHOSPHATASE 195 U/L (45-117); ALT (GPT) 24 U/L (12-78); ANION GAP 6 MEQ/L (5-15); AST (GOT) 41 U/L (15-37); BICARBONATE 29.6 MEQ/L (21.0-32.0); BLOOD UREA NITROGEN 7 MG/DL (7-18); CHLORIDE 98 MEQ/L (98-107); GLOMERULAR FILTRATION RATE 156 ML/MIN (>89); MAGNESIUM 1.1 MG/DL (1.5-2.5); POTASSIUM 3.7 MEQ/L (3.5-5.1); SODIUM (NA) 134 MEQ/L (136-145); TOTAL BILIRUBIN ADULT 1.5 MG/DL (0.2-1.0)
[2016-10-03 07:32] LABS: AUTOMATED NEUTROPHIL # 2.5 TH/MM3 (1.8-7.7); BASOPHIL % 0.6 % (0.0-2.0); EOSINOPHIL # 0.1 TH/MM3 (0-0.4); EOSINOPHIL % 2.3 % (0.0-4.0); HEMATOCRIT 32.3 % (39.0-51.0); LYMPH % 21.9 % (9.0-44.0); MEAN CELL VOLUME 99.4 FL (80.0-100.0); MEAN CORPUSCULAR HEMOGLOBIN 33.9 PG (27.0-34.0); MEAN CORPUSCULAR HGB CONC 34.1 % (32.0-36.0); MONO % 19.4 % (0.0-8.0); NEUT % 55.8 % (16.0-70.0); PLATELET COUNT 57 TH/MM3 (150-450); RED BLOOD COUNT 3.25 MIL/MM3 (4.50-5.90); RED CELL DISTRIBUTION WIDTH 16.9 % (11.6-17.2); WHITE BLOOD COUNT 4.4 TH/MM3 (4.0-11.0)
[2016-10-03 07:36] LABS: HEMO FLAGS AUTO DIFF
[2016-10-03] MEDS: PANTOPRAZOLE SOD 40 MG DELAYED RELEASE TAB PO SCH ×2 (08:30→20:52)
[2016-10-03] MEDS: MULTIVITAMIN TAB PO SCH (08:30)
[2016-10-03] MEDS: SPIRONOLACTONE 25 MG TAB PO SCH (08:30)
[2016-10-03] MEDS: PROPRANOLOL HCL 20 MG TAB PO SCH ×2 (08:30→20:52)
[2016-10-03] MEDS: FUROSEMIDE 40 MG TAB PO SCH (08:30)
[2016-10-03] MEDS: MAGNESIUM OXIDE 400 MG TAB PO SCH (08:30)
--- NOTE | 2016-10-03 08:30 | HHI.PR ---
Subjective History of Present Illness Patient denies nausea or vomiting feel extremely weak and tired. denies cp/sob deneis fevers/chills Patient has low Calcium, low phosphorus, better magnesium better. Review of Systems Constitutional Constitutional: Fatigue, Weakness GI/Abdomen GI/Abdominal Exam: Abdominal Pain GI/Abdomen Remarks distended abdomen. Vitals/Results Intake & Output 10/02/16 10/02/16 10/03/16 15:00 23:00 07:00 Intake Total 2881 ml 600 ml 480 ml Output Total 2450 ml 1600 ml 2100 ml Balance 431 ml -1000 ml -1620 ml Intake Oral 1000 ml 600 ml 480 ml IV Total 1881 ml Output Urine Total 2450 ml 1600 ml 2100 ml # Bowel Movements 0 0 0 Vital Signs Vital Signs Date Time Temp Pulse Resp B/P Pulse Ox O2 Delivery O2 Flow Rate FiO2 10/03/16 04:00 98.0 84 16 120/64 98 10/03/16 00:00 98.6 78 16 125/60 98 10/02/16 20:10 Room Air 10/02/16 20:01 98.4 72 18 116/68 100 10/02/16 16:00 98.3 80 22 142/79 100 10/02/16 12:00 98.4 75 18 120/61 100 CBC/BMP: 10/03/16 0602 10/03/16 0602 Lab Results Laboratory Tests Test 10/03/16 06:02 White Blood Count 4.4 TH/MM3 Red Blood Count 3.25 MIL/MM3 Hemoglobin 11.0 GM/DL Hematocrit 32.3 % Mean Corpuscular Volume 99.4 FL Mean Corpuscular Hemoglobin 33.9 PG Mean Corpuscular Hemoglobin 34.1 % Concent Red Cell Distribution Width 16.9 % Platelet Count 57 TH/MM3 Mean Platelet Volume 10.6 FL Neutrophils (%) (Auto) 55.8 % Lymphocytes (%) (Auto) 21.9 % Monocytes (%) (Auto) 19.4 % Eosinophils (%) (Auto) 2.3 % Basophils (%) (Auto) 0.6 % Neutrophils # (Auto) 2.5 TH/MM3 Lymphocytes # (Auto) 1.0 TH/MM3 Monocytes # (Auto) 0.9 TH/MM3 Eosinophils # (Auto) 0.1 TH/MM3 Basophils # (Auto) 0.0 TH/MM3 CBC Comment AUTO DIFF Sodium Level 134 MEQ/L Potassium Level 3.7 MEQ/L Chloride Level 98 MEQ/L Carbon Dioxide Level 29.6 MEQ/L Anion Gap 6 MEQ/L Blood Urea Nitrogen 7 MG/DL Creatinine 0.57 MG/DL Estimat Glomerular Filtration 156 ML/MIN Rate Random Glucose 292 MG/DL Calcium Level 8.3 MG/DL Phosphorus Level 2.9 MG/DL Magnesium Level 1.1 MG/DL Total Bilirubin 1.5 MG/DL Aspartate Amino Transf 41 U/L (AST/SGOT) Alanine Aminotransferase 24 U/L (ALT/SGPT) Alkaline Phosphatase 195 U/L Total Protein 6.5 GM/DL Albumin 2.3 GM/DL Physical Exam General General Appearance: Well Developed, No Acute Distress, Comfortable Eyes Eye Exam: Pupils Equal, Pupils Reactive, Sclera White, Extraocular Movement Intact Throat Throat Exam: Oral Mucosa [place] & Moist, Oral Pharynx Normal Neck Neck Exam: Neck Supple, Trachea Midline Pulmonary Resp Exam: Clear Bilaterally, Breath Sounds Equal Cardiology CV Exam: Regular, Normal Sinus Rhythm Gastrointestinal/Abdomen GI Exam: Bowel Sounds Present, Distended GI Remarks Massive Ascities and diffuse abdominal tenderness. Musculoskeletal MS Exam: Normal Tone Integumentary Skin Exam: Warm, Dry Neurologic Neuro Exam: Alert, Awake, Oriented, Speech Clear, Moving All Extremities, No Focal Deficits Psychiatric Psych Exam: Appropriate Responses VTE Prophylaxis VTE Prophylaxis Device: SCDs PUD Prophylasis PUD Prophylaxis: Protonix Assessment/Plan Problem List: (1) Hematemesis (2) Cirrhosis of liver Plan: fu Gi recommendations. Continue spironolactone and propranolol. (3) Esophageal varices (4) Lactic acidosis Plan: resolved after IV fluid administration. (5) Pneumobilia Plan: fu GI recommendations. (6) Alcohol abuse Plan: advised alcohol cessation. (7) Thickening of wall of gallbladder Plan: As seen on CT of abdomen and pelvis. ? Chronic Cholecystitis. I (8) Hyponatremia Plan: Likely hypervolemic in nature. Continue po lasix and monitor BMP. (9) Hypocalcemia Plan: Likely due to poor po intake from etoh abuse. replace as per ICU protocol. (10) Hypomagnesemia Plan: Likely due to poor po intake from etoh abuse. replace as per ICU protocol. (11) Hypophosphatemia Plan: likely nutritional deficiency. replace as pr icu protocol. Assessment/Plan ASSESSMENT/PLAN 1. This is a 40-day-old male who came to the ER diagnosed with 2. Upper GI bleed, hematemesis monitoring H & H. 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 Further recommendation per GI. 3. Excessive nausea or vomiting with abdominal pain which is improved. 4. Cirrhosis with portal hypertension with massive ascites with stomach is well distended. 5. Gallbladder wall thickening and with cholelithiasis. 6. Elevated liver function tests, secondary to alcoholic hepatitis. 7. Anemia secondary to acute blood loss. The patient is on Protonix and We will monitor H&H. 8. Thrombocytopenia, platelet count 58, secondary to alcoholic liver disease. 9. Diabetes mellitus ADA diet regular diet...NovoLog low-dose sliding scale..Check blood sugars at bedtime monitor blood sugar. levemir dose increased. 10. Anxiety, holding anxiety medications. 11. Supportive care. 12. Deep venous thrombosis prophylaxis...Sequential compression devices 13. GI prophylaxis Protonix 40 mg p.o. daily. 14. We are going to manage the patient daily basis and make a recommendation daily basis. Check CBC with diff CMP in AM. Discussed Condition with: Patient Problem Qualifiers (1) Cirrhosis of liver: (2) Esophageal varices: Qualified Code: I85.10 - Secondary esophageal varices without bleeding Nilesh Mathew MD Oct 03, 2016 08:30
[2016-10-03 08:33] VITALS: BP 125/66; PULSE 79; RESP 18; TEMP 98.2; O2SAT 97
[2016-10-03] MEDS ORDERED: MAGNESIUM SULFATE 4 GM PREMIX 100 ML IV ONE (08:45)
[2016-10-03 09:17] LABS: PLATELET ESTIMATE SMEAR LOW (NORMAL); PLATELET MORPHOLOGY NORMAL (NORMAL); SCAN/DIFF AUTO DIFF CONFIRMED
[2016-10-03] MEDS: MAGNESIUM SULFAT 1 GM PREMIX 100 ML x2 bags IV SCH ×3 (10:03→13:03)
[2016-10-03] MEDS ORDERED: ACETAMINOPHEN/HYDROcodone 325 MG/5 MG TAB PO PRN (11:45)
[2016-10-03 12:05] VITALS: BP 118/66; PULSE 78; RESP 19; TEMP 98.1; O2SAT 100
[2016-10-03 16:46] VITALS: BP 140/77; PULSE 73; RESP 18; TEMP 97.3; O2SAT 98
[2016-10-03 20:00] VITALS: BP 108/59; PULSE 74; RESP 18; TEMP 98.1; O2SAT 97
[2016-10-03] MEDS ORDERED: INSULIN DETEMIR 100 UNITS/ML VIAL SQ SCH (21:00)
[2016-10-04] VITALS: BP 110/68; PULSE 82; RESP 18; TEMP 98.5; O2SAT 99
[2016-10-04] MEDS: SODIUM CHLOR 0.9% 1000 ML INJ 1,000 ML IV SCH (00:45)
[2016-10-04] MEDS: MORPHINE SULFATE 4 MG/ML INJ IV PRN ×8 (02:29→22:35)
[2016-10-04 04:00] VITALS: BP 107/55; PULSE 73; RESP 18; TEMP 98.1; O2SAT 95
[2016-10-04] MEDS: CHLORHEXIDINE GLUCONATE 2 % 1 PACK (2 CLOTHS) TOP SCH (04:00)
[2016-10-04] MEDS: INSULIN ASPART SUPPLEMENTAL SCALE SQ SCH ×4 (06:28→21:00)
[2016-10-04 08:00] VITALS: BP 102/60; PULSE 72; PULSE 75; RESP 18; TEMP 98.3; O2SAT 96
[2016-10-04 08:13] LABS: ANION GAP 4 MEQ/L (5-15); AST (GOT) 42 U/L (15-37); BICARBONATE 31.9 MEQ/L (21.0-32.0); BLOOD UREA NITROGEN 7 MG/DL (7-18); CHLORIDE 100 MEQ/L (98-107); GLOMERULAR FILTRATION RATE 163 ML/MIN (>89); MAGNESIUM 1.6 MG/DL (1.5-2.5); POTASSIUM 3.6 MEQ/L (3.5-5.1); SODIUM (NA) 136 MEQ/L (136-145)
[2016-10-04 08:15] LABS: ALKALINE PHOSPHATASE 179 U/L (45-117); ALT (GPT) 24 U/L (12-78); TOTAL BILIRUBIN ADULT 1.6 MG/DL (0.2-1.0)
[2016-10-04] MEDS ORDERED: MAGNESIUM SULFATE 4 GM PREMIX 100 ML IV ONE (08:15)
--- NOTE | 2016-10-04 08:15 | HHI.PR ---
Subjective History of Present Illness Patient feel very weak and tired no fever/chills denies cp/sob deneis fevers/chills Patient has low Calcium, low phosphorus, resolved Low Magnasium will replace. Review of Systems Constitutional Constitutional: Fatigue, Weakness GI/Abdomen GI/Abdominal Exam: Abdominal Pain GI/Abdomen Remarks distended abdomen. Vitals/Results Intake & Output 10/03/16 10/03/16 10/04/16 15:00 23:00 07:00 Intake Total 810 ml 240 ml Output Total 800 ml 2250 ml 500 ml Balance -800 ml -1440 ml -260 ml Intake Oral 810 ml 240 ml Output Urine Total 800 ml 2250 ml 500 ml # Bowel Movements 1 Vital Signs Vital Signs Date Time Temp Pulse Resp B/P Pulse Ox O2 Delivery O2 Flow Rate FiO2 10/04/16 04:00 98.1 73 18 107/55 95 10/04/16 00:00 98.5 82 18 110/68 99 10/03/16 21:09 Room Air 10/03/16 20:00 98.1 74 18 108/59 97 10/03/16 16:46 97.3 73 18 140/77 98 10/03/16 13:40 18 10/03/16 12:05 98.1 78 19 118/66 100 10/03/16 08:36 18 10/03/16 08:33 98.2 79 18 125/66 97 CBC/BMP: 10/03/16 0602 10/04/16 0705 Lab Results Laboratory Tests Test 10/04/16 07:05 Sodium Level 136 MEQ/L Potassium Level 3.6 MEQ/L Chloride Level 100 MEQ/L Carbon Dioxide Level 31.9 MEQ/L Anion Gap 4 MEQ/L Blood Urea Nitrogen 7 MG/DL Creatinine 0.55 MG/DL Estimat Glomerular Filtration 163 ML/MIN Rate Random Glucose 236 MG/DL Calcium Level 8.6 MG/DL Magnesium Level 1.6 MG/DL Aspartate Amino Transf 42 U/L (AST/SGOT) Albumin 2.5 GM/DL Physical Exam General General Appearance: Well Developed, No Acute Distress, Comfortable Eyes Eye Exam: Pupils Equal, Pupils Reactive, Sclera White, Extraocular Movement Intact Throat Throat Exam: Oral Mucosa [place] & Moist, Oral Pharynx Normal Neck Neck Exam: Neck Supple, Trachea Midline Pulmonary Resp Exam: Clear Bilaterally, Breath Sounds Equal Cardiology CV Exam: Regular, Normal Sinus Rhythm Gastrointestinal/Abdomen GI Exam: Bowel Sounds Present, Distended GI Remarks Massive Ascities and diffuse abdominal tenderness. Musculoskeletal MS Exam: Normal Tone Integumentary Skin Exam: Warm, Dry Neurologic Neuro Exam: Alert, Awake, Oriented, Speech Clear, Moving All Extremities, No Focal Deficits Psychiatric Psych Exam: Appropriate Responses VTE Prophylaxis VTE Prophylaxis Device: SCDs PUD Prophylasis PUD Prophylaxis: Protonix Assessment/Plan Problem List: (1) Hematemesis (2) Cirrhosis of liver Plan: fu Gi recommendations. Continue spironolactone and propranolol. (3) Esophageal varices (4) Lactic acidosis Plan: resolved after IV fluid administration. (5) Pneumobilia Plan: fu GI recommendations. (6) Alcohol abuse Plan: advised alcohol cessation. (7) Thickening of wall of gallbladder Plan: As seen on CT of abdomen and pelvis. ? Chronic Cholecystitis. I (8) Hyponatremia Plan: Likely hypervolemic in nature. Continue po lasix and monitor BMP. (9) Hypocalcemia Plan: Likely due to poor po intake from etoh abuse. replace as per ICU protocol. (10) Hypomagnesemia Plan: Likely due to poor po intake from etoh abuse. replace as per ICU protocol. (11) Hypophosphatemia Plan: likely nutritional deficiency. replace as pr icu protocol. Assessment/Plan ASSESSMENT/PLAN 1. This is a 40-day-old male who came to the ER diagnosed with 2. Upper GI bleed, hematemesis monitoring H & H. 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 Further recommendation per GI. 3. Excessive nausea or vomiting with abdominal pain which is improved. 4. Cirrhosis with portal hypertension with massive ascites with stomach is well distended. 5. Gallbladder wall thickening and with cholelithiasis. 6. Elevated liver function tests, secondary to alcoholic hepatitis. 7. Anemia secondary to acute blood loss. The patient is on Protonix and We will monitor H&H. 8. Thrombocytopenia, platelet count 58, secondary to alcoholic liver disease. 9. Diabetes mellitus ADA diet regular diet...NovoLog low-dose sliding scale..Check blood sugars at bedtime monitor blood sugar. 10. Anxiety, holding anxiety medications. 11. Supportive care. 12. Deep venous thrombosis prophylaxis...Sequential compression devices 13. GI prophylaxis Protonix 40 mg p.o. daily. 14. We are going to manage the patient daily basis and make a recommendation daily basis. Check CBC with diff CMP in AM. DC Plan tomorrow. Discussed Condition with: Patient Problem Qualifiers (1) Cirrhosis of liver: (2) Esophageal varices: Qualified Code: I85.10 - Secondary esophageal varices without bleeding Nilesh Mathew MD Oct 04, 2016 08:15
[2016-10-04 08:16] LABS: AUTOMATED NEUTROPHIL # 2.9 TH/MM3 (1.8-7.7); BASOPHIL % 0.6 % (0.0-2.0); EOSINOPHIL # 0.1 TH/MM3 (0-0.4); EOSINOPHIL % 2.3 % (0.0-4.0); HEMATOCRIT 33.1 % (39.0-51.0); LYMPH % 18.7 % (9.0-44.0); LYMPHOCYTE # 0.9 TH/MM3 (1.0-4.8); MEAN CELL VOLUME 99.8 FL (80.0-100.0); MEAN CORPUSCULAR HEMOGLOBIN 33.7 PG (27.0-34.0); MEAN CORPUSCULAR HGB CONC 33.8 % (32.0-36.0); MONO % 17.7 % (0.0-8.0); NEUT % 60.7 % (16.0-70.0); PLATELET COUNT 61 TH/MM3 (150-450); RED BLOOD COUNT 3.32 MIL/MM3 (4.50-5.90); RED CELL DISTRIBUTION WIDTH 16.9 % (11.6-17.2); WHITE BLOOD COUNT 4.7 TH/MM3 (4.0-11.0)
[2016-10-04 08:33] LABS: HEMO FLAGS AUTO DIFF
[2016-10-04] MEDS: SPIRONOLACTONE 25 MG TAB PO SCH (08:41)
[2016-10-04] MEDS: PROPRANOLOL HCL 20 MG TAB PO SCH ×2 (08:41→22:34)
[2016-10-04] MEDS: PANTOPRAZOLE SOD 40 MG DELAYED RELEASE TAB PO SCH ×2 (08:41→22:34)
[2016-10-04] MEDS: FUROSEMIDE 40 MG TAB PO SCH (08:41)
[2016-10-04] MEDS: MAGNESIUM OXIDE 400 MG TAB PO SCH (08:41)
[2016-10-04] MEDS: MULTIVITAMIN TAB PO SCH (08:41)
[2016-10-04] MEDS: MAGNESIUM SULFAT 1 GM PREMIX 100 ML x2 bags IV SCH ×4 (09:37→12:56)
[2016-10-04 09:41] LABS: PLATELET ESTIMATE SMEAR LOW (NORMAL); PLATELET MORPHOLOGY NORMAL (NORMAL); SCAN/DIFF AUTO DIFF CONFIRMED
[2016-10-04] MEDS: ONDANSETRON HCL 4 MG/2 ML VIAL IV PRN (10:16)
[2016-10-04 12:00] VITALS: BP 97/55; PULSE 75; RESP 18; TEMP 98.2; O2SAT 99
[2016-10-04 16:00] VITALS: BP 132/81; PULSE 67; RESP 18; TEMP 97.8; O2SAT 100
[2016-10-04 20:00] VITALS: BP 121/68; PULSE 76; RESP 16; TEMP 98.4; O2SAT 99
[2016-10-04] MEDS ORDERED: INSULIN DETEMIR 100 UNITS/ML VIAL SQ SCH (21:00)
[2016-10-05] VITALS: BP 121/68; PULSE 77; RESP 18; TEMP 98.5; O2SAT 99
[2016-10-05] MEDS: MORPHINE SULFATE 4 MG/ML INJ IV PRN ×3 (00:48→08:11)
[2016-10-05 04:00] VITALS: BP 112/64; PULSE 78; RESP 16; TEMP 98.4; O2SAT 98
[2016-10-05] MEDS: CHLORHEXIDINE GLUCONATE 2 % 1 PACK (2 CLOTHS) TOP SCH (04:00)
[2016-10-05] MEDS: INSULIN ASPART SUPPLEMENTAL SCALE SQ SCH ×2 (05:59→11:52)
[2016-10-05 06:21] LABS: AUTOMATED NEUTROPHIL # 3.1 TH/MM3 (1.8-7.7); BASOPHIL % 0.6 % (0.0-2.0); EOSINOPHIL # 0.1 TH/MM3 (0-0.4); EOSINOPHIL % 2.2 % (0.0-4.0); HEMATOCRIT 33.2 % (39.0-51.0); LYMPH % 19.5 % (9.0-44.0); LYMPHOCYTE # 1.1 TH/MM3 (1.0-4.8); MEAN CELL VOLUME 99.6 FL (80.0-100.0); MEAN CORPUSCULAR HEMOGLOBIN 33.6 PG (27.0-34.0); MEAN CORPUSCULAR HGB CONC 33.7 % (32.0-36.0); MONO % 22.1 % (0.0-8.0); NEUT % 55.6 % (16.0-70.0); PLATELET COUNT 65 TH/MM3 (150-450); RED BLOOD COUNT 3.33 MIL/MM3 (4.50-5.90); RED CELL DISTRIBUTION WIDTH 16.7 % (11.6-17.2); WHITE BLOOD COUNT 5.6 TH/MM3 (4.0-11.0)
[2016-10-05 06:27] LABS: HEMO FLAGS AUTO DIFF
[2016-10-05 06:42] LABS: ALKALINE PHOSPHATASE 181 U/L (45-117); ALT (GPT) 27 U/L (12-78); ANION GAP 7 MEQ/L (5-15); AST (GOT) 52 U/L (15-37); BICARBONATE 31.8 MEQ/L (21.0-32.0); BLOOD UREA NITROGEN 8 MG/DL (7-18); CHLORIDE 97 MEQ/L (98-107); GLOMERULAR FILTRATION RATE 136 ML/MIN (>89); MAGNESIUM 1.6 MG/DL (1.5-2.5); SODIUM (NA) 136 MEQ/L (136-145); TOTAL BILIRUBIN ADULT 1.5 MG/DL (0.2-1.0)
[2016-10-05 08:00] VITALS: BP 125/69; PULSE 74; RESP 18; TEMP 98.2; O2SAT 98
[2016-10-05] MEDS: MAGNESIUM OXIDE 400 MG TAB PO SCH (08:09)
[2016-10-05] MEDS: PANTOPRAZOLE SOD 40 MG DELAYED RELEASE TAB PO SCH (08:09)
[2016-10-05] MEDS: PROPRANOLOL HCL 20 MG TAB PO SCH (08:09)
[2016-10-05] MEDS: FUROSEMIDE 40 MG TAB PO SCH (08:09)
[2016-10-05] MEDS: SPIRONOLACTONE 25 MG TAB PO SCH (08:09)
[2016-10-05] MEDS: MULTIVITAMIN TAB PO SCH (08:09)
[2016-10-05] MEDS: SODIUM CHLOR 0.9% 1000 ML INJ 1,000 ML IV SCH (08:10)
--- NOTE | 2016-10-05 08:36 | HHI.PR ---
Subjective History of Present Illness Patient feel better today. denies cp/sob deneis fevers/chills Patient has low Calcium, low phosphorus, resolved Low Magnasium better OK to DC Home today. Review of Systems Constitutional Constitutional: Fatigue, Weakness GI/Abdomen GI/Abdominal Exam: Abdominal Pain GI/Abdomen Remarks distended abdomen. Vitals/Results Intake & Output 10/04/16 10/04/16 10/05/16 15:00 23:00 07:00 Intake Total 1958 ml 360 ml 480 ml Output Total 1100 ml 700 ml 400 ml Balance 858 ml -340 ml 80 ml Intake Oral 960 ml 360 ml 480 ml IV Total 998 ml Output Urine Total 1100 ml 700 ml 400 ml # Bowel Movements 0 0 0 Vital Signs Vital Signs Date Time Temp Pulse Resp B/P Pulse Ox O2 Delivery O2 Flow Rate FiO2 10/05/16 04:00 98.4 78 16 112/64 98 10/05/16 00:00 98.5 77 18 121/68 99 10/04/16 20:06 Room Air 10/04/16 20:00 98.4 76 16 121/68 99 10/04/16 16:00 97.8 67 18 132/81 100 10/04/16 12:00 98.2 75 18 97/55 99 10/04/16 08:45 Room Air CBC/BMP: 10/05/16 0534 10/05/16 0534 Lab Results Laboratory Tests Test 10/05/16 05:34 White Blood Count 5.6 TH/MM3 Red Blood Count 3.33 MIL/MM3 Hemoglobin 11.2 GM/DL Hematocrit 33.2 % Mean Corpuscular Volume 99.6 FL Mean Corpuscular Hemoglobin 33.6 PG Mean Corpuscular Hemoglobin 33.7 % Concent Red Cell Distribution Width 16.7 % Platelet Count 65 TH/MM3 Mean Platelet Volume 11.3 FL Neutrophils (%) (Auto) 55.6 % Lymphocytes (%) (Auto) 19.5 % Monocytes (%) (Auto) 22.1 % Eosinophils (%) (Auto) 2.2 % Basophils (%) (Auto) 0.6 % Neutrophils # (Auto) 3.1 TH/MM3 Lymphocytes # (Auto) 1.1 TH/MM3 Monocytes # (Auto) 1.2 TH/MM3 Eosinophils # (Auto) 0.1 TH/MM3 Basophils # (Auto) 0.0 TH/MM3 CBC Comment AUTO DIFF Sodium Level 136 MEQ/L Potassium Level 4.0 MEQ/L Chloride Level 97 MEQ/L Carbon Dioxide Level 31.8 MEQ/L Anion Gap 7 MEQ/L Blood Urea Nitrogen 8 MG/DL Creatinine 0.64 MG/DL Estimat Glomerular Filtration 136 ML/MIN Rate Random Glucose 163 MG/DL Calcium Level 8.4 MG/DL Magnesium Level 1.6 MG/DL Total Bilirubin 1.5 MG/DL Aspartate Amino Transf 52 U/L (AST/SGOT) Alanine Aminotransferase 27 U/L (ALT/SGPT) Alkaline Phosphatase 181 U/L Total Protein 6.8 GM/DL Albumin 2.5 GM/DL Physical Exam General General Appearance: Well Developed, No Acute Distress, Comfortable Eyes Eye Exam: Pupils Equal, Pupils Reactive, Sclera White, Extraocular Movement Intact Throat Throat Exam: Oral Mucosa [place] & Moist, Oral Pharynx Normal Neck Neck Exam: Neck Supple, Trachea Midline Pulmonary Resp Exam: Clear Bilaterally, Breath Sounds Equal Cardiology CV Exam: Regular, Normal Sinus Rhythm Gastrointestinal/Abdomen GI Exam: Bowel Sounds Present, Distended GI Remarks Massive Ascities and diffuse abdominal tenderness. Musculoskeletal MS Exam: Normal Tone Integumentary Skin Exam: Warm, Dry Neurologic Neuro Exam: Alert, Awake, Oriented, Speech Clear, Moving All Extremities, No Focal Deficits Psychiatric Psych Exam: Appropriate Responses VTE Prophylaxis VTE Prophylaxis Device: SCDs PUD Prophylasis PUD Prophylaxis: Protonix Assessment/Plan Problem List: (1) Hematemesis (2) Cirrhosis of liver Plan: fu Gi recommendations. Continue spironolactone and propranolol. (3) Esophageal varices (4) Lactic acidosis Plan: resolved after IV fluid administration. (5) Pneumobilia Plan: fu GI recommendations. (6) Alcohol abuse Plan: advised alcohol cessation. (7) Thickening of wall of gallbladder Plan: As seen on CT of abdomen and pelvis. ? Chronic Cholecystitis. I (8) Hyponatremia Plan: Likely hypervolemic in nature. Continue po lasix and monitor BMP. (9) Hypocalcemia Plan: Likely due to poor po intake from etoh abuse. replace as per ICU protocol. (10) Hypomagnesemia Plan: Likely due to poor po intake from etoh abuse. replace as per ICU protocol. (11) Hypophosphatemia Plan: likely nutritional deficiency. replace as pr icu protocol. Assessment/Plan ASSESSMENT/PLAN 1. This is a 40-day-old male who came to the ER diagnosed with 2. Upper GI bleed, hematemesis monitoring H & H. 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 Further recommendation per GI. 3. Excessive nausea or vomiting with abdominal pain which is improved. 4. Cirrhosis with portal hypertension with massive ascites with stomach is well distended. 5. Gallbladder wall thickening and with cholelithiasis. 6. Elevated liver function tests, secondary to alcoholic hepatitis. 7. Anemia secondary to acute blood loss. The patient is on Protonix and We will monitor H&H. 8. Thrombocytopenia, platelet count 58, secondary to alcoholic liver disease. 9. Diabetes mellitus ADA diet regular diet...NovoLog low-dose sliding scale..Check blood sugars at bedtime monitor blood sugar. 10. Anxiety, holding anxiety medications. 11. Supportive care. 12. Deep venous thrombosis prophylaxis...Sequential compression devices 13. GI prophylaxis Protonix 40 mg p.o. daily. OK TO DC Home today. f/u with PCP/GI 1 week. Discussed Condition with: Patient Problem Qualifiers (1) Cirrhosis of liver: (2) Esophageal varices: Qualified Code: I85.10 - Secondary esophageal varices without bleeding Nilesh Mathew MD Oct 05, 2016 08:36
[2016-10-05] MEDS ORDERED: FURO40TA PO (08:39)
[2016-10-05] MEDS ORDERED: PANT40TA3 PO (08:39)
[2016-10-05] MEDS ORDERED: HYDR-3516 PO (08:39)
[2016-10-05] MEDS ORDERED: LEVEMIR SQ (08:39)
[2016-10-05] MEDS ORDERED: Spironolactone PO (08:39)
[2016-10-05 08:40] LABS: PLATELET ESTIMATE SMEAR LOW (NORMAL); PLATELET MORPHOLOGY NORMAL (NORMAL); SCAN/DIFF AUTO DIFF CONFIRMED
--- NOTE | 2016-10-11 10:10 | MD ---
cc: NILESH MASTERSON MD ADMISSION DATE: 09/27/2016 DISCHARGE DATE: 10/05/2016 Okay to discharge the patient home. CONDITION AT THE TIME OF DISCHARGE Satisfactory ACTIVITY As tolerated. DIET Cardiac diet, ADA 1800 calorie diet ALLERGIES DILAUDID AND PENICILLIN DISCHARGE MEDICATIONS Include: 1. Furosemide 40 mg p.o. daily 2. Hydrocodone/acetaminophen 5/325 p.o. q6h as needed/pain 3. Insulin Levemir 20 units subcutaneous h.s. 4. Protonix 40 mg p.o. daily 5. Spironolactone 25 mg p.o. daily 6. Xanax 1 mg p.o. q6h as needed/anxiety 7. Calcium carbonate 1500 mg p.o. daily 8. Magnesium oxide 400 mg p.o. daily 9. Metformin 500 mg p.o. twice a day 10. Multivitamin p.o. daily 11. Propranolol 20 mg p.o. q12h FOLLOW UP The patient advised to follow up with PCP and GI in one week. ADMITTING DIAGNOSIS 1. Upper GI bleed with hematemesis. H&H was monitored. 2. The patient has a portal gastropathy and esophageal varices and had a colonoscopy done in the past. 3. He had ascending colon AV malformation and diverticulosis. 4. Internal hemorrhoids. 5. The patient is status post upper endoscopy done on this visit. 6. The patient has had excessive nausea and vomiting which was resolved. 7. The patient has cirrhosis of the liver with massive ascites and portal hypertension. 8. The patient also has gallbladder wall thickening with cholelithiasis. 9 Elevated liver function tests, secondary to hepatitis. 10. Anemia secondary to acute blood loss. 11. 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 Diabetes mellitus, the patient is on Metformin. Sugar was high, started on Levemir during the hospital stay. HOSPITAL COURSE This is a 42 year-old male admitted with upper GI bleed and has a history of alcoholic cirrhosis and has massive ascites and portal hypertension and esophageal varices. The patient was in the ICU. The patient has severe hyponatremia, hypomagnesemia and hypophosphatemia which was addressed during hospital stay. The patient remained stable during the hospital stay. The patient also had hyponatremia, sodium was 132. The patient also had hypocalcemia, hypophosphatemia and hypomagnesemia which replacement was done. The patient seen by the GI doctor. The patient had an EGD done on 09/27/2016 shows duodenitis, gastritis, grade two esophageal varices and H&H remained stable and there is no sign of active bleeding on the EGD on 09/27/2016. GI signed off. The patient discharged home in a satisfactory condition. Further details in the medical record. Nilesh Masterson MD EA/JUDY /11:13 AM /9:47 AM
== END 2016-10-05 12:27 | disposition home or self-care (01) | DRG 378 ==
LOC: NEPA 22:13 → NEDA 09-27 00:38 → HIMN 09-27 05:00 → N04B 10-01 12:54
PROVIDERS: ADMIT Family Medicine; ATTEND Family Medicine
PROC: 0DB68ZX Excision of Stomach, Via Natural or Artificial Opening Endoscopic, Diagnostic (ICD-10-PCS; 2016-09-27)
PROC: 30253R1 (ICD-10-PCS; 2016-09-27)
PROC: 0DB98ZX Excision of Duodenum, Via Natural or Artificial Opening Endoscopic, Diagnostic (ICD-10-PCS; principal; 2016-09-27 16:00)
DX: K92.0 Hematemesis (principal); D61.818 Other pancytopenia; F10.231 Alcohol dependence with withdrawal delirium; D69.6 Thrombocytopenia, unspecified; K76.6 Portal hypertension; E87.1 Hypo-osmolality and hyponatremia; E87.2 Acidosis; K80.10 Calculus of gallbladder with chronic cholecystitis without obstruction; D62 Acute posthemorrhagic anemia; K70.31 Alcoholic cirrhosis of liver with ascites; K70.11 Alcoholic hepatitis with ascites; K72.90 Hepatic failure, unspecified without coma; E11.9 Type 2 diabetes mellitus without complications; F17.210 Nicotine dependence, cigarettes, uncomplicated; I85.10 Secondary esophageal varices without bleeding; Y90.8 Blood alcohol level of 240 mg/100 ml or more; F12.10 Cannabis abuse, uncomplicated; I10 Essential (primary) hypertension; E63.9 Nutritional deficiency, unspecified; E83.39 Other disorders of phosphorus metabolism; E83.42 Hypomagnesemia; E83.51 Hypocalcemia; E87.70 Fluid overload, unspecified; K21.0 Gastro-esophageal reflux disease with esophagitis; K29.20 Alcoholic gastritis without bleeding; K29.80 Duodenitis without bleeding; K44.9 Diaphragmatic hernia without obstruction or gangrene; F41.8 Other specified anxiety disorders
CPT/HCPCS: 36430; 71010; 74176; 80053; 80307; 81001; 82140; 82310; 82948; 83605; 83690; 83735; 84100; 84132; 85007; 85014; 85018; 85025; 85027; 85610; 85730; 87040; 87641; 88305; 88312; 93005; 94664; 96374; 96375; C9113; J0610; J1815; J2060; J2270; J2354; J2405; J3370; J3411; J3475; J7030; J7040; J7050; J7613; P9035

== ENCOUNTER 2016-10-06 20:16 | Observation (INO) | payer SELFPAY ==
[~2016-10-06] VITALS: Ht 182.9 cm; Wt 62.1 kg
[~2016-10-06 20:16] MED LIST changes: +FURO40TA PO; +HYDR-3516 PO; +LEVEMIR SQ; +PANT40TA3 PO; +Spironolactone PO
[2016-10-06 20:43] VITALS: BP 150/89; PULSE 82; RESP 18; TEMP 99.1; O2SAT 100
[2016-10-06] MEDS ORDERED: ONDANSETRON HCL 4 MG/2 ML VIAL IVP ONE (20:45)
[2016-10-06] MEDS ORDERED: SODIUM CHLORIDE 0.9% FLUSH 10 ML FLUSH IV FLUSH PRN ×2 (20:45→23:45)
[2016-10-06] MEDS ORDERED: PANTOPRAZOLE SODIUM 40 MG VIAL IVP ONE (20:45)
[2016-10-06 20:47] VITALS: BP 141/84; PULSE 85; RESP 18; O2SAT 100
[2016-10-06] MEDS ORDERED: SODIUM CHLOR 0.9% 1000 ML INJ 1,000 ML IV SCH (21:00)
[2016-10-06] MEDS ORDERED: INSULIN HUMAN REGULAR 1,000 UNITS/10 ML VIAL SQ ONE (21:00)
[2016-10-06] MEDS ORDERED: SODIUM CHLORID 0.9% 500 ML INJ 500 ML IV ONE ×2 (21:00→23:15)
--- NOTE | 2016-10-06 21:09 | RADHPO ---
EXAM DATE/TIME: 10/06/2016 20:57 [facility] COMPARISON: CHEST SINGLE AP, September 26, 2016, 22:54. INDICATIONS : Lower chest pain. MEDICAL HISTORY : Cirrhosis. Cardiovascular disease. Diabetes mellitus type II. Hypertension. SURGICAL HISTORY : None. ENCOUNTER: Initial ACUITY: 2 days PAIN SCORE: 5/10 LOCATION: Bilateral lower chest FINDINGS: A single view of the chest demonstrates the lungs to be symmetrically aerated without evidence of mas s, infiltrate or effusion. The cardiomediastinal contours are unremarkable. Osseous structures are intact. CONCLUSION: The lungs are clear. Jose Graham MD on October 06, 2016 at 21:07 Board Certified Radiologist. This report was verified electronically.
[2016-10-06 21:38] LABS: BLOOD, URINE NEG (NEG); KETONE, URINE NEG (NEG); NITRITE,URINE NEG (NEG); PH, URINE 6.5 (5.0-8.5)
[2016-10-06 21:39] LABS: AUTOMATED NEUTROPHIL # 2.4 TH/MM3 (1.8-7.7); BASOPHIL % 0.5 % (0.0-2.0); LYMPH % 17.4 % (9.0-44.0); LYMPHOCYTE # 0.7 TH/MM3 (1.0-4.8); MEAN CELL VOLUME 100.7 FL (80.0-100.0); MEAN CORPUSCULAR HEMOGLOBIN 32.7 PG (27.0-34.0); MEAN CORPUSCULAR HGB CONC 32.5 % (32.0-36.0); MONO % 19.6 % (0.0-8.0); NEUT % 61.5 % (16.0-70.0); PLATELET COUNT 53 TH/MM3 (150-450); RED BLOOD COUNT 3.68 MIL/MM3 (4.50-5.90); RED CELL DISTRIBUTION WIDTH 16.1 % (11.6-17.2); WHITE BLOOD COUNT 3.9 TH/MM3 (4.0-11.0)
[2016-10-06 21:48] LABS: HEMO FLAGS AUTO DIFF
[2016-10-06 21:52] VITALS: BP 136/77; PULSE 83; RESP 18; O2SAT 100
[2016-10-06 21:54] LABS: APTT (PATIENT) 28.9 SEC (24.3-30.1); INTERNATIONAL NORMALIZED RATIO 1.2 RATIO
[2016-10-06 22:00] LABS: CHLORIDE 96 MEQ/L (98-107); POTASSIUM 4.9 MEQ/L (3.5-5.1); SODIUM (NA) 133 MEQ/L (136-145)
[2016-10-06 22:01] LABS: GLUCOSE,URINE 1000 OR GREATER mg/dL (NEG)
[2016-10-06 22:02] LABS: URINE COLOR YELLOW (YELLW/STRAW)
[2016-10-06 22:04] LABS: ANION GAP 11 MEQ/L (5-15); BICARBONATE 26.4 MEQ/L (21.0-32.0); MAGNESIUM 1.5 MG/DL (1.5-2.5)
[2016-10-06 22:05] LABS: BLOOD UREA NITROGEN 10 MG/DL (7-18)
[2016-10-06 22:06] LABS: COMMENT (UR) CULT NOT INDICATED; CULTURE IF INDICATED CULT NOT INDICATED; SQUAMOUS EPITHELIAL CELL URINE 0-5 /hpf (0-5)
[2016-10-06 22:07] LABS: AST (GOT) 55 U/L (15-37); GLOMERULAR FILTRATION RATE 87 ML/MIN (>89)
[2016-10-06 22:09] LABS: TOTAL BILIRUBIN ADULT 1.1 MG/DL (0.2-1.0)
[2016-10-06] MEDS ORDERED: INSULIN HUMAN REGULAR 1,000 UNITS/10 ML VIAL IV PUSH ONE ×2 (22:15→23:15)
[2016-10-06 22:16] LABS: ALKALINE PHOSPHATASE 329 U/L (45-117); ALT (GPT) 31 U/L (12-78)
[2016-10-06 22:33] VITALS: BP 148/78; PULSE 76; RESP 18; O2SAT 100
[2016-10-06 22:35] LABS: PLATELET ESTIMATE SMEAR LOW (NORMAL); PLATELET MORPHOLOGY NORMAL (NORMAL); SCAN/DIFF AUTO DIFF CONFIRMED
[2016-10-06] MEDS ORDERED: IOHEXOL 350 MG/ML 10 ML VIAL (for RAD DIAG) IV ONE (22:52)
--- NOTE | 2016-10-06 23:01 | RADHPO ---
EXAM DATE/TIME: 10/06/2016 22:41 [facility] COMPARISON: CT ABDOMEN & PELVIS W CONTRAST, September 24, 2016, 13:36. INDICATIONS : Diffuse abdominal pain and rectal bleeding beginning today. IV CONTRAST: 95 cc Omnipaque 350 (iohexol) IV ORAL CONTRAST: No oral contrast ingested. RADIATION DOSE: 12.92 CTDIvol (mGy) MEDICAL HISTORY : Cirrhosis. Gastroesophageal reflux disease. Pancreatitis.Diabetes. SURGICAL HISTORY : None. ENCOUNTER: Initial ACUITY: 1 day PAIN SCALE: 7/10 LOCATION: Abdomen. TECHNIQUE: Volumetric scanning of the abdomen and pelvis was performed. Using automated exposure control and ad justment of the mA and/or kV according to patient size, radiation dose was kept as low as reasonably achievable to obtain optimal diagnostic quality images. FINDINGS: There is a heterogeneous pattern of enhancement throughout the liver and there are prominent varices in the periportal region, recannulization of the ligamentous stenosis, and caput medusa, splenomegaly , characteristic of portal venous hypertension and cirrhosis. The findings are similar to prior CT s can on 09/24/16. Prior scan also demonstrated significant ascites; on today's exam, there is only a m inimal amount of ascites underneath the lateral right hemidiaphragm. No fluid tracking down either p aracolic gutter and no ascites in the pelvis. Again noted are multiple calcified gallstones. There are small calcifications in the upper and lower pole calyces of the right kidney, measuring 2 mm or l ess without evidence of hydronephrosis. Both ureters are normal in diameter. Urinary bladder margin s are smooth. No calcifications within the lumen of the urinary bladder. The aorta is normal in dimension. No dilated loops of small or large bowel. The visualized lower ravin ngs are clear. No evidence of pleural effusion. Wide windows for bony detail demonstrate the osseou s structures to be intact. CONCLUSION: 1. Findings characteristic of portal venous hypertension and cirrhosis. The appearance of the liver and a prominent upper abdominal and anterior abdominal wall varices are stable in appearance when com pared to prior CT. 2. There has been a significant improvement in the amount of ascites when compared to 09/24/16. 3. No free fluid in the pelvis. No induration about the sigmoid or rectum. 4. Gallstones and tiny nonobstructing right renal stones. Jose Graham MD on October 06, 2016 at 22:54 Board Certified Radiologist. This report was verified electronically.
[2016-10-06] MEDS ORDERED: LACTULOSE SYRUP 20 GM/30 ML CUP PO ONE (23:15)
[2016-10-06] MEDS ORDERED: VANCOMYCIN INJ 1,000 MG in SODIUM CHLOR 0.9% 250 ML INJ 250 ML IV ONE (23:15)
[2016-10-06] MEDS ORDERED: AZTREONAM INJ 2,000 MG in SODIUM CHLORIDE 0.9% INJ 100 ML IV ONE (23:15)
[2016-10-06] MEDS ORDERED: SODIUM CHLORIDE 0.9% FLUSH 10 ML FLUSH IVF PRN (23:30)
--- NOTE | 2016-10-06 23:30 | PD ---
HPI Chief Complaint: Chest Pain Time Seen by Provider: 20:36 Travel History International Travel<30 days: No Contact w/Intl Traveler<30days: No Traveled to known affect area: No History of Present Illness HPI 45-year-old male presents to the emergency department by private transportation the care of of family friend for evaluation of not feeling well since being discharged from the hospital yesterday. Patient was hospitalized September 27 2 October 05 with extensive evaluation for GI bleed with stable hemoglobin endoscopy that showed evidence of duodenitis gastritis and stable esophageal varices not requiring banding and no active bleeding at time of endoscopy. Patient was also evaluated for lactic acidosis hepatic encephalopathy cirrhosis with ascites PFSH Past Medical History Arthritis: No Asthma: No Autoimmune Disease: No Blood Disorders: Yes (ESOPHAGEAL VARICES) Anxiety: No Depression: No Heart Rhythm Problems: No Cancer: No Cardiovascular Problems: Yes (HTN) High Cholesterol: No Chemotherapy: No Chest Pain: No Congestive Heart Failure: No Cirrhosis: Yes (STAGE 4) COPD: No Diabetes: Yes Patient Takes Glucophage: Yes Diminished Hearing: No Endocrine: No Gastrointestinal Disorders: Yes (CIRRHOSIS LIVER) GERD: Yes Genitourinary: No Headaches: No Hiatal Hernia: No Heparin Induced Thrombocytopen: No Hypertension: Yes Immune Disorder: No Implanted Vascular Access Dvce: No Kidney Stones: No Musculoskeletal: No Neurologic: No Psychiatric: No Reproductive: No Respiratory: No Integumentary: Yes (PSORIASIS) Immunizations Current: Yes Migraines: No Pancreatitis: Yes Radiation Therapy: No Renal Failure: No Seizures: No Sickle Cell Disease: No Sleep Apnea: No Thyroid Disease: No Ulcer: No Tetanus Vaccination: < 5 Years Influenza Vaccination: Yes Past Surgical History Abdominal Surgery: No AICD: No Arteriovenous Shunt: No Cardiac Surgery: No Ear Surgery: No Endocrine Surgery: No Eye Surgery: No Genitourinary Surgery: No Gynecologic Surgery: No Insulin Pump: No Joint Replacement: No Neurologic Surgery: No Oral Surgery: No Pacemaker: No Thoracic Surgery: No Other Surgery: Yes (ESOPHAGEAL BANDING & LIVER BIOPSY) Family History Family Myocardial Infarction: No Social History Alcohol Use: Yes (CHRONIC 1/2 GALLON MOST DAYS) Tobacco Use: Yes (1/2 PPD) Substance Use: Yes (marijaunia occasionally) Allergies-Medications (Allergen,Severity, Reaction): Coded Allergies: Penicillin (Verified Allergy, Severe, Hives, 10/06/16) Dilaudid (Verified Allergy, Intermediate, HIVES, 10/06/16) *MDRO Multi-Drug Resistant Organism (Verified Adverse Reaction, Unknown, ) MRSA PCR (nares) positive - 12/02/15 Reported Meds & Prescriptions Reported Meds & Active Scripts Active [Spironolactone] 25 MG Tab 25 Mg PO DAILY Pantoprazole (Pantoprazole Sodium) 40 Mg Tab 40 Mg PO Q12HR Levemir Inj (Insulin Detemir) 1,000 unit/ 10 ML Vial 20 Units SQ HS Hydrocodone-Acetaminophen 5-325 mg Tab 1 Tab PO Q6H PRN Furosemide 40 Mg Tab 40 Mg PO DAILY Calcium Carbonate 1,500 Mg Tab 1,500 Mg PO DAILY 1,500 mg calcium carbonate (600 mg elemental calcium) Magnesium Oxide 400 Mg Tab 400 Mg PO DAILY Reported Propranolol (Propranolol HCl) 20 Mg Tab 20 Mg PO Q12HR Xanax (Alprazolam) 1 Mg Tab 1 Mg PO Q6H PRN Metformin (Metformin HCl) 500 Mg Tab 500 Mg PO BIDPC With meals Multi-Vitamin Daily (Multiple Vitamin) 1 Tab Tab 1 Tab PO DAILY Physical Exam Narrative GENERAL: Well-developed well-nourished male in no acute distress no respiratory distress SKIN: Warm and dry. HEAD: Atraumatic. Normocephalic. EYES: Pupils equal and round. No scleral icterus. No injection or drainage. ENT: No nasal bleeding or discharge. Mucous membranes pink and moist. NECK: Trachea midline. No JVD. CARDIOVASCULAR: Regular rate and rhythm. RESPIRATORY: No accessory muscle use. Clear to auscultation. Breath sounds equal bilaterally. GASTROINTESTINAL: Abdomen soft, non-tender, no guarding or rebound. Nondistended. Hepatic and splenic margins not palpable. Rectal exam: Normal sphincter tone clear mucus on exam glove no stool and no gross blood. MUSCULOSKELETAL: Extremities without clubbing, cyanosis, or edema. No obvious deformities. NEUROLOGICAL: Awake and alert. No obvious cranial nerve deficits. Motor grossly within normal limits. Five out of 5 muscle strength in the arms and legs. Normal speech. PSYCHIATRIC: Appropriate mood and affect; insight and judgment normal. Data Data Last Documented VS Vital Signs Date Time Temp Pulse Resp B/P Pulse Ox O2 Delivery O2 Flow Rate FiO2 10/06/16 22:33 76 18 148/78 100 Room Air 10/06/16 20:43 99.1 Orders Complete Blood Count With Diff (10/06/16 20:36) Comprehensive Metabolic Panel (10/06/16 20:36) Lipase (10/06/16 20:36) Lactic Acid (10/06/16 20:36) Prothrombin Time / Inr (Pt) (10/06/16 20:36) Act Partial Throm Time (Ptt) (10/06/16 20:36) Urinalysis - C+S If Indicated (10/06/16 20:36) Ct Abd/Pel W Iv Contrast(Rout) (10/06/16 20:36) Iv Access Insert/Monitor (10/06/16 20:36) Ecg Monitoring (10/06/16 20:36) Oximetry (10/06/16 20:36) Ondansetron Inj (Zofran Inj) (10/06/16 20:45) Pantoprazole Inj (Protonix Inj) (10/06/16 20:45) Sodium Chloride 0.9% Flush (Ns Flush) (10/06/16 20:45) Electrocardiogram (10/06/16 20:36) Chest, Single Ap (10/06/16 20:36) Magnesium (Mg) (10/06/16 20:36) Troponin I (10/06/16 20:36) Blood Culture (10/06/16 20:36) Alcohol (Ethanol) (10/06/16 20:36) Insulin Human Regular Inj (Novolin R Inj (10/06/16 21:00) Sodium Chlorid 0.9% 500 Ml Inj (Ns 500 M (10/06/16 21:00) Sodium Chlor 0.9% 1000 Ml Inj (Ns 1000 M (10/06/16 21:00) Blood Glucose (10/06/16 20:51) Ammonia (10/06/16 21:22) Insulin Human Regular Inj (Novolin R Inj (10/06/16 22:15) Iohexol 350 Inj (Omnipaque 350 Inj) (10/06/16 22:52) Insulin Human Regular Inj (Novolin R Inj (10/06/16 23:15) Lactulose Liq (Lactulose Liq) (10/06/16 23:15) Lactic Acid (10/06/16 23:14) Aztreonam Inj (Azactam Inj) (10/06/16 23:15) Vancomycin Inj (Vancomycin Inj) (10/06/16 23:15) Sodium Chlorid 0.9% 500 Ml Inj (Ns 500 M (10/06/16 23:15) Admit Order (Ed Use Only) (10/06/16 ) ^ Saline Lock (10/06/16 23:25) Resp Oxygen Stu C Titrat 1-4 L (10/06/16 ) ^ Notify Dr: Other (10/06/16 23:25) Sodium Chloride 0.9% Flush (Ns Flush) (10/07/16 09:00) Sodium Chloride 0.9% Flush (Ns Flush) (10/06/16 23:30) Sodium Chlor 0.9% 1000 Ml Inj (Ns 1000 M (10/06/16 23:30) Labs Laboratory Tests Test 10/06/16 10/06/16 21:15 21:30 White Blood Count 3.9 TH/MM3 Red Blood Count 3.68 MIL/MM3 Hemoglobin 12.0 GM/DL Hematocrit 37.0 % Mean Corpuscular Volume 100.7 FL Mean Corpuscular Hemoglobin 32.7 PG Mean Corpuscular Hemoglobin 32.5 % Concent Red Cell Distribution Width 16.1 % Platelet Count 53 TH/MM3 Mean Platelet Volume 10.7 FL Neutrophils (%) (Auto) 61.5 % Lymphocytes (%) (Auto) 17.4 % Monocytes (%) (Auto) 19.6 % Eosinophils (%) (Auto) 1.0 % Basophils (%) (Auto) 0.5 % Neutrophils # (Auto) 2.4 TH/MM3 Lymphocytes # (Auto) 0.7 TH/MM3 Monocytes # (Auto) 0.8 TH/MM3 Eosinophils # (Auto) 0.0 TH/MM3 Basophils # (Auto) 0.0 TH/MM3 CBC Comment AUTO DIFF Differential Comment AUTO DIFF CONFIRMED Platelet Estimate LOW Platelet Morphology Comment NORMAL Prothrombin Time 13.0 SEC Prothromb Time International 1.2 RATIO Ratio Activated Partial 28.9 SEC Thromboplast Time Urine Color YELLOW Urine Turbidity CLEAR Urine pH 6.5 Urine Specific [place] 1.026 Urine Protein NEG mg/dL Urine Glucose (UA) 1000 OR GREATER mg/dL Urine Ketones NEG mg/dL Urine Occult Blood NEG Urine Nitrite NEG Urine Bilirubin NEG Urine Leukocyte Esterase NEG Urine Squamous Epithelial 0-5 /hpf Cells Microscopic Urinalysis Comment CULT NOT INDICATED Lactic Acid Level 3.5 mmol/L Ammonia 55 MCMOL/L Sodium Level 133 MEQ/L Potassium Level 4.9 MEQ/L Chloride Level 96 MEQ/L Carbon Dioxide Level 26.4 MEQ/L Anion Gap 11 MEQ/L Blood Urea Nitrogen 10 MG/DL Creatinine 0.95 MG/DL Estimat Glomerular Filtration 87 ML/MIN Rate Random Glucose 578 MG/DL Calcium Level 8.7 MG/DL Magnesium Level 1.5 MG/DL Total Bilirubin 1.1 MG/DL Aspartate Amino Transf 55 U/L (AST/SGOT) Alanine Aminotransferase 31 U/L (ALT/SGPT) Alkaline Phosphatase 329 U/L Troponin I 0.02 NG/ML Total Protein 7.5 GM/DL Albumin 2.7 GM/DL Lipase 410 U/L Ethyl Alcohol Level LESS THAN 3 MG/DL MDM Medical Decision Making Medical Screen Exam Complete: Yes Emergency Medical Condition: Yes Medical Record Reviewed: Yes Interpretation(s) EKG sinus rhythm rate [address] elevation or injury pattern change noted Last Impressions Chest X-Ray 10/06/162035 Signed Impressions: Service Date/Time: Thursday, October 06, 2016 20:57 - CONCLUSION: The lungs are clear. Jose Graham MD Abdomen/Pelvis CT 10/06/162035 Signed Impressions: Service Date/Time: Thursday, October 06, 2016 22:41 - CONCLUSION: 1. Findings characteristic of portal venous hypertension and cirrhosis. The appearance of the liver and a prominent upper abdominal and anterior abdominal wall varices are stable in appearance when compared to prior CT. 2. There has been a significant improvement in the amount of ascites when compared to 09/24/16. 3. No free fluid in the pelvis. No induration about the sigmoid or rectum. 4. Gallstones and tiny nonobstructing right renal stones. Jose Graham MD CBC & BMP Diagram 10/06/16 21:15 10/06/16 21:30 Vital Signs Date Time Temp Pulse Resp B/P Pulse Ox O2 Delivery O2 Flow Rate FiO2 10/06/16 22:33 76 18 148/78 100 Room Air 10/06/16 21:52 83 18 136/77 100 Room Air 10/06/16 20:47 85 18 141/84 100 Room Air 10/06/16 20:47 18 100 Room Air 10/06/16 20:47 82 18 100 Room Air 10/06/16 20:43 99.1 82 18 150/89 100 Differential Diagnosis GI bleed, anemia, uncontrolled blood sugar/diabetes, pancreatitis, subacute bacterial peritonitis, hepatic encephalopathy, lactic acidosis; unlikely diabetic ketoacidosis or HHS Narrative Course Patient placed on quality assurance monitor body IV access obtained vital signs are found to be in normal range however multiple specimens are collected and IV fluids administered also ordered to receive a one-time dose of insulin subcutaneous based on Accu-Chek Accu-Chek repeated it and hyperglycemia greater than initially identified therefore changed Regular Insulin to IV insulin along with fluid bolus administered with caution Imaging studies ordered Patient identified to have mild leukopenia with ongoing thrombocytopenia and stable hemoglobin; rectal exam as previously noted to have clear mucus on exam glove with trace positive findings by Hemoccult testing; abdomen diffusely mildly tender with minimal fluid wave non-tense without guarding or rebound. There has been no nausea and no vomiting. Chemistries are remarkable for normal bicarbonate of 26 normal anion gap of 11 potassium is in normal range at 4.9 but serum glucose was elevated at 578 LFTs mildly elevated with normal range total bilirubin; lipase is elevated at 410 may reflect some mild pancreatitis although this is not identified by imaging study. Patient is identified to have mild hyperammonemia with a serum ammonia level of 55 and lactulose was administered. Patient's lactic acid level is elevated at 3.5 and 8 to our sepsis protocol lactate was ordered after patient has received fluid hydration. Blood cultures were obtained and vancomycin Azactam were ordered presumptively. Patient's case was discussed with [facility] hospitalist physician Dr. Alexander who requests patient to be admitted to Dr. jesus as a med will admit to intermediate care with ongoing management of hyperglycemia possible early sepsis hyperammonemia history of cirrhosis with ascites presumptive coverage with IV antibiotics and monitoring for hemoglobin due to history of GI bleed and report of blood blood per rectum. Patient recently underwent EGD which was remarkable for duodenitis gastritis and esophageal varices that did not require banding prior colonoscopy performed January 2016 showed AVMs of the ascending colon. Critical Care Narrative Aggregate critical care time was 35 minutes. Time to perform other separately billable procedures was not included in the critical care time. My time did not include minutes spent treating any other patients simultaneously or on activities that did not directly contribute to the patient's treatment. The services I provided to this patient were to treat and/or prevent clinically significant deterioration that could result in: Hemorrhagic stroke, lactic acidosis, cardiovascular collapse, I provided critical care services requiring my management, as noted below: Chart data review, documentation time, medication orders and management, vital sign assessments/reviewing monitor data, ordering and reviewing lab tests, ordering and interpreting/reviewing x-rays and diagnostic studies, care of the patient and discussion of the patient with the admitting physicians. [facility] Point of Care Internal Pos. & Neg. Controls: Passed Fecal Specimen Occult Blood: Positive (trace positive clear mucous on exam glove) Sepsis Criteria SIRS Criteria (2 or more): WBC > 74854, < 4000 or > 10% bands Physician Communication Physician Communication discussed with Dr Alexander --admit to Dr Mathew Diagnosis Primary Impression: Hyperglycemia Additional Impressions: Esophageal varices Cirrhosis with alcoholism DM type 2 (diabetes mellitus, type 2) Lactic acidosis H/O: GI bleed Hematochezia Admitting Information Admitting Physician Requests: Admit Dilia Murillo MD Oct 06, 2016 23:30
--- NOTE | 2016-10-06 23:37 | EKG ---
Date Performed: 10/06/2016 Time Performed: 21:20:14 PTAGE: 45 years EKG: Sinus rhythm . Poor R wave progression - probable normal variant Anterior T wave changes are nonspecific [place] e ECG PREVIOUS TRACING : 09/27/2016 02.07 DOCTOR: Richi Costa Interpretating Date/Time 10/06/2016 23:35:35
[2016-10-06] MEDS ORDERED: NALOXONE HCL 0.4 MG/ML AMP IV PRN (23:45)
[2016-10-06] MEDS ORDERED: ONDANSETRON HCL 4 MG/2 ML VIAL IVP PRN (23:45)
[2016-10-06] MEDS ORDERED: ACETAMINOPHEN 325 MG TAB PO PRN (23:45)
[2016-10-07] VITALS (12 sets, daily range): BP systolic 124–156; BP diastolic 70–104; PULSE 71–90; RESP 18–20; TEMP 97.6–98.9; O2SAT 96–100
[2016-10-07] MEDS ORDERED: GLUCAGON 1 MG/ML VIAL OTHER PRN
[2016-10-07] MEDS ORDERED: DEXTROSE 50% IN WATER 50 ML VIAL(D50) IV PUSH PRN
[2016-10-07] MEDS: SODIUM CHLOR 0.9% 1000 ML INJ 1,000 ML IV SCH ×2 (00:02→08:56)
[2016-10-07] MEDS: INSULIN DETEMIR 100 UNITS/ML VIAL SQ SCH ×2 (00:53→21:44)
[2016-10-07] MEDS: ACETAMINOPHEN/HYDROcodone 325 MG/5 MG TAB PO PRN ×2 (01:45→08:54)
[2016-10-07] MEDS: ALPRAZolam 1 MG TAB PO PRN (03:36)
[2016-10-07] MEDS: INSULIN ASPART SUPPLEMENTAL SCALE SQ SCH ×4 (06:47→21:45)
[2016-10-07 07:34] LABS: AUTOMATED NEUTROPHIL # 1.6 TH/MM3 (1.8-7.7); BASOPHIL % 0.6 % (0.0-2.0); EOSINOPHIL % 1.5 % (0.0-4.0); HEMATOCRIT 32.6 % (39.0-51.0); LYMPH % 27.2 % (9.0-44.0); LYMPHOCYTE # 0.8 TH/MM3 (1.0-4.8); MEAN CELL VOLUME 98.6 FL (80.0-100.0); MEAN CORPUSCULAR HEMOGLOBIN 32.2 PG (27.0-34.0); MEAN CORPUSCULAR HGB CONC 32.6 % (32.0-36.0); MONO % 17.1 % (0.0-8.0); NEUT % 53.6 % (16.0-70.0); PLATELET COUNT 47 TH/MM3 (150-450); RED BLOOD COUNT 3.31 MIL/MM3 (4.50-5.90); RED CELL DISTRIBUTION WIDTH 15.7 % (11.6-17.2); WHITE BLOOD COUNT 2.9 TH/MM3 (4.0-11.0)
[2016-10-07 07:38] LABS: HEMO FLAGS AUTO DIFF
[2016-10-07 07:57] LABS: POTASSIUM 3.7 MEQ/L (3.5-5.1)
[2016-10-07 08:26] LABS: SCAN/DIFF AUTO DIFF CONFIRMED
[2016-10-07] MEDS: INFLUENZA VIRUS VACCINE (QUADRIVALENT) 0.5 ML SYR IM ONE ×2 (08:39→15:06)
[2016-10-07] MEDS: CALCIUM CARBONATE 1.25 GM (CA 500 MG) TAB PO SCH (08:44)
[2016-10-07] MEDS: PANTOPRAZOLE SOD 40 MG DELAYED RELEASE TAB PO SCH ×2 (08:44→21:27)
[2016-10-07] MEDS: SODIUM CHLORIDE 0.9% FLUSH 10 ML FLUSH IV FLUSH SCH ×2 (08:58→21:00)
[2016-10-07] MEDS ORDERED: PNEUMOCOCCAL POLYVALENT INJ 25 MCG/0.5 ML SYR IM ONE (09:00)
[2016-10-07] MEDS ORDERED: SODIUM CHLORIDE 0.9% FLUSH 10 ML FLUSH IV FLUSH SCH (09:00)
[2016-10-07] MEDS ORDERED: MAGNESIUM SULFATE 4 GM PREMIX 100 ML IV ONE (12:45)
[2016-10-07] MEDS ORDERED: MAGNESIUM SULFATE 1 GM PREMIX 100 ML IV SCH (13:00)
[2016-10-07] MEDS ORDERED: metFORMIN HCL 500 MG TAB PO SCH (13:00)
[2016-10-07] MEDS: MAGNESIUM OXIDE 400 MG TAB PO SCH (13:31)
[2016-10-07] MEDS: MORPHINE SULFATE 4 MG/ML INJ IV PUSH PRN ×2 (13:33→21:27)
[2016-10-07] MEDS: MAGNESIUM SULFATE 1 GM PREMIX 100 ML IV SCH ×4 (13:35→16:39)
[2016-10-07] MEDS: FUROSEMIDE 40 MG TAB PO SCH (14:55)
[2016-10-07] MEDS: MULTIVITAMIN TAB PO SCH (14:55)
[2016-10-07] MEDS: SPIRONOLACTONE 25 MG TAB PO SCH (14:55)
[2016-10-07] MEDS: PROPRANOLOL HCL 20 MG TAB PO SCH ×2 (14:56→21:27)
--- NOTE | 2016-10-07 16:47 | PD.CONS ---
HPI History of Present Illness This is a 45 year old male who came to ER due to not feeling well, along with elevated blood sugar since being discharged on October 05. He was hospitalized September 27- with evaluation of GIB which he reports at that time he had hematemesis and hematochezia. Endoscopy showed duodenitis, gastritis, and stable esophageal varices, no active bleeding. Hemoglobin was stable. Patient reports that he has not had any further episodes of hematemesis, but continues to see blood in stool. He reports sometimes the blood is bright red or maroon. Hemoccult testing revealed trace positive findings. Medical history significant for Cirrhosis with alcoholism, which patient states he was diagnosed about 14 years ago. 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 Reports he quit ETOH about a month ago. Prior to this he said alcohol consumption varied, but on average he would drink 18 beers per day or up to 1 gallon of vodka per day. Reports diffuse abdominal tenderness, worse at RUQ. Appears that last colonoscopy was in January 2016 which showed AVMs of the ascending colon. (Maria Teresa Cantu) PFSH Past Medical History -Esophageal Varices -HTN -Stage 4 Cirrhosis, with alcohol abuse -DM 2 -Psoriasis -Pancreatitis Past Surgical History -Esophageal banding -Liver Biopsy (Maria Teresa Cantu) Coded Allergies: Penicillin (Verified Allergy, Severe, Hives, 10/06/16) Dilaudid (Verified Allergy, Intermediate, HIVES, 10/06/16) *MDRO Multi-Drug Resistant Organism (Verified Adverse Reaction, Unknown, ) MRSA PCR (nares) positive - 12/02/15 Medications Current Medications Medications (Trade) Dose Ordered Sig/Moni Route PRN Reason Start Time Stop Time Status Last Admin Dose Admin Sodium Chloride (NS 1000 ml Inj) 1,000 ml @ 50 mls/hr Q20H IV 10/06/16 23:30 10/07/16 08:56 Sodium Chloride (NS Flush) 2 ml UNSCH PRN IV FLUSH FLUSH AFTER USING IV ACCESS 10/06/16 23:45 Sodium Chloride (NS Flush) 2 ml BID IV FLUSH 10/07/16 09:00 Acetaminophen (Tylenol) 650 mg Q4H PRN PO TEMP > 100.4 10/06/16 23:45 Ondansetron HCl (Zofran Inj) 4 mg Q6H PRN IVP NAUSEA OR VOMITING 10/06/16 23:45 Naloxone HCl (Narcan Inj) 0.4 mg UNSCH PRN IV SEE LABEL COMMENTS 10/06/16 23:45 Dextrose (D50w (Vial) Inj) 25 ml UNSCH PRN IV PUSH HYPOGLYCEMIA-SEE COMMENTS 10/07/16 00:00 Glucagon (Glucagon Inj) 1 mg UNSCH PRN OTHER HYPOGLYCEMIA-SEE COMMENTS 10/07/16 00:00 Alprazolam (Xanax) 1 mg Q6H PRN PO ANXIETY 10/07/16 00:00 10/07/16 03:36 Calcium Carbonate (Oscal) 1,500 mg DAILY PO 10/07/16 09:00 10/07/16 08:44 Acetaminophen/ Hydrocodone Bitart ([place] 5-325 Mg) 1 tab Q6H PRN PO PAIN SCALE 1 TO 3 10/07/16 00:00 10/07/16 08:54 Insulin Detemir (Levemir Inj) 20 units HS SQ 10/07/16 00:00 10/07/16 00:53 Pantoprazole Sodium (Protonix) 40 mg Q12HR PO 10/07/16 09:00 10/07/16 08:44 Furosemide (Lasix) 40 mg DAILY PO 10/07/16 13:00 10/07/16 14:55 Magnesium Oxide (Mag-Ox) 400 mg DAILY@13 PO 10/07/16 13:00 10/07/16 13:31 Multivitamins (Theragran) 1 tab DAILY PO 10/07/16 13:00 10/07/16 14:55 Propranolol HCl (Inderal) 20 mg Q12HR PO 10/07/16 13:00 10/07/16 14:56 Spironolactone 25 mg 25 mg DAILY PO 10/07/16 13:00 10/07/16 14:55 Magnesium Sulfate/ Dextrose (Magnesium Sulfate 1 Gm Premix) 100 ml @ 100 mls/hr Q1H IV 10/07/16 13:00 10/07/16 16:59 10/07/16 16:39 Morphine Sulfate (Morphine Inj) 2 mg Q4HR PRN IV PUSH PAIN SCALE 4 TO 10 10/07/16 12:45 10/07/16 13:33 Family History -No family history of colon cancer Social History -ETOH: Reports he quit about a month ago. Consumption varied, 18 beers per day or up to 1 gallon of vodka -Tobacco: 07/09 PPD -Illicit Drugs: Occasional Marijuana (Maria Teresa Cantu) Review of Systems Constitutional: COMPLAINS OF: Fatigue, Change in appetite, DENIES: Diaphoretic episodes, Fever, Weight gain, Weight loss, Chills, Dizziness, Night Sweats Endocrine: DENIES: Polydipsia, Polyuria Eyes: DENIES: Blurred vision, Photosensitivity, Double Vision Ears, nose, mouth, throat: DENIES: Hearing loss, Vertigo, Oral lesions, Throat pain, Hoarseness Respiratory: DENIES: Cough, Wheezing, Hemoptysis, Sputum production, Shortness of breath Cardiovascular: DENIES: Chest pain, Palpitations, Syncope, Lower Extremity Edema, Orthopnea, Claudication Gastrointestinal: COMPLAINS OF: Abdominal pain, Bloody stools, Nausea, Swelling of Abdomen, DENIES: Black stools, Constipation, Diarrhea, Vomiting, Difficulty Swallowing, Anorexia, Odynophagia, Heartburn, Hematemesis Genitourinary: DENIES: Urinary frequency, Urinary incontinence, Urgency, Hematuria, Dysuria, Nocturia Musculoskeletal: DENIES: Joint pain, Muscle aches, Stiffness, Joint Swelling, Back pain, Neck pain Integumentary: DENIES: Abnormal pigmentation, Nail changes, Pruritus, Rash, Jaundice Hematologic/lymphatic: DENIES: Bruising, Lymphadenopathy Immunologic/allergic: DENIES: Eczema, Urticaria Neurologic: DENIES: Abnormal gait, Headache, Localized weakness, Paresthesias Psychiatric: DENIES: Anxiety, Confusion, Mood changes, Depression, Agitation, Suicidal Ideation (Maria Teresa Cantu) GI Exam Vitals I&O Vital Signs Date Time Temp Pulse Resp B/P Pulse Ox O2 Delivery O2 Flow Rate FiO2 10/07/16 12:00 98.1 79 18 133/85 96 10/07/16 08:52 97 21 10/07/16 08:00 97.7 81 19 136/89 97 10/07/16 04:00 97.6 90 18 139/85 97 10/07/16 02:25 98.9 71 20 156/104 99 4/2/17 02:23 100 21 10/07/16 02:18 84 18 100 10/07/16 02:16 82 18 128/78 100 Room Air 10/07/16 01:04 84 18 133/84 100 Room Air 10/07/16 00:05 84 18 124/70 99 Room Air 10/06/16 22:33 76 18 148/78 100 Room Air 10/06/16 21:52 83 18 136/77 100 Room Air 10/06/16 20:47 85 18 141/84 100 Room Air 10/06/16 20:47 18 100 Room Air 10/06/16 20:47 82 18 100 Room Air 10/06/16 20:43 99.1 82 18 150/89 100 I/O 10/06/16 10/06/16 10/06/16 10/07/16 10/07/16 10/07/16 07:00 15:00 23:00 07:00 15:00 23:00 Intake Total 360 ml Output Total 1400 ml 800 ml Balance -1040 ml -800 ml Intake Oral 360 ml Output Urine Total 1400 ml 800 ml # Voids 3 # Bowel Movements 0 Imaging Last Impressions Chest X-Ray 10/06/162035 Signed Impressions: Service Date/Time: Thursday, October 06, 2016 20:57 - CONCLUSION: The lungs are clear. Jose Graham MD Abdomen/Pelvis CT 10/06/162035 Signed Impressions: Service Date/Time: Thursday, October 06, 2016 22:41 - CONCLUSION: 1. Findings characteristic of portal venous hypertension and cirrhosis. The appearance of the liver and a prominent upper abdominal and anterior abdominal wall varices are stable in appearance when compared to prior CT. 2. There has been a significant improvement in the amount of ascites when compared to 09/24/16. 3. No free fluid in the pelvis. No induration about the sigmoid or rectum. 4. Gallstones and tiny nonobstructing right renal stones. Jose Graham MD Laboratory Test 10/06/16 10/06/16 10/06/16 10/07/16 21:15 21:30 23:35 07:05 White Blood Count 3.9 TH/MM3 2.9 TH/MM3 Red Blood Count 3.68 MIL/MM3 3.31 MIL/MM3 Hemoglobin 12.0 GM/DL 10.6 GM/DL Hematocrit 37.0 % 32.6 % Mean Corpuscular Volume 100.7 FL 98.6 FL Mean Corpuscular Hemoglobin 32.7 PG 32.2 PG Mean Corpuscular Hemoglobin 32.5 % 32.6 % Concent Red Cell Distribution Width 16.1 % 15.7 % Platelet Count 53 TH/MM3 47 TH/MM3 Mean Platelet Volume 10.7 FL 10.7 FL Neutrophils (%) (Auto) 61.5 % 53.6 % Lymphocytes (%) (Auto) 17.4 % 27.2 % Monocytes (%) (Auto) 19.6 % 17.1 % Eosinophils (%) (Auto) 1.0 % 1.5 % Basophils (%) (Auto) 0.5 % 0.6 % Neutrophils # (Auto) 2.4 TH/MM3 1.6 TH/MM3 Lymphocytes # (Auto) 0.7 TH/MM3 0.8 TH/MM3 Monocytes # (Auto) 0.8 TH/MM3 0.5 TH/MM3 Eosinophils # (Auto) 0.0 TH/MM3 0.0 TH/MM3 Basophils # (Auto) 0.0 TH/MM3 0.0 TH/MM3 CBC Comment AUTO DIFF AUTO DIFF Differential Comment AUTO DIFF AUTO DIFF CONFIRMED CONFIRMED Platelet Estimate LOW Platelet Morphology Comment NORMAL Prothrombin Time 13.0 SEC Prothromb Time International 1.2 RATIO Ratio Activated Partial 28.9 SEC Thromboplast Time Urine Color YELLOW Urine Turbidity CLEAR Urine pH 6.5 Urine Specific [place] 1.026 Urine Protein NEG mg/dL Urine Glucose (UA) 1000 OR GREATER mg/dL Urine Ketones NEG mg/dL Urine Occult Blood NEG Urine Nitrite NEG Urine Bilirubin NEG Urine Leukocyte Esterase NEG Urine Squamous Epithelial 0-5 /hpf Cells Microscopic Urinalysis Comment CULT NOT INDICATED Lactic Acid Level 3.5 mmol/L 4.5 mmol/L Ammonia 55 MCMOL/L Sodium Level 133 MEQ/L 139 MEQ/L Potassium Level 4.9 MEQ/L 3.7 MEQ/L Chloride Level 96 MEQ/L 104 MEQ/L Carbon Dioxide Level 26.4 MEQ/L 24.0 MEQ/L Anion Gap 11 MEQ/L 11 MEQ/L Blood Urea Nitrogen 10 MG/DL 8 MG/DL Creatinine 0.95 MG/DL 0.65 MG/DL Estimat Glomerular Filtration 87 ML/MIN 134 ML/MIN Rate Random Glucose 578 MG/DL 350 MG/DL Calcium Level 8.7 MG/DL 7.9 MG/DL Magnesium Level 1.5 MG/DL Total Bilirubin 1.1 MG/DL Aspartate Amino Transf 55 U/L (AST/SGOT) Alanine Aminotransferase 31 U/L (ALT/SGPT) Alkaline Phosphatase 329 U/L Troponin I 0.02 NG/ML Total Protein 7.5 GM/DL Albumin 2.7 GM/DL Lipase 410 U/L Ethyl Alcohol Level LESS THAN 3 MG/DL Test 10/07/16 13:30 Hemoglobin 10.4 GM/DL Phosphorus Level 2.4 MG/DL Date/Time Procedure Status Source Growth 10/06/16 21:15 Aerobic Blood Culture - Preliminary Resulted Blood Peripheral NO GROWTH IN 1 DAY 10/06/16 21:15 Anaerobic Blood Culture - Preliminary Resulted Blood Peripheral NO GROWTH IN 1 DAY Physical Examination HEENT: PERRLA; normocephalic; atraumatic; no jaundice. NECK: Neck is supple, no JVD, no lymphadenopathy. CHEST: CTA and percussion. CARDIAC: RRR with no murmur gallop or rubs. ABDOMEN: Soft, obese, diffuse tenderness, no hepatosplenomegaly; bowel sounds are present x 4 quadrants EXTREMITIES: No clubbing, cyanosis, or edema. SKIN: Normal; no rash; no jaundice. 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 (Maria Teresa Cantu) Assessment and Plan Plan ASSESSMENT: -GIB, trace positive Hemoccult, blood in stool per patient. History of esophageal varices and AVMs of ascending colon. Stage 4 Cirrhosis. Hemoglobin stable 10.6/32.6. -Cirrhosis (Stage 4) with alcoholism, patient reports he quit ETOH about a month ago, prior to that he was a heavy drinker. AST 55, ALT 31 Total Bilirubin 1.1. Abdomen/Pelvis CT 10/06/16 1. Findings characteristic of portal venous hypertension and cirrhosis. The appearance of the liver and a prominent upper abdominal and anterior abdominal wall varices are stable in appearance when compared to prior CT. 2. There has been a significant improvement in the amount of ascites when compared to 09/24/16. 3. No free fluid in the pelvis. No induration about the sigmoid or rectum. 4. Gallstones and tiny nonobstructing right renal stones. PLAN: -Plan for EGD/Colonoscopy on Saturday -Clear liquid diet on Saturday -Golytely prep Saturday at 1600 -NPO after MN Saturday night -Obtain consents -Monitor H/H -Further recommendations to follow based on results of above. Patient seen and examined by Dr. Bangura and myself and this note is written on his behalf. (Maria Teresa Cantu) Physician Comments Pt. seen and examined by [facility], Dr Caicedo to see and follow with further recommendations. Thank you (Jackie Bangura MD) Maria Teresa Cantu Oct 07, 2016 16:47 Jackie Bangura MD Oct 08, 2016 13:18
--- NOTE | 2016-10-07 17:02 | MH ---
cc: NILESH MASTERSON MD DATE OF ADMISSION 10/06/2016 CHIEF COMPLAINT Abdominal pain, blood per rectum. HISTORY OF PRESENT ILLNESS This is a 45-year-old male having recently been admitted and discharged under my service, has a history of cirrhosis of the liver, esophageal varices, portal hypertension, history of esophageal banding in the past, , history of hypertension, history of liver biopsy done. He is a smoker every day and abuses marijuana and also drinks a lot of alcohol which we advised him multiple times to stop but he is still keeps doing it. Recently admitted for upper GI bleed and diagnosed with gastritis, esophageal varices which does not require any banding, now complaining of fresh rectal bleeding. Denies any fever or chills. He has some nausea but no vomiting. Denies any burning, painful urination. Other than that nothing significant. PAST MEDICAL AND SURGICAL HISTORY As dictated above. SOCIAL HISTORY Heavy drinker, smokes half pack a day and abuses marijuana. Lives at home. FAMILY HISTORY Nothing significant. ALLERGIES PENICILLIN AND DILAUDID. MEDICATIONS Include: 1. Spironolactone 25 mg p.o. daily. 2. Protonix 40 mg p.o. q. 12-day. 3. Levemir 20 units subcutaneous at bedtime. 4. Hydrocodone. 5. Acetaminophen p.o. q. 6-hour. 6. Furosemide 40 milligrams p.o. daily. 7. Calcium carbonate 1500 mg p.o. daily. 8. Magnesium oxide 400 mg p.o. daily. 9. Propranolol 20 mg p.o. q.12 h. 10. Xanax 1 mg p.o. q.6 h p.r.n. anxiety. 11. Metformin 500 milligrams p.o. twice a day. 12. Multivitamin p.o. daily. REVIEW OF SYSTEMS Positive for generalized weakness, abdominal pain. He is feeling weak and tired, all other review of systems negative. PHYSICAL EXAMINATION GENERAL: This is a 45-year-old male sitting on the bed not in acute distress. VITAL SIGNS: Temperature 98.1, heart rate 79, respirations 18, blood pressure 133/85, O2 saturation 96% room. HEENT: Normocephalic, atraumatic. EOMI. PERRL. Oral mucosa moist. NECK: Supple. No visible thyromegaly or neck mass. Trachea central. CARDIOVASCULAR: Regular rate and rhythm. Respirations clear to auscultation bilaterally. ABDOMEN: Diffuse tender on superficial palpation. Deep palpation not done. Bowel sounds audible. EXTREMITIES: No cyanosis, no clubbing. Full range of motion of all extremities. NEUROLOGIC: Awake, alert, oriented x4. No focal deficits. SKIN: Warm and dry. PSYCHIATRIC: The patient is cooperative. LABORATORY DATA Include CBC showed WBC count 2.9 low. Hemoglobin 10.6 low. Hematocrit 32.6 low. Platelet count 47. [place] is 17.1 high. BMP totally unremarkable except for sodium 133 low, now it is 139. Chloride 96 low, now it is 104. Glucose 578 now it is 350. Lactic acid 4.5 high. Calcium 7.9. Total bilirubin 1.1, AST 55 high. Alkaline phosphatase 329 high. Ammonia level was 55 high. Total protein 7.5, albumin 2.7, lipase 410 high. PT 13.0, INR 1.2, APTT 28.9. Ethyl alcohol level less than 3. Urine examination done shows 1000 or greater glucose. Blood cultures x2 done negative so far. IMAGING Chest x-ray was done shows lungs are clear. CT abdomen and pelvis was done shows findings suggestive for portal venous hypertension and cirrhosis. Appearance of the liver and prominent upper abdominal and anterior abdominal wall varices are stable in appearance when compared to prior CT. There has been a significant improvement in the amount of ascites when compared to 09/24/2016. No free fluid in the pelvis. No induration about the sigmoid or rectum. Gallstones and tiny nonobstructing right renal stones. ASSESSMENT/PLAN 1. This is a 45-year-old male who came to the ER diagnosed with rectal bleeding most likely secondary to portal hypertension, GI consulted. Monitoring H&H. The patient denies any rectal bleeding now. The patient is on Protonix. 2. History of cirrhosis of the liver with ascites. Continue home medication. 3. Diabetes mellitus. ADA 1800 calorie diet. NovoLog low-dose sliding scale. Check blood sugars before meals and bedtime and monitor blood sugar. Continue home medications. 4. History of anxiety. Continue home medications. 5. Hypomagnesemia. We will replace magnesium. 6. Lactic acidosis. We will monitor. 7. Hyponatremia, which has resolved. 8. High lipase. Most likely causing abdominal pain. We will monitor. 9. DVT prophylaxis. SCDs. 10. GI prophylaxis. Protonix 40 mg p.o. daily. We are going to manage the patient on a daily basis and make recommendations on a daily basis. Nilesh Masterson MD EA/ANDRÉS /12:36 PM /4:38 PM
[2016-10-08] VITALS (9 sets, daily range): BP systolic 94–127; BP diastolic 59–87; PULSE 80–100; RESP 18–20; TEMP 95.8–99.9; O2SAT 96–100
[2016-10-08] MEDS: MORPHINE SULFATE 4 MG/ML INJ IV PUSH PRN ×5 (05:55→22:26)
[2016-10-08] MEDS: INSULIN ASPART SUPPLEMENTAL SCALE SQ SCH ×4 (06:04→20:31)
[2016-10-08 07:21] LABS: BASOPHIL % 0.6 % (0.0-2.0); EOSINOPHIL % 1.5 % (0.0-4.0); HEMATOCRIT 32.4 % (39.0-51.0); LYMPH % 21.5 % (9.0-44.0); LYMPHOCYTE # 0.7 TH/MM3 (1.0-4.8); MEAN CELL VOLUME 99.6 FL (80.0-100.0); MEAN CORPUSCULAR HEMOGLOBIN 32.8 PG (27.0-34.0); MONO % 16.8 % (0.0-8.0); NEUT % 59.6 % (16.0-70.0); PLATELET COUNT 44 TH/MM3 (150-450); RED BLOOD COUNT 3.26 MIL/MM3 (4.50-5.90); RED CELL DISTRIBUTION WIDTH 15.9 % (11.6-17.2); WHITE BLOOD COUNT 3.2 TH/MM3 (4.0-11.0)
[2016-10-08 07:26] LABS: CHLORIDE 102 MEQ/L (98-107); HEMO FLAGS AUTO DIFF; POTASSIUM 3.5 MEQ/L (3.5-5.1); SODIUM (NA) 139 MEQ/L (136-145)
[2016-10-08 07:32] LABS: ANION GAP 9 MEQ/L (5-15); BICARBONATE 27.7 MEQ/L (21.0-32.0)
[2016-10-08 07:47] LABS: ALKALINE PHOSPHATASE 213 U/L (45-117); ALT (GPT) 26 U/L (12-78); AST (GOT) 48 U/L (15-37); BLOOD UREA NITROGEN 9 MG/DL (7-18); GLOMERULAR FILTRATION RATE 121 ML/MIN (>89); MAGNESIUM 1.7 MG/DL (1.5-2.5); TOTAL BILIRUBIN ADULT 0.9 MG/DL (0.2-1.0)
[2016-10-08 08:05] LABS: SCAN/DIFF AUTO DIFF CONFIRMED
--- NOTE | 2016-10-08 08:09 | HHI.PR ---
Subjective History of Present Illness Patient c/o abdominal pain rectal bleeding resolved no acute issue, Review of Systems Constitutional Constitutional: Fatigue, Weakness GI/Abdomen GI/Abdominal Exam: Abdominal Pain GI/Abdomen Remarks Ascities Vitals/Results Intake & Output 10/07/16 10/07/16 10/08/16 15:00 23:00 07:00 Intake Total 240 ml 1740 ml Output Total 800 ml 2175 ml 300 ml Balance -800 ml -1935 ml 1440 ml Intake Oral 240 ml 240 ml IV Total 1500 ml Output Urine Total 800 ml 2175 ml 300 ml # Voids 6 2 # Bowel Movements 0 0 Vital Signs Vital Signs Date Time Temp Pulse Resp B/P Pulse Ox O2 Delivery O2 Flow Rate FiO2 10/08/16 08:03 18 10/08/16 04:00 98.0 88 20 94/59 97 10/08/16 00:00 99.9 100 20 112/65 99 10/07/16 21:29 98 21 10/07/16 20:00 98.4 83 20 134/91 99 10/07/16 16:00 98.0 76 19 130/77 99 10/07/16 12:00 98.1 79 18 133/85 96 10/07/16 08:52 97 21 CBC/BMP: 10/08/16 0653 10/08/16 0653 Lab Results Laboratory Tests Test 10/07/16 10/08/16 13:30 06:53 Hemoglobin 10.4 GM/DL 10.7 GM/DL Phosphorus Level 2.4 MG/DL White Blood Count 3.2 TH/MM3 Red Blood Count 3.26 MIL/MM3 Hematocrit 32.4 % Mean Corpuscular Volume 99.6 FL Mean Corpuscular Hemoglobin 32.8 PG Mean Corpuscular Hemoglobin 33.0 % Concent Red Cell Distribution Width 15.9 % Platelet Count 44 TH/MM3 Mean Platelet Volume 10.3 FL Neutrophils (%) (Auto) 59.6 % Lymphocytes (%) (Auto) 21.5 % Monocytes (%) (Auto) 16.8 % Eosinophils (%) (Auto) 1.5 % Basophils (%) (Auto) 0.6 % Neutrophils # (Auto) 2.0 TH/MM3 Lymphocytes # (Auto) 0.7 TH/MM3 Monocytes # (Auto) 0.5 TH/MM3 Eosinophils # (Auto) 0.0 TH/MM3 Basophils # (Auto) 0.0 TH/MM3 CBC Comment AUTO DIFF Differential Comment AUTO DIFF CONFIRMED Sodium Level 139 MEQ/L Potassium Level 3.5 MEQ/L Chloride Level 102 MEQ/L Carbon Dioxide Level 27.7 MEQ/L Anion Gap 9 MEQ/L Blood Urea Nitrogen 9 MG/DL Creatinine 0.71 MG/DL Estimat Glomerular Filtration 121 ML/MIN Rate Random Glucose 229 MG/DL Calcium Level 7.9 MG/DL Magnesium Level 1.7 MG/DL Total Bilirubin 0.9 MG/DL Aspartate Amino Transf 48 U/L (AST/SGOT) Alanine Aminotransferase 26 U/L (ALT/SGPT) Alkaline Phosphatase 213 U/L Total Protein 6.2 GM/DL Albumin 2.2 GM/DL Lipase 344 U/L Physical Exam General General Appearance: No Acute Distress, Comfortable Eyes Eye Exam: Pupils Equal, Pupils Reactive, Sclera White, Extraocular Movement Intact Throat Throat Exam: Oral Mucosa [place] & Moist Neck Neck Exam: Neck Supple, Trachea Midline Pulmonary Resp Exam: Clear Bilaterally, Breath Sounds Equal Cardiology CV Exam: Regular, Normal Sinus Rhythm Gastrointestinal/Abdomen GI Exam: Soft, Non-Tender, Bowel Sounds Present GI Remarks Ascities Musculoskeletal MS Exam: Normal Tone Integumentary Skin Exam: Warm, Dry, Intact Psychiatric Psych Exam: Appropriate Responses PUD Prophylasis PUD Prophylaxis: Protonix Assessment/Plan Assessment/Plan ASSESSMENT/PLAN 1. This is a 45-year-old male who came to the ER diagnosed with rectal bleeding most likely secondary to portal hypertension, GI input noted. Monitoring H&H. The patient denies any rectal bleeding now. The patient is on Protonix. 2. History of cirrhosis of the liver with ascites. Continue home medication. 3. Diabetes mellitus. ADA 1800 calorie diet. NovoLog low-dose sliding scale. Check blood sugars before meals and bedtime and monitor blood sugar. Continue home medications. 4. History of anxiety. Continue home medications. 5. Hypomagnesemia. We will replace magnesium. 6. Lactic acidosis. We will monitor. 7. Hyponatremia, which has resolved. 8. High lipase. Most likely causing abdominal pain. We will monitor. 9. DVT prophylaxis. SCDs. 10. GI prophylaxis. Protonix 40 mg p.o. daily. We are going to manage the patient on a daily basis and make recommendations on a daily basis. Discussed Condition with: Patient Nilesh Mathew MD Oct 08, 2016 08:09
[2016-10-08] MEDS: FUROSEMIDE 40 MG TAB PO SCH (09:28)
[2016-10-08] MEDS: MULTIVITAMIN TAB PO SCH (09:28)
[2016-10-08] MEDS: SPIRONOLACTONE 25 MG TAB PO SCH (09:28)
[2016-10-08] MEDS: PROPRANOLOL HCL 20 MG TAB PO SCH ×2 (09:28→20:31)
[2016-10-08] MEDS: SODIUM CHLORIDE 0.9% FLUSH 10 ML FLUSH IV FLUSH SCH ×2 (09:29→20:32)
[2016-10-08] MEDS: CALCIUM CARBONATE 1.25 GM (CA 500 MG) TAB PO SCH (09:29)
[2016-10-08] MEDS: ALPRAZolam 1 MG TAB PO PRN (09:29)
[2016-10-08] MEDS: PANTOPRAZOLE SOD 40 MG DELAYED RELEASE TAB PO SCH ×2 (09:29→20:31)
[2016-10-08] MEDS: MAGNESIUM OXIDE 400 MG TAB PO SCH (13:42)
[2016-10-08] MEDS: SODIUM CHLOR 0.9% 1000 ML INJ 1,000 ML IV SCH (15:30)
[2016-10-08] MEDS ORDERED: PEG (High)/E-LYTE SOLN 4000 ML BTL PO ONE (16:00)
--- NOTE | 2016-10-08 18:47 | HHI.GIFU ---
GI Follow-up Note Consult Follow-up Subjective: Patient laying in bed comfortably, drinking bowel prep.no further bleeding, complaining of abdominal pain.no nausea, vomiting Objective: PHYSICAL EXAMINATION: Vitals signs stable No fever Vital Signs Date Time Temp Pulse Resp B/P Pulse Ox O2 Delivery O2 Flow Rate FiO2 10/08/16 18:12 18 10/08/16 16:00 95.8 80 19 127/87 100 10/08/16 12:00 98.2 83 20 116/70 100 HEENT: Pupils round and reactive to light; normocephalic; atraumatic; jaundice. Throat is clear. NECK: Neck is supple, no JVD, no lymphadenopathy. CHEST: Chest is clear to auscultation and percussion. CARDIAC: Regular rate and rhythm with no murmur gallop or rubs. ABDOMEN: Soft, distended, nontender; no hepatosplenomegaly; bowel sounds are present in all four quadrants. EXTREMITIES: No clubbing, cyanosis, or edema. SKIN: Normal; no rash; jaundice. TECHNICAL RECRUITER: No focal deficits; alert and oriented times three. Available Data (labs, X- Rays, Procedues) : Laboratory Tests Test 10/06/16 10/06/16 10/06/16 10/07/16 21:15 21:30 23:35 07:05 White Blood Count 3.9 TH/MM3 2.9 TH/MM3 Red Blood Count 3.68 MIL/MM3 3.31 MIL/MM3 Hemoglobin 12.0 GM/DL 10.6 GM/DL Hematocrit 37.0 % 32.6 % Mean Corpuscular Volume 100.7 FL 98.6 FL Mean Corpuscular Hemoglobin 32.7 PG 32.2 PG Mean Corpuscular Hemoglobin 32.5 % 32.6 % Concent Red Cell Distribution Width 16.1 % 15.7 % Platelet Count 53 TH/MM3 47 TH/MM3 Mean Platelet Volume 10.7 FL 10.7 FL Neutrophils (%) (Auto) 61.5 % 53.6 % Lymphocytes (%) (Auto) 17.4 % 27.2 % Monocytes (%) (Auto) 19.6 % 17.1 % Eosinophils (%) (Auto) 1.0 % 1.5 % Basophils (%) (Auto) 0.5 % 0.6 % Neutrophils # (Auto) 2.4 TH/MM3 1.6 TH/MM3 Lymphocytes # (Auto) 0.7 TH/MM3 0.8 TH/MM3 Monocytes # (Auto) 0.8 TH/MM3 0.5 TH/MM3 Eosinophils # (Auto) 0.0 TH/MM3 0.0 TH/MM3 Basophils # (Auto) 0.0 TH/MM3 0.0 TH/MM3 CBC Comment AUTO DIFF AUTO DIFF Differential Comment AUTO DIFF AUTO DIFF CONFIRMED CONFIRMED Platelet Estimate LOW Platelet Morphology Comment NORMAL Prothrombin Time 13.0 SEC Prothromb Time International 1.2 RATIO Ratio Activated Partial 28.9 SEC Thromboplast Time Urine Color YELLOW Urine Turbidity CLEAR Urine pH 6.5 Urine Specific Vian 1.026 Urine Protein NEG mg/dL Urine Glucose (UA) 1000 OR GREATER mg/dL Urine Ketones NEG mg/dL Urine Occult Blood NEG Urine Nitrite NEG Urine Bilirubin NEG Urine Leukocyte Esterase NEG Urine Squamous Epithelial 0-5 /hpf Cells Microscopic Urinalysis Comment CULT NOT INDICATED Lactic Acid Level 3.5 mmol/L 4.5 mmol/L Ammonia 55 MCMOL/L Sodium Level 133 MEQ/L 139 MEQ/L Potassium Level 4.9 MEQ/L 3.7 MEQ/L Chloride Level 96 MEQ/L 104 MEQ/L Carbon Dioxide Level 26.4 MEQ/L 24.0 MEQ/L Anion Gap 11 MEQ/L 11 MEQ/L Blood Urea Nitrogen 10 MG/DL 8 MG/DL Creatinine 0.95 MG/DL 0.65 MG/DL Estimat Glomerular Filtration 87 ML/MIN 134 ML/MIN Rate Random Glucose 578 MG/DL 350 MG/DL Calcium Level 8.7 MG/DL 7.9 MG/DL Magnesium Level 1.5 MG/DL Total Bilirubin 1.1 MG/DL Aspartate Amino Transf 55 U/L (AST/SGOT) Alanine Aminotransferase 31 U/L (ALT/SGPT) Alkaline Phosphatase 329 U/L Troponin I 0.02 NG/ML Total Protein 7.5 GM/DL Albumin 2.7 GM/DL Lipase 410 U/L Ethyl Alcohol Level LESS THAN 3 MG/DL Test 10/07/16 10/08/16 10/08/16 13:30 06:53 13:22 Hemoglobin 10.4 GM/DL 10.7 GM/DL 11.1 GM/DL Phosphorus Level 2.4 MG/DL White Blood Count 3.2 TH/MM3 Red Blood Count 3.26 MIL/MM3 Hematocrit 32.4 % Mean Corpuscular Volume 99.6 FL Mean Corpuscular Hemoglobin 32.8 PG Mean Corpuscular Hemoglobin 33.0 % Concent Red Cell Distribution Width 15.9 % Platelet Count 44 TH/MM3 Mean Platelet Volume 10.3 FL Neutrophils (%) (Auto) 59.6 % Lymphocytes (%) (Auto) 21.5 % Monocytes (%) (Auto) 16.8 % Eosinophils (%) (Auto) 1.5 % Basophils (%) (Auto) 0.6 % Neutrophils # (Auto) 2.0 TH/MM3 Lymphocytes # (Auto) 0.7 TH/MM3 Monocytes # (Auto) 0.5 TH/MM3 Eosinophils # (Auto) 0.0 TH/MM3 Basophils # (Auto) 0.0 TH/MM3 CBC Comment AUTO DIFF Differential Comment AUTO DIFF CONFIRMED Sodium Level 139 MEQ/L Potassium Level 3.5 MEQ/L Chloride Level 102 MEQ/L Carbon Dioxide Level 27.7 MEQ/L Anion Gap 9 MEQ/L Blood Urea Nitrogen 9 MG/DL Creatinine 0.71 MG/DL Estimat Glomerular Filtration 121 ML/MIN Rate Random Glucose 229 MG/DL Calcium Level 7.9 MG/DL Magnesium Level 1.7 MG/DL Total Bilirubin 0.9 MG/DL Aspartate Amino Transf 48 U/L (AST/SGOT) Alanine Aminotransferase 26 U/L (ALT/SGPT) Alkaline Phosphatase 213 U/L Total Protein 6.2 GM/DL Albumin 2.2 GM/DL Lipase 344 U/L ASSESSMENT/PLAN: gi bleeding -hemodynamically stable, most likely secondary portal hypertension etoh induced liver disease -needs to stop drinking pancreatis secondary etoh elevated glucose-as per primary Recommendations egd/colonoscopy in am needs to stop etoh ppi monitor hb.hct closely supportive care It was a pleasure seeing Kar Jonas III. Thank you for this consult. Entered by: Arlen Johnston MD Oct 08, 2016 18:47
[2016-10-08] MEDS: INSULIN DETEMIR 100 UNITS/ML VIAL SQ SCH (20:31)
[2016-10-08] MEDS: ACETAMINOPHEN/HYDROcodone 325 MG/5 MG TAB PO PRN (20:31)
[2016-10-09] VITALS (8 sets, daily range): BP systolic 109–139; BP diastolic 67–87; PULSE 73–91; RESP 16–20; TEMP 97.5–99.4; O2SAT 96–100
[2016-10-09] MEDS: ALPRAZolam 1 MG TAB PO PRN ×3 (00:35→19:49)
[2016-10-09] MEDS: MORPHINE SULFATE 4 MG/ML INJ IV PUSH PRN ×5 (02:50→20:00)
[2016-10-09] MEDS: SODIUM CHLOR 0.9% 1000 ML INJ 1,000 ML IV SCH (03:51)
[2016-10-09] MEDS: INSULIN ASPART SUPPLEMENTAL SCALE SQ SCH ×4 (05:48→19:59)
[2016-10-09 07:19] LABS: BASOPHIL % 0.7 % (0.0-2.0); EOSINOPHIL # 0.1 TH/MM3 (0-0.4); HEMATOCRIT 36.8 % (39.0-51.0); LYMPH % 21.6 % (9.0-44.0); LYMPHOCYTE # 1.4 TH/MM3 (1.0-4.8); MEAN CELL VOLUME 100.2 FL (80.0-100.0); MEAN CORPUSCULAR HEMOGLOBIN 33.5 PG (27.0-34.0); MEAN CORPUSCULAR HGB CONC 33.5 % (32.0-36.0); MONO % 14.8 % (0.0-8.0); NEUT % 60.9 % (16.0-70.0); PLATELET COUNT 86 TH/MM3 (150-450); RED BLOOD COUNT 3.67 MIL/MM3 (4.50-5.90); RED CELL DISTRIBUTION WIDTH 16.2 % (11.6-17.2); WHITE BLOOD COUNT 6.4 TH/MM3 (4.0-11.0)
[2016-10-09 07:22] LABS: CHLORIDE 102 MEQ/L (98-107); SODIUM (NA) 140 MEQ/L (136-145)
[2016-10-09 07:24] LABS: HEMO FLAGS AUTO DIFF
[2016-10-09 07:29] LABS: ANION GAP 7 MEQ/L (5-15); BLOOD UREA NITROGEN 6 MG/DL (7-18)
[2016-10-09 07:31] LABS: ALT (GPT) 38 U/L (12-78); AST (GOT) 68 U/L (15-37)
[2016-10-09 07:32] LABS: GLOMERULAR FILTRATION RATE 156 ML/MIN (>89); TOTAL BILIRUBIN ADULT 1.1 MG/DL (0.2-1.0)
[2016-10-09 07:34] LABS: ALKALINE PHOSPHATASE 211 U/L (45-117)
[2016-10-09 07:57] LABS: PLATELET ESTIMATE SMEAR LOW (NORMAL); PLATELET MORPHOLOGY NORMAL (NORMAL); SCAN/DIFF AUTO DIFF CONFIRMED
[2016-10-09] MEDS ORDERED: PROPOFOL 200 MG/20 ML AMP IV ONE (08:12)
--- NOTE | 2016-10-09 08:15 | GIPROC ---
[facility] [address] [place] [address], [id number] EGD PROCEDURE REPORT EXAM DATE: 10/09/2016 PATIENT NAME: Kar Jonas MR #: [id number] BIRTHDATE: 1970 ATTENDING: Arlen Caicedo MD ORDER #: [id number] SENIOR CONTROLS TECHNICIAN: Gian Mendez and Vadim Rodriguez STATUS: inpatient INDICATIONS: The patient is a 45 yr old male here for an EGD due to bleeding, cirrhosis PROCEDURE PERFORMED: EGD, diagnostic MEDICATIONS: None and Per Anesthesia. TOPICAL ANESTHETIC: none CONSENT: The patient understands the risks and benefits of the procedure and understands that these risks include, but are not limited to: sedation, allergic reaction, infection, perforation and/or bleeding. Alternative means of evaluation and treatment include, among others: physical exam, x-rays, and/or surgical intervention. The patient elects to proceed with this endoscopic procedure. medical equipment was checked for proper function. Hand hygiene and appropriate measures for infection prevention was taken. After the risks, benefits and alternatives of the procedure were thoroughly explained, Informed consent was verified, confirmed and timeout was successfully executed by the treatment team. The patient was anesthetized with topical anesthesia and the EC-[id number] (Pedi C) and [id number] endoscope was introduced through the mouth and advanced to the second portion of the duodenum. Retroflexed views revealed a hiatal hernia The gastroscope was then slowly withdrawn and removed. Portal gastropathy esophageal varices grade 1 duodenitis gastritis. ADVERSE EVENTS: There were no complications. IMPRESSIONS: 1. Portal gastropathy esophageal varices grade 1 duodenitis gastritis 2. Retroflexed views revealed a hiatal hernia RECOMMENDATIONS: 1. Anti-reflux regimen 2. Avoid nsaids if further bleeding, bleeding scan PATIENT CONDITION: stable DISPOSITION: Inpatient REPEAT EXAM: Return 6 months EGD Arlen Caicedo MD eSigned: Arlen Caicedo MD 10/09/2016 8:15 AM cc:
--- NOTE | 2016-10-09 08:16 | GIPROC ---
[facility] [address] [place] [address], [id number] COLONOSCOPY PROCEDURE REPORT EXAM DATE: 10/09/2016 PATIENT NAME: Kar Jonas MR #: [id number] BIRTHDATE: 1970 ENDOSCOPIST: Arlen Caicedo MD ORDER #: [id number] PUBLIC SAFETY TEACHER: Gian Mendez and Vadim Rodriguez STATUS: inpatient INDICATIONS: The patient is a 45 yr old male here for a colonoscopy due to bleeding gi PROCEDURE PERFORMED: Colonoscopy, diagnostic MEDICATIONS: None and Per Anesthesia. PREP QUALITY: poor PREP TYPE:GoLytely ESTIMATED BLOOD LOSS: None CONSENT: The patient understands the risks and benefits of the procedure and understands that these risks include, but are not limited to: sedation, allergic reaction, infection, perforation and/or bleeding. Alternative means of evaluation and treatment include, among others: physical exam, x-rays, and/or surgical intervention. The patient elects to proceed with this endoscopic procedure. medical equipment was checked for proper function. Hand hygiene and appropriate measures for infection prevention was taken. After the risks, benefits and alternatives of the procedure were thoroughly explained, Informed consent was verified, confirmed and timeout was successfully executed by the treatment team. A digital exam revealed hemorrhoids The Pentax [id number] and [id number] endoscope was introduced through the anus and advanced to the cecum, which was identified by both the appendix and ileocecal valve. The instrument was then slowly withdrawn as the colon was fully examined. COLON FINDINGS: The colon mucosa was otherwise normal. Retroflexed views revealed internal hemorrhoids and Retroflexed views revealed small internal hemorrhoids The scope was then completely withdrawn from the patient and the procedure terminated. PROCEDURE WITHDRAWAL TIME:6minutes ADVERSE EVENTS: There were no complications. IMPRESSIONS: 1. The colon mucosa was otherwise normal 2. Retroflexed views revealed internal hemorrhoids 3. Retroflexed views revealed small internal hemorrhoids 4. Revealed hemorrhoids RECOMMENDATIONS: 1. Probiotics from any C or health food store 2. Yearly rectal exams 3. Resume diet no etoh RECALL: Return 1 year Colonoscopy Arlen Caicedo MD eSigned: Arlen Caicedo MD 10/09/2016 8:16 AM cc:
--- NOTE | 2016-10-09 08:39 | HHI.PR ---
Subjective History of Present Illness Patient c/o weakness and tiredness going for colonoscopy soon no acute issue H & H Stable. Review of Systems Constitutional Constitutional: Fatigue, Weakness GI/Abdomen GI/Abdominal Exam: Abdominal Pain GI/Abdomen Remarks Ascities Vitals/Results Intake & Output 10/08/16 10/08/16 10/09/16 15:00 23:00 07:00 Intake Total 480 ml 1720 ml Output Total 900 ml 1300 ml Balance -420 ml 420 ml Intake Oral 480 ml 480 ml IV Total 1240 ml Output Urine Total 900 ml 1300 ml # Voids 2 # Bowel Movements 0 1 Vital Signs Vital Signs Date Time Temp Pulse Resp B/P Pulse Ox O2 Delivery O2 Flow Rate FiO2 10/09/16 07:35 98.3 73 18 128/84 100 10/09/16 07:32 98.3 73 16 128/84 100 10/09/16 07:22 18 10/09/16 04:00 97.5 74 18 110/71 97 10/09/16 00:00 98.8 85 20 109/67 98 10/08/16 22:13 84 10/08/16 20:49 99 21 10/08/16 20:00 97.5 89 20 122/82 99 10/08/16 16:00 95.8 80 19 127/87 100 10/08/16 12:00 98.2 83 20 116/70 100 10/08/16 09:00 96 21 CBC/BMP: 10/09/16 0640 10/09/16 0640 Lab Results Laboratory Tests Test 10/08/16 10/09/16 13:22 06:40 Hemoglobin 11.1 GM/DL 12.3 GM/DL White Blood Count 6.4 TH/MM3 Red Blood Count 3.67 MIL/MM3 Hematocrit 36.8 % Mean Corpuscular Volume 100.2 FL Mean Corpuscular Hemoglobin 33.5 PG Mean Corpuscular Hemoglobin 33.5 % Concent Red Cell Distribution Width 16.2 % Platelet Count 86 TH/MM3 Mean Platelet Volume 11.7 FL Neutrophils (%) (Auto) 60.9 % Lymphocytes (%) (Auto) 21.6 % Monocytes (%) (Auto) 14.8 % Eosinophils (%) (Auto) 2.0 % Basophils (%) (Auto) 0.7 % Neutrophils # (Auto) 4.0 TH/MM3 Lymphocytes # (Auto) 1.4 TH/MM3 Monocytes # (Auto) 0.9 TH/MM3 Eosinophils # (Auto) 0.1 TH/MM3 Basophils # (Auto) 0.0 TH/MM3 CBC Comment AUTO DIFF Differential Comment AUTO DIFF CONFIRMED Platelet Estimate LOW Platelet Morphology Comment NORMAL Sodium Level 140 MEQ/L Potassium Level 4.0 MEQ/L Chloride Level 102 MEQ/L Carbon Dioxide Level 31.0 MEQ/L Anion Gap 7 MEQ/L Blood Urea Nitrogen 6 MG/DL Creatinine 0.57 MG/DL Estimat Glomerular Filtration 156 ML/MIN Rate Random Glucose 139 MG/DL Calcium Level 8.1 MG/DL Total Bilirubin 1.1 MG/DL Aspartate Amino Transf 68 U/L (AST/SGOT) Alanine Aminotransferase 38 U/L (ALT/SGPT) Alkaline Phosphatase 211 U/L Total Protein 7.6 GM/DL Albumin 2.7 GM/DL Physical Exam General General Appearance: No Acute Distress, Comfortable Eyes Eye Exam: Pupils Equal, Pupils Reactive, Sclera White, Extraocular Movement Intact Throat Throat Exam: Oral Mucosa [place] & Moist, Oral Pharynx Normal Neck Neck Exam: Neck Supple, Trachea Midline Pulmonary Resp Exam: Clear Bilaterally, Breath Sounds Equal, No Distress Cardiology CV Exam: Regular, Normal Sinus Rhythm Gastrointestinal/Abdomen GI Exam: Soft, Bowel Sounds Present GI Remarks Ascities and diffuse abdominal tenderness. Musculoskeletal MS Exam: Normal Gait, Normal Tone, Good Strength Integumentary Skin Exam: Clear, Warm, Dry, Intact Neurologic Neuro Exam: Alert, Awake, Oriented, Speech Clear, Moving All Extremities, No Focal Deficits PUD Prophylasis PUD Prophylaxis: Protonix Assessment/Plan Assessment/Plan ASSESSMENT/PLAN 1. This is a 45-year-old male who came to the ER diagnosed with rectal bleeding most likely secondary to portal hypertension, GI input noted. going for colonoscopy soon. Monitoring H & H. The patient denies any rectal bleeding now. The patient is on Protonix. 2. History of cirrhosis of the liver with ascites. Continue home medication. 3. Diabetes mellitus. ADA 1800 calorie diet. NovoLog low-dose sliding scale. Check blood sugars before meals and bedtime and monitor blood sugar. Continue home medications. 4. History of anxiety. Continue home medications. 5. Hypomagnesemia. We will replace magnesium. 6. Lactic acidosis. We will monitor. 7. Hyponatremia, which has resolved. 8. High lipase. Most likely causing abdominal pain. We will monitor. 9. DVT prophylaxis. SCDs. 10. GI prophylaxis. Protonix 40 mg p.o. daily. We are going to manage the patient on a daily basis and make recommendations on a daily basis. Discussed Condition with: Patient Nilesh Mathew MD Oct 09, 2016 08:39
[2016-10-09] MEDS: MULTIVITAMIN TAB PO SCH (09:00)
[2016-10-09] MEDS: PROPRANOLOL HCL 20 MG TAB PO SCH ×2 (10:23→19:49)
[2016-10-09] MEDS: SODIUM CHLORIDE 0.9% FLUSH 10 ML FLUSH IV FLUSH SCH ×2 (10:23→19:46)
[2016-10-09] MEDS: FUROSEMIDE 40 MG TAB PO SCH (10:24)
[2016-10-09] MEDS: SPIRONOLACTONE 25 MG TAB PO SCH (10:24)
[2016-10-09] MEDS: CALCIUM CARBONATE 1.25 GM (CA 500 MG) TAB PO SCH (10:24)
[2016-10-09] MEDS: PANTOPRAZOLE SOD 40 MG DELAYED RELEASE TAB PO SCH ×2 (10:24→19:49)
[2016-10-09] MEDS: MAGNESIUM OXIDE 400 MG TAB PO SCH (13:00)
[2016-10-09] MEDS: INSULIN DETEMIR 100 UNITS/ML VIAL SQ SCH (19:49)
[2016-10-10] VITALS: BP_SYST 114; BP_SYST 89; BP_DIAS 56; BP_DIAS 65; PULSE 76; PULSE 81; RESP 18; TEMP 98; TEMP 98.4; O2SAT 100; O2SAT 97
[2016-10-10 04:00] VITALS: BP 114/65; PULSE 81; RESP 18; TEMP 98.4; O2SAT 97
[2016-10-10] MEDS: INSULIN ASPART SUPPLEMENTAL SCALE SQ SCH ×2 (06:14→11:00)
[2016-10-10] MEDS: MORPHINE SULFATE 4 MG/ML INJ IV PUSH PRN ×3 (06:14→14:55)
[2016-10-10] MEDS: SODIUM CHLOR 0.9% 1000 ML INJ 1,000 ML IV SCH (07:30)
--- NOTE | 2016-10-10 07:47 | HHI.GIFU ---
GI Follow-up Note Consult Follow-up Subjective: Patient laying in bed comfortably,feeling better.No nausea, vomiting, bleeding.Pain better, tolerated diet well. Objective: PHYSICAL EXAMINATION: Vitals signs stable No fever Vital Signs Date Time Temp Pulse Resp B/P Pulse Ox O2 Delivery O2 Flow Rate FiO2 10/10/16 04:00 98.4 81 18 114/65 97 10/10/16 00:00 98.4 81 18 114/65 97 HEENT: Pupils round and reactive to light; normocephalic; atraumatic; no jaundice. Throat is clear. NECK: Neck is supple, no JVD, no lymphadenopathy. CHEST: Chest is clear to auscultation and percussion. CARDIAC: Regular rate and rhythm with no murmur gallop or rubs. ABDOMEN: Soft, distended, nontender; no hepatosplenomegaly; bowel sounds are present in all four quadrants. EXTREMITIES: No clubbing, cyanosis, or edema. SKIN: Normal; no rash; no jaundice. CORRECTION WARDEN: No focal deficits; alert and oriented times three. Available Data (labs, X- Rays, Procedues) : Laboratory Tests Test 10/08/16 10/09/16 13:22 06:40 Hemoglobin 11.1 GM/DL 12.3 GM/DL White Blood Count 6.4 TH/MM3 Red Blood Count 3.67 MIL/MM3 Hematocrit 36.8 % Mean Corpuscular Volume 100.2 FL Mean Corpuscular Hemoglobin 33.5 PG Mean Corpuscular Hemoglobin 33.5 % Concent Red Cell Distribution Width 16.2 % Platelet Count 86 TH/MM3 Mean Platelet Volume 11.7 FL Neutrophils (%) (Auto) 60.9 % Lymphocytes (%) (Auto) 21.6 % Monocytes (%) (Auto) 14.8 % Eosinophils (%) (Auto) 2.0 % Basophils (%) (Auto) 0.7 % Neutrophils # (Auto) 4.0 TH/MM3 Lymphocytes # (Auto) 1.4 TH/MM3 Monocytes # (Auto) 0.9 TH/MM3 Eosinophils # (Auto) 0.1 TH/MM3 Basophils # (Auto) 0.0 TH/MM3 CBC Comment AUTO DIFF Differential Comment AUTO DIFF CONFIRMED Platelet Estimate LOW Platelet Morphology Comment NORMAL Sodium Level 140 MEQ/L Potassium Level 4.0 MEQ/L Chloride Level 102 MEQ/L Carbon Dioxide Level 31.0 MEQ/L Anion Gap 7 MEQ/L Blood Urea Nitrogen 6 MG/DL Creatinine 0.57 MG/DL Estimat Glomerular Filtration 156 ML/MIN Rate Random Glucose 139 MG/DL Calcium Level 8.1 MG/DL Total Bilirubin 1.1 MG/DL Aspartate Amino Transf 68 U/L (AST/SGOT) Alanine Aminotransferase 38 U/L (ALT/SGPT) Alkaline Phosphatase 211 U/L Total Protein 7.6 GM/DL Albumin 2.7 GM/DL ASSESSMENT/PLAN: liver cirrhosis secondary etoh gi bleeding-secondary portal hypertension-stable elevated glucose -as per primary etoh use-needs to stop, counseled Recommendations ok to dc home from gi point avoid etoh egd in 6 month colon 1 yr start nonselective betasblockers upon dc- may need better control of glucose It was a pleasure seeing Kar Jonas III. Thank you for this consult. Entered by: Arlen Johnston MD Oct 10, 2016 07:47
[2016-10-10] MEDS: PROPRANOLOL HCL 20 MG TAB PO SCH (08:03)
[2016-10-10] MEDS: MULTIVITAMIN TAB PO SCH (08:03)
[2016-10-10] MEDS: SPIRONOLACTONE 25 MG TAB PO SCH (08:04)
[2016-10-10] MEDS: FUROSEMIDE 40 MG TAB PO SCH (08:05)
[2016-10-10] MEDS: PANTOPRAZOLE SOD 40 MG DELAYED RELEASE TAB PO SCH (08:06)
[2016-10-10] MEDS: CALCIUM CARBONATE 1.25 GM (CA 500 MG) TAB PO SCH (08:06)
[2016-10-10] MEDS: SODIUM CHLORIDE 0.9% FLUSH 10 ML FLUSH IV FLUSH SCH (08:07)
[2016-10-10] MEDS: ALPRAZolam 1 MG TAB PO PRN (08:10)
--- NOTE | 2016-10-10 08:14 | HHI.PR ---
Subjective History of Present Illness Patient feel better low Magnasium replaced. GI input noted s/p Colonoscopy OK to DC from GI Stand point. Review of Systems Constitutional Constitutional: Fatigue, Weakness GI/Abdomen GI/Abdominal Exam: Abdominal Pain GI/Abdomen Remarks Ascities Vitals/Results Intake & Output 10/09/16 10/09/16 10/10/16 15:00 23:00 07:00 Intake Total 150 ml 440 ml 880 ml Output Total 800 ml 3700 ml 1300 ml Balance -650 ml -3260 ml -420 ml Intake Oral 240 ml 480 ml IV Total 200 ml 400 ml Other 150 ml Output Urine Total 800 ml 3700 ml 1300 ml # Bowel Movements 0 0 Vital Signs Vital Signs Date Time Temp Pulse Resp B/P Pulse Ox O2 Delivery O2 Flow Rate FiO2 10/10/16 04:00 98.4 81 18 114/65 97 10/10/16 00:00 98.4 81 18 114/65 97 10/09/16 20:00 99.4 86 20 139/87 100 10/09/16 20:00 98 21 10/09/16 16:02 18 10/09/16 16:00 97.7 91 17 121/81 96 10/09/16 12:00 97.9 81 19 121/77 96 10/09/16 08:52 98.2 75 18 132/86 98 CBC/BMP: 10/09/16 0640 10/09/16 0640 Physical Exam General General Appearance: No Acute Distress, Comfortable Eyes Eye Exam: Pupils Equal, Pupils Reactive, Sclera White, Extraocular Movement Intact Throat Throat Exam: Oral Mucosa [place] & Moist, Oral Pharynx Normal Neck Neck Exam: Neck Supple, Trachea Midline Pulmonary Resp Exam: Clear Bilaterally, Breath Sounds Equal, No Distress Cardiology CV Exam: Regular, Normal Sinus Rhythm Gastrointestinal/Abdomen GI Exam: Soft, Bowel Sounds Present GI Remarks Ascities and mild diffuse tenderness. Musculoskeletal MS Exam: Normal Tone Integumentary Skin Exam: Warm, Dry Extremeties Extremities Exam: No Edema Neurologic Neuro Exam: Alert, Awake, Oriented, Speech Clear, Moving All Extremities, No Focal Deficits VTE Prophylaxis VTE Prophylaxis Meds: Heparin PUD Prophylasis PUD Prophylaxis: Protonix Assessment/Plan Assessment/Plan ASSESSMENT/PLAN 1. This is a 45-year-old male who came to the ER diagnosed with rectal bleeding most likely secondary to portal hypertension, GI input noted s/p Colonoscopy , Monitoring H&H. The patient denies any rectal bleeding now. The patient is on Protonix...OK to DC from GI Stand point 2. History of cirrhosis of the liver with ascites. Continue home medication. 3. Diabetes mellitus. ADA 1800 calorie diet. NovoLog low-dose sliding scale. Check blood sugars before meals and bedtime and monitor blood sugar. Continue home medications. 4. History of anxiety. Continue home medications. 5. Hypomagnesemia. We will replace magnesium. 6. Lactic acidosis. We will monitor. 7. Hyponatremia, which has resolved. 8. High lipase. Most likely causing abdominal pain. We will monitor. 9. DVT prophylaxis. SCDs. 10. GI prophylaxis. Protonix 40 mg p.o. daily. ok to DC home today. f/u with PCP/ GI 1 week. Discussed Condition with: Patient Nilesh Mathew MD Oct 10, 2016 08:14
[2016-10-10] MEDS ORDERED: MAGNESIUM SULFATE 4 GM PREMIX 100 ML IV ONE (08:15)
[2016-10-10 09:24] VITALS: BP 128/73; PULSE 84; RESP 15; TEMP 98.1; O2SAT 98
[2016-10-10] MEDS: MAGNESIUM SULFATE 1 GM PREMIX 100 ML IV SCH ×4 (10:00→13:42)
[2016-10-10] MEDS: MAGNESIUM OXIDE 400 MG TAB PO SCH (11:23)
[2016-10-10 13:00] VITALS: BP 125/80; PULSE 85; RESP 15; TEMP 96.7; O2SAT 99
[2016-10-10] MEDS: ACETAMINOPHEN/HYDROcodone 325 MG/5 MG TAB PO PRN (13:41)
[2016-10-10 15:00] VITALS: RESP 20
--- NOTE | 2016-10-16 12:40 | MD ---
cc: NILESH MASTERSON MD ADMISSION DATE: 10/06/2016 DISCHARGE DATE: 10/10/2016 Okay to discharge the patient home. CONDITION AT THE TIME OF DISCHARGE Satisfactory ACTIVITY As tolerated. DIET Cardiac diet ALLERGIES DILAUDID AND PENICILLIN DISCHARGE MEDICATIONS Include: 1. Alprazolam 1 mg p.o. q6h as needed anxiety 2. Calcium carbonate 1500 mg p.o. daily 3. Furosemide 40 mg p.o. daily 4. Hydrocodone/Acetaminophen 5/325 q6h p.r.n. pain. 5. Levemir 20 units subcutaneous at bedtime 6. Magnesium oxide 400 mg p.o. daily 7. Multivitamin p.o. daily 8. Protonix 40 mg p.o. daily 9. Propanol 20 mg p.o. [id number] 10. Spironolactone 25 mg p.o. daily The patient advised to follow up with PCP and GI in one week. ADMISSION DIAGNOSIS 1. Rectal bleeding most likely secondary to portal hypertension. GI has seen the patient, the patient is status post colonoscopy. Nothing acute found per GI. Okay to discharge per GI standpoint. 2. History of cirrhosis of the liver with ascites. 3. Diabetes mellitus 4. History of anxiety. 5. Hypomagnesemia which was replaced during hospital stay. 6. Lactic acidosis 7. Hyponatremia 8. High lipase secondary to acute pancreatitis. HOSPITAL COURSE This is a 45-year-old male admitted with the above-mentioned complaints and problems diagnosed with rectal bleeding secondary to portal hypertension. The patient remained stable. No acute event happened. Discharged in a satisfactory condition. The patient has anemia with a hemoglobin of 12.3. BMP was normal, lactic acid level was 4.5, calcium was 8.1. Magnesium 1.7 which was replaced. The patient remained stable. Alcohol level is less than three. Urine examination showed greater than 1000 glucose, PT 13.0, INR 1.2, APTT 28.9. The patient discharged in satisfactory condition. Chest x-ray done shows nothing acute. CT abdomen and pelvis was done shows findings characteristic of portal venous hypertension and cirrhosis. The appearance of the liver and a prominent upper abdominal anterior abdominal wall varices are stable in appearance when compared to prior CT. There has been a significant improvement in the amount of ascites when compared to 09/24/2016. No free fluid in the pelvis. No induration above the sigmoid rectum or rectum. The gallstones are tiny. Nonobstructing right renal stone. Please see the further details in the medical record. Nilesh Masterson MD EA/JUDY /4:28 PM /12:30 PM
== END 2016-10-10 16:37 | disposition home or self-care (01) ==
LOC: PHED 20:16 → INTOOBSV 23:27 → PHEDA 23:27 → PH3A 10-07 02:23
PROVIDERS: ADMIT Family Medicine; ATTEND Family Medicine
DX: K70.31 Alcoholic cirrhosis of liver with ascites (principal); K92.2 Gastrointestinal hemorrhage, unspecified; I85.10 Secondary esophageal varices without bleeding; K31.89 Other diseases of stomach and duodenum; K76.6 Portal hypertension; K29.80 Duodenitis without bleeding; K85.90 Acute pancreatitis without necrosis or infection, unspecified; K44.9 Diaphragmatic hernia without obstruction or gangrene; K64.8 Other hemorrhoids; K21.9 Gastro-esophageal reflux disease without esophagitis; E87.2 Acidosis; E83.42 Hypomagnesemia; F41.9 Anxiety disorder, unspecified; E11.65 Type 2 diabetes mellitus with hyperglycemia; I10 Essential (primary) hypertension; F17.200 Nicotine dependence, unspecified, uncomplicated; L40.9 Psoriasis, unspecified; Z88.0 Allergy status to penicillin; Z88.5 Allergy status to narcotic agent; Z79.84 Long term (current) use of oral hypoglycemic drugs
CPT/HCPCS: 00810; 43235; 45378; 71010; 74177; 80048; 80053; 80307; 81001; 82140; 82948; 83605; 83690; 83735; 84100; 84484; 85018; 85025; 85610; 85730; 87040; 90471; 90686; 90732; 93005; 96361; 96374; 96375; 99291; C9113; G0378; J1815; J2270; J2405; J3370; J3475; J7030; J7040; J7050; Q9967; G0008; G0009; Q2038

== ENCOUNTER 2016-10-14 01:32 | Emergency (ER) | payer SELFPAY ==
[~2016-10-14] VITALS: Ht 182.9 cm; Wt 84.0 kg
[~2016-10-14 01:32] MED LIST changes: -METF500T PO
[2016-10-14] MEDS ORDERED: METF500T PO (01:39)
[2016-10-14 01:40] VITALS: BP 144/78; PULSE 93; RESP 14; TEMP 98.2; O2SAT 96
[2016-10-14 01:42] VITALS: BP 144/78; PULSE 92; RESP 14; TEMP 98.4; O2SAT 97
[2016-10-14] MEDS: SODIUM CHLORID 0.9% 500 ML INJ 500 ML IV ONE ×2 (02:33→03:52)
[2016-10-14] MEDS: INSULIN HUMAN REGULAR 1,000 UNITS/10 ML VIAL IV PUSH ONE ×3 (02:34→06:42)
[2016-10-14] MEDS: traMADol HCL 50 MG TAB PO ONE (02:36)
[2016-10-14 02:43] LABS: AUTOMATED NEUTROPHIL # 2.2 TH/MM3 (1.8-7.7); BASOPHIL # 0.1 TH/MM3 (0-0.2); BASOPHIL % 1.3 % (0.0-2.0); EOSINOPHIL # 0.1 TH/MM3 (0-0.4); EOSINOPHIL % 2.7 % (0.0-4.0); HEMO FLAGS DIFF FINAL; LYMPH % 31.4 % (9.0-44.0); LYMPHOCYTE # 1.3 TH/MM3 (1.0-4.8); MEAN CELL VOLUME 100.4 FL (80.0-100.0); MEAN CORPUSCULAR HEMOGLOBIN 33.7 PG (27.0-34.0); MEAN CORPUSCULAR HGB CONC 33.6 % (32.0-36.0); MONO % 10.5 % (0.0-8.0); NEUT % 54.1 % (16.0-70.0); PLATELET COUNT 111 TH/MM3 (150-450); RED BLOOD COUNT 3.39 MIL/MM3 (4.50-5.90); RED CELL DISTRIBUTION WIDTH 16.6 % (11.6-17.2); WHITE BLOOD COUNT 4.1 TH/MM3 (4.0-11.0)
[2016-10-14 02:57] LABS: ALT (GPT) 36 U/L (12-78); ANION GAP 8 MEQ/L (5-15); AST (GOT) 52 U/L (15-37); BICARBONATE 28.6 MEQ/L (21.0-32.0); BLOOD UREA NITROGEN 6 MG/DL (7-18); CHLORIDE 100 MEQ/L (98-107); GLOMERULAR FILTRATION RATE 109 ML/MIN (>89); POTASSIUM 4.1 MEQ/L (3.5-5.1); SODIUM (NA) 137 MEQ/L (136-145)
[2016-10-14 03:02] LABS: ALKALINE PHOSPHATASE 311 U/L (45-117); TOTAL BILIRUBIN ADULT 0.7 MG/DL (0.2-1.0)
[2016-10-14 03:30] VITALS: BP 136/72; PULSE 88; RESP 14; O2SAT 99
--- NOTE | 2016-10-14 03:44 | PD ---
HPI Chief Complaint: Abdominal Pain Time Seen by Provider: 02:14 Travel History International Travel<30 days: No Contact w/Intl Traveler<30days: No Traveled to known affect area: No History of Present Illness HPI This is a 45-year-old male who has a history of alcoholic cirrhosis with known esophageal varices who presents to the emergency department having had right sided abdominal pain, mild, constant, similar to pain he has had in the past. He hasn't been taking his insulin because he can't afford it and he checked his blood sugar and it was 550 so he came to the emergency department. He's been urinating more and he's been more thirsty. He denies any fevers or chills. His abdominal pain is unchanged from his chronic pain and he has been drinking alcohol today which always makes his pain worse. PFSH Past Medical History Arthritis: No Asthma: No Autoimmune Disease: No Blood Disorders: Yes (ESOPHAGEAL VARICES) Anxiety: Yes Depression: No Heart Rhythm Problems: No Cancer: No Cardiovascular Problems: Yes (htn) High Cholesterol: No Chemotherapy: No Chest Pain: Yes Congestive Heart Failure: No Cirrhosis: Yes (STAGE 4) COPD: No Diabetes: Yes Patient Takes Glucophage: Yes (10/13/16 1500) Diminished Hearing: No Endocrine: No Gastrointestinal Disorders: Yes (CIRRHOSIS LIVER) GERD: Yes Genitourinary: No Headaches: No Hiatal Hernia: No Heparin Induced Thrombocytopen: No Hypertension: Yes Immune Disorder: No Implanted Vascular Access Dvce: No Kidney Stones: No Musculoskeletal: No Neurologic: No Psychiatric: No Reproductive: No Respiratory: No Integumentary: Yes (PSORIASIS) Immunizations Current: Yes Migraines: No Pancreatitis: Yes Radiation Therapy: No Renal Failure: No Seizures: No Sickle Cell Disease: No Sleep Apnea: No Thyroid Disease: No Ulcer: No Past Surgical History Abdominal Surgery: No AICD: No Arteriovenous Shunt: No Cardiac Surgery: No Ear Surgery: No Endocrine Surgery: No Eye Surgery: No Genitourinary Surgery: No Gynecologic Surgery: No Insulin Pump: No Joint Replacement: No Neurologic Surgery: No Oral Surgery: No Pacemaker: No Thoracic Surgery: No Other Surgery: Yes (ESOPHAGEAL BANDING & LIVER BIOPSY) Social History Alcohol Use: Yes (CHRONIC 1/2 GALLON MOST DAYS) Tobacco Use: Yes (1/2 PPD) Substance Use: No Allergies-Medications (Allergen,Severity, Reaction): Coded Allergies: Penicillin (Verified Allergy, Severe, Hives, 10/14/16) Dilaudid (Verified Allergy, Intermediate, HIVES, 10/14/16) *MDRO Multi-Drug Resistant Organism (Verified Adverse Reaction, Unknown, ) MRSA PCR (nares) positive - 12/02/15 Reported Meds & Prescriptions Reported Meds & Active Scripts Active [Spironolactone] 25 MG Tab 25 Mg PO DAILY Pantoprazole (Pantoprazole Sodium) 40 Mg Tab 40 Mg PO Q12HR Levemir Inj (Insulin Detemir) 1,000 unit/ 10 ML Vial 20 Units SQ HS Hydrocodone-Acetaminophen 5-325 mg Tab 1 Tab PO Q6H PRN Furosemide 40 Mg Tab 40 Mg PO DAILY Calcium Carbonate 1,500 Mg Tab 1,500 Mg PO DAILY 1,500 mg calcium carbonate (600 mg elemental calcium) Magnesium Oxide 400 Mg Tab 400 Mg PO DAILY Reported Metformin (Metformin HCl) 500 Mg Tab 500 Mg PO BIDPC With meals Propranolol (Propranolol HCl) 20 Mg Tab 20 Mg PO Q12HR Xanax (Alprazolam) 1 Mg Tab 1 Mg PO Q6H PRN Multi-Vitamin Daily (Multiple Vitamin) 1 Tab Tab 1 Tab PO DAILY Review of Systems Except as stated in HPI: all other systems reviewed are Neg Physical Exam Narrative GENERAL:Chronically ill appearing SKIN: Focused skin assessment warm and dry. HEAD: Atraumatic. Normocephalic. EYES: Pupils equal and round. No injection or drainage. ENT: Moist mucous membranes NECK: Trachea midline. CARDIOVASCULAR: Regular rate and rhythm. No murmur appreciated. RESPIRATORY: Clear to auscultation. Breath sounds equal bilaterally. GASTROINTESTINAL: Abdomen soft, distended, hepatomegaly MUSCULOSKELETAL: No obvious deformities. NEUROLOGICAL: Awake and alert. No obvious cranial nerve deficits. Moving all extremities PSYCHIATRIC: Appropriate mood and affect; insight and judgment normal. Data Data Last Documented VS Vital Signs Date Time Temp Pulse Resp B/P Pulse Ox O2 Delivery O2 Flow Rate FiO2 10/14/16 05:30 89 12 138/76 98 Room Air 10/14/16 01:42 98.4 Orders Complete Blood Count With Diff (10/14/16 02:20) Comprehensive Metabolic Panel (10/14/16 02:20) ^ Insert Iv (10/14/16 02:20) Insulin Human Regular Inj (Novolin R Inj (10/14/16 02:30) Sodium Chlorid 0.9% 500 Ml Inj (Ns 500 M (10/14/16 02:30) Tramadol (Ultram) (10/14/16 02:30) Sodium Chlorid 0.9% 500 Ml Inj (Ns 500 M (10/14/16 03:45) Insulin Human Regular Inj (Novolin R Inj (10/14/16 03:45) Insulin Human Regular Inj (Novolin R Inj (10/14/16 06:15) Labs Laboratory Tests Test 10/14/16 02:30 White Blood Count 4.1 TH/MM3 Red Blood Count 3.39 MIL/MM3 Hemoglobin 11.4 GM/DL Hematocrit 34.0 % Mean Corpuscular Volume 100.4 FL Mean Corpuscular Hemoglobin 33.7 PG Mean Corpuscular Hemoglobin 33.6 % Concent Red Cell Distribution Width 16.6 % Platelet Count 111 TH/MM3 Mean Platelet Volume 10.7 FL Neutrophils (%) (Auto) 54.1 % Lymphocytes (%) (Auto) 31.4 % Monocytes (%) (Auto) 10.5 % Eosinophils (%) (Auto) 2.7 % Basophils (%) (Auto) 1.3 % Neutrophils # (Auto) 2.2 TH/MM3 Lymphocytes # (Auto) 1.3 TH/MM3 Monocytes # (Auto) 0.4 TH/MM3 Eosinophils # (Auto) 0.1 TH/MM3 Basophils # (Auto) 0.1 TH/MM3 CBC Comment DIFF FINAL Differential Comment Sodium Level 137 MEQ/L Potassium Level 4.1 MEQ/L Chloride Level 100 MEQ/L Carbon Dioxide Level 28.6 MEQ/L Anion Gap 8 MEQ/L Blood Urea Nitrogen 6 MG/DL Creatinine 0.78 MG/DL Estimat Glomerular Filtration 109 ML/MIN Rate Random Glucose 579 MG/DL Calcium Level 7.9 MG/DL Total Bilirubin 0.7 MG/DL Aspartate Amino Transf 52 U/L (AST/SGOT) Alanine Aminotransferase 36 U/L (ALT/SGPT) Alkaline Phosphatase 311 U/L Total Protein 7.5 GM/DL Albumin 2.7 GM/DL MDM Medical Decision Making Medical Screen Exam Complete: Yes Emergency Medical Condition: Yes Interpretation(s) afebrile, tachycardic, mild hypertension macrocytic anemia hyperglycemia Differential Diagnosis hyperglycemia, dka, electrolyte abnormality Narrative Course This is a 45-year-old male who has a history of cirrhosis who presents to the emergency department with hyperglycemia. He's been noncompliant with his insulin. He was placed on a monitor and an IV is established. Labs are obtained which demonstrate hyperglycemia but are otherwise consistent with his baseline. He was observed overnight in the emergency department and given multiple boluses of IV insulin and IV hydration. His blood sugar came down to below 300. He says that he has a friend tomorrow that's going to be able to help him pay for his insulin. Patient was discharged home. Diagnosis Primary Impression: Hyperglycemia Additional Impression: Cirrhosis with alcoholism Qualified Code: K70.31 - Alcoholic cirrhosis of liver with ascites Patient Instructions: General Instructions Additional Instructions: If you develop severe or worsening abdominal pain, fever>100.4, persistent vomiting or inability to eat or drink return to the emergency department immediately. Follow up with your primary care physician in 1-2 days for a check-up. Med/Other Pt SpecificInfo: No Change to Meds Disposition: 01 DISCHARGE HOME Condition: Stable Antonieta Sanford MD Oct 14, 2016 03:44
[2016-10-14 04:25] VITALS: BP 140/74; PULSE 90; RESP 16; O2SAT 96
[2016-10-14 05:30] VITALS: BP 138/76; PULSE 89; RESP 12; O2SAT 98
[2016-10-14 07:35] VITALS: BP 120/76; TEMP 97.8
== END 2016-10-14 07:25 | disposition home or self-care (01) ==
LOC: NEPE 01:32
DX: K70.31 Alcoholic cirrhosis of liver with ascites (principal); E11.65 Type 2 diabetes mellitus with hyperglycemia; F41.9 Anxiety disorder, unspecified; K21.9 Gastro-esophageal reflux disease without esophagitis; I10 Essential (primary) hypertension; K85.90 Acute pancreatitis without necrosis or infection, unspecified; F17.200 Nicotine dependence, unspecified, uncomplicated
CPT/HCPCS: 80053; 85025; 96361; 96374; 96376; 99284; J1815; J7040

== ENCOUNTER 2016-11-01 03:02 | Inpatient (IN) | payer SELFPAY ==
[2016-11-01] VITALS (7 sets, daily range): BP systolic 111–149; BP diastolic 59–82; PULSE 77–109; RESP 15–21; TEMP 98.1–99.4; O2SAT 93–100
[~2016-11-01] VITALS: Ht 175.3 cm; Wt 80.0 kg
[~2016-11-01 03:02] MED LIST changes: +METF500T PO
--- NOTE | 2016-11-01 03:09 | PD ---
HPI Chief Complaint: abdominal pain, vomiting Time Seen by Provider: 03:09 Travel History International Travel<30 days: No Contact w/Intl Traveler<30days: No Traveled to known affect area: No History of Present Illness HPI 45-year-old male came to the emergency room with history of abdominal pain and vomiting that started yesterday. Patient has history of cirrhosis and has had bloody emesis 3 since 10 last night. Patient has history of esophageal varices as well. Patient says that he drank some alcohol last night that he shouldn't have. Although he has been having abdominal pain for past 4-5 days. He looks disheveled and unkempt. Does not have a GI specialist currently. He points to his right upper quadrant and back for pain. He was slightly tachycardic upon arrival. [facility] Past Medical History Narrative Medical List of his past medical, surgical, social and family history was reviewed from the nursing note. Arthritis: No Asthma: No Autoimmune Disease: No Blood Disorders: Yes (ESOPHAGEAL VARICES) Anxiety: Yes Depression: No Heart Rhythm Problems: No Cancer: No Cardiovascular Problems: Yes (htn) High Cholesterol: No Chemotherapy: No Chest Pain: Yes Congestive Heart Failure: No Cirrhosis: Yes (STAGE 4) COPD: No Diabetes: Yes Diminished Hearing: No Endocrine: No Gastrointestinal Disorders: Yes (CIRRHOSIS LIVER) GERD: Yes Genitourinary: No Headaches: No Hiatal Hernia: No Heparin Induced Thrombocytopen: No Hypertension: Yes Immune Disorder: No Implanted Vascular Access Dvce: No Kidney Stones: No Musculoskeletal: No Neurologic: No Psychiatric: No Reproductive: No Respiratory: No Integumentary: Yes (PSORIASIS) Immunizations Current: Yes Migraines: No Pancreatitis: Yes Radiation Therapy: No Renal Failure: No Seizures: No Sickle Cell Disease: No Sleep Apnea: No Thyroid Disease: No Ulcer: No Past Surgical History Abdominal Surgery: No AICD: No Arteriovenous Shunt: No Cardiac Surgery: No Ear Surgery: No Endocrine Surgery: No Eye Surgery: No Genitourinary Surgery: No Gynecologic Surgery: No Insulin Pump: No Joint Replacement: No Neurologic Surgery: No Oral Surgery: No Pacemaker: No Thoracic Surgery: No Other Surgery: Yes (ESOPHAGEAL BANDING & LIVER BIOPSY) Social History Alcohol Use: Yes (CHRONIC 1/2 GALLON MOST DAYS) Tobacco Use: Yes (1/2 PPD) Substance Use: No Allergies-Medications (Allergen,Severity, Reaction): Coded Allergies: Penicillin (Verified Allergy, Severe, Hives, 11/01/16) Dilaudid (Verified Allergy, Intermediate, HIVES, 11/01/16) *MDRO Multi-Drug Resistant Organism (Verified Adverse Reaction, Unknown, ) MRSA PCR (nares) POSITIVE - 12/02/2015 Comments List of his allergies reviewed from the nursing note. Reported Meds & Prescriptions Reported Meds & Active Scripts Active [Spironolactone] 25 MG Tab 25 Mg PO DAILY Pantoprazole (Pantoprazole Sodium) 40 Mg Tab 40 Mg PO Q12HR Levemir Inj (Insulin Detemir) 1,000 unit/ 10 ML Vial 20 Units SQ HS Hydrocodone-Acetaminophen 5-325 mg Tab 1 Tab PO Q6H PRN Furosemide 40 Mg Tab 40 Mg PO DAILY Calcium Carbonate 1,500 Mg Tab 1,500 Mg PO DAILY 1,500 mg calcium carbonate (600 mg elemental calcium) Magnesium Oxide 400 Mg Tab 400 Mg PO DAILY Reported Metformin (Metformin HCl) 500 Mg Tab 500 Mg PO BIDPC With meals Propranolol (Propranolol HCl) 20 Mg Tab 20 Mg PO Q12HR Xanax (Alprazolam) 1 Mg Tab 1 Mg PO Q6H PRN Multi-Vitamin Daily (Multiple Vitamin) 1 Tab Tab 1 Tab PO DAILY Narrative Medication List of his home medications reviewed from the nursing note. Review of Systems Except as stated in HPI: all other systems reviewed are Neg Physical Exam Narrative GENERAL: Awake, alert, disheveled, moderate distress SKIN: Focused skin assessment warm/dry. Dry and peeling HEAD: Atraumatic. Normocephalic. EYES: Pupils equal and round. No scleral icterus. No injection or drainage. ENT: No nasal bleeding or discharge. Mucous membranes pink and moist. NECK: Trachea midline. No JVD. CARDIOVASCULAR: Regular rate and rhythm. No murmur appreciated. RESPIRATORY: No accessory muscle use. Clear to auscultation. Breath sounds equal bilaterally. GASTROINTESTINAL: Generalized abdominal tenderness and guarding, nondistended. Hepatic and splenic margins not palpable. MUSCULOSKELETAL: No obvious deformities. No clubbing. No cyanosis. No edema. NEUROLOGICAL: Awake and alert. No obvious cranial nerve deficits. Motor grossly within normal limits. Normal speech. PSYCHIATRIC: Appropriate mood and affect; insight and judgment normal. Data Data Last Documented VS Vital Signs Date Time Temp Pulse Resp B/P Pulse Ox O2 Delivery O2 Flow Rate FiO2 11/01/16 03:18 22 11/01/16 03:11 98.3 107 133/70 97 Orders Complete Blood Count With Diff (11/01/16 03:24) Comprehensive Metabolic Panel (11/01/16 03:24) Prothrombin Time / Inr (Pt) (11/01/16 03:24) Alcohol (Ethanol) (11/01/16 03:24) Type And Screen (11/01/16 03:24) Ecg Monitoring (11/01/16 03:24) Iv Access Insert/Monitor (11/01/16 03:24) Oximetry (11/01/16 03:24) Ondansetron Inj (Zofran Inj) (11/01/16 03:30) Sodium Chlor 0.9% 1000 Ml Inj (Ns 1000 M (11/01/16 03:24) Sodium Chloride 0.9% Flush (Ns Flush) (11/01/16 03:30) Octreotide Inj (Sandostatin Inj) (11/01/16 03:30) Pantoprazole Inj (Protonix Inj) (11/01/16 03:30) Pantoprazole Inj (Protonix Inj) (11/01/16 03:30) Ct Abd/Pel W/O Iv Contrast (11/01/16 ) Morphine Inj (Morphine Inj) (11/01/16 04:45) Lipase (11/01/16 03:40) Thiamine Inj (Thiamine Inj) (11/01/16 06:15) Admit Order (Ed Use Only) (11/01/16 06:14) Labs Laboratory Tests Test 11/01/16 11/01/16 03:40 05:00 White Blood Count 5.3 TH/MM3 Red Blood Count 3.78 MIL/MM3 Hemoglobin 12.3 GM/DL Hematocrit 35.4 % Mean Corpuscular Volume 93.8 FL Mean Corpuscular Hemoglobin 32.5 PG Mean Corpuscular Hemoglobin 34.7 % Concent Red Cell Distribution Width 15.5 % Platelet Count 52 TH/MM3 Mean Platelet Volume 10.4 FL Neutrophils (%) (Auto) 68.7 % Lymphocytes (%) (Auto) 20.6 % Monocytes (%) (Auto) 9.2 % Eosinophils (%) (Auto) 1.2 % Basophils (%) (Auto) 0.3 % Neutrophils # (Auto) 3.7 TH/MM3 Lymphocytes # (Auto) 1.1 TH/MM3 Monocytes # (Auto) 0.5 TH/MM3 Eosinophils # (Auto) 0.1 TH/MM3 Basophils # (Auto) 0.0 TH/MM3 CBC Comment AUTO DIFF Differential Comment AUTO DIFF CONFIRMED Platelet Estimate LOW Platelet Morphology Comment ENLARGED Prothrombin Time 15.7 SEC Prothromb Time International 1.4 RATIO Ratio Blood Type O POSITIVE Antibody Screen NEGATIVE Sodium Level 137 MEQ/L Potassium Level 3.2 MEQ/L Chloride Level 98 MEQ/L Carbon Dioxide Level 26.1 MEQ/L Anion Gap 13 MEQ/L Blood Urea Nitrogen 1 MG/DL Creatinine 0.63 MG/DL Estimat Glomerular Filtration 139 ML/MIN Rate Random Glucose 189 MG/DL Calcium Level 8.3 MG/DL Total Bilirubin 2.2 MG/DL Aspartate Amino Transf 65 U/L (AST/SGOT) Alanine Aminotransferase 27 U/L (ALT/SGPT) Alkaline Phosphatase 213 U/L Total Protein 7.8 GM/DL Albumin 3.1 GM/DL Lipase 260 U/L Ethyl Alcohol Level 176 MG/DL [facility] Medical Decision Making Medical Screen Exam Complete: Yes Emergency Medical Condition: Yes Differential Diagnosis Portal hypertension, esophageal variceal bleed, alcoholic hepatitis Narrative Course 5:40 AM blood test results are almost back. Chemistry is still pending. CAT scan showed chronic changes. Started the patient on Protonix bolus and drip and octreotide drip. He asked for pain medication which has been given. Patient probably will require admission. 6:10 AM chemistry is back and alcohol level is elevated. Awaiting for the hospitalist to call back. I have ordered thiamine. Critical Care Narrative Aggregate critical care time was 45 minutes. Time to perform other separately billable procedures was not included in the critical care time. My time did not include minutes spent treating any other patients simultaneously or on activities that did not directly contribute to the patient's treatment. The services I provided to this patient were to treat and/or prevent clinically significant deterioration that could result in: GI bleed, Protonix bolus and drip, octreotide drip I provided critical care services requiring my management, as noted below: Chart data review, documentation time, medication orders and management, vital sign assessments/reviewing monitor data, ordering and reviewing lab tests, ordering and interpreting/reviewing x-rays and diagnostic studies, care of the patient and discussion of the patient with the admitting physicians. Procedures EKG Prior to Arrival: No HemaPrompt Point of Care Internal Pos. & Neg. Controls: Passed Fecal Specimen Occult Blood: Positive Diagnosis Primary Impression: Upper GI bleed Additional Impressions: Alcoholic cirrhosis Qualified Code: K70.31 - Alcoholic cirrhosis of liver with ascites Alcohol intoxication Qualified Code: F10.129 - Alcohol intoxication, with unspecified complication Susan Pedro MD Nov 01, 2016 03:09
[2016-11-01] MEDS ORDERED: SODIUM CHLOR 0.9% 1000 ML INJ 1,000 ML IV SCH (03:24)
[2016-11-01] MEDS ORDERED: PANTOPRAZOLE INJ 80 MG in SODIUM CHLORIDE 0.9% INJ 35 ML IV ONE (03:30)
[2016-11-01] MEDS ORDERED: ONDANSETRON HCL 4 MG/2 ML VIAL IVP ONE (03:30)
[2016-11-01] MEDS ORDERED: OCTREOTIDE INJ 500 MCG in SODIUM CHLORID 0.9% 500 ML INJ 500 ML IV SCH (03:30)
[2016-11-01] MEDS ORDERED: SODIUM CHLORIDE 0.9% FLUSH 10 ML FLUSH IVF PRN (03:30)
[2016-11-01] MEDS ORDERED: PANTOPRAZOLE INJ 80 MG in SODIUM CHLORIDE 0.9% INJ 100 ML IV SCH (03:30)
[2016-11-01 04:05] LABS: AUTOMATED NEUTROPHIL # 3.7 TH/MM3 (1.8-7.7); BASOPHIL % 0.3 % (0.0-2.0); EOSINOPHIL # 0.1 TH/MM3 (0-0.4); EOSINOPHIL % 1.2 % (0.0-4.0); HEMATOCRIT 35.4 % (39.0-51.0); LYMPH % 20.6 % (9.0-44.0); LYMPHOCYTE # 1.1 TH/MM3 (1.0-4.8); MEAN CELL VOLUME 93.8 FL (80.0-100.0); MEAN CORPUSCULAR HEMOGLOBIN 32.5 PG (27.0-34.0); MEAN CORPUSCULAR HGB CONC 34.7 % (32.0-36.0); MONO % 9.2 % (0.0-8.0); NEUT % 68.7 % (16.0-70.0); PLATELET COUNT 52 TH/MM3 (150-450); RED BLOOD COUNT 3.78 MIL/MM3 (4.50-5.90); RED CELL DISTRIBUTION WIDTH 15.5 % (11.6-17.2); WHITE BLOOD COUNT 5.3 TH/MM3 (4.0-11.0)
[2016-11-01 04:06] LABS: HEMO FLAGS AUTO DIFF
[2016-11-01 04:14] LABS: INTERNATIONAL NORMALIZED RATIO 1.4 RATIO; PROTHROMBIN TIME - PATIENT 15.7 SEC (9.8-11.6)
--- NOTE | 2016-11-01 04:20 | RADRPT ---
EXAM DATE/TIME: 11/01/2016 04:06 [facility] COMPARISON: CT ABDOMEN & PELVIS W/O CONTRAST, September 26, 2016, 23:16. INDICATIONS : Diffuse abdominal pain and hemoptysis. ORAL CONTRAST: No oral contrast ingested. RADIATION DOSE: 8.74 CTDIvol (mGy) MEDICAL HISTORY : Cirrhosis. Pancreatitis. Gastroesophageal reflux disease.Hypertension. Diabetes. Esophageal varices. SURGICAL HISTORY : Liver biopsy. ENCOUNTER: Initial ACUITY: 1 day PAIN SCALE: 7/10 LOCATION: All quadrants. TECHNIQUE: Volumetric scanning of the abdomen and pelvis was performed. Using automated exposure control and ad justment of the mA and/or kV according to patient size, radiation dose was kept as low as reasonably achievable to obtain optimal diagnostic quality images. The lack of IV contrast limits the diagnosis for certain organ pathology. FINDINGS: LOWER LUNGS: The visualized lower lungs are clear. LIVER: Heterogeneous and irregular liver characteristic of cirrhosis. Gallstones in the gallbladder. No dila chen biliary ducts. These findings are stable compared to the prior exam. The previously noted ascites in the upper abdomen is not present on today's study. There is recanalization of the umbilical vein. This is unchanged compared to the prior study. SPLEEN: Mildly prominent but stable. PANCREAS: Within normal limits. KIDNEYS: Normal in size and shape. There is no mass or hydronephrosis. A few tiny nonobstructing stones the r ight kidney. No significant changes. ADRENAL GLANDS: Within normal limits. VASCULAR: There is no aortic aneurysm. BOWEL/MESENTERY: The stomach, small bowel, and colon demonstrate no acute abnormality. There is no free intraperitone al air or fluid. No inflammatory changes. Recanalization of the umbilical vein. This is characteristi c of cirrhosis. ABDOMINAL WALL: Within normal limits. RETROPERITONEUM: There is no lymphadenopathy. BLADDER: No wall thickening or mass. REPRODUCTIVE: Within normal limits. INGUINAL: There is no lymphadenopathy or hernia. MUSCULOSKELETAL: Within normal limits for patient age. CONCLUSION: 1. The previously noted abdominal ascites has resolved. 2. Cirrhotic liver, no change 3. Gallstones in the gallbladder with no evidence of biliary tract obstruction. 4. A few tiny nonobstructing right renal calculi. No change compared to prior study. Efren Nielsen MD on November 01, 2016 at 4:14 Board Certified Radiologist. This report was verified electronically.
[2016-11-01 04:35] LABS: PLATELET ESTIMATE SMEAR LOW (NORMAL); SCAN/DIFF AUTO DIFF CONFIRMED
[2016-11-01 04:36] LABS: PLATELET MORPHOLOGY ENLARGED (NORMAL)
[2016-11-01] MEDS ORDERED: MORPHINE SULFATE 4 MG/ML INJ IV PUSH ONE (04:45)
[2016-11-01 05:33] LABS: ALT (GPT) 27 U/L (12-78); ANION GAP 13 MEQ/L (5-15); AST (GOT) 65 U/L (15-37); BICARBONATE 26.1 MEQ/L (21.0-32.0); BLOOD UREA NITROGEN 1 MG/DL (7-18); CHLORIDE 98 MEQ/L (98-107); GLOMERULAR FILTRATION RATE 139 ML/MIN (>89); POTASSIUM 3.2 MEQ/L (3.5-5.1); SODIUM (NA) 137 MEQ/L (136-145)
[2016-11-01 05:52] LABS: ALKALINE PHOSPHATASE 213 U/L (45-117); TOTAL BILIRUBIN ADULT 2.2 MG/DL (0.2-1.0)
[2016-11-01] MEDS ORDERED: THIAMINE HCL 200 MG/2 ML VIAL IM ONE (06:15)
[2016-11-01] MEDS ORDERED: FLUMAZENIL 0.5 MG/5 ML VIAL IV PUSH PRN (07:00)
[2016-11-01] MEDS ORDERED: LORazepam 2 MG/ML VIAL IV PUSH PRN ×4 (07:00)
[2016-11-01] MEDS ORDERED: POTASSIUM CHLORIDE 20 MEQ CONTROLLED RELEASE TAB PO ONE (07:00)
[2016-11-01] MEDS ORDERED: LORazepam 2 MG TAB PO PRN (07:00)
[2016-11-01] MEDS ORDERED: ONDANSETRON HCL 4 MG/2 ML VIAL IV PRN (07:00)
[2016-11-01] MEDS ORDERED: SODIUM CHLORIDE 0.9% FLUSH 10 ML FLUSH IV FLUSH PRN (07:00)
[2016-11-01] MEDS ORDERED: LORazepam 1 MG TAB PO PRN (07:00)
[2016-11-01] MEDS ORDERED: DEXTROSE 50% IN WATER 50 ML VIAL(D50) IV PUSH PRN (08:00)
[2016-11-01] MEDS ORDERED: GLUCAGON 1 MG/ML VIAL OTHER PRN (08:00)
[2016-11-01] MEDS: POTASSIUM CHLOR 20 MEQ PREMIX 100 ML IV SCH ×2 (08:00→10:00)
[2016-11-01] MEDS: SODIUM CHLOR 0.9% 1000 ML INJ 1,000 ML IV SCH ×2 (08:11→16:40)
--- NOTE | 2016-11-01 08:30 | PD.CONS ---
HPI History of Present Illness This is a 45 year old male patient with a history of known esophageal varices and liver cirrhosis secondary to alcohol abuse. He came to the ER for evaluation of abdominal pain, nausea/vomiting with hematemesis. He was recently hospitalized earlier this month for the same and was evaluated with EGD /Colonoscopy (10/09/16)----> portal gastropathy, esophageal varices grade I, duodenitis, gastritis, retroflexion revealed hiatal hernia; colon mucosa was normal, retroflexion revealed small internal hemorrhoids. Rpt. EGD was recommended for 6 months and a Colonoscopy in 1 year. He states he quit drinking after his hospitalization, but went fishing yesterday with friends and "slammed three bottles of liquor with his friends." He has not been taking his PPI. Afterwards, he started having abdominal pain in his RUQ- a constant dull ache that radiates to his RLQ with intermittent sharp pain. He then started having nausea and vomiting a large amount of bright red blood x 2. He also reports that he was coughing up red blood and therefore called the medics. He starting having black tarry stools 3 days ago. He does not take Ibuprofen. 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 Diabetes mellitus type 2 Esophageal varices Anxiety and depression GERD Psoriasis Rubi herpes Alcoholic Pancreatitis Internal hemorrhoids Portal gastropathy AVMs of the cecum and ascending colon Diverticulosis Past Surgical History EGD Liver biopsy (Patito De Los Santos) Coded Allergies: Penicillin (Verified Allergy, Severe, Hives, 11/01/16) Dilaudid (Verified Allergy, Intermediate, HIVES, 11/01/16) *MDRO Multi-Drug Resistant Organism (Verified Adverse Reaction, Unknown, ) MRSA PCR (nares) positive - 12/02/15 Medications Allergies Coded Allergies Type Severity Reaction Last Updated Verified Penicillin Allergy Severe Hives 11/01/16 Yes Dilaudid Allergy Intermediate HIVES 11/01/16 Yes *MDRO Multi-Drug Resistant Organism Adverse Reaction Unknown 11/01/16 Yes Active Scripts Medications Dose Route/Sig Days Date Category Dose Instructions Metformin (Metformin HCl) 500 Mg Tab 500 Mg PO BIDPC 10/14/16 Reported With meals [Spironolactone] 25 MG Tab 25 Mg PO DAILY 10/05/16 Rx Pantoprazole (Pantoprazole Sodium) 40 Mg Tab 40 Mg PO Q12HR 10/05/16 Rx Levemir Inj (Insulin Detemir) 1,000 unit/ 10 ML Vial 20 Units SQ HS 10/05/16 Rx Hydrocodone-Acetaminophen 5-325 mg Tab 1 Tab PO Q6H PRN 10/05/16 Rx Furosemide 40 Mg Tab 40 Mg PO DAILY 10/05/16 Rx Calcium Carbonate 1,500 Mg Tab 1,500 Mg PO DAILY 08/12/16 Rx 1,500 mg calcium carbonate (600 mg elemental calcium) Magnesium Oxide 400 Mg Tab 400 Mg PO DAILY 08/12/16 Rx Propranolol (Propranolol HCl) 20 Mg Tab 20 Mg PO Q12HR 08/11/16 Reported Xanax (Alprazolam) 1 Mg Tab 1 Mg PO Q6H PRN 06/14/16 Reported Multi-Vitamin Daily (Multiple Vitamin) 1 Tab Tab 1 Tab PO DAILY 06/14/16 Reported Family History Family history of strokes and both grandparents but denies any history of known liver disease Social History Smokes one half pack of cigarettes per day since the age of 20 History alcoholism. States he quit drinking after his last hospitalization, but started drinking again yesterday "slammed down 3 bottles of liquor with friends " No illicit drug use (Patito De Los Santos) Review of Systems Constitutional: DENIES: Fatigue, Fever, Chills Respiratory: DENIES: Cough Cardiovascular: DENIES: Chest pain Gastrointestinal: COMPLAINS OF: Abdominal pain, Black stools, Nausea, Vomiting , Hematemesis, DENIES: Bloody stools, Constipation, Diarrhea Musculoskeletal: DENIES: Joint pain Integumentary: DENIES: Abnormal pigmentation, Rash Hematologic/lymphatic: DENIES: Bruising Neurologic: DENIES: Headache Psychiatric: DENIES: Confusion (Patito De Los Santos) GI Exam Vitals I&O Vital Signs Date Time Temp Pulse Resp B/P Pulse Ox O2 Delivery O2 Flow Rate FiO2 11/01/16 07:22 102 15 111/59 100 Room Air 11/01/16 06:25 96 Room Air 11/01/16 06:25 98.1 101 18 111/59 95 Room Air 11/01/16 03:18 22 11/01/16 03:11 98.3 107 20 133/70 97 Imaging Last Impressions Abdomen/Pelvis CT 11/01/16 0000 Signed Impressions: Service Date/Time: October 04:06 - CONCLUSION: 1. The previously noted abdominal ascites has resolved. 2. Cirrhotic liver, no change 3. Gallstones in the gallbladder with no evidence of biliary tract obstruction. 4. A few tiny nonobstructing right renal calculi. No change compared to prior study. Efren Nielsen MD Laboratory Test 11/01/16 11/01/16 03:40 05:00 White Blood Count 5.3 TH/MM3 Red Blood Count 3.78 MIL/MM3 Hemoglobin 12.3 GM/DL Hematocrit 35.4 % Mean Corpuscular Volume 93.8 FL Mean Corpuscular Hemoglobin 32.5 PG Mean Corpuscular Hemoglobin 34.7 % Concent Red Cell Distribution Width 15.5 % Platelet Count 52 TH/MM3 Mean Platelet Volume 10.4 FL Neutrophils (%) (Auto) 68.7 % Lymphocytes (%) (Auto) 20.6 % Monocytes (%) (Auto) 9.2 % Eosinophils (%) (Auto) 1.2 % Basophils (%) (Auto) 0.3 % Neutrophils # (Auto) 3.7 TH/MM3 Lymphocytes # (Auto) 1.1 TH/MM3 Monocytes # (Auto) 0.5 TH/MM3 Eosinophils # (Auto) 0.1 TH/MM3 Basophils # (Auto) 0.0 TH/MM3 CBC Comment AUTO DIFF Differential Comment AUTO DIFF CONFIRMED Platelet Estimate LOW Platelet Morphology Comment ENLARGED Prothrombin Time 15.7 SEC Prothromb Time International 1.4 RATIO Ratio Blood Type O POSITIVE Antibody Screen NEGATIVE Sodium Level 137 MEQ/L Potassium Level 3.2 MEQ/L Chloride Level 98 MEQ/L Carbon Dioxide Level 26.1 MEQ/L Anion Gap 13 MEQ/L Blood Urea Nitrogen 1 MG/DL Creatinine 0.63 MG/DL Estimat Glomerular Filtration 139 ML/MIN Rate Random Glucose 189 MG/DL Calcium Level 8.3 MG/DL Total Bilirubin 2.2 MG/DL Aspartate Amino Transf 65 U/L (AST/SGOT) Alanine Aminotransferase 27 U/L (ALT/SGPT) Alkaline Phosphatase 213 U/L Total Protein 7.8 GM/DL Albumin 3.1 GM/DL Lipase 260 U/L Ethyl Alcohol Level 176 MG/DL Physical Examination HEENT: Normocephalic; atraumatic; no jaundice. CHEST: CTA CARDIAC: RRR ABDOMEN: Soft, nondistended, mild ruq tenderness; hepatosplenomegaly; bowel sounds are present in all four quadrants. EXTREMITIES: No clubbing, cyanosis, or edema. SKIN: Normal; no rash; no jaundice. DEGREASING SOLUTION RECLAIMER: No focal deficits; alert and oriented times three. (Patito De Los Santos) Assessment and Plan Plan ASSESSMENT: - Upper GIB, Hematemesis, Melena. Reports melena and hematemesis started yesterday. 2 episodes of vomiting "large amount of bright red blood" and melena x3 days. States he quit drinking ETOH after his last hospitalization, but went fishing yesterday with friends and "slammed three bottles of liquor with his friends." Pt with known cirrhosis, varices. No NSAIDs. S/P EGD/Colonoscopy (10/09/16)----> portal gastropathy, esophageal varices grade I, duodenitis, gastritis, retroflexion revealed hiatal hernia; colon mucosa was normal, retroflexion revealed small internal hemorrhoids. Pathology duodenal mucosa without significant histopathologic abnormality. Gastric mucosa without significant histopathologic abnormality. Rpt. EGD was recommended for 6 months and a Colonoscopy in 1 year. HH 12.7/38.4. No active bleeding. - Nausea/Vomiting, Abdominal pain. Started yesterday after drinking ETOH. Abdomen/Pelvis CT (11/01/16)-----> 1. The previously noted abdominal ascites has resolved. 2. Cirrhotic liver, no change 3. Gallstones in the gallbladder with no evidence of biliary tract obstruction. 4. A few tiny nonobstructing right renal calculi. No change compared to prior study. - Elevated LFTs, Liver cirrhosis. CT as above. T. Bili 2.2, AST 65, ALT 27, Alk PHosph 213. - Anemia. HH 12.7/38.4. Protonix/Octreotide Gtt. - Thrombocytopenia. Plt 52. PLAN: - Clear liquids - Protonix 40mg IV BID - D/C Octreotide Gtt - Monitor HH - Transfuse as necessary - Supportive care - Further recommendations to follow based on results of above - Pt seen and examined by Dr. Payan and myself and this note is written on her behalf (Patito De Los Santos) Physician Comments Seen and examined Agree with above Continue with current supportive care Monitor labs (Gregorio Payan MD) Patito De Los Santos Nov 01, 2016 08:30 Gregorio Payan MD Nov 01, 2016 23:19
--- NOTE | 2016-11-01 08:50 | HHI.HP ---
HPI Service [facility] Primary Care Physician Nilesh Mathew MD Admission Diagnosis abdominal pain, upper GI bleed, alcoholic cirrhosis, alcohol intoxic Diagnoses: Chief Complaint: nausea, vomiting blood, abd. pain Travel History International Travel<30 Days: No Contact w/Intl Traveler <30 Da: No Traveled to Known Affected Are: No History of Present Illness This is a 45-year-old male with significant past medical history of liver cirrhosis, EtOH abuse, GI bleeding, portal hypertension, esophageal varices, diabetes. Patient has had multiple admissions for alcohol abuse and GI bleeding. He was last admitted 10/06/2016, underwent upper endoscopy, findings of portal gastropathy, esophageal varices grade 1, duodenitis, gastritis, retroflexed views revealed hiatal hernia. Colonoscopy essentially unremarkable , was noted with internal hemorrhoids. Patient again presented to the emergency room with complaint of abdominal pain associated with nausea vomiting that started yesterday. He indicates that he had not had any alcohol for 2 weeks and then went out with some friends and had 3 beers and some malt liquor. He complains of epigastric abdominal pain radiating to right upper wrapping around to the back. He noted approximately 3 episodes of bloody emesis since last night. No emesis in the emergency room. Has noted stools are dark in color. He has not been able to eat much. He denies any chest pain, no shortness of breath, no fever, no chills. BMP remarkable for potassium of 3.2, blood glucose 189, BUN 1, creatinine 0.63. Alkaline phosphatase 213. CT of the abdomen showed resolution from abdominal ascites, cirrhotic liver, no changes. Gallstones in the gallbladder with no evidence of biliary obstruction. A few tiny nonobstructive right renal calculi. This is no change from previous study. Patient was started on Protonix and octreotide drip. Patient is admitted for further evaluation and treatment. Past Family Social History Past Medical History -Esophageal Varices -HTN -Stage 4 Cirrhosis, with alcohol abuse -DM 2 -Psoriasis -Pancreatitis Past Surgical History -Esophageal banding -Liver Biopsy (Maria Teresa Cantu) Reported Medications Reported Meds & Active Scripts Active [Spironolactone] 25 MG Tab 25 Mg PO DAILY Pantoprazole (Pantoprazole Sodium) 40 Mg Tab 40 Mg PO Q12HR Levemir Inj (Insulin Detemir) 1,000 unit/ 10 ML Vial 20 Units SQ HS Hydrocodone-Acetaminophen 5-325 mg Tab 1 Tab PO Q6H PRN Furosemide 40 Mg Tab 40 Mg PO DAILY Calcium Carbonate 1,500 Mg Tab 1,500 Mg PO DAILY 1,500 mg calcium carbonate (600 mg elemental calcium) Magnesium Oxide 400 Mg Tab 400 Mg PO DAILY Reported Metformin (Metformin HCl) 500 Mg Tab 500 Mg PO BIDPC With meals Propranolol (Propranolol HCl) 20 Mg Tab 20 Mg PO Q12HR Xanax (Alprazolam) 1 Mg Tab 1 Mg PO Q6H PRN Multi-Vitamin Daily (Multiple Vitamin) 1 Tab Tab 1 Tab PO DAILY Allergies: Coded Allergies: Penicillin (Verified Allergy, Severe, Hives, 11/01/16) Dilaudid (Verified Allergy, Intermediate, HIVES, 11/01/16) *MDRO Multi-Drug Resistant Organism (Verified Adverse Reaction, Unknown, ) MRSA PCR (nares) positive - 12/02/15 Active Ordered Medications Inpatient Medications Dextrose (D50w (Vial) Inj) 25 ml UNSCH PRN IV PUSH HYPOGLYCEMIA-SEE COMMENTS; Start 11/01/16 at 08:00 Flumazenil (Romazicon Inj) 0.2 mg Q1M PRN IV PUSH SEE LABEL COMMENTS; Start at 07:00 Glucagon (Glucagon Inj) 1 mg UNSCH PRN OTHER HYPOGLYCEMIA-SEE COMMENTS; Start 11/01/16 at 08:00 Insulin Aspart (NovoLOG SUPPLEMENTAL SCALE) 1 ACHS SLIDING SCALE SQ ; Start at 11:00 Lorazepam (Ativan Inj) 2 mg Q15M PRN IV PUSH CIWA > 20; Start 11/01/16 at 07:00 Lorazepam (Ativan) 2 mg Q2H PRN PO CIWA 11-14; Start 11/01/16 at 07:00 Miscellaneous Information 1 HS T-DERMAL ; Start 11/01/16 at 21:00 Morphine Sulfate (Morphine Inj) 4 mg ONCE ONCE IV PUSH Last administered on t 05:12; Start 11/01/16 at 04:45; Stop 11/01/16 at 04:46; Status DC Multivitamins/ Folic Acid/Sodium Chloride (Mvi-12 Inj/ Folvite Inj/NS 500 ml Inj ) 510.2 ml @ 125 mls/hr Q24H IV ; Start 11/01/16 at 10:00; Stop 11/06/16 at 09: 59 Nicotine (Habitrol 7 Mg Patch.24 Hr) 1 patch DAILY T-DERMAL ; Start 11/01/16 at 09:00 Octreotide Acetate 500 mcg/ Sodium Chloride 500.0 ml @ 25 mls/hr Q20H IV ; Start 11/01/16 at 09:00; Stop 11/06/16 at 08:59 Ondansetron HCl 4 mg 4 mg Q6H PRN IV NAUSEA OR VOMITING; Start 11/01/16 at 07: 00 Pantoprazole Sodium 80 mg/ Sodium Chloride 35 ml @ 420 mls/hr ONCE ONCE IV Last administered on 11/01/16 05:11; Start 11/01/16 at 03:30; Stop 11/01/16 at 03:34; Status DC Pantoprazole Sodium/Sodium Chloride (Protonix Inj/NS Inj) 100 ml @ 10 mls/hr Q10H IV Last administered on 11/01/16 05:11; Start 11/01/16 at 03:30 Potassium Chloride 100 ml @ 50 mls/hr Q2H IV ; Start 11/01/16 at 08:00; Stop at 11:59 Potassium Chloride (KCl) 40 meq ONCE ONCE PO Last administered on 11/01/16 07 :20; Start 11/01/16 at 07:00; Stop 11/01/16 at 07:01; Status DC Sodium Chloride 1,000 ml @ 100 mls/hr Q10H IV Last administered on 11/01/16 08:11; Start 11/01/16 at 06:59 Sodium Chloride (NS Flush) 2 ml UNSCH PRN IV FLUSH FLUSH AFTER USING IV ACCESS ; Start 11/01/16 at 07:00 Sodium Chloride 2 ml 2 ml BID IV FLUSH ; Start 11/01/16 at 09:00 Thiamine HCl (Thiamine Inj) 100 mg ONCE ONCE IM Last administered on 06:30; Start 11/01/16 at 06:15; Stop 11/01/16 at 06:16; Status DC Thiamine HCl/ Sodium Chloride (Thiamine Inj/NS Inj) 101 ml @ 100 mls/hr Q24H IV ; Start 11/02/16 at 06:00 Family History -No family history of colon cancer Social History -, has one daughter -ETOH: Reports he quit 2 weeks ago. Consumption varies, states he drank 3 beers and malt liquor yesterday. -Tobacco: 1/2 PPD -Illicit Drugs: Occasional Marijuana Physical Exam Vital Signs Vital Signs Date Time Temp Pulse Resp B/P Pulse Ox O2 Delivery O2 Flow Rate FiO2 11/01/16 07:22 102 15 111/59 100 Room Air 11/01/16 06:25 96 Room Air 11/01/16 06:25 98.1 101 18 111/59 95 Room Air 11/01/16 03:18 22 11/01/16 03:11 98.3 107 20 133/70 97 Physical Exam GENERAL: This is a well-nourished, well-developed patient, in no apparent distress. SKIN: Skin dry and flaky HEAD: Atraumatic. Normocephalic. No temporal or scalp tenderness. EYES: Pupils equal round and reactive. Extraocular motions intact. No scleral icterus. No injection or drainage. ENT: Nose without bleeding, purulent drainage or septal hematoma. Throat without erythema, tonsillar hypertrophy or exudate. Uvula midline. Airway patent. NECK: Trachea midline. No JVD or lymphadenopathy. Supple, nontender, no meningeal signs. CARDIOVASCULAR: Regular rate and rhythm without murmurs, gallops, or rubs. RESPIRATORY: Clear to auscultation. Breath sounds equal bilaterally. No wheezes , rales, or rhonchi. GASTROINTESTINAL: Abdomen soft, tender over epigastric and RUQ, nondistended. No hepato-splenomegaly, or palpable masses. No guarding. MUSCULOSKELETAL: Extremities without clubbing, cyanosis, or edema. No joint tenderness, effusion, or edema noted. No calf tenderness. Negative Homans sign bilaterally. NEUROLOGICAL: Awake and alert. Cranial nerves II through XII intact. Motor and sensory grossly within normal limits. Five out of 5 muscle strength in all muscle groups. Normal speech. Laboratory Laboratory Tests Test 11/01/16 11/01/16 03:40 05:00 White Blood Count 5.3 Red Blood Count 3.78 Hemoglobin 12.3 Hematocrit 35.4 Mean Corpuscular Volume 93.8 Mean Corpuscular Hemoglobin 32.5 Mean Corpuscular Hemoglobin 34.7 Concent Red Cell Distribution Width 15.5 Platelet Count 52 Mean Platelet Volume 10.4 Neutrophils (%) (Auto) 68.7 Lymphocytes (%) (Auto) 20.6 Monocytes (%) (Auto) 9.2 Eosinophils (%) (Auto) 1.2 Basophils (%) (Auto) 0.3 Neutrophils # (Auto) 3.7 Lymphocytes # (Auto) 1.1 Monocytes # (Auto) 0.5 Eosinophils # (Auto) 0.1 Basophils # (Auto) 0.0 CBC Comment AUTO DIFF Differential Comment AUTO DIFF CONFIRMED Platelet Estimate LOW Platelet Morphology Comment ENLARGED Prothrombin Time 15.7 Prothromb Time International 1.4 Ratio Blood Type O POSITIVE Antibody Screen NEGATIVE Sodium Level 137 Potassium Level 3.2 Chloride Level 98 Carbon Dioxide Level 26.1 Anion Gap 13 Blood Urea Nitrogen 1 Creatinine 0.63 Estimat Glomerular Filtration 139 Rate Random Glucose 189 Calcium Level 8.3 Total Bilirubin 2.2 Aspartate Amino Transf 65 (AST/SGOT) Alanine Aminotransferase 27 (ALT/SGPT) Alkaline Phosphatase 213 Total Protein 7.8 Albumin 3.1 Lipase 260 Ethyl Alcohol Level 176 Result Diagram: 11/01/16 0340 11/01/16 0500 Imaging Last Impressions Abdomen/Pelvis CT 11/01/16 0000 Signed Impressions: Service Date/Time: October 04:06 - CONCLUSION: 1. The previously noted abdominal ascites has resolved. 2. Cirrhotic liver, no change 3. Gallstones in the gallbladder with no evidence of biliary tract obstruction. 4. A few tiny nonobstructing right renal calculi. No change compared to prior study. Efren Nielsen MD Assessment and Plan Problem List: (1) Nausea & vomiting (2) Abdominal pain (3) History of esophageal varices (4) Cirrhosis of liver (5) Alcohol abuse (6) Esophageal varices (7) DM type 2 (diabetes mellitus, type 2) (8) GERD (gastroesophageal reflux disease) (9) Thrombocytopenia Assessment and Plan Admit to Dr. Bell 45-year-old male with history of alcoholic cirrhosis, GI bleed, esophageal varices, portal hypertension. Presents to the emergency room with complaint of nausea, vomiting, reported hematemesis. H&H stable. Admits to relapse, started drinking again. -Keep nothing by mouth Continue with IV fluids -Follow H&H, current H&H is stable, no need for blood transfusion Gastroenterology has been consulted for evaluation Continue Protonix and octreotide drip Alcohol abuse, patient has been counseled multiple times -Patient again counseled about alcohol use -Continue with multivitamins, folic acid Continue with CIWA protocol Thrombocytopenia, secondary to cirrhosis Monitor for bleeding Monitor CBC Insulin-dependent diabetes, elevated blood glucose -Accu-Cheks before meals and at bedtime with insulin therapy as needed Tobacco abuse Tobacco abuse counseling Nicotine patch has been ordered Home medications reviewed, initiated as indicated SCDs for DVT prophylaxis, avoid anticoagulation Protonix drip for GI prophylaxis Plan of care has been discussed with the patient, attending and registered nurse. Further management of the patient will be dependent on the hospital course This patient was seen by myself and Dr. Bell, this H&P is written on his behalf Physician Certification 2 Midnight Certification Type: Admission for Inpatient Services Order for Inpatient Services The services are ordered in accordance with Medicare regulations or non- Medicare payer requirements, as applicable. In the case of services not specified as inpatient-only, they are appropriately provided as inpatient services in accordance with the 2-midnight benchmark. Estimated LOS (days): 2 2 days is the estimated time the patient will need to remain in the hospital, assuming treatment plan goals are met and no additional complications. Post-Hospital Plan: Home Problem Qualifiers (1) Nausea & vomiting: (2) Abdominal pain: Qualified Code: R10.11 - Right upper quadrant abdominal pain (3) Cirrhosis of liver: Qualified Code: K70.31 - Alcoholic cirrhosis of liver with ascites (4) Esophageal varices: Qualified Code: I85.00 - Esophageal varices without bleeding, unspecified esophageal varices type (5) DM type 2 (diabetes mellitus, type 2): Qualified Code: E11.8 - Type 2 diabetes mellitus with complication, unspecified mcc insulin use status (6) GERD (gastroesophageal reflux disease): Qualified Code: K21.9 - Gastroesophageal reflux disease, esophagitis presence not specified Lashanda Rooney Nov 01, 2016 08:50
[2016-11-01] MEDS ORDERED: OCTREOTIDE INJ 500 MCG in SODIUM CHLORID 0.9% 500 ML INJ 499.5 ML IV SCH (09:00)
[2016-11-01] MEDS: SODIUM CHLORIDE 0.9% FLUSH 10 ML FLUSH IV FLUSH SCH ×2 (09:00→19:44)
[2016-11-01 09:11] LABS: HEMATOCRIT 38.4 % (39.0-51.0)
[2016-11-01 09:27] LABS: REVIEW FLAG FINAL
[2016-11-01] MEDS: PROPRANOLOL HCL 20 MG TAB PO SCH ×2 (10:00→19:44)
[2016-11-01] MEDS: NICOTINE 7 MG/24 HR PATCH T-DERMAL SCH (10:01)
[2016-11-01] MEDS: MULTIVITAMIN INJ 10 ML, FOLIC ACID INJ 1 MG in SODIUM CHLORID 0.9% 500 ML INJ 500 ML IV SCH ×2 (10:42→10:43)
[2016-11-01] MEDS: INSULIN ASPART SUPPLEMENTAL SCALE SQ SCH ×3 (11:00→19:56)
[2016-11-01] MEDS: MORPHINE SULFATE 4 MG/ML INJ IV PUSH PRN ×3 (11:10→20:00)
[2016-11-01] MEDS: PANTOPRAZOLE SODIUM 40 MG VIAL IV PUSH SCH ×2 (11:10→19:43)
[2016-11-01 15:10] LABS: HEMATOCRIT 35.8 % (39.0-51.0)
[2016-11-01 15:13] LABS: REVIEW FLAG FINAL
[2016-11-01] MEDS: REMOVE OLD NICODERM (NICOTINE) PATCH T-DERMAL SCH (19:56)
[2016-11-01 20:44] LABS: HEMATOCRIT 36.9 % (39.0-51.0)
[2016-11-01 20:51] LABS: REVIEW FLAG FINAL
[2016-11-02] VITALS (7 sets, daily range): BP systolic 105–130; BP diastolic 56–68; PULSE 54–81; RESP 18–20; TEMP 97.7–100.1; O2SAT 93–98
[2016-11-02] MEDS: MORPHINE SULFATE 4 MG/ML INJ IV PUSH PRN ×4 (00:15→20:12)
[2016-11-02] MEDS: SODIUM CHLOR 0.9% 1000 ML INJ 1,000 ML IV SCH ×3 (00:16→20:13)
[2016-11-02 05:02] LABS: HEMATOCRIT 35.3 % (39.0-51.0); MEAN CELL VOLUME 95.8 FL (80.0-100.0); MEAN CORPUSCULAR HEMOGLOBIN 31.2 PG (27.0-34.0); MEAN CORPUSCULAR HGB CONC 32.6 % (32.0-36.0); PLATELET COUNT 34 TH/MM3 (150-450); RED BLOOD COUNT 3.68 MIL/MM3 (4.50-5.90); RED CELL DISTRIBUTION WIDTH 16.2 % (11.6-17.2); WHITE BLOOD COUNT 3.9 TH/MM3 (4.0-11.0)
[2016-11-02 05:11] LABS: BICARBONATE 27.6 MEQ/L (21.0-32.0); MAGNESIUM 1.1 MG/DL (1.5-2.5); POTASSIUM 3.7 MEQ/L (3.5-5.1)
[2016-11-02 05:12] LABS: REVIEW FLAG FINAL
[2016-11-02 05:41] LABS: CALCIUM-PROTEIN CORRECTED 7.4 MG/DL (8.5-10.1)
[2016-11-02] MEDS: THIAMINE INJ 100 MG in SODIUM CHLORIDE 0.9% INJ 100 ML IV SCH (07:00)
[2016-11-02] MEDS: INSULIN ASPART SUPPLEMENTAL SCALE SQ SCH ×4 (07:00→20:16)
[2016-11-02] MEDS: PROPRANOLOL HCL 20 MG TAB PO SCH ×2 (08:39→20:12)
[2016-11-02] MEDS: NICOTINE 7 MG/24 HR PATCH T-DERMAL SCH (08:45)
[2016-11-02] MEDS: PANTOPRAZOLE SODIUM 40 MG VIAL IV PUSH SCH ×2 (08:46→20:12)
[2016-11-02] MEDS: SODIUM CHLORIDE 0.9% FLUSH 10 ML FLUSH IV FLUSH SCH ×2 (08:46→20:13)
[2016-11-02] MEDS ORDERED: PNEUMOCOCCAL POLYVALENT INJ 25 MCG/0.5 ML SYR IM ONE (10:00)
[2016-11-02] MEDS ORDERED: INFLUENZA VIRUS VACCINE (QUADRIVALENT) 0.5 ML SYR IM ONE (10:00)
[2016-11-02] MEDS: MAGNESIUM SULFATE 1 GM PREMIX 100 ML IV SCH ×2 (13:57→15:09)
[2016-11-02] MEDS ORDERED: CALCIUM GLUCONATE INJ 1 GM in SODIUM CHLORIDE 0.9% INJ 100 ML IV ONE (15:00)
--- NOTE | 2016-11-02 17:09 | HHI.GIFU ---
Subjective Remarks Patient is resting in bed, no more bleeding, no vomiting. He is with complaints of diffused abdomen pain. (Marissa Michaud RICH) Objective Vitals I&O Vital Signs Date Time Temp Pulse Resp B/P Pulse Ox O2 Delivery O2 Flow Rate FiO2 11/02/16 16:00 97.7 64 20 105/56 96 11/02/16 12:00 98.9 54 18 111/56 96 11/02/16 10:07 95 21 11/02/16 08:11 99.7 80 19 110/67 95 11/02/16 04:00 99.5 81 19 130/65 93 11/02/16 00:00 99.7 81 19 117/68 95 11/01/16 20:00 83 11/01/16 20:00 99.4 78 21 131/71 93 I/O 11/01/16 11/01/16 11/01/16 11/02/16 11/02/16 11/02/16 07:00 15:00 23:00 07:00 15:00 23:00 Intake Total 1245 ml 1070 ml 1363 ml 1777 ml Output Total 250 ml 1250 ml 2400 ml 900 ml Balance 995 ml -180 ml -1037 ml 877 ml Intake Oral 350 ml 360 ml 240 ml 1080 ml IV Total 895 ml 710 ml 1123 ml 697 ml Output Urine Total 250 ml 1250 ml 2400 ml 900 ml # Bowel Movements 0 0 0 1 Laboratory Laboratory Tests Test 11/01/16 11/02/16 19:42 03:53 Hemoglobin 12.3 11.5 Hematocrit 36.9 35.3 White Blood Count 3.9 Red Blood Count 3.68 Mean Corpuscular Volume 95.8 Mean Corpuscular Hemoglobin 31.2 Mean Corpuscular Hemoglobin 32.6 Concent Red Cell Distribution Width 16.2 Platelet Count 34 Mean Platelet Volume 9.6 Sodium Level 138 Potassium Level 3.7 Chloride Level 104 Carbon Dioxide Level 27.6 Anion Gap 6 Blood Urea Nitrogen 2 Creatinine 0.67 Estimat Glomerular Filtration 129 Rate Random Glucose 194 Calcium Level 7.4 Protein Corrected Calcium 7.4 Magnesium Level 1.1 Total Protein 7.1 Imaging Last Impressions Abdomen/Pelvis CT 11/01/16 0000 Signed Impressions: Service Date/Time: October 04:06 - CONCLUSION: 1. The previously noted abdominal ascites has resolved. 2. Cirrhotic liver, no change 3. Gallstones in the gallbladder with no evidence of biliary tract obstruction. 4. A few tiny nonobstructing right renal calculi. No change compared to prior study. Efren Nielsen MD Physical Exam HEENT: normocephalic; atraumatic; no jaundice. NECK: Neck is supple, no JVD, no lymphadenopathy. CHEST: Chest is clear to auscultation and percussion. CARDIAC: Regular rate and rhythm with no murmur gallop or rubs. ABDOMEN: Soft, nondistended, diffused tenderness ; hepatosplenomegaly; bowel sounds are present in all four quadrants. EXTREMITIES: No clubbing, cyanosis, or edema. SKIN: Normal; no rash; no jaundice. 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 (Keily,Marissa VILLANUEVA) Assessment and Plan Plan ASSESSMENT: - Upper GIB, Hematemesis, Melena. No more bleeding, HH stable. Recent alcohol intake with friends at fishing trip. Pt with known cirrhosis , varices. No NSAIDs. S/P EGD/Colonoscopy (10/09/16)----> portal gastropathy, esophageal varices grade I, duodenitis, gastritis, retroflexion revealed hiatal hernia; colon mucosa was normal, retroflexion revealed small internal hemorrhoids. Pathology duodenal mucosa without significant histopathologic abnormality. Gastric mucosa without significant histopathologic abnormality. Rpt. EGD was recommended for 6 months and a Colonoscopy in 1 year. - Nausea/Vomiting, Abdominal pain. Started yesterday after drinking ETOH. Abdomen/Pelvis CT (11/01/16)-----> 1. The previously noted abdominal ascites has resolved. 2. Cirrhotic liver, no change 3. Gallstones in the gallbladder with no evidence of biliary tract obstruction. 4. A few tiny nonobstructing right renal calculi. No change compared to prior study. - Elevated LFTs, Liver cirrhosis. CT as above. T. Bili 2.2, AST 65, ALT 27, Alk PHosph 213. on (11/01) - Anemia. hh stable 11.5/35.3 Protonix - Thrombocytopenia. Plt 52. PLAN: - Clear liquids - Protonix 40mg IV BID - Monitor HH - Consider repeat EGD - Transfuse as necessary - Supportive care - Further recommendations to follow based on results of above - Pt seen and examined by Dr. Payan and myself and this note is written on her behalf (Marissa Michaud) Physician Comments Patient seen and examined Agree with above Continue with current supportive care Monitor labs Advanced diet as tolerated Emphasized alcohol cessation Not much to add from a GI perspective at this point We will sign off (Gregorio Payan MD) Marissa Michaud Nov 02, 2016 17:09 Gregorio Payan MD Nov 03, 2016 00:02
--- NOTE | 2016-11-02 17:15 | HHI.PR ---
Subjective History of Present Illness Patient feel weak and tired. no acute issue GI Input noted. Review of Systems Constitutional Constitutional: Fatigue, Weakness Vitals/Results Intake & Output 11/01/16 11/01/16 11/02/16 15:00 23:00 07:00 Intake Total 1245 ml 1070 ml 1363 ml Output Total 250 ml 1250 ml 2400 ml Balance 995 ml -180 ml -1037 ml Intake Oral 350 ml 360 ml 240 ml IV Total 895 ml 710 ml 1123 ml Output Urine Total 250 ml 1250 ml 2400 ml # Bowel Movements 0 0 0 Vital Signs Vital Signs Date Time Temp Pulse Resp B/P Pulse Ox O2 Delivery O2 Flow Rate FiO2 11/02/16 16:00 97.7 64 20 105/56 96 11/02/16 12:00 98.9 54 18 111/56 96 11/02/16 10:07 95 21 11/02/16 08:11 99.7 80 19 110/67 95 11/02/16 04:00 99.5 81 19 130/65 93 11/02/16 00:00 99.7 81 19 117/68 95 11/01/16 20:00 83 11/01/16 20:00 99.4 78 21 131/71 93 CBC/BMP: 11/02/16 0353 11/02/16 0353 Lab Results Laboratory Tests Test 11/01/16 11/02/16 19:42 03:53 Hemoglobin 12.3 GM/DL 11.5 GM/DL Hematocrit 36.9 % 35.3 % White Blood Count 3.9 TH/MM3 Red Blood Count 3.68 MIL/MM3 Mean Corpuscular Volume 95.8 FL Mean Corpuscular Hemoglobin 31.2 PG Mean Corpuscular Hemoglobin 32.6 % Concent Red Cell Distribution Width 16.2 % Platelet Count 34 TH/MM3 Mean Platelet Volume 9.6 FL Sodium Level 138 MEQ/L Potassium Level 3.7 MEQ/L Chloride Level 104 MEQ/L Carbon Dioxide Level 27.6 MEQ/L Anion Gap 6 MEQ/L Blood Urea Nitrogen 2 MG/DL Creatinine 0.67 MG/DL Estimat Glomerular Filtration 129 ML/MIN Rate Random Glucose 194 MG/DL Calcium Level 7.4 MG/DL Protein Corrected Calcium 7.4 MG/DL Magnesium Level 1.1 MG/DL Total Protein 7.1 GM/DL Physical Exam General General Appearance: No Acute Distress, Comfortable Eyes Eye Exam: Pupils Equal, Pupils Reactive, Sclera White, Extraocular Movement Intact Throat Throat Exam: Oral Mucosa [place] & Moist, Oral Pharynx Normal Neck Neck Exam: Neck Supple, Trachea Midline Pulmonary Resp Exam: Clear Bilaterally, Breath Sounds Equal, No Distress Cardiology CV Exam: Regular, Normal Sinus Rhythm Gastrointestinal/Abdomen GI Exam: Soft, Non-Tender, Bowel Sounds Present GI Remarks Ascities. Musculoskeletal MS Exam: Normal Tone Integumentary Skin Exam: Clear, Dry Neurologic Neuro Exam: Alert, Awake, Oriented, Speech Clear, Moving All Extremities, No Focal Deficits Psychiatric Psych Exam: Appropriate Responses VTE Prophylaxis VTE Prophylaxis Device: SCDs PUD Prophylasis PUD Prophylaxis: Protonix Assessment/Plan Assessment/Plan ASSESSMENT: -Esophageal Varices -HTN -Stage 4 Cirrhosis, with alcohol abuse -DM 2 -Psoriasis -Pancreatitis - Nausea/Vomiting, Abdominal pain. Started yesterday after drinking ETOH. Abdomen/Pelvis CT (11/01/16)-----> 1. The previously noted abdominal ascites has resolved. 2. Cirrhotic liver, no change 3. Gallstones in the gallbladder with no evidence of biliary tract obstruction. 4. A few tiny nonobstructing right renal calculi. No change compared to prior study. - Upper GIB, Hematemesis, Melena. Reports melena and hematemesis started yesterday. 2 episodes of vomiting "large amount of bright red blood" and melena x3 days. States he quit drinking ETOH after his last hospitalization, but went fishing yesterday with friends and "slammed three bottles of liquor with his friends." Pt with known cirrhosis, varices. No NSAIDs. S/P EGD/Colonoscopy (10/09/16)----> portal gastropathy, esophageal varices grade I, duodenitis, gastritis, retroflexion revealed hiatal hernia; colon mucosa was normal, retroflexion revealed small internal hemorrhoids. Pathology duodenal mucosa without significant histopathologic abnormality. Gastric mucosa without significant histopathologic abnormality. EGD was recommended for 6 months and a Colonoscopy in 1 year. HH 12.7/38.4. No active bleeding. - Anemia. HH 12.7/38.4. Protonix/Octreotide Gtt. - Elevated LFTs, Liver cirrhosis. CT as above. T. Bili 2.2, AST 65, ALT 27, Alk PHosph 213. - Thrombocytopenia. Plt 52. - Alcohol abuse PLAN: - Clear liquids - Protonix 40mg IV BID - D/C Octreotide Gtt - Monitor HH - Transfuse as necessary - Supportive care - Further recommendations to follow based on results of above Discussed Condition with: Patient Nilesh Mathew MD Nov 02, 2016 17:15
[2016-11-02] MEDS: REMOVE OLD NICODERM (NICOTINE) PATCH T-DERMAL SCH (20:13)
[2016-11-03] VITALS: BP 113/67; PULSE 73; RESP 20; TEMP 99.2; O2SAT 97
[2016-11-03] MEDS: MORPHINE SULFATE 4 MG/ML INJ IV PUSH PRN (01:22)
[2016-11-03 04:00] VITALS: BP 125/68; PULSE 67; RESP 20; TEMP 97.9; O2SAT 96
--- NOTE | 2016-11-03 06:47 | HHI.PR ---
Subjective History of Present Illness Patient feel weak and tired. no acute issue GI Input noted.. signed off..ok to dc home today advised to stop alcohol intake.. Review of Systems Constitutional Constitutional: Fatigue, Weakness Vitals/Results Intake & Output 11/02/16 11/02/16 11/03/16 15:00 23:00 07:00 Intake Total 1777 ml 1280 ml 900 ml Output Total 900 ml 850 ml Balance 877 ml 1280 ml 50 ml Intake Oral 1080 ml 480 ml 0 ml IV Total 697 ml 800 ml 900 ml Output Urine Total 900 ml 850 ml # Voids 3 # Bowel Movements 1 Vital Signs Vital Signs Date Time Temp Pulse Resp B/P Pulse Ox O2 Delivery O2 Flow Rate FiO2 11/03/16 04:00 97.9 67 20 125/68 96 11/03/16 00:00 99.2 73 20 113/67 97 11/02/16 20:00 100.1 81 20 121/67 98 11/02/16 16:00 97.7 64 20 105/56 96 11/02/16 12:00 98.9 54 18 111/56 96 11/02/16 10:07 95 21 11/02/16 08:11 99.7 80 19 110/67 95 CBC/BMP: 11/02/16 0353 11/02/16 0353 Physical Exam General General Appearance: No Acute Distress, Comfortable Eyes Eye Exam: Pupils Equal, Pupils Reactive, Sclera White, Extraocular Movement Intact Throat Throat Exam: Oral Mucosa [place] & Moist, Oral Pharynx Normal Neck Neck Exam: Neck Supple, Trachea Midline Pulmonary Resp Exam: Clear Bilaterally, Breath Sounds Equal, No Distress Cardiology CV Exam: Regular, Normal Sinus Rhythm Gastrointestinal/Abdomen GI Exam: Soft, Non-Tender, Bowel Sounds Present GI Remarks Ascities. Musculoskeletal MS Exam: Normal Tone Integumentary Skin Exam: Clear, Dry Neurologic Neuro Exam: Alert, Awake, Oriented, Speech Clear, Moving All Extremities, No Focal Deficits Psychiatric Psych Exam: Appropriate Responses VTE Prophylaxis VTE Prophylaxis Device: SCDs PUD Prophylasis PUD Prophylaxis: Protonix Assessment/Plan Assessment/Plan ASSESSMENT: -Esophageal Varices -HTN -Stage 4 Cirrhosis, with alcohol abuse -DM 2 -Psoriasis -Pancreatitis - Nausea/Vomiting, Abdominal pain. Started yesterday after drinking ETOH. Abdomen/Pelvis CT (11/01/16)-----> 1. The previously noted abdominal ascites has resolved. 2. Cirrhotic liver, no change 3. Gallstones in the gallbladder with no evidence of biliary tract obstruction. 4. A few tiny nonobstructing right renal calculi. No change compared to prior study. - Upper GIB, Hematemesis, Melena. Reports melena and hematemesis started yesterday. 2 episodes of vomiting "large amount of bright red blood" and melena x3 days. States he quit drinking ETOH after his last hospitalization, but went fishing yesterday with friends and "slammed three bottles of liquor with his friends." Pt with known cirrhosis, varices. No NSAIDs. S/P EGD/Colonoscopy (10/09/16)----> portal gastropathy, esophageal varices grade I, duodenitis, gastritis, retroflexion revealed hiatal hernia; colon mucosa was normal, retroflexion revealed small internal hemorrhoids. Pathology duodenal mucosa without significant histopathologic abnormality. Gastric mucosa without significant histopathologic abnormality. EGD was recommended for 6 months and a Colonoscopy in 1 year. HH 12.7/38.4. No active bleeding. - Anemia. HH 12.7/38.4. Protonix/Octreotide Gtt. - Elevated LFTs, Liver cirrhosis. CT as above. T. Bili 2.2, AST 65, ALT 27, Alk PHosph 213. - Thrombocytopenia. Plt 52. - Alcohol abuse PLAN: - Clear liquids - Protonix 40mg IV BID - D/C Octreotide Gtt - Monitor HH - Transfuse as necessary - Supportive care .ok to dc home today advised to stop alcohol intake.. f/u with pcp/GI 1 week. condition at discharge good. activity as tolerated. diet healthy heart medicine see discharge medicine list. Discussed Condition with: Patient Nilesh Mathew MD Nov 03, 2016 06:47
[2016-11-03] MEDS: INSULIN ASPART SUPPLEMENTAL SCALE SQ SCH (07:00)
[2016-11-03 07:06] LABS: AUTOMATED NEUTROPHIL # 1.5 TH/MM3 (1.8-7.7); BASOPHIL % 0.4 % (0.0-2.0); EOSINOPHIL # 0.1 TH/MM3 (0-0.4); HEMATOCRIT 35.9 % (39.0-51.0); LYMPH % 28.7 % (9.0-44.0); LYMPHOCYTE # 0.8 TH/MM3 (1.0-4.8); MEAN CORPUSCULAR HEMOGLOBIN 31.2 PG (27.0-34.0); MEAN CORPUSCULAR HGB CONC 32.2 % (32.0-36.0); MONO % 13.3 % (0.0-8.0); NEUT % 53.6 % (16.0-70.0); PLATELET COUNT 27 TH/MM3 (150-450); RED CELL DISTRIBUTION WIDTH 16.2 % (11.6-17.2); WHITE BLOOD COUNT 2.8 TH/MM3 (4.0-11.0)
[2016-11-03 07:19] LABS: ALKALINE PHOSPHATASE 168 U/L (45-117); ALT (GPT) 36 U/L (12-78); ANION GAP 6 MEQ/L (5-15); AST (GOT) 85 U/L (15-37); BICARBONATE 28.6 MEQ/L (21.0-32.0); BLOOD UREA NITROGEN 2 MG/DL (7-18); CHLORIDE 106 MEQ/L (98-107); GLOMERULAR FILTRATION RATE 159 ML/MIN (>89); POTASSIUM 3.3 MEQ/L (3.5-5.1); SODIUM (NA) 141 MEQ/L (136-145); TOTAL BILIRUBIN ADULT 2.4 MG/DL (0.2-1.0)
[2016-11-03] MEDS: THIAMINE INJ 100 MG in SODIUM CHLORIDE 0.9% INJ 100 ML IV SCH (07:34)
[2016-11-03 07:49] LABS: HEMO FLAGS AUTO DIFF
[2016-11-03 08:00] VITALS: BP 139/77; PULSE 76; RESP 17; TEMP 96.8; O2SAT 99
[2016-11-03] MEDS: NICOTINE 7 MG/24 HR PATCH T-DERMAL SCH (08:49)
[2016-11-03] MEDS: PROPRANOLOL HCL 20 MG TAB PO SCH (08:49)
[2016-11-03] MEDS: SODIUM CHLOR 0.9% 1000 ML INJ 1,000 ML IV SCH (08:50)
[2016-11-03] MEDS: SODIUM CHLORIDE 0.9% FLUSH 10 ML FLUSH IV FLUSH SCH (08:50)
[2016-11-03] MEDS: PANTOPRAZOLE SODIUM 40 MG VIAL IV PUSH SCH (08:54)
[2016-11-03] MEDS: MULTIVITAMIN INJ 10 ML, FOLIC ACID INJ 1 MG in SODIUM CHLORID 0.9% 500 ML INJ 500 ML IV SCH (08:54)
[2016-11-03 11:36] LABS: OVALOCYTES 1+ (NORMAL); PLATELET ESTIMATE SMEAR LOW (NORMAL); PLATELET MORPHOLOGY NORMAL (NORMAL); SCAN/DIFF AUTO DIFF CONFIRMED
== END 2016-11-03 09:57 | disposition home or self-care (01) | DRG 378 ==
LOC: NEPE 03:02 → NEDA 06:24 → N07A 12:41
PROVIDERS: ADMIT Specialist; ATTEND Specialist
DX: K92.0 Hematemesis (principal); K76.6 Portal hypertension; D69.59 Other secondary thrombocytopenia; K70.31 Alcoholic cirrhosis of liver with ascites; E11.65 Type 2 diabetes mellitus with hyperglycemia; K92.1 Melena; I85.10 Secondary esophageal varices without bleeding; F10.229 Alcohol dependence with intoxication, unspecified; Z86.14 Personal history of Methicillin resistant Staphylococcus aureus infection; Z88.5 Allergy status to narcotic agent; Z88.0 Allergy status to penicillin; K21.9 Gastro-esophageal reflux disease without esophagitis; I10 Essential (primary) hypertension; F41.9 Anxiety disorder, unspecified; R00.0 Tachycardia, unspecified; L40.9 Psoriasis, unspecified; K64.8 Other hemorrhoids; K80.20 Calculus of gallbladder without cholecystitis without obstruction; F17.210 Nicotine dependence, cigarettes, uncomplicated; F12.90 Cannabis use, unspecified, uncomplicated; K44.9 Diaphragmatic hernia without obstruction or gangrene; K31.89 Other diseases of stomach and duodenum; K29.80 Duodenitis without bleeding; K29.70 Gastritis, unspecified, without bleeding; Z79.4 Long term (current) use of insulin; F32.9 Major depressive disorder, single episode, unspecified; Z82.3 Family history of stroke; N20.0 Calculus of kidney
CPT/HCPCS: 74176; 80048; 80053; 80307; 82948; 83690; 83735; 84155; 85014; 85018; 85025; 85027; 85610; 86850; 86900; 86901; 96365; 96368; 96375; C9113; J0610; J1815; J2270; J2354; J2405; J3411; J3475; J7030; J7040

== ENCOUNTER 2016-11-12 10:38 | Emergency (ER) | payer OTHER ==
[~2016-11-12] VITALS: Ht 182.9 cm; Wt 77.2 kg
[2016-11-12 10:41] VITALS: BP 145/96; PULSE 107; RESP 16; TEMP 98.3; O2SAT 98
[2016-11-12] MEDS ORDERED: SODIUM CHLOR 0.9% 1000 ML INJ 1,000 ML IV SCH (10:53)
[2016-11-12] MEDS ORDERED: ONDANSETRON HCL 4 MG/2 ML VIAL IVP ONE (11:00)
[2016-11-12] MEDS ORDERED: PANTOPRAZOLE INJ 80 MG in SODIUM CHLORIDE 0.9% INJ 35 ML IV ONE (11:00)
[2016-11-12] MEDS ORDERED: OCTREOTIDE INJ 500 MCG in SODIUM CHLORID 0.9% 500 ML INJ 500 ML IV SCH (11:00)
[2016-11-12] MEDS ORDERED: PANTOPRAZOLE INJ 80 MG in SODIUM CHLORIDE 0.9% INJ 100 ML IV SCH (11:00)
[2016-11-12] MEDS ORDERED: SODIUM CHLORIDE 0.9% FLUSH 10 ML FLUSH IVF PRN (11:00)
--- NOTE | 2016-11-12 11:06 | PD ---
HPI Chief Complaint: Alcohol/Drug Intoxication Time Seen by Provider: 10:46 Travel History International Travel<30 days: No Contact w/Intl Traveler<30days: No Traveled to known affect area: No History of Present Illness HPI 45-year-old male states that he has been vomiting blood and having upper abdominal pain. He states that he had a lot of vodka this morning probably half a liter. He states that he doesn't know why he's been drinking again. He denies other complaints that he can think of. History is limited on initial evaluation. PFSH Past Medical History Narrative Medical By records Arthritis: No Asthma: No Autoimmune Disease: No Blood Disorders: Yes (ESOPHAGEAL VARICES) Anxiety: Yes Depression: No Heart Rhythm Problems: No Cancer: No Cardiovascular Problems: Yes (htn) High Cholesterol: No Chemotherapy: No Chest Pain: Yes Congestive Heart Failure: No Cirrhosis: Yes (STAGE 4) COPD: No Diabetes: Yes Diminished Hearing: No Endocrine: No Gastrointestinal Disorders: Yes (CIRRHOSIS LIVER) GERD: Yes Genitourinary: No Headaches: No Hiatal Hernia: No Heparin Induced Thrombocytopen: No Hypertension: Yes Immune Disorder: No Implanted Vascular Access Dvce: No Kidney Stones: No Musculoskeletal: No Neurologic: No Psychiatric: No Reproductive: No Respiratory: No Integumentary: Yes (PSORIASIS) Immunizations Current: Yes Migraines: No Pancreatitis: Yes Radiation Therapy: No Renal Failure: No Seizures: No Sickle Cell Disease: No Sleep Apnea: No Thyroid Disease: No Ulcer: No Past Surgical History Narrative Surgical By records Abdominal Surgery: No AICD: No Arteriovenous Shunt: No Cardiac Surgery: No Ear Surgery: No Endocrine Surgery: No Eye Surgery: No Genitourinary Surgery: No Gynecologic Surgery: No Insulin Pump: No Joint Replacement: No Neurologic Surgery: No Oral Surgery: No Pacemaker: No Thoracic Surgery: No Other Surgery: Yes (ESOPHAGEAL BANDING & LIVER BIOPSY) Social History Alcohol Use: Yes (CHRONIC 1/2 GALLON MOST DAYS) Tobacco Use: Yes (1/2 PPD) Substance Use: No Allergies-Medications (Allergen,Severity, Reaction): Coded Allergies: Dilaudid (Verified Allergy, Severe, Hives, 11/12/16) Penicillin (Verified Allergy, Severe, Hives, 11/12/16) *MDRO Multi-Drug Resistant Organism (Verified Adverse Reaction, Unknown, ) MRSA PCR (nares) POSITIVE - 12/02/2015 Reported Meds & Prescriptions Reported Meds & Active Scripts Active [Spironolactone] 25 MG Tab 25 Mg PO DAILY Pantoprazole (Pantoprazole Sodium) 40 Mg Tab 40 Mg PO Q12HR Levemir Inj (Insulin Detemir) 1,000 unit/ 10 ML Vial 20 Units SQ HS Hydrocodone-Acetaminophen 5-325 mg Tab 1 Tab PO Q6H PRN Furosemide 40 Mg Tab 40 Mg PO DAILY Calcium Carbonate 1,500 Mg Tab 1,500 Mg PO DAILY 1,500 mg calcium carbonate (600 mg elemental calcium) Reported Metformin (Metformin HCl) 500 Mg Tab 500 Mg PO DAILY With meals Propranolol (Propranolol HCl) 20 Mg Tab 20 Mg PO Q12HR Xanax (Alprazolam) 1 Mg Tab 1 Mg PO Q6H PRN Multi-Vitamin Daily (Multiple Vitamin) 1 Tab Tab 1 Tab PO DAILY Review of Systems Except as stated in HPI: all other systems reviewed are Neg Physical Exam Narrative GENERAL: Appears older than stated age, well-developed patient. SKIN: Warm and dry. HEAD: Normocephalic EYES: No injection or drainage. mild Icteric sclera ENT: No nasal drainage noted. NECK: Supple, trachea midline. CARDIOVASCULAR: Regular rate and rhythm RESPIRATORY: No increased effort. No accessory muscle use. GASTROINTESTINAL: Abdomen soft, tender left upper quadrant, nondistended. RECTAL EXAM: Performed with candy mixer and after permission. No external hemorrhoid or fissure, stool is brown, non-bloody. NEUROLOGICAL: Awake and alert. Motor and sensory grossly within normal limits. Normal speech. Data Data Last Documented VS Vital Signs Date Time Temp Pulse Resp B/P Pulse Ox O2 Delivery O2 Flow Rate FiO2 11/12/16 13:25 94 16 111/63 94 Room Air 11/12/16 10:41 98.3 Orders Complete Blood Count With Diff (11/12/16 10:53) Comprehensive Metabolic Panel (11/12/16 10:53) Lipase (11/12/16 10:53) Ammonia (11/12/16 10:53) Prothrombin Time / Inr (Pt) (11/12/16 10:53) Act Partial Throm Time (Ptt) (11/12/16 10:53) Alcohol (Ethanol) (11/12/16 10:53) Type And Screen (11/12/16 10:53) Ecg Monitoring (11/12/16 10:53) Iv Access Insert/Monitor (11/12/16 10:53) Oximetry (11/12/16 10:53) Ondansetron Inj (Zofran Inj) (11/12/16 11:00) Sodium Chlor 0.9% 1000 Ml Inj (Ns 1000 M (11/12/16 10:53) Sodium Chloride 0.9% Flush (Ns Flush) (11/12/16 11:00) Octreotide Inj (Sandostatin Inj) (11/12/16 11:00) Pantoprazole Inj (Protonix Inj) (11/12/16 11:00) Pantoprazole Inj (Protonix Inj) (11/12/16 11:00) Labs Laboratory Tests Test 11/12/16 11:00 White Blood Count 4.0 TH/MM3 Red Blood Count 4.22 MIL/MM3 Hemoglobin 13.2 GM/DL Hematocrit 39.3 % Mean Corpuscular Volume 93.4 FL Mean Corpuscular Hemoglobin 31.3 PG Mean Corpuscular Hemoglobin 33.5 % Concent Red Cell Distribution Width 16.1 % Platelet Count 68 TH/MM3 Mean Platelet Volume 8.6 FL Neutrophils (%) (Auto) 48.6 % Lymphocytes (%) (Auto) 36.6 % Monocytes (%) (Auto) 12.0 % Eosinophils (%) (Auto) 1.4 % Basophils (%) (Auto) 1.4 % Neutrophils # (Auto) 1.8 TH/MM3 Lymphocytes # (Auto) 1.5 TH/MM3 Monocytes # (Auto) 0.5 TH/MM3 Eosinophils # (Auto) 0.1 TH/MM3 Basophils # (Auto) 0.1 TH/MM3 CBC Comment AUTO DIFF Differential Comment AUTO DIFF CONFIRMED Prothrombin Time 12.7 SEC Prothromb Time International 1.1 RATIO Ratio Activated Partial 28.9 SEC Thromboplast Time Sodium Level 142 MEQ/L Potassium Level 3.7 MEQ/L Chloride Level 99 MEQ/L Carbon Dioxide Level 30.2 MEQ/L Anion Gap 13 MEQ/L Blood Urea Nitrogen 3 MG/DL Creatinine 0.56 MG/DL Estimat Glomerular Filtration 159 ML/MIN Rate Random Glucose 227 MG/DL Calcium Level 8.2 MG/DL Total Bilirubin 1.5 MG/DL Aspartate Amino Transf 87 U/L (AST/SGOT) Alanine Aminotransferase 34 U/L (ALT/SGPT) Alkaline Phosphatase 241 U/L Ammonia 31 MCMOL/L Total Protein 7.8 GM/DL Albumin 2.9 GM/DL Lipase 145 U/L Ethyl Alcohol Level 481 MG/DL Blood Type O POSITIVE Antibody Screen NEGATIVE MDM Medical Decision Making Medical Screen Exam Complete: Yes Emergency Medical Condition: Yes Medical Record Reviewed: Yes (past history confirmed) Interpretation(s) CBC & BMP Diagram 11/12/16 11:00 alcohol is elevated in the 400s Differential Diagnosis Pancreatitis, varices, gastritis, anemia, alcohol abuse Narrative Course Will check blood work and dose with Protonix and octreotide given history of varices and gastritis on recent admission 1140 labs reviewed and without significant findings. Guaiac performed and negative. We'll discuss with GI. Patient pulled both his ivs patient's friend here who will be back in one hour to get him, patient without emesis patient's mother came to bedside at 1330, she will watch over patient until he is able to be on his own. He can now ambulate with assistance. She feels comfortable monitoring him at home. Discussed with her about outpatient set up and care. All questions answered. Given return instructions [facility] Point of Care Internal Pos. & Neg. Controls: Passed Fecal Specimen Occult Blood: Negative Physician Communication Physician Communication dr cueto states can dc and have follow in the office this week Diagnosis Primary Impression: Alcohol intoxication Qualified Code: F10.920 - Alcohol intoxication, uncomplicated Additional Impression: Abdominal pain Qualified Code: R10.84 - Generalized abdominal pain Patient Instructions: General Instructions Additional Instructions: return as needed, follow with gi this week, limit alcohol use Med/Other Pt SpecificInfo: No Change to Meds Disposition: 01 DISCHARGE HOME (with mother) Condition: Stable Holly Gould MD November 12, 2016 11:06
[2016-11-12 11:10] VITALS: O2SAT 98
[2016-11-12 11:20] LABS: AUTOMATED NEUTROPHIL # 1.8 TH/MM3 (1.8-7.7); BASOPHIL # 0.1 TH/MM3 (0-0.2); BASOPHIL % 1.4 % (0.0-2.0); EOSINOPHIL # 0.1 TH/MM3 (0-0.4); EOSINOPHIL % 1.4 % (0.0-4.0); HEMATOCRIT 39.3 % (39.0-51.0); LYMPH % 36.6 % (9.0-44.0); LYMPHOCYTE # 1.5 TH/MM3 (1.0-4.8); MEAN CELL VOLUME 93.4 FL (80.0-100.0); MEAN CORPUSCULAR HEMOGLOBIN 31.3 PG (27.0-34.0); MEAN CORPUSCULAR HGB CONC 33.5 % (32.0-36.0); NEUT % 48.6 % (16.0-70.0); PLATELET COUNT 68 TH/MM3 (150-450); RED BLOOD COUNT 4.22 MIL/MM3 (4.50-5.90); RED CELL DISTRIBUTION WIDTH 16.1 % (11.6-17.2)
[2016-11-12 11:27] LABS: CHLORIDE 99 MEQ/L (98-107); HEMO FLAGS AUTO DIFF; POTASSIUM 3.7 MEQ/L (3.5-5.1); SODIUM (NA) 142 MEQ/L (136-145)
[2016-11-12 11:31] LABS: ANION GAP 13 MEQ/L (5-15); BICARBONATE 30.2 MEQ/L (21.0-32.0); BLOOD UREA NITROGEN 3 MG/DL (7-18)
[2016-11-12 11:34] LABS: ALT (GPT) 34 U/L (12-78); AST (GOT) 87 U/L (15-37); GLOMERULAR FILTRATION RATE 159 ML/MIN (>89)
[2016-11-12 11:35] LABS: TOTAL BILIRUBIN ADULT 1.5 MG/DL (0.2-1.0)
[2016-11-12 11:37] LABS: ALKALINE PHOSPHATASE 241 U/L (45-117)
[2016-11-12 11:43] LABS: APTT (PATIENT) 28.9 SEC (24.3-30.1); INTERNATIONAL NORMALIZED RATIO 1.1 RATIO; PROTHROMBIN TIME - PATIENT 12.7 SEC (9.8-11.6)
[2016-11-12 12:05] LABS: SCAN/DIFF AUTO DIFF CONFIRMED
[2016-11-12 13:25] VITALS: BP 111/63; PULSE 94; RESP 16; O2SAT 94
== END 2016-11-12 13:30 | disposition home or self-care (01) ==
LOC: PHED 10:38
DX: F10.120 Alcohol abuse with intoxication, uncomplicated (principal); R10.84 Generalized abdominal pain; Y90.8 Blood alcohol level of 240 mg/100 ml or more; Z79.899 Other long term (current) drug therapy
CPT/HCPCS: 80053; 80307; 82140; 83690; 85025; 85610; 85730; 86850; 86900; 86901; 99284

== ENCOUNTER 2016-11-14 21:28 | Emergency (ER) | payer MEDICAID ==
[~2016-11-14] VITALS: Ht 175.3 cm; Wt 75.0 kg
[~2016-11-14 21:28] MED LIST changes: -MAGN400T2 PO
[2016-11-14 21:36] VITALS: BP 148/87; PULSE 111; RESP 16; TEMP 98.6; O2SAT 97
[2016-11-14] MEDS ORDERED: SODIUM CHLOR 0.9% 1000 ML INJ 1,000 ML IV SCH (21:52)
[2016-11-14 21:53] LABS: AUTOMATED NEUTROPHIL # 1.3 TH/MM3 (1.8-7.7); BASOPHIL % 0.9 % (0.0-2.0); EOSINOPHIL % 1.2 % (0.0-4.0); HEMATOCRIT 31.1 % (39.0-51.0); LYMPH % 37.3 % (9.0-44.0); MEAN CELL VOLUME 93.1 FL (80.0-100.0); MEAN CORPUSCULAR HEMOGLOBIN 31.7 PG (27.0-34.0); NEUT % 48.6 % (16.0-70.0); PLATELET COUNT 43 TH/MM3 (150-450); RED BLOOD COUNT 3.34 MIL/MM3 (4.50-5.90); RED CELL DISTRIBUTION WIDTH 16.7 % (11.6-17.2); WHITE BLOOD COUNT 2.6 TH/MM3 (4.0-11.0)
[2016-11-14 21:57] LABS: HEMO FLAGS AUTO DIFF
[2016-11-14] MEDS ORDERED: OCTREOTIDE INJ 500 MCG in SODIUM CHLORID 0.9% 500 ML INJ 500 ML IV SCH (22:00)
[2016-11-14] MEDS ORDERED: ONDANSETRON HCL 4 MG/2 ML VIAL IVP ONE (22:00)
[2016-11-14] MEDS ORDERED: PANTOPRAZOLE SODIUM 40 MG VIAL IVP ONE (22:00)
--- NOTE | 2016-11-14 22:03 | PD ---
HPI Chief Complaint: Abdominal Pain Time Seen by Provider: 21:44 Travel History International Travel<30 days: No Contact w/Intl Traveler<30days: No Traveled to known affect area: No History of Present Illness HPI 45-year-old male complains of abdominal pain with nausea vomiting and hematemesis and blood per stool. Patient has history of chronic EtOH abuse. Patient has been to the emergency room several times in the past for the same problem. Patient has history of alcoholic cirrhosis, esophageal varices and had upper GI endoscopy and colonoscopy done about a month ago. Patient states that he has been drinking alcohol including this morning. Patient states that he has chronic abdominal pain however the pain is worse today. Patient states the pain is sharp stabbing pain most severe on the right upper quadrant of the abdomen with radiation to the right flank area. Patient denies any fever chills. Patient denies any dysuria or frequency. Patient denies any back pain. On a scale of 1-10 the pain is a 10. PFSH Past Medical History Arthritis: No Asthma: No Autoimmune Disease: No Blood Disorders: Yes (ESOPHAGEAL VARICES) Anxiety: Yes Depression: No Heart Rhythm Problems: No Cancer: No Cardiovascular Problems: Yes (htn) High Cholesterol: No Chemotherapy: No Chest Pain: Yes Congestive Heart Failure: No Cirrhosis: Yes (Stage 4) COPD: No Diabetes: Yes Patient Takes Glucophage: Yes Diminished Hearing: No Endocrine: No Gastrointestinal Disorders: Yes (CIRRHOSIS LIVER) GERD: Yes Genitourinary: No Headaches: No Hiatal Hernia: No Heparin Induced Thrombocytopen: No Hypertension: Yes Immune Disorder: No Implanted Vascular Access Dvce: No Kidney Stones: No Musculoskeletal: No Neurologic: No Psychiatric: No Reproductive: No Respiratory: No Integumentary: Yes (Psoriasis) Immunizations Current: Yes Migraines: No Pancreatitis: Yes Radiation Therapy: No Renal Failure: No Seizures: No Sickle Cell Disease: No Sleep Apnea: No Thyroid Disease: No Ulcer: No Tetanus Vaccination: < 5 Years Influenza Vaccination: Yes Past Surgical History Abdominal Surgery: No AICD: No Arteriovenous Shunt: No Cardiac Surgery: No Ear Surgery: No Endocrine Surgery: No Eye Surgery: No Genitourinary Surgery: No Gynecologic Surgery: No Insulin Pump: No Joint Replacement: No Neurologic Surgery: No Oral Surgery: No Pacemaker: No Thoracic Surgery: No Other Surgery: Yes (Liver BX, esophageal banding) Social History Alcohol Use: Yes (Rum and vodka daily) Tobacco Use: Yes (3 cigarettes/day) Substance Use: No Allergies-Medications (Allergen,Severity, Reaction): Coded Allergies: Dilaudid (Verified Allergy, Severe, Hives, 11/14/16) Penicillin (Verified Allergy, Severe, Hives, 11/14/16) *MDRO Multi-Drug Resistant Organism (Verified Adverse Reaction, Unknown, ) MRSA PCR (nares) POSITIVE - 12/02/2015 Reported Meds & Prescriptions Reported Meds & Active Scripts Active Bentyl (Dicyclomine HCl) 20 Mg Tab 20 Mg PO TID Carafate (Sucralfate) 1 Gm Tab 1 Gm PO QID On empty stomach Protonix (Pantoprazole Sodium) 20 Mg Tab 20 Mg PO DAILY [Spironolactone] 25 MG Tab 25 Mg PO DAILY Pantoprazole (Pantoprazole Sodium) 40 Mg Tab 40 Mg PO Q12HR Levemir Inj (Insulin Detemir) 1,000 unit/ 10 ML Vial 20 Units SQ HS Hydrocodone-Acetaminophen 5-325 mg Tab 1 Tab PO Q6H PRN Furosemide 40 Mg Tab 40 Mg PO DAILY Calcium Carbonate 1,500 Mg Tab 1,500 Mg PO DAILY 1,500 mg calcium carbonate (600 mg elemental calcium) Reported Metformin (Metformin HCl) 500 Mg Tab 500 Mg PO DAILY With meals Propranolol (Propranolol HCl) 20 Mg Tab 20 Mg PO Q12HR Xanax (Alprazolam) 1 Mg Tab 1 Mg PO Q6H PRN Multi-Vitamin Daily (Multiple Vitamin) 1 Tab Tab 1 Tab PO DAILY Review of Systems General / Constitutional: No: Fever Eyes: No: Visual changes HENT: No: Headaches Cardiovascular: No: Chest Pain or Discomfort Respiratory: No: Shortness of Breath Gastrointestinal: Positive: Nausea, Vomiting, Abdominal Pain, Hematemesis, Hematochezia Genitourinary: No: Dysuria Musculoskeletal: No: Pain Skin: No Rash Neurologic: No: Weakness Psychiatric: No: Depression Endocrine: No: Polydipsia Hematologic/Lymphatic: No: Easy Bruising Physical Exam Narrative GENERAL: Well-nourished, well-developed patient. SKIN: Focused skin assessment warm/dry. HEAD: Normocephalic. EYES: No scleral icterus. No injection or drainage. NECK: Supple, trachea midline. No JVD or lymphadenopathy. CARDIOVASCULAR: Regular rate and rhythm without murmurs, gallops, or rubs. RESPIRATORY: Breath sounds equal bilaterally. No accessory muscle use. GASTROINTESTINAL: Abdomen soft, nondistended. Patient has moderate tenderness on palpation right upper quadrant of the abdomen. No rebound tenderness. MUSCULOSKELETAL: No cyanosis, or edema. BACK: Nontender without obvious deformity. No CVA tenderness. Neurologic exam normal. Data Data Last Documented VS Vital Signs Date Time Temp Pulse Resp B/P Pulse Ox O2 Delivery O2 Flow Rate FiO2 11/14/16 23:50 104 16 122/68 97 Room Air 11/14/16 21:36 98.6 Orders Complete Blood Count With Diff (11/14/16 21:41) Lipase (11/14/16 21:41) Iv Access Insert/Monitor (11/14/16 21:41) Ecg Monitoring (11/14/16 21:41) Oximetry (11/14/16 21:41) Comprehensive Metabolic Panel (11/14/16 21:46) Alcohol (Ethanol) (11/14/16 21:46) Act Partial Throm Time (Ptt) (11/14/16 21:46) Prothrombin Time / Inr (Pt) (11/14/16 21:46) Urinalysis - C+S If Indicated (11/14/16 21:52) Chest, Single Ap (11/14/16 21:52) Ondansetron Inj (Zofran Inj) (11/14/16 22:00) Pantoprazole Inj (Protonix Inj) (11/14/16 22:00) Sodium Chlor 0.9% 1000 Ml Inj (Ns 1000 M (11/14/16 21:52) Octreotide Inj (Sandostatin Inj) (11/14/16 22:00) Ct Abd/Pel W Iv Contrast(Rout) (11/14/16 21:55) Thiamine Inj (Thiamine Inj) (11/14/16 22:15) Iohexol 350 Inj (Omnipaque 350 Inj) (11/14/16 23:12) Insulin Human Regular Inj (Novolin R Inj (11/15/16 00:15) Potassium Chloride (Kcl) (11/15/16 00:15) Labs Laboratory Tests Test 11/14/16 11/14/16 11/14/16 21:38 21:45 22:25 Prothrombin Time 13.4 SEC Prothromb Time International 1.2 RATIO Ratio Activated Partial 28.9 SEC Thromboplast Time White Blood Count 2.6 TH/MM3 Red Blood Count 3.34 MIL/MM3 Hemoglobin 10.6 GM/DL Hematocrit 31.1 % Mean Corpuscular Volume 93.1 FL Mean Corpuscular Hemoglobin 31.7 PG Mean Corpuscular Hemoglobin 34.0 % Concent Red Cell Distribution Width 16.7 % Platelet Count 43 TH/MM3 Mean Platelet Volume 9.3 FL Neutrophils (%) (Auto) 48.6 % Lymphocytes (%) (Auto) 37.3 % Monocytes (%) (Auto) 12.0 % Eosinophils (%) (Auto) 1.2 % Basophils (%) (Auto) 0.9 % Neutrophils # (Auto) 1.3 TH/MM3 Lymphocytes # (Auto) 1.0 TH/MM3 Monocytes # (Auto) 0.3 TH/MM3 Eosinophils # (Auto) 0.0 TH/MM3 Basophils # (Auto) 0.0 TH/MM3 CBC Comment AUTO DIFF Differential Comment AUTO DIFF CONFIRMED Platelet Estimate LOW Platelet Morphology Comment NORMAL Target Cells 1+ Sodium Level 136 MEQ/L Potassium Level 3.3 MEQ/L Chloride Level 96 MEQ/L Carbon Dioxide Level 28.4 MEQ/L Anion Gap 12 MEQ/L Blood Urea Nitrogen 2 MG/DL Creatinine 0.72 MG/DL Estimat Glomerular Filtration 119 ML/MIN Rate Random Glucose 299 MG/DL Calcium Level 7.8 MG/DL Total Bilirubin 1.4 MG/DL Aspartate Amino Transf 93 U/L (AST/SGOT) Alanine Aminotransferase 33 U/L (ALT/SGPT) Alkaline Phosphatase 350 U/L Total Protein 7.2 GM/DL Albumin 2.7 GM/DL Lipase 273 U/L Ethyl Alcohol Level 281 MG/DL Urine Color LIGHT-YELLOW Urine Turbidity CLEAR Urine pH 7.5 Urine Specific [place] 1.002 Urine Protein NEG mg/dL Urine Glucose (UA) 300 mg/dL Urine Ketones NEG mg/dL Urine Occult Blood NEG Urine Nitrite NEG Urine Bilirubin NEG Urine Urobilinogen LESS THAN 2.0 MG/DL Urine Leukocyte Esterase NEG Urine WBC LESS THAN 1 /hpf Microscopic Urinalysis Comment CULT NOT INDICATED MDM Medical Decision Making Medical Screen Exam Complete: Yes Emergency Medical Condition: Yes Interpretation(s) 23:19 PM. CBC WBC 2.6. Hemoglobin 10.6 hematocrit 31.1. Platelet 43. Potassium 3.3. Chloride 96. Glucose 299. Calcium 7.8. Total bili 1.4. AST 93. Alkaline phosphatase 350. Alcohol 281. UA is negative. Differential Diagnosis Differential diagnosis including acute exacerbation of abdominal pain, gastritis , PUD, pancreatitis, cholecystitis, colitis, UTI, pyelonephritis, GI bleed. Narrative Course 45-year-old male with acute exacerbation of abdominal pain, right upper quadrant abdominal pain, with reported hematemesis. Rectal exam Hemoccult negative. Normal saline solution 1 25 cc an hour. Protonix 40 mg IV. Octreotide drip started. Thiamine 100 mg IV. KCl 20 mEq by mouth given. Novolin R 5 units IV given. Diagnosis Primary Impression: Abdominal pain Qualified Code: R10.11 - Right upper quadrant abdominal pain Additional Impressions: Alcohol abuse Hematemesis Qualified Code: K92.0 - Hematemesis with nausea Hyperglycemia Hypokalemia Patient Instructions: General Instructions Additional Instructions: Take medications as directed. Follow-up with personal physician and GI specialist. Return if persistent problem or worse. Med/Other Pt SpecificInfo: Prescription(s) given Scripts Dicyclomine (Bentyl)20 Mg Tab20 Mg PO TID #30 TAB Prov:Parker Cruz MD 11/15/16 Sucralfate (Carafate)1 Gm Tab1 Gm PO QID #120 TAB On empty stomach Prov:Parker Cruz MD 11/15/16 Pantoprazole (Protonix)20 Mg Tab20 Mg PO DAILY #30 TAB Prov:Parker Cruz MD 11/15/16 Disposition: 01 DISCHARGE HOME Condition: Stable Parker Cruz MD November 14, 2016 22:03
[2016-11-14 22:06] LABS: APTT (PATIENT) 28.9 SEC (24.3-30.1); INTERNATIONAL NORMALIZED RATIO 1.2 RATIO; PROTHROMBIN TIME - PATIENT 13.4 SEC (9.8-11.6)
[2016-11-14] MEDS ORDERED: THIAMINE INJ 100 MG in SODIUM CHLORIDE 0.9% INJ 100 ML IV ONE (22:15)
[2016-11-14 22:20] LABS: ALKALINE PHOSPHATASE 350 U/L (45-117); ALT (GPT) 33 U/L (12-78); ANION GAP 12 MEQ/L (5-15); AST (GOT) 93 U/L (15-37); BICARBONATE 28.4 MEQ/L (21.0-32.0); BLOOD UREA NITROGEN 2 MG/DL (7-18); CHLORIDE 96 MEQ/L (98-107); GLOMERULAR FILTRATION RATE 119 ML/MIN (>89); POTASSIUM 3.3 MEQ/L (3.5-5.1); SODIUM (NA) 136 MEQ/L (136-145); TOTAL BILIRUBIN ADULT 1.4 MG/DL (0.2-1.0)
[2016-11-14 22:27] LABS: PLATELET ESTIMATE SMEAR LOW (NORMAL); PLATELET MORPHOLOGY NORMAL (NORMAL); SCAN/DIFF AUTO DIFF CONFIRMED; TARGET CELLS 1+ (NORMAL)
--- NOTE | 2016-11-14 22:32 | RADRPT ---
EXAM DATE/TIME: 11/14/2016 22:14 [facility] COMPARISON: CHEST SINGLE AP, October 06, 2016, 20:57. INDICATIONS : Short of breath. MEDICAL HISTORY : Cirrhosis. Pancreatitis. Gastroesophageal reflux disease.Hypertension. Diabetes. Esophageal varices. SURGICAL HISTORY : Liver biopsy. ENCOUNTER: Initial ACUITY: 1 day PAIN SCORE: 2/10 LOCATION: Bilateral chest FINDINGS: Mild infiltrate in the right lung base. No significant effusion. Cardiac contours are satisfactory. CONCLUSION: Mild right base infiltrate Alvaro Sahni MD on November 14, 2016 at 22:29 Board Certified Radiologist. This report was verified electronically.
[2016-11-14 22:46] LABS: BLOOD, URINE NEG (NEG); GLUCOSE,URINE 300 mg/dL (NEG); KETONE, URINE NEG (NEG); NITRITE,URINE NEG (NEG); PH, URINE 7.5 (5.0-8.5); URINE COLOR LIGHT-YELLOW (YELLW/STRAW)
[2016-11-14 22:48] LABS: COMMENT (UR) CULT NOT INDICATED; CULTURE IF INDICATED CULT NOT INDICATED
[2016-11-14] MEDS ORDERED: IOHEXOL 350 MG/ML 10 ML VIAL (for RAD DIAG) IV ONE (23:12)
[2016-11-14 23:50] VITALS: BP 122/68; PULSE 104; RESP 16; O2SAT 97
--- NOTE | 2016-11-14 23:57 | RADRPT ---
EXAM DATE/TIME: 11/14/2016 23:11 [facility] COMPARISON: CT ABDOMEN & PELVIS W/O CONTRAST, November 01, 2016, 4:06. CT ABDOMEN & PELVIS W CONTRAST, October 06 17, 22:41. INDICATIONS : Right upper abdominal pain. Hematemesis. IV CONTRAST: 95 cc Omnipaque 350 (iohexol) IV ORAL CONTRAST: No oral contrast ingested. RADIATION DOSE: 8.78 CTDIvol (mGy) MEDICAL HISTORY : Hypertension. Pancreatitis. Cirrhosis.Esophageal varices. SURGICAL HISTORY : Liver biopsy. Esophageal banding. ENCOUNTER: Initial ACUITY: 1 day PAIN SCALE: 10/10 LOCATION: Right upper quadrant TECHNIQUE: Volumetric scanning of the abdomen and pelvis was performed. Using automated exposure control and ad justment of the mA and/or kV according to patient size, radiation dose was kept as low as reasonably achievable to obtain optimal diagnostic quality images. FINDINGS: LOWER LUNGS: The visualized lower lungs are clear. LIVER: Cirrhotic changes involve the liver. There is recannulization of the periumbilical vein with caput me dusa noted involving the anterior abdominal wall. Calcified gallstones. There is mild gallbladder wal l thickening. The gallbladder is not grossly distended. SPLEEN: Splenomegaly. No lesion. PANCREAS: Within normal limits. KIDNEYS: Normal in size and shape. There is no mass or hydronephrosis. 2 small stones involving the right kid amber. The largest measures 2 mm. ADRENAL GLANDS: Within normal limits. VASCULAR: There is no aortic aneurysm. BOWEL/MESENTERY: The stomach, small bowel, and colon demonstrate no acute abnormality. There is no free intraperitone al air. A trace amount of ascitic fluid. ABDOMINAL WALL: Caput medusa noted. RETROPERITONEUM: There is no lymphadenopathy. BLADDER: No wall thickening or mass. REPRODUCTIVE: Within normal limits. INGUINAL: There is no lymphadenopathy or hernia. MUSCULOSKELETAL: Within normal limits for patient age. CONCLUSION: 1. Cirrhosis with caput medusa involving the intra-abdominal wall and small volume ascites. 2. Cholelithiasis. There is gallbladder wall thickening which likely relates to venous congestion owi ng to the patient's hepatic disease. No dilatation of the gallbladder to suggest obstruction by the s tones. 3. Splenomegaly. 4. Small nonobstructing right renal calculi. Jose Robles Jr., MD on November 14, 2016 at 23:45 Board Certified Radiologist. This report was verified electronically.
[2016-11-15] MEDS ORDERED: CARA1TAB6 PO ×2 (00:14→00:16)
[2016-11-15] MEDS ORDERED: BENT20TA PO ×2 (00:14→00:16)
[2016-11-15] MEDS ORDERED: PANT20 PO ×2 (00:14→00:16)
[2016-11-15] MEDS ORDERED: POTASSIUM CHLORIDE 20 MEQ CONTROLLED RELEASE TAB PO ONE (00:15)
[2016-11-15] MEDS ORDERED: INSULIN HUMAN REGULAR 1,000 UNITS/10 ML VIAL IV PUSH ONE (00:15)
== END 2016-11-15 00:48 | disposition home or self-care (01) ==
LOC: NEPE 21:28
DX: K92.0 Hematemesis (principal); R10.11 Right upper quadrant pain; E87.6 Hypokalemia; E11.65 Type 2 diabetes mellitus with hyperglycemia; F10.10 Alcohol abuse, uncomplicated; F17.210 Nicotine dependence, cigarettes, uncomplicated; I10 Essential (primary) hypertension; Z79.4 Long term (current) use of insulin; Z79.899 Other long term (current) drug therapy; Y90.8 Blood alcohol level of 240 mg/100 ml or more
CPT/HCPCS: 71010; 74177; 80053; 80307; 81001; 83690; 85025; 85610; 85730; 96365; 96367; 96375; 99285; C9113; J1815; J2354; J2405; J3411; J7030; J7040; Q9967

== ENCOUNTER 2016-12-24 05:17 | Inpatient (IN) | payer OTHER ==
[~2016-12-24] VITALS: Ht 182.9 cm; Wt 83.5 kg
[2016-12-24] VITALS (10 sets, daily range): BP systolic 110–143; BP diastolic 67–82; PULSE 62–85; RESP 15–20; TEMP 97.3–98.5; O2SAT 94–100
[~2016-12-24 05:17] MED LIST changes: +BENT20TA PO; +CARA1TAB6 PO; +PANT20 PO
[2016-12-24] MEDS ORDERED: TRAZ300T2 PO (05:40)
[2016-12-24] MEDS ORDERED: FAMOTIDINE 20 MG/2 ML VIAL IV PUSH ONE (05:45)
[2016-12-24] MEDS ORDERED: MORPHINE SULFATE 4 MG/ML INJ IV PUSH ONE (05:45)
[2016-12-24] MEDS ORDERED: SODIUM CHLORIDE 0.9% FLUSH 10 ML FLUSH IV FLUSH PRN ×2 (05:45→07:45)
[2016-12-24] MEDS ORDERED: SODIUM CHLOR 0.9% 1000 ML INJ 1,000 ML IV SCH ×3 (05:45→07:39)
[2016-12-24] MEDS ORDERED: ONDANSETRON HCL 4 MG/2 ML VIAL IVP ONE (05:45)
[2016-12-24] MEDS ORDERED: PANTOPRAZOLE SODIUM 40 MG VIAL IVP ONE (05:45)
--- NOTE | 2016-12-24 06:01 | PD ---
HPI Chief Complaint: Abdominal Pain Time Seen by Provider: 05:44 Travel History International Travel<30 days: No Contact w/Intl Traveler<30days: No Traveled to known affect area: No History of Present Illness HPI The patient is a 46-year-old male, alcoholic, who was drinking fairly large amounts of alcohol 2 days ago. I spoke to him about this and initially he stated he had only 2 drinks tonight. Later he wrote that he had much more than this. He does have a history of alcoholic pancreatitis. He called the ambulance and the ambulance personnel gave him 500 of normal saline. He took his Lantus insulin without eating because he was nauseated and his blood sugar was 27 in the field. He was given IV glucose in the field. PFSH Past Medical History Arthritis: No Asthma: No Autoimmune Disease: No Blood Disorders: Yes (ESOPHAGEAL VARICES) Anxiety: Yes Depression: No Heart Rhythm Problems: No Cancer: No Cardiovascular Problems: Yes (htn) High Cholesterol: No Chemotherapy: No Chest Pain: Yes Congestive Heart Failure: No Cirrhosis: Yes (Stage 4) COPD: No Diabetes: Yes Patient Takes Glucophage: Yes Diminished Hearing: No Endocrine: No Gastrointestinal Disorders: Yes (CIRRHOSIS LIVER) GERD: Yes Genitourinary: No Headaches: No Hiatal Hernia: No Heparin Induced Thrombocytopen: No Hypertension: Yes Immune Disorder: No Implanted Vascular Access Dvce: No Kidney Stones: No Musculoskeletal: No Neurologic: No Psychiatric: No Reproductive: No Respiratory: No Integumentary: Yes (Psoriasis) Immunizations Current: Yes Migraines: No Pancreatitis: Yes Radiation Therapy: No Renal Failure: No Seizures: No Sickle Cell Disease: No Sleep Apnea: No Thyroid Disease: No Ulcer: No Past Surgical History Abdominal Surgery: No AICD: No Arteriovenous Shunt: No Cardiac Surgery: No Ear Surgery: No Endocrine Surgery: No Eye Surgery: No Genitourinary Surgery: No Gynecologic Surgery: No Insulin Pump: No Joint Replacement: No Neurologic Surgery: No Oral Surgery: No Pacemaker: No Thoracic Surgery: No Other Surgery: Yes (Liver BX, esophageal banding) Social History Alcohol Use: Yes (Rum and vodka daily) Tobacco Use: Yes (3 cigarettes/day) Substance Use: No Allergies-Medications (Allergen,Severity, Reaction): Coded Allergies: Dilaudid (Verified Allergy, Severe, Hives, 11/14/16) Penicillin (Verified Allergy, Severe, Hives, 11/14/16) *MDRO Multi-Drug Resistant Organism (Verified Adverse Reaction, Unknown, ) MRSA PCR (nares) POSITIVE - 12/02/2015 Reported Meds & Prescriptions Reported Meds & Active Scripts Active Carafate (Sucralfate) 1 Gm Tab 1 Gm PO QID On empty stomach Levemir Inj (Insulin Detemir) 1,000 unit/ 10 ML Vial 20 Units SQ HS Calcium Carbonate 1,500 Mg Tab 1,500 Mg PO DAILY 1,500 mg calcium carbonate (600 mg elemental calcium) Reported Trazodone (Trazodone HCl) 300 Mg Tab 500 Mg PO HS Metformin (Metformin HCl) 500 Mg Tab 500 Mg PO DAILY With meals Propranolol (Propranolol HCl) 20 Mg Tab 20 Mg PO Q12HR Xanax (Alprazolam) 1 Mg Tab 1 Mg PO Q6H PRN Multi-Vitamin Daily (Multiple Vitamin) 1 Tab Tab 1 Tab PO DAILY Review of Systems Except as stated in HPI: all other systems reviewed are Neg Physical Exam Narrative GENERAL: The patient is alert, moderately dehydrated appearing, oriented 3 in moderate apparent distress with his diffuse abdominal pain. His vital signs are normal. He does smell of alcohol. SKIN: Focused skin assessment warm/dry. HEAD: Atraumatic. Normocephalic. EYES: Pupils equal and round. No scleral icterus. No injection or drainage. ENT: No nasal bleeding or discharge. Mucous membranes pink and moist. NECK: Trachea midline. No JVD. CARDIOVASCULAR: Regular rate and rhythm. No murmur appreciated. RESPIRATORY: No accessory muscle use. Clear to auscultation. Breath sounds equal bilaterally. GASTROINTESTINAL: Abdomen soft, with diffuse tenderness in all 4 quadrants, nondistended. Hepatic and splenic margins not palpable. No guarding or rebound is present. MUSCULOSKELETAL: No obvious deformities. No clubbing. No cyanosis. No edema. NEUROLOGICAL: Awake and alert. No obvious cranial nerve deficits. Motor grossly within normal limits. Normal speech. PSYCHIATRIC: Appropriate mood and affect; insight and judgment normal. Data Data Last Documented VS Vital Signs Date Time Temp Pulse Resp B/P Pulse Ox O2 Delivery O2 Flow Rate FiO2 12/24/16 05:50 16 99 Room Air 12/24/16 05:26 98.5 85 112/68 Orders Alcohol (Ethanol) (12/24/16 05:45) Complete Blood Count With Diff (12/24/16 05:45) Comprehensive Metabolic Panel (12/24/16 05:45) Lipase (12/24/16 05:45) Urinalysis - C+S If Indicated (12/24/16 05:45) Iv Access Insert/Monitor (12/24/16 05:45) Ecg Monitoring (12/24/16 05:45) Oximetry (12/24/16 05:45) Morphine Inj (Morphine Inj) (12/24/16 05:45) Ondansetron Inj (Zofran Inj) (12/24/16 05:45) Pantoprazole Inj (Protonix Inj) (12/24/16 05:45) Sodium Chlor 0.9% 1000 Ml Inj (Ns 1000 M (12/24/16 05:45) Sodium Chloride 0.9% Flush (Ns Flush) (12/24/16 05:45) Famotidine Inj (Pepcid Inj) (12/24/16 05:45) Ct Abd/Pel W Iv Contrast(Rout) (12/24/16 06:02) Sodium Chlor 0.9% 1000 Ml Inj (Ns 1000 M (12/24/16 06:03) Iohexol 350 Inj (Omnipaque 350 Inj) (12/24/16 06:30) Insert Ng Tube (12/24/16 07:05) Labs Laboratory Tests Test 12/24/16 12/24/16 05:50 06:00 White Blood Count 6.3 TH/MM3 Red Blood Count 3.55 MIL/MM3 Hemoglobin 11.1 GM/DL Hematocrit 33.6 % Mean Corpuscular Volume 94.6 FL Mean Corpuscular Hemoglobin 31.3 PG Mean Corpuscular Hemoglobin 33.1 % Concent Red Cell Distribution Width 18.7 % Platelet Count 92 TH/MM3 Mean Platelet Volume 10.0 FL Neutrophils (%) (Auto) 64.7 % Lymphocytes (%) (Auto) 21.5 % Monocytes (%) (Auto) 10.2 % Eosinophils (%) (Auto) 3.0 % Basophils (%) (Auto) 0.6 % Neutrophils # (Auto) 4.1 TH/MM3 Lymphocytes # (Auto) 1.4 TH/MM3 Monocytes # (Auto) 0.6 TH/MM3 Eosinophils # (Auto) 0.2 TH/MM3 Basophils # (Auto) 0.0 TH/MM3 CBC Comment AUTO DIFF Differential Comment AUTO DIFF CONFIRMED Platelet Estimate LOW Platelet Morphology Comment NORMAL Ovalocytes 1+ Sodium Level 144 MEQ/L Potassium Level 3.0 MEQ/L Chloride Level 110 MEQ/L Carbon Dioxide Level 25.6 MEQ/L Anion Gap 8 MEQ/L Blood Urea Nitrogen 7 MG/DL Creatinine 0.50 MG/DL Estimat Glomerular Filtration 181 ML/MIN Rate Random Glucose 123 MG/DL Calcium Level 7.3 MG/DL Protein Corrected Calcium 7.6 MG/DL Total Bilirubin 0.6 MG/DL Aspartate Amino Transf 47 U/L (AST/SGOT) Alanine Aminotransferase 26 U/L (ALT/SGPT) Alkaline Phosphatase 237 U/L Total Protein 6.5 GM/DL Albumin 2.4 GM/DL Lipase 314 U/L Ethyl Alcohol Level 157 MG/DL Urine Color YELLOW Urine Turbidity CLEAR Urine pH 6.0 Urine Specific [place] 1.015 Urine Protein NEG mg/dL Urine Glucose (UA) 70 mg/dL Urine Ketones NEG mg/dL Urine Occult Blood NEG Urine Nitrite NEG Urine Bilirubin NEG Urine Urobilinogen LESS THAN 2.0 MG/DL Urine Leukocyte Esterase NEG Urine RBC LESS THAN 1 /hpf Urine WBC LESS THAN 1 /hpf Urine Mucus FEW /lpf Microscopic Urinalysis Comment CULT NOT INDICATED MDM Medical Decision Making Medical Screen Exam Complete: Yes Emergency Medical Condition: Yes Medical Record Reviewed: Yes Differential Diagnosis Small bowel obstruction, pancreatitis, dehydration, electrolyte disorder, enteritis, gastroenteritis Narrative Course Is now 0700 and the patient is transferred to Dr. Pena. Mihir Brewer MD Dec 24, 2016 06:01
[2016-12-24 06:13] LABS: AUTOMATED NEUTROPHIL # 4.1 TH/MM3 (1.8-7.7); BASOPHIL % 0.6 % (0.0-2.0); EOSINOPHIL # 0.2 TH/MM3 (0-0.4); HEMATOCRIT 33.6 % (39.0-51.0); LYMPH % 21.5 % (9.0-44.0); LYMPHOCYTE # 1.4 TH/MM3 (1.0-4.8); MEAN CELL VOLUME 94.6 FL (80.0-100.0); MEAN CORPUSCULAR HEMOGLOBIN 31.3 PG (27.0-34.0); MEAN CORPUSCULAR HGB CONC 33.1 % (32.0-36.0); MONO % 10.2 % (0.0-8.0); NEUT % 64.7 % (16.0-70.0); PLATELET COUNT 92 TH/MM3 (150-450); RED BLOOD COUNT 3.55 MIL/MM3 (4.50-5.90); RED CELL DISTRIBUTION WIDTH 18.7 % (11.6-17.2); WHITE BLOOD COUNT 6.3 TH/MM3 (4.0-11.0)
[2016-12-24 06:22] LABS: HEMO FLAGS AUTO DIFF
[2016-12-24] MEDS ORDERED: IOHEXOL 350 MG/ML 10 ML VIAL (for RAD DIAG) IV ONE (06:30)
[2016-12-24 06:47] LABS: BICARBONATE 25.6 MEQ/L (21.0-32.0); CALCIUM-PROTEIN CORRECTED 7.6 MG/DL (8.5-10.1); TOTAL BILIRUBIN ADULT 0.6 MG/DL (0.2-1.0)
[2016-12-24 06:48] LABS: BLOOD, URINE NEG (NEG); COMMENT (UR) CULT NOT INDICATED; CULTURE IF INDICATED CULT NOT INDICATED; GLUCOSE,URINE 70 mg/dL (NEG); KETONE, URINE NEG (NEG); MUCUS URINE FEW /lpf (OCC); NITRITE,URINE NEG (NEG); URINE COLOR YELLOW (YELLW/STRAW)
--- NOTE | 2016-12-24 06:48 | RADRPT ---
EXAM DATE/TIME: 12/24/2016 06:27 [facility] COMPARISON: CT ABDOMEN & PELVIS W CONTRAST, November 14, 2016, 23:11. INDICATIONS : Bilater upper quadrant pain. IV CONTRAST: 96 cc Omnipaque 350 (iohexol) IV ORAL CONTRAST: No oral contrast ingested. RADIATION DOSE: 13.19 CTDIvol (mGy) MEDICAL HISTORY : Pancreatitis. Cirrhosis. Diabetes mellitus type 2. SURGICAL HISTORY : None. ENCOUNTER: Initial ACUITY: 1 day PAIN SCALE: 8/10 LOCATION: Bilateral upper quadrant TECHNIQUE: Volumetric scanning of the abdomen and pelvis was performed. Using automated exposure control and ad justment of the mA and/or kV according to patient size, radiation dose was kept as low as reasonably achievable to obtain optimal diagnostic quality images. FINDINGS: There is mildly distended jejunum. Ileum has normal caliber. The appearance suggests early or partial small bowel obstruction but an abrupt caliber change is not demonstrated. I don't see a mass or high -grade inflammatory changes. The jejunum has mild wall thickening. Stomach is distended. Cirrhotic changes are again seen of the liver. There is splenomegaly, small ascites and portosystemic collaterals again noted, all similar to the prior exam. Portal vein is patent. There is portal vein distention, especially the left portal vein which feeds into a distended and tortuous recannulated um bilical vein. A couple tiny nuvia-like nonobstructing stones are again seen in the right kidney. Numerous small gallstones are again noted. No duct stone or ductal dilatation. CONCLUSION: 1. Apparent mild jejunitis. Bowel gas pattern suggests the possibility of early or mild obstruction a t the level of the distal jejunum/proximal ileum and likely occurring within the midabdomen. No clear etiology. Followup is recommended. 2. Stomach is markedly distended and the patient may benefit from nasogastric tube decompression. 3. Cirrhotic changes of the liver with small volume ascites, splenomegaly and extensive portosystemic collaterals again noted, all not significantly changed. 4. Cholelithiasis again seen without evidence of cholecystitis or biliary obstruction. Alvaro Das MD on December 24, 2016 at 6:41 Board Certified Radiologist. This report was verified electronically.
[2016-12-24 07:10] LABS: OVALOCYTES 1+ (NORMAL); PLATELET ESTIMATE SMEAR LOW (NORMAL); PLATELET MORPHOLOGY NORMAL (NORMAL); SCAN/DIFF AUTO DIFF CONFIRMED
[2016-12-24] MEDS ORDERED: CALCIUM GLUCONATE INJ 1 GM in DEXTROSE 5% IN WATER 100ML INJ 100 ML IV ONE ×4 (07:30→07:45)
--- NOTE | 2016-12-24 07:36 | PD ---
Physical Exam Narrative Received sign out from previous provider to follow up on CTa/p and admit pt. 46yo M with PMH of cirrhosis, alcohol abuse here with diffuse abdominal pain for 1 week. Also with NBNB vomiting but last episode of vomiting was 2 days ago. States normal bowel movement, last one was yesterday at 3pm and it was normal. +Flatus. Denies any fever. PSH include esophageal banding and liver biopsy. 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 Labs reviewed, no leukocytosis. H/H low at 11.1/33.6 which is at baseline. Corrected calcium low at 7.6, calcium gluconate given. K: low at 3.0, replaced by IV KCl. AST and Alk phos elevated but at baseline. Lipase 314. Blood alcohol 157. UA negative. CTa/p showed mild jejunitis. Bowel gas pattern suggests possibility fo early or mild obstruction at level or distal jejunum/ proximal ileum. Stomach is markedly distended and pt may benefit from NG decompression. NG tube ordered. Pt reevaluated at bedside and still with epigastric abdominal pain. Do not think clinically pt has bowel obstruction but would observe pt and GI consult placed. Discussed with Dr. Rollins and accepted to her service. Data Data Last Documented VS Vital Signs Date Time Temp Pulse Resp B/P Pulse Ox O2 Delivery O2 Flow Rate FiO2 12/24/16 05:50 16 99 Room Air 12/24/16 05:26 98.5 85 112/68 Orders Alcohol (Ethanol) (12/24/16 05:45) Complete Blood Count With Diff (12/24/16 05:45) Comprehensive Metabolic Panel (12/24/16 05:45) Lipase (12/24/16 05:45) Urinalysis - C+S If Indicated (12/24/16 05:45) Iv Access Insert/Monitor (12/24/16 05:45) Ecg Monitoring (12/24/16 05:45) Oximetry (12/24/16 05:45) Morphine Inj (Morphine Inj) (12/24/16 05:45) Ondansetron Inj (Zofran Inj) (12/24/16 05:45) Pantoprazole Inj (Protonix Inj) (12/24/16 05:45) Sodium Chlor 0.9% 1000 Ml Inj (Ns 1000 M (12/24/16 05:45) Sodium Chloride 0.9% Flush (Ns Flush) (12/24/16 05:45) Famotidine Inj (Pepcid Inj) (12/24/16 05:45) Ct Abd/Pel W Iv Contrast(Rout) (12/24/16 06:02) Sodium Chlor 0.9% 1000 Ml Inj (Ns 1000 M (12/24/16 06:03) Iohexol 350 Inj (Omnipaque 350 Inj) (12/24/16 06:30) Insert Ng Tube (12/24/16 07:05) Electrocardiogram (12/24/16 05:26) Calcium Gluconate Inj (Calcium Gluconate (12/24/16 07:30) Consult Gastroenterology (12/24/16 ) (Hub Use Only)Inp Phy Cons/Ref (12/24/16 ) Calcium Gluconate Inj (Calcium Gluconate (12/24/16 07:45) Potassium Chlor 20 Meq Premix (Kcl 20 Me (12/24/16 07:45) Potassium Chlor 20 Meq Premix (Kcl 20 Me (12/24/16 07:45) Lidocaine 2% Viscous (Xylocaine 2% Visco (12/24/16 07:39) Admit Order (Ed Use Only) (12/24/16 07:40) Admit To Inpatient (12/24/16 ) Vital Signs (Adult) Q4H (12/24/16 07:39) Activity Oob With Assistance (12/24/16 07:39) Intake + Output DENNY.QSHIFT (12/24/16 07:39) Diet Npo (12/24/16 Breakfast) Sodium Chlor 0.9% 1000 Ml Inj (Ns 1000 M (12/24/16 07:39) Sodium Chloride 0.9% Flush (Ns Flush) (12/24/16 07:45) Sodium Chloride 0.9% Flush (Ns Flush) (12/24/16 09:00) Acetaminophen (Tylenol) (12/24/16 07:45) Ondansetron Inj (Zofran Inj) (12/24/16 07:45) Temazepam (Restoril) (12/24/16 07:45) Comprehensive Metabolic Panel (12/25/16 06:00) Complete Blood Count With Diff (12/25/16 06:00) Resp Oxygen Stu C Titrat 1-4 L (12/24/16 ) Enoxaparin Inj (Lovenox Inj) (12/24/16 08:00) Scd Bilateral/Knee High DENNY.BID (12/24/16 07:39) Kayden Bilateral/Knee High DENNY.QSHIFT (12/24/16 07:39) Docusate Sodium-Senna (Chelsea-Colace) (12/24/16 09:00) Magnesium Hydroxide Liq (Milk Of Magnesi (12/24/16 07:45) Sennosides (Senokot) (12/24/16 07:45) Bisacodyl Supp (Dulcolax Supp) (12/24/16 07:45) Lactulose Liq (Lactulose Liq) (12/24/16 07:45) Inpatient Certification (12/24/16 ) Labs Laboratory Tests Test 12/24/16 12/24/16 05:50 06:00 White Blood Count 6.3 TH/MM3 Red Blood Count 3.55 MIL/MM3 Hemoglobin 11.1 GM/DL Hematocrit 33.6 % Mean Corpuscular Volume 94.6 FL Mean Corpuscular Hemoglobin 31.3 PG Mean Corpuscular Hemoglobin 33.1 % Concent Red Cell Distribution Width 18.7 % Platelet Count 92 TH/MM3 Mean Platelet Volume 10.0 FL Neutrophils (%) (Auto) 64.7 % Lymphocytes (%) (Auto) 21.5 % Monocytes (%) (Auto) 10.2 % Eosinophils (%) (Auto) 3.0 % Basophils (%) (Auto) 0.6 % Neutrophils # (Auto) 4.1 TH/MM3 Lymphocytes # (Auto) 1.4 TH/MM3 Monocytes # (Auto) 0.6 TH/MM3 Eosinophils # (Auto) 0.2 TH/MM3 Basophils # (Auto) 0.0 TH/MM3 CBC Comment AUTO DIFF Differential Comment AUTO DIFF CONFIRMED Platelet Estimate LOW Platelet Morphology Comment NORMAL Ovalocytes 1+ Sodium Level 144 MEQ/L Potassium Level 3.0 MEQ/L Chloride Level 110 MEQ/L Carbon Dioxide Level 25.6 MEQ/L Anion Gap 8 MEQ/L Blood Urea Nitrogen 7 MG/DL Creatinine 0.50 MG/DL Estimat Glomerular Filtration 181 ML/MIN Rate Random Glucose 123 MG/DL Calcium Level 7.3 MG/DL Protein Corrected Calcium 7.6 MG/DL Magnesium Level 1.4 MG/DL Total Bilirubin 0.6 MG/DL Aspartate Amino Transf 47 U/L (AST/SGOT) Alanine Aminotransferase 26 U/L (ALT/SGPT) Alkaline Phosphatase 237 U/L Total Protein 6.5 GM/DL Albumin 2.4 GM/DL Lipase 314 U/L Ethyl Alcohol Level 157 MG/DL Urine Color YELLOW Urine Turbidity CLEAR Urine pH 6.0 Urine Specific [place] 1.015 Urine Protein NEG mg/dL Urine Glucose (UA) 70 mg/dL Urine Ketones NEG mg/dL Urine Occult Blood NEG Urine Nitrite NEG Urine Bilirubin NEG Urine Urobilinogen LESS THAN 2.0 MG/DL Urine Leukocyte Esterase NEG Urine RBC LESS THAN 1 /hpf Urine WBC LESS THAN 1 /hpf Urine Mucus FEW /lpf Microscopic Urinalysis Comment CULT NOT INDICATED MDM Supervised Visit with JULIO CESAR: No Diagnosis Primary Impression: Jejunitis Additional Impression: Hypokalemia Admitting Information Admitting Physician Requests: Observation Polly Pena DO Dec 24, 2016 07:36 Polly Pena DO Dec 24, 2016 07:36
[2016-12-24] MEDS ORDERED: LIDOCAINE VISCOUS 2% SOLN 15 ML UDC SWISH-SPIT STA (07:39)
[2016-12-24] MEDS ORDERED: ACETAMINOPHEN/HYDROcodone 325 MG/5 MG TAB PO PRN (07:45)
[2016-12-24] MEDS ORDERED: ACETAMINOPHEN 325 MG TAB PO PRN (07:45)
[2016-12-24] MEDS ORDERED: TEMAZEPAM 15 MG CAP PO PRN (07:45)
[2016-12-24] MEDS ORDERED: BISACODYL 10 MG SUPP RECTAL PRN (07:45)
[2016-12-24] MEDS ORDERED: LACTULOSE SYRUP 20 GM/30 ML CUP PO PRN (07:45)
[2016-12-24] MEDS ORDERED: POTASSIUM CHLOR 20 MEQ PREMIX 100 ML IV ONE (07:45)
[2016-12-24] MEDS ORDERED: NALOXONE HCL 0.4 MG/ML AMP IV PRN (07:45)
[2016-12-24] MEDS ORDERED: ONDANSETRON HCL 4 MG/2 ML VIAL IVP PRN (07:45)
[2016-12-24] MEDS ORDERED: ACETAMINOPHEN/HYDROcodone 325 MG/7.5 MG TAB PO PRN (07:45)
[2016-12-24] MEDS ORDERED: SENNOSIDES 8.6 MG TAB PO PRN (07:45)
[2016-12-24] MEDS ORDERED: MAGNESIUM HYDROXIDE SUSP 30 ML CUP PO PRN (07:45)
[2016-12-24] MEDS: POTASSIUM CHLOR 20 MEQ PREMIX 100 ML IV SCH ×2 (07:52→12:01)
[2016-12-24] MEDS ORDERED: ENOXAPARIN SODIUM 40 MG/0.4 ML SYRINGE SQ SCH (08:00)
[2016-12-24] MEDS: MORPHINE SULFATE 4 MG/ML INJ IV PRN ×4 (08:14→20:38)
--- NOTE | 2016-12-24 08:22 | PD.CONS ---
HPI History of Present Illness This is a 46 year old male with a known history of known esophageal varices and liver cirrhosis secondary to ongoing alcohol abuse. He presented to the ER for evaluation of abdominal pain x 1 week. His symptoms began about a week ago. He reports that he had sudden onset of a diffuse abdominal pain, described as a sharp stabbing pain. It is intermittent and radiates to his back and both sides. He has associated nausea and dry heaving. He has a prescription for carafate at home and he takes this as needed, but states that it doesn't really help. He did vomit a few days ago and it was mostly clear secretions and a small amount of bile. He feels that it is aggravated more from alcohol use than from food intake. He also has associated abdominal distention. His last had a bowel movement yesterday and he reports this as normal- no blood or mucous. He denies any fever or chills. He denies any suspicious food or sick contacts. His symptoms seemed to be worsening and therefore he came to the ER for further evaluation. He is currently drinking about 2 times a week- varies from a glass of wine to several beers to a few drinks of vodka or rum. He has a difficult time quantifying this amount. His last EGD/Colonoscopy (10/09/16)---- > portal gastropathy, esophageal varices grade I, duodenitis, gastritis, retroflexion revealed hiatal hernia; colon mucosa was normal, retroflexion revealed small internal hemorrhoids. Rpt. EGD was recommended for 6 months and a Colonoscopy in 1 year. 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 Diabetes mellitus type 2 Esophageal varices Anxiety and depression GERD Psoriasis Rubi herpes Alcoholic Pancreatitis Internal hemorrhoids Portal gastropathy AVMs of the cecum and ascending colon Diverticulosis Past Surgical History EGD Liver biopsy Coded Allergies: Dilaudid (Verified Allergy, Severe, Hives, 11/14/16) Penicillin (Verified Allergy, Severe, Hives, 11/14/16) *MDRO Multi-Drug Resistant Organism (Verified Adverse Reaction, Unknown, ) MRSA PCR (nares) POSITIVE - 12/02/2015 Medications Allergies Coded Allergies Type Severity Reaction Last Updated Verified Dilaudid Allergy Severe Hives 11/14/16 Yes Penicillin Allergy Severe Hives 11/14/16 Yes *MDRO Multi-Drug Resistant Organism Adverse Reaction Unknown 11/14/16 Yes Active Scripts Medications Dose Route/Sig Days Date Category Dose Instructions Trazodone (Trazodone HCl) 300 Mg Tab 500 Mg PO HS 12/24/16 Reported Carafate (Sucralfate) 1 Gm Tab 1 Gm PO QID 11/15/16 Rx On empty stomach Metformin (Metformin HCl) 500 Mg Tab 500 Mg PO DAILY 10/14/16 Reported With meals Levemir Inj (Insulin Detemir) 1,000 unit/ 10 ML Vial 20 Units SQ HS 10/05/16 Rx Calcium Carbonate 1,500 Mg Tab 1,500 Mg PO DAILY 08/12/16 Rx 1,500 mg calcium carbonate (600 mg elemental calcium) Propranolol (Propranolol HCl) 20 Mg Tab 20 Mg PO Q12HR 08/11/16 Reported Xanax (Alprazolam) 1 Mg Tab 1 Mg PO Q6H PRN 06/14/16 Reported Multi-Vitamin Daily (Multiple Vitamin) 1 Tab Tab 1 Tab PO DAILY 06/14/16 Reported Family History Family history of strokes and both grandparents but denies any history of known liver disease Social History Smokes one half pack of cigarettes per day since the age of 20 History alcoholism. Currently states he drinks twice a week, unable to quantify No illicit drug use Review of Systems Constitutional: COMPLAINS OF: Fatigue, DENIES: Fever, Weight loss, Chills, Change in appetite Respiratory: DENIES: Cough Cardiovascular: DENIES: Chest pain Gastrointestinal: COMPLAINS OF: Abdominal pain, Nausea, Vomiting, Swelling of Abdomen, Heartburn, DENIES: Black stools, Bloody stools, Constipation, Diarrhea , Hematemesis Musculoskeletal: COMPLAINS OF: Joint pain, Back pain Integumentary: DENIES: Abnormal pigmentation, Rash Hematologic/lymphatic: DENIES: Bruising Neurologic: COMPLAINS OF: Headache Psychiatric: DENIES: Confusion GI Exam Vitals I&O Vital Signs Date Time Temp Pulse Resp B/P Pulse Ox O2 Delivery O2 Flow Rate FiO2 12/24/16 08:10 82 18 143/82 100 Room Air 12/24/16 07:53 99 21 12/24/16 05:50 16 99 Room Air 12/24/16 05:26 98.5 85 15 112/68 100 Imaging Last Impressions Abdomen/Pelvis CT 12/24/16 0602 Signed Impressions: Service Date/Time: Saturday, December 24, 2016 06:27 - CONCLUSION: 1. Apparent mild jejunitis. Bowel gas pattern suggests the possibility of early or mild obstruction at the level of the distal jejunum/proximal ileum and likely occurring within the midabdomen. No clear etiology. Followup is recommended. 2. Stomach is markedly distended and the patient may benefit from nasogastric tube decompression. 3. Cirrhotic changes of the liver with small volume ascites, splenomegaly and extensive portosystemic collaterals again noted, all not significantly changed. 4. Cholelithiasis again seen without evidence of cholecystitis or biliary obstruction. Alvaro Das MD Laboratory Test 12/24/16 12/24/16 05:50 06:00 White Blood Count 6.3 TH/MM3 Red Blood Count 3.55 MIL/MM3 Hemoglobin 11.1 GM/DL Hematocrit 33.6 % Mean Corpuscular Volume 94.6 FL Mean Corpuscular Hemoglobin 31.3 PG Mean Corpuscular Hemoglobin 33.1 % Concent Red Cell Distribution Width 18.7 % Platelet Count 92 TH/MM3 Mean Platelet Volume 10.0 FL Neutrophils (%) (Auto) 64.7 % Lymphocytes (%) (Auto) 21.5 % Monocytes (%) (Auto) 10.2 % Eosinophils (%) (Auto) 3.0 % Basophils (%) (Auto) 0.6 % Neutrophils # (Auto) 4.1 TH/MM3 Lymphocytes # (Auto) 1.4 TH/MM3 Monocytes # (Auto) 0.6 TH/MM3 Eosinophils # (Auto) 0.2 TH/MM3 Basophils # (Auto) 0.0 TH/MM3 CBC Comment AUTO DIFF Differential Comment AUTO DIFF CONFIRMED Platelet Estimate LOW Platelet Morphology Comment NORMAL Ovalocytes 1+ Sodium Level 144 MEQ/L Potassium Level 3.0 MEQ/L Chloride Level 110 MEQ/L Carbon Dioxide Level 25.6 MEQ/L Anion Gap 8 MEQ/L Blood Urea Nitrogen 7 MG/DL Creatinine 0.50 MG/DL Estimat Glomerular Filtration 181 ML/MIN Rate Random Glucose 123 MG/DL Calcium Level 7.3 MG/DL Protein Corrected Calcium 7.6 MG/DL Total Bilirubin 0.6 MG/DL Aspartate Amino Transf 47 U/L (AST/SGOT) Alanine Aminotransferase 26 U/L (ALT/SGPT) Alkaline Phosphatase 237 U/L Total Protein 6.5 GM/DL Albumin 2.4 GM/DL Lipase 314 U/L Ethyl Alcohol Level 157 MG/DL Urine Color YELLOW Urine Turbidity CLEAR Urine pH 6.0 Urine Specific [place] 1.015 Urine Protein NEG mg/dL Urine Glucose (UA) 70 mg/dL Urine Ketones NEG mg/dL Urine Occult Blood NEG Urine Nitrite NEG Urine Bilirubin NEG Urine Urobilinogen LESS THAN 2.0 MG/DL Urine Leukocyte Esterase NEG Urine RBC LESS THAN 1 /hpf Urine WBC LESS THAN 1 /hpf Urine Mucus FEW /lpf Microscopic Urinalysis Comment CULT NOT INDICATED Physical Examination HEENT: Normocephalic; atraumatic; no jaundice. CHEST: CTA CARDIAC: RRR ABDOMEN: Semifirm, distended, mild-moderate diffuse tenderness, hepatosplenomegaly; bowel sounds are present in all four quadrants. NGT to [facility] - 1000cc light brownish moore gastric secretions since arrival. EXTREMITIES: No clubbing, cyanosis, or edema. SKIN: Normal; no rash; no jaundice. 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 Assessment and Plan Plan ASSESSMENT: - Abdominal pain with abnormal imaging with jejunitis/possible early/mild bowel obstruction. C/O 1 week hx of diffuse abdominal pain, n/v, and bloating. Abdomen/Pelvis CT (12/24/16)-----> 1. Apparent mild jejunitis. Bowel gas pattern suggests the possibility of early or mild obstruction at the level of the distal jejunum/proximal ileum and likely occurring within the midabdomen. No clear etiology. Followup is recommended. 2. Stomach is markedly distended and the patient may benefit from nasogastric tube decompression. 3. Cirrhotic changes of the liver with small volume ascites, splenomegaly and extensive portosystemic collaterals again noted, all not significantly changed. 4. Cholelithiasis again seen without evidence of cholecystitis or biliary obstruction. He denies any fever or chills. He denies any suspicious food or sick contacts. Liver biopsy, but no surgical procedures on abdomen. NGT to [facility]- has put out 1000cc of light brown/grayish gastric secretions. WBC stable. NPO. PPI. (+) BM this am. (+) Flatus. - GERD. - Liver cirrhosis with known history of esophageal varices. Continues to drink , although difficult to quantify- states twice a week. T. Bili 0.6, AST 47, ALT 26, Alk Phosph 237. - Anemia, mild. EGD/Colonoscopy (10/09/16)----> portal gastropathy, esophageal varices grade I, duodenitis, gastritis, retroflexion revealed hiatal hernia; colon mucosa was normal, retroflexion revealed small internal hemorrhoids. Rpt. EGD was recommended for 6 months and a Colonoscopy in 1 year. HH 11.1/33.6 - Thrombocytoopenia. Plt 92,000. - HTN, DM, Psoriasis per primary. PLAN: - NPO - NGT to [facility] - Add PPI - Monitor labs - KUB today - Stool studies - Supportive care - Further recommendations to follow based on results of above - Pt seen and examined by Dr. Goss and myself and this note is written on his behalf Patito De Los Santos Dec 24, 2016 08:22
[2016-12-24] MEDS: DOCUSATE SODIUM 50 MG/SENNA 8.6 MG TAB PO SCH ×2 (09:00→20:38)
[2016-12-24] MEDS: SODIUM CHLORIDE 0.9% FLUSH 10 ML FLUSH IV FLUSH SCH ×2 (09:00→20:37)
[2016-12-24] MEDS: PANTOPRAZOLE SODIUM 40 MG VIAL IV PUSH SCH ×2 (09:00→20:36)
--- NOTE | 2016-12-24 11:17 | RADRPT ---
EXAM DATE/TIME: 12/24/2016 08:40 [place] COMPARISON: CT ABDOMEN & PELVIS W CONTRAST, December 24, 2016, 6:27. INDICATIONS : Abdominal pain. MEDICAL HISTORY : Diabetes mellitus type II. Pancreatitis. Cirrhosis SURGICAL HISTORY : None. ENCOUNTER: Initial ACUITY: 1 day PAIN SCORE: 3/10 LOCATION: Bilateral Abdomen FINDINGS: An NG tube is in place with its tip coiled in the stomach. There is increased density seen over the stomach likely related to ingested material. There is also calcification seen in the right upper sourav drant related to gallstones. Contrast identified within the urinary bladder from the prior CT examin ation. There is some contrast identified faintly in the urinary collecting systems of the kidneys. The bowel gas pattern is normal. CONCLUSION: 1. NG tube in good position. 2. Gallstones. 3. Contrast from prior CT examination. Alvaro Martins MD on December 24, 2016 at 10:55 Board Certified Radiologist. This report was verified electronically.
--- NOTE | 2016-12-24 11:48 | HHI.HP ---
[facility] Service [facility] Primary Care Physician Unknown Admission Diagnosis Jejunitis Diagnoses: Chief Complaint: abdominal pain, nausea/vomiting Travel History International Travel<30 Days: No Contact w/Intl Traveler <30 Da: No Traveled to Known Affected Are: No History of Present Illness Written by Ramila Clifford, acting as scribe for Dr. Rollins on 12/24/16 at 11:48. This note was transcribed by scribMara GONZALEZ. I, Dr. Daylin Rollins personally performed the history, physical exam, and medical decision making; and confirmed the accuracy of the information in the transcribed note. Authenticated by Dr. Daylin Rollins on 12/24/16 at 11:48. 46-year-old male with history of diabetes, alcohol abuse, liver cirrhosis, esophageal varices, GI bleed with esophageal banding, presents with a 1 week history of abdominal pain, nausea/vomiting. The patient reports he started feeling ill approximately 1 week ago. He reports persistent sharp stabbing abdominal pain located throughout the epigastric area, radiation into the RUQ, with occasional sharp pains at the LLQ, and associated abdominal distention. He then started experiencing nausea and dry heaving. He vomited 2 days ago, described emesis as yellow nonbloody bile. He has been able to tolerate oral intake. Last BM yesterday 12/23 around 3pm, described has normal formed nonbloody stool. [place] the beach [place] day, had 2 glasses of wine at lunch, then around 4pm had 3 "very strong" Bacardi and Cokes. He took his Levemir 20u around 8pm. Later in the evening he took his blood glucose and it was 24 which prompted him to call 911. The patient reports prior heavy alcohol use, now down to 2x per week however does continue to binge drink. He does not remember the name of his corrections specialist. He is in the process of changing insurance companies and has not seen a physician recently. Otherwise the patient denies any other medical complaints, including no fever/chills, chest pain, cough, shortness of breath, or urinary complaints. Review of Systems Except as stated in HPI: all other systems reviewed are Neg Past Family Social History Past Medical History Liver cirrhosis secondary to EtOH abuse Hepatic encephalopathy Thrombosis of mesenteric vein Chronic thrombocytopenia Diabetes mellitus type 2 Esophageal varices Anxiety and depression GERD Psoriasis Alcoholic Pancreatitis Internal hemorrhoids Portal gastropathy AVMs of the cecum and ascending colon Diverticulosis Past Surgical History EGD Esophageal banding x2 Liver biopsy Reported Medications Reported Meds & Active Scripts Active Carafate (Sucralfate) 1 Gm Tab 1 Gm PO QID On empty stomach Levemir Inj (Insulin Detemir) 1,000 unit/ 10 ML Vial 20 Units SQ HS Calcium Carbonate 1,500 Mg Tab 1,500 Mg PO DAILY 1,500 mg calcium carbonate (600 mg elemental calcium) Reported Trazodone (Trazodone HCl) 300 Mg Tab 500 Mg PO HS Metformin (Metformin HCl) 500 Mg Tab 500 Mg PO DAILY With meals Propranolol (Propranolol HCl) 20 Mg Tab 20 Mg PO Q12HR Xanax (Alprazolam) 1 Mg Tab 1 Mg PO Q6H PRN Multi-Vitamin Daily (Multiple Vitamin) 1 Tab Tab 1 Tab PO DAILY Allergies: Coded Allergies: Dilaudid (Verified Allergy, Severe, Hives, 11/14/16) Penicillin (Verified Allergy, Severe, Hives, 11/14/16) *MDRO Multi-Drug Resistant Organism (Verified Adverse Reaction, Unknown, ) MRSA PCR (nares) POSITIVE - 12/02/2015 Active Ordered Medications Current Medications Medications (Trade) Dose Ordered Sig/Moni Route Start Time Stop Time Status Last Admin (NS 1000 ml Inj) 1,000 ml @ 100 mls/hr Q10H IV 12/24/16 07:39 12/24/16 07:52 (NS Flush) 2 ml UNSCH PRN IV FLUSH 12/24/16 07:45 (NS Flush) 2 ml BID IV FLUSH 12/24/16 09:00 (Tylenol) 650 mg Q4H PRN PO 12/24/16 07:45 (Zofran Inj) 4 mg Q6H PRN IVP 12/24/16 07:45 (Restoril) 15 mg HS PRN PO 12/24/16 07:45 (Chelsea-Colace) 1 tab BID PO 12/24/16 09:00 (Milk Of Magnesia Liq) 30 ml Q12H PRN PO 12/24/16 07:45 (Senokot) 17.2 mg Q12H PRN PO 12/24/16 07:45 (Dulcolax Supp) 10 mg DAILY PRN RECTAL 12/24/16 07:45 (Lactulose Liq) 30 ml DAILY PRN PO 12/24/16 07:45 ([place] 5-325 Mg) 1 tab Q4H PRN PO 12/24/16 07:45 ([place] 7.5-325 Mg) 1 tab Q4H PRN PO 12/24/16 07:45 (Morphine Inj) 2 mg Q4H PRN IV 12/24/16 07:45 12/24/16 08:14 (Narcan Inj) 0.4 mg UNSCH PRN IV 12/24/16 07:45 (Protonix Inj) 40 mg Q12H IV PUSH 12/24/16 09:00 Family History Paternal Grandparents with stroke and heart disease Both parents fairly healthy, no known medical problems Denies any significant family history of liver disease or cancers Social History Smokes tobacco since age 20, previously 1 PPD, now cut down to 3-4cigarettes/ day along with E-cigarette History of heavy alcohol use, 5months ago cut back to 2x/week, admits to binge drinking Denies any illicit drug use Does not work currently, previously in [employer] business Physical Exam Vital Signs Vital Signs Date Time Temp Pulse Resp B/P Pulse Ox O2 Delivery O2 Flow Rate FiO2 12/24/16 09:20 97.5 84 20 129/73 100 12/24/16 08:10 82 18 143/82 100 Room Air 12/24/16 07:53 99 21 12/24/16 05:50 16 99 Room Air 12/24/16 05:26 98.5 85 15 112/68 100 Physical Exam GENERAL: Well-nourished, well-developed middle aged male patient in [facility]. SKIN: Warm and dry. No rash. HEAD: Normocephalic. Atraumatic. EYES: Pupils equal and round. No scleral icterus. No injection or drainage. ENT: No nasal bleeding or discharge. Mucous membranes pink and moist. NECK: Supple. Trachea midline. CARDIOVASCULAR: Regular rate and rhythm. S1, S2 noted. No murmur appreciated. RESPIRATORY: No accessory muscle use. Clear to auscultation. Breath sounds equal bilaterally. GASTROINTESTINAL: Abdomen distended, diffuse tenderness to palpation, worse across epigastric and RUQ. Normoactive bowel sounds x4. NG tube in place with red bloody output. MUSCULOSKELETAL: No obvious deformities. Extremities without clubbing, cyanosis , or edema. NEUROLOGICAL: Awake and alert. No obvious cranial nerve deficits. Motor grossly within normal limits. Normal speech. PSYCHIATRIC: Appropriate mood and affect; insight and judgment normal. Laboratory Laboratory Tests Test 12/24/16 12/24/16 05:50 06:00 White Blood Count 6.3 Red Blood Count 3.55 Hemoglobin 11.1 Hematocrit 33.6 Mean Corpuscular Volume 94.6 Mean Corpuscular Hemoglobin 31.3 Mean Corpuscular Hemoglobin 33.1 Concent Red Cell Distribution Width 18.7 Platelet Count 92 Mean Platelet Volume 10.0 Neutrophils (%) (Auto) 64.7 Lymphocytes (%) (Auto) 21.5 Monocytes (%) (Auto) 10.2 Eosinophils (%) (Auto) 3.0 Basophils (%) (Auto) 0.6 Neutrophils # (Auto) 4.1 Lymphocytes # (Auto) 1.4 Monocytes # (Auto) 0.6 Eosinophils # (Auto) 0.2 Basophils # (Auto) 0.0 CBC Comment AUTO DIFF Differential Comment AUTO DIFF CONFIRMED Platelet Estimate LOW Platelet Morphology Comment NORMAL Ovalocytes 1+ Sodium Level 144 Potassium Level 3.0 Chloride Level 110 Carbon Dioxide Level 25.6 Anion Gap 8 Blood Urea Nitrogen 7 Creatinine 0.50 Estimat Glomerular Filtration 181 Rate Random Glucose 123 Calcium Level 7.3 Protein Corrected Calcium 7.6 Total Bilirubin 0.6 Aspartate Amino Transf 47 (AST/SGOT) Alanine Aminotransferase 26 (ALT/SGPT) Alkaline Phosphatase 237 Total Protein 6.5 Albumin 2.4 Lipase 314 Ethyl Alcohol Level 157 Urine Color YELLOW Urine Turbidity CLEAR Urine pH 6.0 Urine Specific [place] 1.015 Urine Protein NEG Urine Glucose (UA) 70 Urine Ketones NEG Urine Occult Blood NEG Urine Nitrite NEG Urine Bilirubin NEG Urine Urobilinogen LESS THAN 2.0 Urine Leukocyte Esterase NEG Urine RBC LESS THAN 1 Urine WBC LESS THAN 1 Urine Mucus FEW Microscopic Urinalysis Comment CULT NOT INDICATED Result Diagram: 12/24/16 0550 12/24/16 0550 Imaging Last Impressions Abdomen/Pelvis CT 12/24/16 0602 Signed Impressions: Service Date/Time: Saturday, December 24, 2016 06:27 - CONCLUSION: 1. Apparent mild jejunitis. Bowel gas pattern suggests the possibility of early or mild obstruction at the level of the distal jejunum/proximal ileum and likely occurring within the midabdomen. No clear etiology. Followup is recommended. 2. Stomach is markedly distended and the patient may benefit from nasogastric tube decompression. 3. Cirrhotic changes of the liver with small volume ascites, splenomegaly and extensive portosystemic collaterals again noted, all not significantly changed. 4. Cholelithiasis again seen without evidence of cholecystitis or biliary obstruction. Alvaro aDs MD Assessment and Plan Problem List: (1) Abdominal pain ICD Code: R10.9 Status: Acute (2) Jejunitis ICD Code: K52.9 Status: Acute (3) Alcohol abuse ICD Code: F10.10 Status: Acute Assessment and Plan 46-year-old male with history of diabetes, alcohol abuse, liver cirrhosis, esophageal varices, GI bleed with esophageal banding, presents with a 1 week history of abdominal pain, nausea/vomiting. Acute Jejunitis, possible early SBO: Abd/Pelvis CT images reviewed, shows jejunitis; bowel gas pattern suggests early or mild obstruction at the level of the distal jejunum/proximal ileum; stomach markedly distended; cirrhotic changes of the liver with small volume ascites, splenomegaly and extensive portosystemic collaterals; cholelithiasis again seen without evidence of cholecystitis or biliary obstruction. Afebrile, no leukocytosis. Lipase 314. -NG tube inserted in the ER for decompression, will continue -Continue IV Protonix 40mg bid -Keep NPO for now -Supportive treatment with IVF, pain control with IV morphine, and antiemetics prn -Consult gastroenterology -Monitor labs, monitor CBC Q6 hrs Liver Cirrhosis: chronic. LFTs appear at baseline. H/o esophageal varices with previous band ligation. -GI on board as above -monitor LFTs Hypokalemia/Hypocalcemia/Hypomagnesemia: secondary to recent vomiting, poor oral intake. -given IV KCl and IV Calcium gluconate replacement -magnesium -monitor BMP, mag and phos q6hr Diabetes Mellitus: with hypoglycemia, BG 27 in the field. Secondary to recent vomiting, poor oral intake, alcohol binge, and patient took his Levemir 20u last night 12/23. -hold patient's Levemir -monitor Accu-checks, cover with SSI. - Will have hypoglycemic protocol. Will give D5 NS with KCL. Monitor BMP, mag and phos q6hrs. Replace electrolytes Alcohol Abuse with +Alcohol Intoxication: Etoh level 157 upon arrival. -Counseled on cessation. -CIWA protocol -IV thiamine/folate/MV -monitor for withdrawal Thrombocytopenia: chronic, secondary to liver disease -monitor CBC -avoid antiplatelets DVT Prophylaxis: teds/SCDs, avoid chemical prophylaxis for now Discussed Condition With Patient, ED MD, RN Physician Certification 2 Midnight Certification Type: Admission for Inpatient Services Order for Inpatient Services The services are ordered in accordance with Medicare regulations or non- Medicare payer requirements, as applicable. In the case of services not specified as inpatient-only, they are appropriately provided as inpatient services in accordance with the 2-midnight benchmark. Estimated LOS (days): 3 days is the estimated time the patient will need to remain in the hospital, assuming treatment plan goals are met and no additional complications. Post-Hospital Plan: Home Ramila Clifford PA-C Dec 24, 2016 11:48 Daylni Rollins MD Dec 24, 2016 11:53
[2016-12-24] MEDS ORDERED: DEXTROSE 50% IN WATER 50 ML VIAL(D50) IV PRN (12:30)
[2016-12-24] MEDS ORDERED: FLUMAZENIL 0.5 MG/5 ML VIAL IV PUSH PRN (12:30)
[2016-12-24] MEDS ORDERED: LORazepam 1 MG TAB PO PRN (12:30)
[2016-12-24] MEDS ORDERED: GLUCAGON 1 MG/ML VIAL OTHER PRN (12:30)
[2016-12-24] MEDS ORDERED: LORazepam 2 MG/ML VIAL IV PUSH PRN ×4 (12:30)
[2016-12-24] MEDS ORDERED: LORazepam 2 MG TAB PO PRN (12:30)
[2016-12-24] MEDS ORDERED: HALOPERIDOL LACTATE 5 MG/ML AMP IM PRN (12:30)
[2016-12-24] MEDS: THIAMINE INJ 100 MG in SODIUM CHLORIDE 0.9% INJ 100 ML IV SCH (13:56)
--- NOTE | 2016-12-24 15:21 | EKG ---
Date Performed: 12/24/2016 Time Performed: 05:26:27 PTAGE: 46 years EKG: Sinus rhythm NONSPECIFIC T-WAVE ABNORMALITY PROLONGED QT INTERVAL When compared to previous tracing, QT interval is slightly longer. ABNORMAL ECG PREVIOUS TRACING : 10/06/2016 21.20 DOCTOR: Mickey Gerber Interpretating Date/Time 12/24/2016 15:22:05
--- NOTE | 2016-12-24 15:21 | EKG ---
Date Performed: 12/24/2016 Time Performed: 08:20:48 PTAGE: 46 years EKG: Sinus rhythm When compared to previous tracing, QT interval is shorter. NORMAL ECG PREVIOUS TRACING : 12/24/2016 05.26 DOCTOR: Mickey Gerber Interpretating Date/Time 12/24/2016 15:21:18
[2016-12-24] MEDS: MULTIVITAMIN INJ 10 ML, FOLIC ACID INJ 1 MG in SODIUM CHLORID 0.9% 500 ML INJ 500 ML IV SCH (16:43)
[2016-12-24] MEDS ORDERED: MAGNESIUM SULFATE 1 GM PREMIX 100 ML IV SCH (17:00)
[2016-12-24] MEDS: MAGNESIUM SULFATE 1 GM PREMIX 100 ML IV SCH ×2 (20:36→21:19)
[2016-12-24] MEDS: D5-NS + KCL 20 MEQ INJ 1,000 ML IV SCH (20:38)
[2016-12-25] VITALS (9 sets, daily range): BP systolic 106–149; BP diastolic 59–79; PULSE 73–86; RESP 18–20; TEMP 97.9–99.2; O2SAT 95–99
[2016-12-25] MEDS: MORPHINE SULFATE 4 MG/ML INJ IV PRN ×5 (00:52→20:12)
[2016-12-25] MEDS: D5-NS + KCL 20 MEQ INJ 1,000 ML IV SCH ×2 (06:29→17:04)
[2016-12-25 06:38] LABS: AUTOMATED NEUTROPHIL # 2.7 TH/MM3 (1.8-7.7); BASOPHIL % 0.5 % (0.0-2.0); EOSINOPHIL # 0.1 TH/MM3 (0-0.4); EOSINOPHIL % 2.4 % (0.0-4.0); HEMATOCRIT 31.7 % (39.0-51.0); LYMPH % 20.9 % (9.0-44.0); LYMPHOCYTE # 0.8 TH/MM3 (1.0-4.8); MEAN CELL VOLUME 94.7 FL (80.0-100.0); MEAN CORPUSCULAR HEMOGLOBIN 31.7 PG (27.0-34.0); MEAN CORPUSCULAR HGB CONC 33.5 % (32.0-36.0); MONO % 10.7 % (0.0-8.0); NEUT % 65.5 % (16.0-70.0); PLATELET COUNT 60 TH/MM3 (150-450); RED BLOOD COUNT 3.35 MIL/MM3 (4.50-5.90); RED CELL DISTRIBUTION WIDTH 18.7 % (11.6-17.2); WHITE BLOOD COUNT 4.1 TH/MM3 (4.0-11.0)
[2016-12-25 06:45] LABS: HEMO FLAGS AUTO DIFF
[2016-12-25 06:54] LABS: ALT (GPT) 23 U/L (12-78); ANION GAP 6 MEQ/L (5-15); AST (GOT) 41 U/L (15-37); BICARBONATE 32.1 MEQ/L (21.0-32.0); BLOOD UREA NITROGEN 5 MG/DL (7-18); CHLORIDE 104 MEQ/L (98-107); GLOMERULAR FILTRATION RATE 185 ML/MIN (>89); MAGNESIUM 1.6 MG/DL (1.5-2.5); POTASSIUM 3.7 MEQ/L (3.5-5.1); SODIUM (NA) 142 MEQ/L (136-145)
[2016-12-25 06:57] LABS: ALKALINE PHOSPHATASE 154 U/L (45-117); TOTAL BILIRUBIN ADULT 1.3 MG/DL (0.2-1.0)
[2016-12-25] MEDS: SODIUM CHLORIDE 0.9% FLUSH 10 ML FLUSH IV FLUSH SCH ×2 (09:00→20:16)
[2016-12-25] MEDS: DOCUSATE SODIUM 50 MG/SENNA 8.6 MG TAB PO SCH ×2 (09:00→20:10)
--- NOTE | 2016-12-25 09:14 | HHI.PR ---
Subjective Remarks in no acute distress but somewhat uncomfortable with abdominal pain. NG tube in place. had some nausea earlier which has improved with antiemetics. Objective Vitals Vital Signs Date Time Temp Pulse Resp B/P Pulse Ox O2 Delivery O2 Flow Rate FiO2 12/25/16 08:00 98.6 73 20 106/62 98 12/25/16 04:00 98.2 81 18 112/59 95 12/25/16 04:00 Room Air 12/25/16 00:00 Room Air 12/25/16 00:00 98.3 86 20 114/60 97 12/24/16 20:40 97 21 12/24/16 20:00 97.3 71 16 131/78 100 12/24/16 20:00 Room Air 12/24/16 19:42 76 12/24/16 16:43 18 12/24/16 16:00 62 18 141/78 94 12/24/16 12:00 97.5 80 20 110/67 98 12/24/16 09:20 97.5 84 20 129/73 100 I/O 12/24/16 12/24/16 12/24/16 12/25/16 12/25/16 12/25/16 07:00 15:00 23:00 07:00 15:00 23:00 Intake Total 240 ml 1448 ml 667 ml Output Total 1490 ml 750 ml 300 ml Balance -1250 ml 698 ml 367 ml Intake Oral 240 ml 0 ml 0 ml IV Total 1448 ml 667 ml Output Urine Total 1475 ml 750 ml 300 ml Gastric Drainage Total 15 ml # Voids 1 # Bowel Movements 0 0 0 Result Diagram: 12/25/16 0608 12/25/16 0608 Imaging Last Impressions Abdomen/Pelvis CT 12/24/16 06 Signed Impressions: Service Date/Time: Saturday, December 24, 2016 06:27 - CONCLUSION: 1. Apparent mild jejunitis. Bowel gas pattern suggests the possibility of early or mild obstruction at the level of the distal jejunum/proximal ileum and likely occurring within the midabdomen. No clear etiology. Followup is recommended. 2. Stomach is markedly distended and the patient may benefit from nasogastric tube decompression. 3. Cirrhotic changes of the liver with small volume ascites, splenomegaly and extensive portosystemic collaterals again noted, all not significantly changed. 4. Cholelithiasis again seen without evidence of cholecystitis or biliary obstruction. Alvaro Das MD Abdomen X-Ray 12/24/16 0000 Signed Impressions: Service Date/Time: Saturday, December 24, 2016 08:40 - CONCLUSION: 1. NG tube in good position. 2. Gallstones. 3. Contrast from prior CT examination. Alvaro Martins MD Objective Remarks GENERAL: in no apparent distress with NG tube in place. CARDIOVASCULAR: Regular rate and regular rhythm without murmurs, gallops, or rubs. RESPIRATORY: Clear to auscultation. Breath sounds equal bilaterally. No wheezes , rales, or rhonchi. GASTROINTESTINAL: Abdomen soft, distended with generalized tenderness MUSCULOSKELETAL: Extremities without clubbing, cyanosis, or edema. NEURO: Alert & Oriented x4 to person, place, time, situation. Moves all ext x4 Procedures none Medications and IVs Current Medications Morphine Sulfate (Morphine Inj) 4 mg ONCE ONCE IV PUSH Last administered on 06:03; Start 12/24/16 at 05:45; Stop 12/24/16 at 05:49; Status DC Ondansetron HCl (Zofran Inj) 4 mg ONCE ONCE IVP Last administered on 06:04; Start 12/24/16 at 05:45; Stop 12/24/16 at 05:49; Status DC Pantoprazole Sodium 40 mg 40 mg ONCE ONCE IVP Last administered on 12/24/16 06:03; Start 12/24/16 at 05:45; Stop 12/24/16 at 05:49; Status DC Sodium Chloride (NS 1000 ml Inj) 1,000 ml @ 1,000 mls/hr Q1H IV Last administered on 12/24/16 06:02; Start 12/24/16 at 05:45; Stop 12/24/16 at 06:44 ; Status DC Sodium Chloride (NS Flush) 2 ml UNSCH PRN IV FLUSH FLUSH AFTER USING IV ACCESS ; Start 12/24/16 at 05:45; Stop 12/24/16 at 07:45; Status DC Famotidine 20 mg 20 mg ONCE ONCE IV PUSH Last administered on 12/24/16 06:03 ; Start 12/24/16 at 05:45; Stop 12/24/16 at 05:50; Status DC Sodium Chloride (NS 1000 ml Inj) 1,000 ml @ 1,000 mls/hr Q1H IV Last administered on 12/24/16 06:08; Start 12/24/16 at 06:03; Stop 12/24/16 at 07:02 ; Status DC Iohexol 96 ml 96 ml STK-MED ONCE IV Last administered on 12/24/16 06:30; Start 12/24/16 at 06:30; Stop 12/24/16 at 06:31; Status DC Calcium Gluconate 1 gm/Dextrose 110 ml @ 110 mls/hr ONCE ONCE IV Last administered on 12/24/16 07:51; Start 12/24/16 at 07:30; Stop 12/24/16 at 08:29 ; Status DC Calcium Gluconate 1 gm/Dextrose 110 ml @ 110 mls/hr ONCE ONCE IV ; Start 12/24 at 07:45; Stop 12/24/16 at 07:45; Status DC Potassium Chloride 100 ml @ 50 mls/hr ONCE ONCE IV ; Start 12/24/16 at 07:45; Stop 12/24/16 at 07:45; Status DC Potassium Chloride (KCl 20 Meq Premix Inj) 100 ml @ 50 mls/hr Q2H IV Last administered on 12/24/16 12:01; Start 12/24/16 at 07:45; Stop 12/24/16 at 11:44 ; Status DC Lidocaine HCl 15 ml 15 ml ONCE STAT SWISH-SPIT ; Start 12/24/16 at 07:39; Stop 12/24/16 at 07:41; Status DC Sodium Chloride (NS 1000 ml Inj) 1,000 ml @ 100 mls/hr Q10H IV Last administered on 12/24/16 07:52; Start 12/24/16 at 07:39; Stop 12/24/16 at 17:32 ; Status DC Sodium Chloride (NS Flush) 2 ml UNSCH PRN IV FLUSH FLUSH AFTER USING IV ACCESS ; Start 12/24/16 at 07:45 Sodium Chloride (NS Flush) 2 ml BID IV FLUSH ; Start 12/24/16 at 09:00 Acetaminophen (Tylenol) 650 mg Q4H PRN PO TEMP > 100.4; Start 12/24/16 at 07:45 Ondansetron HCl (Zofran Inj) 4 mg Q6H PRN IVP NAUSEA OR VOMITING; Start at 07:45 Temazepam (Restoril) 15 mg HS PRN PO INSOMNIA; Start 12/24/16 at 07:45 Enoxaparin Sodium (Lovenox Inj) 40 mg Q24H SQ Last administered on 12/24/16 07 :53; Start 12/24/16 at 08:00; Stop 12/24/16 at 11:53; Status DC Senna/Docusate Sodium (Chelsea-Colace) 1 tab BID PO ; Start 12/24/16 at 09:00 Magnesium Hydroxide (Milk Of Magnesia Liq) 30 ml Q12H PRN PO MILD - MODERATE CONSTIPATION; Start 12/24/16 at 07:45 Sennosides (Senokot) 17.2 mg Q12H PRN PO MODERATE - SEVERE CONSTIPATION; Start 12/24/16 at 07:45 Bisacodyl (Dulcolax Supp) 10 mg DAILY PRN RECTAL SEVERE CONSITIPATION; Start at 07:45 Lactulose (Lactulose Liq) 30 ml DAILY PRN PO SEVERE CONSITIPATION; Start at 07:45 Acetaminophen/ Hydrocodone Bitart ([place] 5-325 Mg) 1 tab Q4H PRN PO PAIN SCALE 3 TO 5; Start 12/24/16 at 07:45 Acetaminophen/ Hydrocodone Bitart ([place] 7.5-325 Mg) 1 tab Q4H PRN PO PAIN SCALE 6 TO 10; Start 12/24/16 at 07:45 Morphine Sulfate (Morphine Inj) 2 mg Q4H PRN IV BREAKTHROUGH PAIN Last administered on 12/25/16 05:24; Start 12/24/16 at 07:45 Naloxone HCl (Narcan Inj) 0.4 mg UNSCH PRN IV SEE LABEL COMMENTS; Start at 07:45 Pantoprazole Sodium (Protonix Inj) 40 mg Q12H IV PUSH Last administered on 12/24 20:36; Start 12/24/16 at 09:00 Dextrose (D50w (Vial) Inj) 50 ml UNSCH PRN IV HYPOGLYCEMIA-SEE COMMENTS Last administered on 12/24/16 16:42; Start 12/24/16 at 12:30 Glucagon 1 mg 1 mg UNSCH PRN OTHER HYPOGLYCEMIA-SEE COMMENTS; Start 12/24/16 at 12:30 Multivitamins 10 ml/Folic Acid 1 mg/Sodium Chloride 510.2 ml @ 125 mls/hr Q24H IV Last administered on 12/24/16 16:43; Start 12/24/16 at 15:00; Stop at 14:59 Thiamine HCl/ Sodium Chloride (Thiamine Inj/NS Inj) 101 ml @ 100 mls/hr Q24H IV Last administered on 12/24/16 13:56; Start 12/24/16 at 14:00; Stop at 13:59 Thiamine HCl (Vitamin B1) 100 mg DAILY PO ; Start 12/28/16 at 09:00 Flumazenil (Romazicon Inj) 0.2 mg Q1M PRN IV PUSH SEE LABEL COMMENTS; Start at 12:30 Lorazepam (Ativan) 1 mg Q4H PRN PO CIWA 8 - 10; Start 12/24/16 at 12:30 Lorazepam (Ativan Inj) 1 mg Q4H PRN IV PUSH CIWA 8 - 10; Start 12/24/16 at 12: 30 Lorazepam (Ativan) 2 mg Q2H PRN PO CIWA 11-14; Start 12/24/16 at 12:30 Lorazepam (Ativan Inj) 2 mg Q2H PRN IV PUSH CIWA 11-14; Start 12/24/16 at 12:30 Lorazepam (Ativan Inj) 2 mg Q1H PRN IV PUSH CIWA 15-20; Start 12/24/16 at 12:30 Lorazepam (Ativan Inj) 2 mg Q15M PRN IV PUSH CIWA > 20; Start 12/24/16 at 12:30 Haloperidol Lactate 2 mg 2 mg Q15M PRN IM SEE LABEL COMMENTS; Start 12/24/16 at 12:30 Magnesium Sulfate/ Dextrose 100 ml @ 100 mls/hr Q1H IV ; Start 12/24/16 at 17: 00; Stop 12/24/16 at 18:59; Status Cancel Magnesium Sulfate/ Dextrose 100 ml @ 100 mls/hr Q1H IV Last administered on 21:19; Start 12/24/16 at 20:00; Stop 12/24/16 at 21:59; Status DC Potassium Chloride/Dextrose/ Sod Cl (D5-NS + KCl 20 Meq Inj) 1,000 ml @ 84 mls/ hr [id number] IV Last administered on 12/25/16t 06:29; Start 12/24/16 at 17:30 A/P Assessment and Plan A/P Acute Jejunitis, possible early SBO: Abd/Pelvis CT images reviewed, shows jejunitis; bowel gas pattern suggests early or mild obstruction at the level of the distal jejunum/proximal ileum; stomach markedly distended; cirrhotic changes of the liver with small volume ascites, splenomegaly and extensive portosystemic collaterals; cholelithiasis again seen without evidence of cholecystitis or biliary obstruction. -NG tube inserted in the ER for decompression, will continue -Continue IV Protonix 40mg bid -continue to keep NPO for now -Supportive treatment with IVF, pain control with IV morphine, and antiemetics prn -GI consult appreciated. Liver Cirrhosis: chronic. LFTs appear at baseline. H/o esophageal varices with previous band ligation. -GI on board as above -monitor LFTs Hypokalemia/Hypocalcemia/Hypomagnesemia: secondary to recent vomiting, poor oral intake- replaced. Diabetes Mellitus: with hypoglycemia, BG 27 in the field. Secondary to recent vomiting, poor oral intake, alcohol binge, and patient took his Levemir 20u last night 12/23. -hold patient's Levemir -monitor Accu-checks, cover with SSI. Alcohol Abuse with +Alcohol Intoxication: Etoh level 157 upon arrival. -Counseled on cessation. -[facility] protocol -IV thiamine/folate/MV -monitor for withdrawal Thrombocytopenia: chronic, secondary to liver disease -monitor CBC -avoid antiplatelets DVT Prophylaxis: teds/SCDs, avoid chemical prophylaxis for now Hakeem Bernal MD Dec 25, 2016 09:14
[2016-12-25 09:25] LABS: SCAN/DIFF AUTO DIFF CONFIRMED
[2016-12-25] MEDS: PANTOPRAZOLE SODIUM 40 MG VIAL IV PUSH SCH ×2 (09:31→20:15)
[2016-12-25] MEDS: THIAMINE INJ 100 MG in SODIUM CHLORIDE 0.9% INJ 100 ML IV SCH (14:00)
--- NOTE | 2016-12-25 14:45 | HHI.GIFU ---
Subjective Remarks Resting in bed. No n/v today. Continues to have abdominal pain. No bleeding. Would like to try to eat. No diarrhea today. Objective Vitals I&O Vital Signs Date Time Temp Pulse Resp B/P Pulse Ox O2 Delivery O2 Flow Rate FiO2 12/25/16 14:09 76 12/25/16 12:00 97.9 73 20 119/72 99 12/25/16 09:59 18 12/25/16 09:54 98 Room Air 12/25/16 09:37 98 21 12/25/16 08:00 98.6 73 20 106/62 98 12/25/16 04:00 98.2 81 18 112/59 95 12/25/16 04:00 Room Air 12/25/16 00:00 Room Air 12/25/16 00:00 98.3 86 20 114/60 97 12/24/16 20:40 97 21 12/24/16 20:00 97.3 71 16 131/78 100 12/24/16 20:00 Room Air 12/24/16 19:42 76 12/24/16 16:00 62 18 141/78 94 I/O 12/24/16 12/24/16 12/24/16 12/25/16 12/25/16 12/25/16 07:00 15:00 23:00 07:00 15:00 23:00 Intake Total 240 ml 1448 ml 667 ml 437 ml Output Total 1490 ml 750 ml 300 ml Balance -1250 ml 698 ml 367 ml 437 ml Intake Oral 240 ml 0 ml 0 ml IV Total 1448 ml 667 ml 437 ml Output Urine Total 1475 ml 750 ml 300 ml Gastric Drainage Total 15 ml # Voids 1 # Bowel Movements 0 0 0 Laboratory Laboratory Tests Test 12/25/16 06:08 White Blood Count 4.1 Red Blood Count 3.35 Hemoglobin 10.6 Hematocrit 31.7 Mean Corpuscular Volume 94.7 Mean Corpuscular Hemoglobin 31.7 Mean Corpuscular Hemoglobin 33.5 Concent Red Cell Distribution Width 18.7 Platelet Count 60 Mean Platelet Volume 9.4 Neutrophils (%) (Auto) 65.5 Lymphocytes (%) (Auto) 20.9 Monocytes (%) (Auto) 10.7 Eosinophils (%) (Auto) 2.4 Basophils (%) (Auto) 0.5 Neutrophils # (Auto) 2.7 Lymphocytes # (Auto) 0.8 Monocytes # (Auto) 0.4 Eosinophils # (Auto) 0.1 Basophils # (Auto) 0.0 CBC Comment AUTO DIFF Differential Comment AUTO DIFF CONFIRMED Sodium Level 142 Potassium Level 3.7 Chloride Level 104 Carbon Dioxide Level 32.1 Anion Gap 6 Blood Urea Nitrogen 5 Creatinine 0.49 Estimat Glomerular Filtration 185 Rate Random Glucose 105 Calcium Level 7.7 Phosphorus Level 2.7 Magnesium Level 1.6 Total Bilirubin 1.3 Aspartate Amino Transf 41 (AST/SGOT) Alanine Aminotransferase 23 (ALT/SGPT) Alkaline Phosphatase 154 Total Protein 6.4 Albumin 2.3 Imaging Last Impressions Abdomen/Pelvis CT 12/24/16 0602 Signed Impressions: Service Date/Time: Saturday, December 24, 2016 06:27 - CONCLUSION: 1. Apparent mild jejunitis. Bowel gas pattern suggests the possibility of early or mild obstruction at the level of the distal jejunum/proximal ileum and likely occurring within the midabdomen. No clear etiology. Followup is recommended. 2. Stomach is markedly distended and the patient may benefit from nasogastric tube decompression. 3. Cirrhotic changes of the liver with small volume ascites, splenomegaly and extensive portosystemic collaterals again noted, all not significantly changed. 4. Cholelithiasis again seen without evidence of cholecystitis or biliary obstruction. Alvaro Das MD Abdomen X-Ray 12/24/16 0000 Signed Impressions: Service Date/Time: Saturday, December 24, 2016 08:40 - CONCLUSION: 1. NG tube in good position. 2. Gallstones. 3. Contrast from prior CT examination. Alvaro Martins MD Physical Exam HEENT:Normocephalic; atraumatic; no jaundice. CHEST: CTA CARDIAC: RRR ABDOMEN: Soft, mildly distended, nontender; no hepatosplenomegaly; NGT to LIWS - very small amount of bilious material. Bowel sounds present EXTREMITIES: No clubbing, cyanosis, or edema. SKIN: Normal; no rash; no jaundice. 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 Assessment and Plan Plan ASSESSMENT: - Abdominal pain with abnormal imaging with jejunitis/possible early/mild bowel obstruction. C/O 1 week hx of diffuse abdominal pain, n/v, and bloating. Abdomen/Pelvis CT (12/24/16)-----> 1. Apparent mild jejunitis. Bowel gas pattern suggests the possibility of early or mild obstruction at the level of the distal jejunum/proximal ileum and likely occurring within the midabdomen. No clear etiology. Followup is recommended. 2. Stomach is markedly distended and the patient may benefit from nasogastric tube decompression. 3. Cirrhotic changes of the liver with small volume ascites, splenomegaly and extensive portosystemic collaterals again noted, all not significantly changed. 4. Cholelithiasis again seen without evidence of cholecystitis or biliary obstruction. He denies any fever or chills. He denies any suspicious food or sick contacts. Liver biopsy, but no surgical procedures on abdomen. KUB (12/24/16)--- > 1. NG tube in good position. 2. Gallstones. 3. Contrast from prior CT examination. Small amount of bilious material. No n/v. Continues to have abdominal pain. Will clamp NGT and start clears. - GERD. PPI - Liver cirrhosis with known history of esophageal varices. Continues to drink , although difficult to quantify- states twice a week. T. Bili 1.3 AST 41, ALT 23, Alk Phosph 154. - Anemia, mild. EGD/Colonoscopy (10/09/16)----> portal gastropathy, esophageal varices grade I, duodenitis, gastritis, retroflexion revealed hiatal hernia; colon mucosa was normal, retroflexion revealed small internal hemorrhoids. Rpt. EGD was recommended for 6 months and a Colonoscopy in 1 year. HH 10.6/31.7. - Thrombocytoopenia. Plt 60,000. - HTN, DM, Psoriasis per primary. PLAN: - Clear liquids - Clamp NGT - If no n/v x 4 hours, okay to d/c - If n/v, then place NGT back to LIWS - Cont. PPI - Monitor labs - Stool studies - Supportive care - Further recommendations to follow based on results of above - Pt seen and examined by Dr. Goss and myself and this note is written on his behalf Patito De Los Santos Dec 25, 2016 14:45
[2016-12-25] MEDS: MULTIVITAMIN INJ 10 ML, FOLIC ACID INJ 1 MG in SODIUM CHLORID 0.9% 500 ML INJ 500 ML IV SCH (15:36)
[2016-12-26] VITALS (10 sets, daily range): BP systolic 108–143; BP diastolic 53–79; PULSE 73–102; RESP 16–18; TEMP 98.3–99.8; O2SAT 95–100
[2016-12-26 00:17] LABS: C. DIFF EPI 027 PRESUMPTIVE NEGATIVE (NEGATIVE)
[2016-12-26] MEDS: MORPHINE SULFATE 4 MG/ML INJ IV PRN ×4 (00:21→12:30)
[2016-12-26 01:13] LABS: C. DIFF TOXIN PCR POSITIVE (NEGATIVE)
[2016-12-26] MEDS: metroNIDAZOLE 500 MG INJ 100 ML IV SCH ×2 (01:50→08:28)
[2016-12-26] MEDS: D5-NS + KCL 20 MEQ INJ 1,000 ML IV SCH ×2 (05:15→11:37)
[2016-12-26 07:23] LABS: BICARBONATE 27.8 MEQ/L (21.0-32.0); MAGNESIUM 1.3 MG/DL (1.5-2.5); POTASSIUM 3.5 MEQ/L (3.5-5.1)
[2016-12-26] MEDS: DOCUSATE SODIUM 50 MG/SENNA 8.6 MG TAB PO SCH ×2 (08:27→20:43)
[2016-12-26] MEDS: SODIUM CHLORIDE 0.9% FLUSH 10 ML FLUSH IV FLUSH SCH ×2 (08:28→20:42)
[2016-12-26] MEDS: PANTOPRAZOLE SODIUM 40 MG VIAL IV PUSH SCH ×2 (08:28→20:43)
--- NOTE | 2016-12-26 11:51 | HHI.GIFU ---
Subjective Remarks Resting in bed. No n/v. States he continues to have epigastric/mid abdominal pain- no improvement. No diarrhea since he came in. Requesting diet to be advanced to regular. Objective Vitals I&O Vital Signs Date Time Temp Pulse Resp B/P Pulse Ox O2 Delivery O2 Flow Rate FiO2 12/26/16 10:19 Room Air 21 12/26/16 08:00 98.3 73 18 137/78 98 12/26/16 04:37 16 12/26/16 04:00 98.3 74 18 123/68 97 12/26/16 00:00 98.7 80 18 130/69 98 12/25/16 20:00 99.1 76 18 149/79 99 12/25/16 20:00 99 Room Air 12/25/16 17:28 98 21 12/25/16 16:00 99.2 80 20 126/74 98 12/25/16 14:09 76 12/25/16 12:00 97.9 73 20 119/72 99 I/O 12/25/16 12/25/16 12/25/16 12/26/16 12/26/16 12/26/16 07:00 15:00 23:00 07:00 15:00 23:00 Intake Total 667 ml 437 ml 240 ml 360 ml Output Total 300 ml 1850 ml 700 ml Balance 367 ml 437 ml -1610 ml -340 ml Intake Oral 0 ml 240 ml 360 ml IV Total 667 ml 437 ml Output Urine Total 300 ml 1850 ml 700 ml # Bowel Movements 0 0 1 Laboratory Laboratory Tests Test 12/26/16 05:26 Sodium Level 139 Potassium Level 3.5 Chloride Level 102 Carbon Dioxide Level 27.8 Anion Gap 9 Blood Urea Nitrogen 4 Creatinine 0.58 Estimat Glomerular Filtration 152 Rate Random Glucose 182 Calcium Level 7.9 Phosphorus Level 2.7 Magnesium Level 1.3 Imaging Last Impressions Abdomen/Pelvis CT 12/24/16 0602 Signed Impressions: Service Date/Time: Saturday, December 24, 2016 06:27 - CONCLUSION: 1. Apparent mild jejunitis. Bowel gas pattern suggests the possibility of early or mild obstruction at the level of the distal jejunum/proximal ileum and likely occurring within the midabdomen. No clear etiology. Followup is recommended. 2. Stomach is markedly distended and the patient may benefit from nasogastric tube decompression. 3. Cirrhotic changes of the liver with small volume ascites, splenomegaly and extensive portosystemic collaterals again noted, all not significantly changed. 4. Cholelithiasis again seen without evidence of cholecystitis or biliary obstruction. Alvaro Das MD Abdomen X-Ray 12/24/16 0000 Signed Impressions: Service Date/Time: Saturday, December 24, 2016 08:40 - CONCLUSION: 1. NG tube in good position. 2. Gallstones. 3. Contrast from prior CT examination. Alvaro Martins MD Physical Exam HEENT:Normocephalic; atraumatic; no jaundice. CHEST: CTA CARDIAC: RRR ABDOMEN: Soft, mildly distended, moderate epigastric/mid abdominal tenderness; no hepatosplenomegaly; BS present EXTREMITIES: No clubbing, cyanosis, or edema. SKIN: Normal; no rash; no jaundice. 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 Assessment and Plan Plan ASSESSMENT: - Abdominal pain with abnormal imaging with jejunitis/possible early/mild bowel obstruction. C/O 1 week hx of diffuse abdominal pain, n/v, and bloating. Abdomen/Pelvis CT (12/24/16)-----> 1. Apparent mild jejunitis. Bowel gas pattern suggests the possibility of early or mild obstruction at the level of the distal jejunum/proximal ileum and likely occurring within the midabdomen. No clear etiology. Followup is recommended. 2. Stomach is markedly distended and the patient may benefit from nasogastric tube decompression. 3. Cirrhotic changes of the liver with small volume ascites, splenomegaly and extensive portosystemic collaterals again noted, all not significantly changed. 4. Cholelithiasis again seen without evidence of cholecystitis or biliary obstruction. He denies any fever or chills. He denies any suspicious food or sick contacts. Liver biopsy, but no surgical procedures on abdomen. KUB (12/24/16)--- > 1. NG tube in good position. 2. Gallstones. 3. Contrast from prior CT examination. Small amount of bilious material. No n/v. Continues to have abdominal pain. NGT out. Tolerating clears. No n/v. Does continue to have abdominal pain. But requesting diet. Will start on heart healthy diet. - CDiff PCR (+), Epid 027 (-). Denies any diarrhea. Started on Flagyl IV. WBC okay. Not really symptomatic with this, but will give flagyl po x 7 days - GERD. PPI - Liver cirrhosis with known history of esophageal varices. Continues to drink , although difficult to quantify- states twice a week. T. Bili 1.3 AST 41, ALT 23, Alk Phosph 154. - Anemia, mild. EGD/Colonoscopy (10/09/16)----> portal gastropathy, esophageal varices grade I, duodenitis, gastritis, retroflexion revealed hiatal hernia; colon mucosa was normal, retroflexion revealed small internal hemorrhoids. Rpt. EGD was recommended for 6 months and a Colonoscopy in 1 year. HH 10.6/31.7. - Thrombocytoopenia. Plt 60,000. - HTN, DM, Psoriasis per primary. PLAN: - Heart healthy diet - Change Flagyl to po - Cont. PPI - Monitor labs - Supportive care - If tolerating diet and stable, okay to d/c home in am. - Further recommendations to follow based on results of above - Pt seen and examined by Dr. Goss and myself and this note is written on his behalf Patito De Los Santos Dec 26, 2016 11:51
--- NOTE | 2016-12-26 12:46 | HHI.PR ---
Subjective Remarks looks and feels better today. NG tube has been removed. no nausea or vomiting. had a normal BM last night. Objective Vitals Vital Signs Date Time Temp Pulse Resp B/P Pulse Ox O2 Delivery O2 Flow Rate FiO2 12/26/16 10:19 Room Air 21 12/26/16 08:00 98.3 73 18 137/78 98 12/26/16 04:37 16 12/26/16 04:00 98.3 74 18 123/68 97 12/26/16 00:00 98.7 80 18 130/69 98 12/25/16 20:00 99.1 76 18 149/79 99 12/25/16 20:00 99 Room Air 12/25/16 17:28 98 21 12/25/16 16:00 99.2 80 20 126/74 98 12/25/16 14:09 76 I/O 12/25/16 12/25/16 12/25/16 12/26/16 12/26/16 12/26/16 07:00 15:00 23:00 07:00 15:00 23:00 Intake Total 667 ml 437 ml 240 ml 360 ml Output Total 300 ml 1850 ml 700 ml Balance 367 ml 437 ml -1610 ml -340 ml Intake Oral 0 ml 240 ml 360 ml IV Total 667 ml 437 ml Output Urine Total 300 ml 1850 ml 700 ml # Bowel Movements 0 0 1 Result Diagram: 12/25/16 0608 12/26/16 0526 Imaging Last Impressions Abdomen/Pelvis CT 12/24/16 0602 Signed Impressions: Service Date/Time: Saturday, December 24, 2016 06:27 - CONCLUSION: 1. Apparent mild jejunitis. Bowel gas pattern suggests the possibility of early or mild obstruction at the level of the distal jejunum/proximal ileum and likely occurring within the midabdomen. No clear etiology. Followup is recommended. 2. Stomach is markedly distended and the patient may benefit from nasogastric tube decompression. 3. Cirrhotic changes of the liver with small volume ascites, splenomegaly and extensive portosystemic collaterals again noted, all not significantly changed. 4. Cholelithiasis again seen without evidence of cholecystitis or biliary obstruction. Alvaro Das MD Abdomen X-Ray 12/24/16 0000 Signed Impressions: Service Date/Time: Saturday, December 24, 2016 08:40 - CONCLUSION: 1. NG tube in good position. 2. Gallstones. 3. Contrast from prior CT examination. Alvaro Martins MD Objective Remarks GENERAL: in no apparent distress with NG tube in place. CARDIOVASCULAR: Regular rate and regular rhythm without murmurs, gallops, or rubs. RESPIRATORY: Clear to auscultation. Breath sounds equal bilaterally. No wheezes , rales, or rhonchi. GASTROINTESTINAL: Abdomen soft, distended with generalized tenderness MUSCULOSKELETAL: Extremities without clubbing, cyanosis, or edema. NEURO: Alert & Oriented x4 to person, place, time, situation. Moves all ext x4 Procedures none Medications and IVs Current Medications Morphine Sulfate (Morphine Inj) 4 mg ONCE ONCE IV PUSH Last administered on 06:03; Start 12/24/16 at 05:45; Stop 12/24/16 at 05:49; Status DC Ondansetron HCl (Zofran Inj) 4 mg ONCE ONCE IVP Last administered on 06:04; Start 12/24/16 at 05:45; Stop 12/24/16 at 05:49; Status DC Pantoprazole Sodium 40 mg 40 mg ONCE ONCE IVP Last administered on 12/24/16 06:03; Start 12/24/16 at 05:45; Stop 12/24/16 at 05:49; Status DC Sodium Chloride (NS 1000 ml Inj) 1,000 ml @ 1,000 mls/hr Q1H IV Last administered on 12/24/16 06:02; Start 12/24/16 at 05:45; Stop 12/24/16 at 06:44 ; Status DC Sodium Chloride (NS Flush) 2 ml UNSCH PRN IV FLUSH FLUSH AFTER USING IV ACCESS ; Start 12/24/16 at 05:45; Stop 12/24/16 at 07:45; Status DC Famotidine 20 mg 20 mg ONCE ONCE IV PUSH Last administered on 12/24/16 06:03 ; Start 12/24/16 at 05:45; Stop 12/24/16 at 05:50; Status DC Sodium Chloride (NS 1000 ml Inj) 1,000 ml @ 1,000 mls/hr Q1H IV Last administered on 12/24/16 06:08; Start 12/24/16 at 06:03; Stop 12/24/16 at 07:02 ; Status DC Iohexol 96 ml 96 ml STK-MED ONCE IV Last administered on 12/24/16 06:30; Start 12/24/16 at 06:30; Stop 12/24/16 at 06:31; Status DC Calcium Gluconate 1 gm/Dextrose 110 ml @ 110 mls/hr ONCE ONCE IV Last administered on 12/24/16 07:51; Start 12/24/16 at 07:30; Stop 12/24/16 at 08:29 ; Status DC Calcium Gluconate 1 gm/Dextrose 110 ml @ 110 mls/hr ONCE ONCE IV ; Start 12/24 at 07:45; Stop 12/24/16 at 07:45; Status DC Potassium Chloride 100 ml @ 50 mls/hr ONCE ONCE IV ; Start 12/24/16 at 07:45; Stop 12/24/16 at 07:45; Status DC Potassium Chloride (KCl 20 Meq Premix Inj) 100 ml @ 50 mls/hr Q2H IV Last administered on 12/24/16 12:01; Start 12/24/16 at 07:45; Stop 12/24/16 at 11:44 ; Status DC Lidocaine HCl 15 ml 15 ml ONCE STAT SWISH-SPIT ; Start 12/24/16 at 07:39; Stop 12/24/16 at 07:41; Status DC Sodium Chloride (NS 1000 ml Inj) 1,000 ml @ 100 mls/hr Q10H IV Last administered on 12/24/16 07:52; Start 12/24/16 at 07:39; Stop 12/24/16 at 17:32 ; Status DC Sodium Chloride (NS Flush) 2 ml UNSCH PRN IV FLUSH FLUSH AFTER USING IV ACCESS ; Start 12/24/16 at 07:45 Sodium Chloride (NS Flush) 2 ml BID IV FLUSH Last administered on 12/26/16 08: 28; Start 12/24/16 at 09:00 Acetaminophen (Tylenol) 650 mg Q4H PRN PO TEMP > 100.4; Start 12/24/16 at 07:45 Ondansetron HCl (Zofran Inj) 4 mg Q6H PRN IVP NAUSEA OR VOMITING; Start at 07:45 Temazepam (Restoril) 15 mg HS PRN PO INSOMNIA; Start 12/24/16 at 07:45 Enoxaparin Sodium (Lovenox Inj) 40 mg Q24H SQ Last administered on 12/24/16 07 :53; Start 12/24/16 at 08:00; Stop 12/24/16 at 11:53; Status DC Senna/Docusate Sodium (Chelsea-Colace) 1 tab BID PO Last administered on 08:27; Start 12/24/16 at 09:00 Magnesium Hydroxide (Milk Of Magnesia Liq) 30 ml Q12H PRN PO MILD - MODERATE CONSTIPATION; Start 12/24/16 at 07:45 Sennosides (Senokot) 17.2 mg Q12H PRN PO MODERATE - SEVERE CONSTIPATION; Start 12/24/16 at 07:45 Bisacodyl (Dulcolax Supp) 10 mg DAILY PRN RECTAL SEVERE CONSITIPATION; Start at 07:45 Lactulose (Lactulose Liq) 30 ml DAILY PRN PO SEVERE CONSITIPATION; Start at 07:45 Acetaminophen/ Hydrocodone Bitart ([place] 5-325 Mg) 1 tab Q4H PRN PO PAIN SCALE 3 TO 5; Start 12/24/16 at 07:45 Acetaminophen/ Hydrocodone Bitart ([place] 7.5-325 Mg) 1 tab Q4H PRN PO PAIN SCALE 6 TO 10; Start 12/24/16 at 07:45 Morphine Sulfate (Morphine Inj) 2 mg Q4H PRN IV BREAKTHROUGH PAIN Last administered on 12/26/16 12:30; Start 12/24/16 at 07:45 Naloxone HCl (Narcan Inj) 0.4 mg UNSCH PRN IV SEE LABEL COMMENTS; Start at 07:45 Pantoprazole Sodium (Protonix Inj) 40 mg Q12H IV PUSH Last administered on 12/26 08:28; Start 12/24/16 at 09:00 Dextrose (D50w (Vial) Inj) 50 ml UNSCH PRN IV HYPOGLYCEMIA-SEE COMMENTS Last administered on 12/24/16 16:42; Start 12/24/16 at 12:30 Glucagon 1 mg 1 mg UNSCH PRN OTHER HYPOGLYCEMIA-SEE COMMENTS; Start 12/24/16 at 12:30 Multivitamins 10 ml/Folic Acid 1 mg/Sodium Chloride 510.2 ml @ 125 mls/hr Q24H IV Last administered on 12/25/16 15:36; Start 12/24/16 at 15:00; Stop at 14:59 Thiamine HCl/ Sodium Chloride (Thiamine Inj/NS Inj) 101 ml @ 100 mls/hr Q24H IV Last administered on 12/25/16 14:00; Start 12/24/16 at 14:00; Stop at 13:59 Thiamine HCl (Vitamin B1) 100 mg DAILY PO ; Start 12/28/16 at 09:00 Flumazenil (Romazicon Inj) 0.2 mg Q1M PRN IV PUSH SEE LABEL COMMENTS; Start at 12:30 Lorazepam (Ativan) 1 mg Q4H PRN PO CIWA 8 - 10; Start 12/24/16 at 12:30 Lorazepam (Ativan Inj) 1 mg Q4H PRN IV PUSH CIWA 8 - 10; Start 12/24/16 at 12: 30 Lorazepam (Ativan) 2 mg Q2H PRN PO CIWA 11-14; Start 12/24/16 at 12:30 Lorazepam (Ativan Inj) 2 mg Q2H PRN IV PUSH CIWA 11-14; Start 12/24/16 at 12:30 Lorazepam (Ativan Inj) 2 mg Q1H PRN IV PUSH CIWA 15-20; Start 12/24/16 at 12:30 Lorazepam (Ativan Inj) 2 mg Q15M PRN IV PUSH CIWA > 20; Start 12/24/16 at 12:30 Haloperidol Lactate 2 mg 2 mg Q15M PRN IM SEE LABEL COMMENTS; Start 12/24/16 at 12:30 Magnesium Sulfate/ Dextrose 100 ml @ 100 mls/hr Q1H IV ; Start 12/24/16 at 17: 00; Stop 12/24/16 at 18:59; Status Cancel Magnesium Sulfate/ Dextrose 100 ml @ 100 mls/hr Q1H IV Last administered on 21:19; Start 12/24/16 at 20:00; Stop 12/24/16 at 21:59; Status DC Potassium Chloride/Dextrose/ Sod Cl 1,000 ml @ 84 mls/hr [id number] IV Last administered on 12/26/16 11:37; Start 12/24/16 at 17:30 Metronidazole (Flagyl 500 Mg Inj) 100 ml @ 100 mls/hr Q6H IV Last administered on 12/26/16t 08:28; Start 12/26/16 at 02:00; Stop 12/26/16 at 11:14 ; Status DC Metronidazole (Flagyl) 500 mg Q8H PO ; Start 12/26/16 at 16:00 A/P Assessment and Plan A/P Acute Jejunitis, possible early SBO- improved. Abd/Pelvis CT images reviewed, shows jejunitis; bowel gas pattern suggests early or mild obstruction at the level of the distal jejunum/proximal ileum; stomach markedly distended; cirrhotic changes of the liver with small volume ascites, splenomegaly and extensive portosystemic collaterals; cholelithiasis again seen without evidence of cholecystitis or biliary obstruction. -NG tube has been removed. -diet will be advanced. -Continue IV Protonix 40mg bid continue supportive treatment with IVF, pain control and antiemetics prn -GI follow-up appreciated. - CDiff PCR (+), Epid 027 (-). no diarrhea. Started on Flagyl IV. continue Flagyl for seven days per GI. Liver Cirrhosis: chronic. LFTs appear at baseline. H/o esophageal varices with previous band ligation. -GI on board as above -monitor LFTs Hypokalemia/Hypocalcemia-replaced. Hypomagnesemia:will replace. Diabetes Mellitus: with hypoglycemia, BG 27 in the field. Secondary to recent vomiting, poor oral intake, alcohol binge, and patient took his Levemir 20u last night 12/23. -hold patient's Levemir -monitor Accu-checks, cover with SSI. Alcohol Abuse with +Alcohol Intoxication: Etoh level 157 upon arrival. -Counseled on cessation. -[facility] protocol -IV thiamine/folate/MV -monitor for withdrawal Thrombocytopenia: chronic, secondary to liver disease -monitor CBC -avoid antiplatelets DVT Prophylaxis: teds/SCDs. Discharge Planning possible dc home tomorrow if stable. Hakeem Bernal MD Dec 26, 2016 12:46
[2016-12-26] MEDS: ACETAMINOPHEN/HYDROcodone 325 MG/10 MG TAB PO PRN ×2 (14:01→22:26)
[2016-12-26] MEDS: MAGNESIUM OXIDE 400 MG TAB PO SCH ×2 (14:04→20:42)
[2016-12-26] MEDS: metroNIDAZOLE 500 MG TAB PO SCH (17:26)
[2016-12-26] MEDS: THIAMINE INJ 100 MG in SODIUM CHLORIDE 0.9% INJ 100 ML IV SCH (18:28)
[2016-12-26] MEDS: MULTIVITAMIN INJ 10 ML, FOLIC ACID INJ 1 MG in SODIUM CHLORID 0.9% 500 ML INJ 500 ML IV SCH (18:28)
[2016-12-27] MEDS: metroNIDAZOLE 500 MG TAB PO SCH ×2 (00:11→09:28)
[2016-12-27 04:18] VITALS: BP 126/75; PULSE 94; RESP 16; TEMP 98.7; O2SAT 97
[2016-12-27] MEDS: ACETAMINOPHEN/HYDROcodone 325 MG/10 MG TAB PO PRN ×2 (04:26→09:29)
[2016-12-27] MEDS: D5-NS + KCL 20 MEQ INJ 1,000 ML IV SCH (04:27)
[2016-12-27 07:30] VITALS: PULSE 89
[2016-12-27 08:00] VITALS: BP 134/77; PULSE 87; RESP 18; TEMP 98.5; O2SAT 98
[2016-12-27 08:49] VITALS: O2SAT 100
[2016-12-27] MEDS: MAGNESIUM OXIDE 400 MG TAB PO SCH (09:28)
[2016-12-27] MEDS: DOCUSATE SODIUM 50 MG/SENNA 8.6 MG TAB PO SCH (09:28)
[2016-12-27] MEDS: PANTOPRAZOLE SODIUM 40 MG VIAL IV PUSH SCH (09:30)
[2016-12-27] MEDS: SODIUM CHLORIDE 0.9% FLUSH 10 ML FLUSH IV FLUSH SCH (09:31)
--- NOTE | 2016-12-27 09:38 | HHI.DS ---
Discharge Summary Admission Date Dec 24, 2016 at 07:42 Discharge Date: Dec 27, 2016 Admitting Diagnosis Jejunitis (1) Abdominal pain ICD Code: R10.9 Diagnosis: Principal (2) Jejunitis ICD Code: K52.9 Diagnosis: Principal (3) Alcohol abuse ICD Code: F10.10 Diagnosis: Principal Procedures none Brief History - From Admission Written by Ramila Clifford, acting as scribe for Dr. Rollins on 12/24/16 at 11:48. This note was transcribed by scribMara GONZALEZ. I, Dr. Daylin Rollins personally performed the history, physical exam, and medical decision making; and confirmed the accuracy of the information in the transcribed note. Authenticated by Dr. Daylin Rollins on 12/24/16 at 11:48. 46-year-old male with history of diabetes, alcohol abuse, liver cirrhosis, esophageal varices, GI bleed with esophageal banding, presents with a 1 week history of abdominal pain, nausea/vomiting. The patient reports he started feeling ill approximately 1 week ago. He reports persistent sharp stabbing abdominal pain located throughout the epigastric area, radiation into the RUQ, with occasional sharp pains at the LLQ, and associated abdominal distention. He then started experiencing nausea and dry heaving. He vomited 2 days ago, described emesis as yellow nonbloody bile. He has been able to tolerate oral intake. Last BM yesterday 12/23 around 3pm, described has normal formed nonbloody stool. [place] the beach all day, had 2 glasses of wine at lunch, then around 4pm had 3 "very strong" Bacardi and Cokes. He took his Levemir 20u around 8pm. Later in the evening he took his blood glucose and it was 24 which prompted him to call 911. The patient reports prior heavy alcohol use, now down to 2x per week however does continue to binge drink. 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 He is in the process of changing insurance companies and has not seen a physician recently. Otherwise the patient denies any other medical complaints, including no fever/chills, chest pain, cough, shortness of breath, or urinary complaints. CBC/BMP: 12/25/16 0608 12/26/16 0526 Significant Findings Laboratory Tests Test 12/24/16 12/25/16 12/26/16 22:40 06:08 05:26 Stool C. difficile Toxin (PCR) POSITIVE (NEGATIVE) Red Blood Count 3.35 MIL/MM3 (4.50-5.90) Hemoglobin 10.6 GM/DL (13.0-17.0) Hematocrit 31.7 % (39.0-51.0) Red Cell Distribution Width 18.7 % (11.6-17.2) Platelet Count 60 TH/MM3 (150-450) Monocytes (%) (Auto) 10.7 % (0.0-8.0) Lymphocytes # (Auto) 0.8 TH/MM3 (1.0-4.8) Carbon Dioxide Level 32.1 MEQ/L (21.0-32.0) Blood Urea Nitrogen 5 MG/DL (7-18) 4 MG/DL (7-18) Creatinine 0.49 MG/DL 0.58 MG/DL (0.60-1.30) (0.60-1.30) Calcium Level 7.7 MG/DL 7.9 MG/DL (8.5-10.1) (8.5-10.1) Total Bilirubin 1.3 MG/DL (0.2-1.0) Aspartate Amino Transf 41 U/L (15-37) (AST/SGOT) Alkaline Phosphatase 154 U/L (45-117) Albumin 2.3 GM/DL (3.4-5.0) Random Glucose 182 MG/DL (74-106) Magnesium Level 1.3 MG/DL (1.5-2.5) Imaging Last Impressions Abdomen/Pelvis CT 12/24/16 0602 Signed Impressions: Service Date/Time: Saturday, December 24, 2016 06:27 - CONCLUSION: 1. Apparent mild jejunitis. Bowel gas pattern suggests the possibility of early or mild obstruction at the level of the distal jejunum/proximal ileum and likely occurring within the midabdomen. No clear etiology. Followup is recommended. 2. Stomach is markedly distended and the patient may benefit from nasogastric tube decompression. 3. Cirrhotic changes of the liver with small volume ascites, splenomegaly and extensive portosystemic collaterals again noted, all not significantly changed. 4. Cholelithiasis again seen without evidence of cholecystitis or biliary obstruction. Alvaro Das MD Abdomen X-Ray 12/24/16 0000 Signed Impressions: Service Date/Time: Saturday, December 24, 2016 08:40 - CONCLUSION: 1. NG tube in good position. 2. Gallstones. 3. Contrast from prior CT examination. Alvaro Martins MD PE at Discharge GENERAL: in no apparent distress with NG tube in place. CARDIOVASCULAR: Regular rate and regular rhythm without murmurs, gallops, or rubs. RESPIRATORY: Clear to auscultation. Breath sounds equal bilaterally. No wheezes , rales, or rhonchi. GASTROINTESTINAL: Abdomen soft, distended with generalized tenderness MUSCULOSKELETAL: Extremities without clubbing, cyanosis, or edema. NEURO: Alert & Oriented x4 to person, place, time, situation. Moves all ext x4 Pt update on day of discharge Patient feels much better. He is able to eat breakfast without any n/v/d/c. No fever or chills. H/H stable. Hospital Course Acute Jejunitis, possible early SBO- improved. Abd/Pelvis CT images reviewed, shows jejunitis; bowel gas pattern suggests early or mild obstruction at the level of the distal jejunum/proximal ileum; stomach markedly distended; cirrhotic changes of the liver with small volume ascites, splenomegaly and extensive portosystemic collaterals; cholelithiasis again seen without evidence of cholecystitis or biliary obstruction. -NG tube has been removed. -diet will be advanced. -Continue IV Protonix 40mg bid continue supportive treatment with IVF, pain control and antiemetics prn -GI follow-up appreciated. - CDiff PCR (+), Epid 027 (-). no diarrhea. Started on Flagyl IV. continue Flagyl for seven days per GI. Liver Cirrhosis: chronic. LFTs appear at baseline. H/o esophageal varices with previous band ligation. -GI on board as above -monitor LFTs Hypokalemia/Hypocalcemia-replaced. Hypomagnesemia:will replace. Diabetes Mellitus: with hypoglycemia, BG 27 in the field. Secondary to recent vomiting, poor oral intake, alcohol binge, and patient took his Levemir 20u last night 12/23. -hold patient's Levemir -monitor Accu-checks, cover with SSI. Alcohol Abuse with +Alcohol Intoxication: Etoh level 157 upon arrival. -Counseled on cessation. -[facility] protocol -IV thiamine/folate/MV -monitor for withdrawal Thrombocytopenia: chronic, secondary to liver disease -monitor CBC -avoid antiplatelets DVT Prophylaxis: teds/SCDs. Discharge Planning Improved. DC home in good condition to follow up as OP with PCP and consultants. Pt Condition on Discharge: Stable Discharge Disposition: Discharge Home Discharge Time: > 30 minutes Discharge Instructions DIET: Follow Instructions for: Heart Healthy Diet, Diabetic Diet Activities you can perform: Regular-No Restrictions Follow up Referrals: Gastroenterology - 2 Weeks PCP Follow-up - 1 Week New Medications: Hydrocodone-Acetaminophen ([place]) 5-325 mg Tab 1 TAB PO Q6H PRN PAIN #10 Ref 0 TAB Metronidazole (Flagyl) 500 Mg Tab 500 MG PO TID Infection #21 Ref 0 TAB Thiamine HCl (Gnp Vitamin B-1) 100 Mg Tab 100 MG PO DAILY mvt #30 TAB Continued Medications: Alprazolam (Xanax) 1 Mg Tab 1 MG PO Q6H PRN ANXIETY Ref 0 TAB Calcium Carbonate (Calcium Carbonate) 1,500 Mg Tab 1500 MG PO DAILY 1,500 mg calcium carbonate (600 mg elemental calcium) Calcium Supplement #30 Ref 0 TAB Insulin Detemir Inj (Levemir Inj) 1,000 unit/ 10 ML Vial 20 UNITS SQ HS HYPERGLYCEMIA #1 INJECTION Metformin (Metformin) 500 Mg Tab 500 MG PO DAILY With meals Blood Sugar Management #60 Ref 0 TAB Multiple Vitamin (Multi-Vitamin Daily) 1 Tab Tab 1 TAB PO DAILY Nutritional Supplement Ref 0 TAB Propranolol (Propranolol) 20 Mg Tab 20 MG PO Q12HR #60 Ref 0 TAB Sucralfate (Carafate) 1 Gm Tab 1 GM PO QID On empty stomach Ulcer Prevention #120 TAB Trazodone (Trazodone) 300 Mg Tab 500 MG PO HS Control Depression #30 Ref 0 TAB Daylin Rollins MD Dec 27, 2016 09:38
[2016-12-27] MEDS ORDERED: METR-1 PO (09:41)
[2016-12-27] MEDS ORDERED: GNP100TA3 PO (10:16)
[2016-12-27] MEDS ORDERED: NORC5TAB PO (10:18)
[2016-12-27 12:00] VITALS: BP 132/74; PULSE 92; RESP 18; TEMP 99; O2SAT 98
[2016-12-28] MEDS ORDERED: THIAMINE HCL 100 MG TAB PO SCH (09:00)
== END 2016-12-27 12:32 | disposition home or self-care (01) | DRG 392 ==
LOC: NEPC 05:17 → NEDA 07:42 → OBSVTOIN 07:42 → N04A 09:50
PROVIDERS: ADMIT Hospitalist; ATTEND Hospitalist
DX: K52.9 Noninfective gastroenteritis and colitis, unspecified (principal); I85.00 Esophageal varices without bleeding; E11.649 Type 2 diabetes mellitus with hypoglycemia without coma; D69.6 Thrombocytopenia, unspecified; K70.31 Alcoholic cirrhosis of liver with ascites; E83.42 Hypomagnesemia; F10.229 Alcohol dependence with intoxication, unspecified; Y90.6 Blood alcohol level of 120-199 mg/100 ml; D64.9 Anemia, unspecified; E83.51 Hypocalcemia; E87.6 Hypokalemia; I10 Essential (primary) hypertension; K21.9 Gastro-esophageal reflux disease without esophagitis; K29.70 Gastritis, unspecified, without bleeding; K29.80 Duodenitis without bleeding; K44.9 Diaphragmatic hernia without obstruction or gangrene; K31.89 Other diseases of stomach and duodenum; K64.8 Other hemorrhoids; K80.20 Calculus of gallbladder without cholecystitis without obstruction; L40.9 Psoriasis, unspecified; F17.210 Nicotine dependence, cigarettes, uncomplicated
CPT/HCPCS: 74000; 74177; 76937; 80048; 80053; 80307; 81001; 82948; 83690; 83735; 84100; 85025; 87205; 87328; 87329; 87493; 87506; 93005; 96361; 96374; 96375; C9113; J0610; J1650; J2270; J2405; J3411; J3475; J3480; J7030; J7040; Q9967

== ENCOUNTER 2016-12-30 04:32 | Emergency (ER) | payer SELFPAY ==
[~2016-12-30 04:32] MED LIST changes: -BENT20TA PO; -FURO40TA PO; +GNP100TA3 PO; -HYDR-3516 PO; +METR-1 PO; +NORC5TAB PO; -PANT20 PO; -PANT40TA3 PO; -Spironolactone PO; +TRAZ300T2 PO
[2016-12-30 04:36] VITALS: BP 142/86; PULSE 97; RESP 16; TEMP 97.9; O2SAT 100
== END 2016-12-30 05:10 | disposition left against medical advice (07) ==
LOC: NED 04:32
DX: R10.9 Unspecified abdominal pain (principal)
CPT/HCPCS: 99281

== ENCOUNTER 2017-01-06 17:16 | Emergency (ER) | payer OTHER, MEDICAID ==
[~2017-01-06] VITALS: Ht 175.3 cm; Wt 65.0 kg
[2017-01-06 17:19] VITALS: BP 169/93; PULSE 129; RESP 18; TEMP 98.7
[2017-01-06] MEDS ORDERED: SODIUM CHLOR 0.9% 1000 ML INJ 1,000 ML IV SCH (17:39)
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
[2017-01-06] MEDS ORDERED: SODIUM CHLORIDE 0.9% FLUSH 10 ML FLUSH IVF PRN (17:45)
[2017-01-06 18:22] LABS: AUTOMATED NEUTROPHIL # 2.6 TH/MM3 (1.8-7.7); BASOPHIL # 0.1 TH/MM3 (0-0.2); BASOPHIL % 1.9 % (0.0-2.0); EOSINOPHIL # 0.1 TH/MM3 (0-0.4); EOSINOPHIL % 1.7 % (0.0-4.0); HEMATOCRIT 36.4 % (39.0-51.0); HEMO FLAGS DIFF FINAL; LYMPH % 34.4 % (9.0-44.0); LYMPHOCYTE # 1.7 TH/MM3 (1.0-4.8); MEAN CELL VOLUME 92.2 FL (80.0-100.0); MEAN CORPUSCULAR HEMOGLOBIN 30.3 PG (27.0-34.0); MEAN CORPUSCULAR HGB CONC 32.9 % (32.0-36.0); MONO % 9.3 % (0.0-8.0); NEUT % 52.7 % (16.0-70.0); PLATELET COUNT 102 TH/MM3 (150-450); RED BLOOD COUNT 3.95 MIL/MM3 (4.50-5.90); RED CELL DISTRIBUTION WIDTH 18.4 % (11.6-17.2)
[2017-01-06] MEDS ORDERED: LIDOCAINE 1%/EPINEPHrine 1:100,000 SOLN 20 ML VIAL INFIL ONE (18:30)
[2017-01-06 18:33] LABS: BICARBONATE 28.4 MEQ/L (21.0-32.0); POTASSIUM 3.4 MEQ/L (3.5-5.1)
[2017-01-06 18:34] LABS: APTT (PATIENT) 29.6 SEC (24.3-30.1); INTERNATIONAL NORMALIZED RATIO 1.1 RATIO
--- NOTE | 2017-01-06 18:58 | RADRPT ---
EXAM DATE/TIME: 01/06/2017 18:35 [facility] COMPARISON: CT BRAIN W/O CONTRAST, September 24, 2016, 13:26. INDICATIONS : Fall today, trauma to face. RADIATION DOSE: 56.35 CTDIvol (mGy) MEDICAL HISTORY : Hypertension. Cirrhosis. SURGICAL HISTORY : None. ENCOUNTER: Initial ACUITY: 1 day PAIN SCALE: Non-responsive LOCATION: Bilateral head TECHNIQUE: Multiple contiguous axial images were obtained of the head. Using automated exposure control and adj ustment of the mA and/or kV according to patient size, radiation dose was kept as low as reasonably a chievable to obtain optimal diagnostic quality images. DICOM format image data is available electro nically for review and comparison. FINDINGS: There is some motion artifact. CEREBRUM: The ventricles are normal for age. No evidence of midline shift, mass lesion, hemorrhage or acute in farction. No extra-axial fluid collections are seen. POSTERIOR FOSSA: The cerebellum and brainstem are intact. The 4th ventricle is midline. The cerebellopontine angle i s unremarkable. EXTRACRANIAL: The visualized portion of the orbits is intact. SKULL: The calvaria is intact. No evidence of skull fracture. CONCLUSION: No acute disease. Alvaro Martins MD on January 06, 2017 at 18:54 Board Certified Radiologist. This report was verified electronically.
--- NOTE | 2017-01-06 19:23 | RADRPT ---
EXAM DATE/TIME: 01/06/2017 18:35 [facility] COMPARISON: No previous studies available for comparison. INDICATIONS : Fall today, trauma to face. RADIATION DOSE: 21.96 CTDIvol (mGy) MEDICAL HISTORY : Cirrhosis. SURGICAL HISTORY : None. ENCOUNTER: Initial ACUITY: 1 day PAIN SCORE: Non-responsive LOCATION: Bilateral face TECHNIQUE: Volumetric scanning of the facial bones was performed. Using automated exposure control and adjustme nt of the mA and/or kV according to patient size, radiation dose was kept as low as reasonably achiev able to obtain optimal diagnostic quality images. DICOM format image data is available electronicall y for review and comparison. FINDINGS: ORBITS: The orbital and infraorbital osseous structures are intact. The retroconal structures have a normal configuration. No radiopaque foreign bodies are seen. NASAL BONE: The nasal bone and maxillary spine are intact ZYGOMATIC ARCHES: Symmetric without evidence of fracture. SINUSES: There is minimal right maxillary and right sphenoid disease. NASAL CAVITY: The nasal septum is intact and midline. The lacrimal ducts are intact. SOFT TISSUES: There appears to be soft tissue swelling of the inferior aspect of the nose. INTRACRANIAL: No intracranial air seen. CRIBIFORM PLATE: Grossly intact. CONCLUSION: 1. No acute fracture seen. 2. Soft tissue swelling of the nose. 3. Minimal right maxillary and sphenoid sinus disease. Alvaro Martins MD on January 06, 2017 at 18:55 Board Certified Radiologist. This report was verified electronically.
--- NOTE | 2017-01-06 19:43 | RADRPT ---
EXAM DATE/TIME: 01/06/2017 18:35 [facility] COMPARISON: CT CERVICAL SPINE W/O CONTRAST, September 24, 2016, 13:26. INDICATIONS : Fall today, trauma to face. RADIATION DOSE: 22.02 CTDIvol (mGy) MEDICAL HISTORY : Cirrhosis. SURGICAL HISTORY : None. ENCOUNTER: Initial ACUITY: 1 day PAIN SCALE: Non-responsive LOCATION: Bilateral neck TECHNIQUE: Volumetric scanning of the cervical spine was performed. Multiplanar reconstructions in the sagittal, coronal and oblique axial planes were performed. Using automated exposure control and adjustment o f the mA and/or kV according to patient size, radiation dose was kept as low as reasonably achievable to obtain optimal diagnostic quality images. DICOM format image data is available electronically f or review and comparison. FINDINGS: C3-C4: The disc space is narrowed. There is diffuse disc bulge and osteophytic ridging causing a mild depre ssion on the thecal sac. There is mild uncovertebral hypertrophy. The neural foramina are grossly i ntact. C4-C5: The bony spinal canal is normal in size. No evidence of disc bulge or herniation. The neural forami na are bilaterally patent. There is minimal right uncovertebral body hypertrophy. C5-C6: There is mild diffuse disc bulge causing a mild impression on the thecal sac. Anterior marginal oste ophytes are seen. The neural foramina are grossly normal. There is minimal uncovertebral body hyper trophy. C6-C7: The disc space is narrowed. There is mild diffuse disc bulge being asymmetric and worse on the right . There are anterior marginal osteophytes. There is mild uncovertebral body hypertrophy being worse on the right. The neural foramina are grossly normal. C7-T1: The bony spinal canal is normal in size. No evidence of disc bulge or herniation. The neural forami na are bilaterally patent. CONCLUSION: No acute bony abnormality is seen. There are disc bulges at the C3-C4, C5-C6 and C6-C7 levels. Ther e are scattered uncovertebral and facet hypertrophy at multiple levels as described above. Alvaro Martins MD on January 06, 2017 at 19:08 Board Certified Radiologist. This report was verified electronically.
--- NOTE | 2017-01-06 20:12 | RADRPT ---
EXAM DATE/TIME: 01/06/2017 19:47 [facility] COMPARISON: CHEST SINGLE AP, November 14, 2016, 22:14. INDICATIONS : Chest pain. MEDICAL HISTORY : Hypertension. Gastroesophageal reflux disease. Diabetes mellitus type II. Pancreatitis. Cirrhosi s. SURGICAL HISTORY : None. ENCOUNTER: Initial ACUITY: 1 day PAIN SCORE: 0/10 LOCATION: Bilateral chest FINDINGS: A single view of the chest demonstrates the lungs to be symmetrically aerated without evidence of mas s, infiltrate or effusion. The cardiomediastinal contours are unremarkable. Osseous structures are intact. CONCLUSION: No acute disease. Alvaro Martins MD on January 06, 2017 at 20:07 Board Certified Radiologist. This report was verified electronically.
[2017-01-06 21:00] VITALS: BP 133/78; PULSE 101; RESP 20; O2SAT 98
[2017-01-06 23:00] VITALS: BP 147/84; PULSE 115; RESP 20; O2SAT 98
[2017-01-06] MEDS ORDERED: LORazepam 2 MG TAB PO PRN (23:00)
[2017-01-06] MEDS ORDERED: LORazepam 2 MG/ML VIAL IV PUSH PRN ×4 (23:00)
[2017-01-06] MEDS ORDERED: FLUMAZENIL 0.5 MG/5 ML VIAL IV PUSH PRN (23:00)
[2017-01-06] MEDS ORDERED: LORazepam 1 MG TAB PO PRN (23:00)
[2017-01-06] MEDS ORDERED: SODIUM CHLOR 0.9% 1000 ML INJ 1,000 ML IV ONE (23:00)
[2017-01-07 03:00] VITALS: BP 139/80; PULSE 110; RESP 20; O2SAT 97
[2017-01-07] MEDS ORDERED: LIDOCAINE 1%/EPINEPHrine 1:100,000 SOLN 20 ML VIAL INFIL ONE (09:00)
--- NOTE | 2017-01-07 09:15 | PD ---
Physical Exam Date Seen by Provider: Jan 07, 2017 Time Seen by Provider: 08:56 Narrative I was asked to see this patient regarding lacerations to the lower lip and chin. See laceration procedure note. Data Data Last Documented VS Vital Signs Date Time Temp Pulse Resp B/P Pulse Ox O2 Delivery O2 Flow Rate FiO2 01/07/17 03:00 110 20 139/80 97 Room Air 01/06/17 17:19 98.7 Orders Basic Metabolic Panel (Bmp) (01/06/17 17:39) Complete Blood Count With Diff (01/06/17 17:39) Prothrombin Time / Inr (Pt) (01/06/17 17:39) Act Partial Throm Time (Ptt) (01/06/17 17:39) Type And Screen (01/06/17 17:39) Alcohol (Ethanol) (01/06/17 17:39) Chest, Single Ap (01/06/17 17:39) Ct Brain W/O Iv Contrast(Rout) (01/06/17 17:39) Ct Cerv Spine W/O Contrast (01/06/17 17:39) Iv Access Insert/Monitor (01/06/17 17:39) Ecg Monitoring (01/06/17 17:39) Oximetry (01/06/17 17:39) Oxygen Administration (01/06/17 17:39) Sodium Chlor 0.9% 1000 Ml Inj (Ns 1000 M (01/06/17 17:39) Sodium Chloride 0.9% Flush (Ns Flush) (01/06/17 17:45) Ct Facial Bones W/O Iv Cont (01/06/17 ) Lidocai-Epi 1%-1:100,000 Inj (Xylocaine- (01/06/17 18:30) Sodium Chlor 0.9% 1000 Ml Inj (Ns 1000 M (01/06/17 23:00) Flumazenil Inj (Romazicon Inj) (01/06/17 23:00) Lorazepam (Ativan) (01/06/17 23:00) Lorazepam Inj (Ativan Inj) (01/06/17 23:00) Lorazepam (Ativan) (01/06/17 23:00) Lorazepam Inj (Ativan Inj) (01/06/17 23:00) Lorazepam Inj (Ativan Inj) (01/06/17 23:00) Lorazepam Inj (Ativan Inj) (01/06/17 23:00) Alcohol Withdrawal Asmt-Ciwa ONCE (01/06/17 22:54) Labs Laboratory Tests Test 01/06/17 17:40 White Blood Count 5.0 TH/MM3 Red Blood Count 3.95 MIL/MM3 Hemoglobin 12.0 GM/DL Hematocrit 36.4 % Mean Corpuscular Volume 92.2 FL Mean Corpuscular Hemoglobin 30.3 PG Mean Corpuscular Hemoglobin 32.9 % Concent Red Cell Distribution Width 18.4 % Platelet Count 102 TH/MM3 Mean Platelet Volume 8.6 FL Neutrophils (%) (Auto) 52.7 % Lymphocytes (%) (Auto) 34.4 % Monocytes (%) (Auto) 9.3 % Eosinophils (%) (Auto) 1.7 % Basophils (%) (Auto) 1.9 % Neutrophils # (Auto) 2.6 TH/MM3 Lymphocytes # (Auto) 1.7 TH/MM3 Monocytes # (Auto) 0.5 TH/MM3 Eosinophils # (Auto) 0.1 TH/MM3 Basophils # (Auto) 0.1 TH/MM3 CBC Comment DIFF FINAL Differential Comment Prothrombin Time 12.0 SEC Prothromb Time International 1.1 RATIO Ratio Activated Partial 29.6 SEC Thromboplast Time Sodium Level 138 MEQ/L Potassium Level 3.4 MEQ/L Chloride Level 100 MEQ/L Carbon Dioxide Level 28.4 MEQ/L Anion Gap 10 MEQ/L Blood Urea Nitrogen 1 MG/DL Creatinine 0.65 MG/DL Estimat Glomerular Filtration 133 ML/MIN Rate Random Glucose 176 MG/DL Calcium Level 7.8 MG/DL Ethyl Alcohol Level 555 MG/DL Blood Type O POSITIVE Antibody Screen NEGATIVE [facility] Medical Record Reviewed: Yes Supervised Visit with JULIO CESAR: Yes Procedures Procedure Narrative LACERATION LOCATION: Upper chin/lower lip LENGTH: 3 cm NUMBER OF STITCHES/BOOM: 4 simple interrupted REPAIR: The area of the laceration was prepped with Betadine and sterilely draped. The laceration was infiltrated with 3 mL 1% lidocaine with epi. The wound was copiously irrigated and explored without evidence of foreign body, tendon injury or neurovascular injury. The wound was closed using 5-0 Prolene. This was a single layer repair. The patient was advised to keep the area clean and dry. Patient tolerated the procedure well. Diagnosis Primary Impression: Alcohol abuse with intoxication Additional Impressions: Acute anterior epistaxis Lip laceration Qualified Code: S01.511A - Lip laceration, initial encounter Condition: Stable [place]n [place] Jan 07, 2017 09:15
== END 2017-01-07 09:44 | disposition home or self-care (01) ==
LOC: NEPC 17:16
DX: F10.129 Alcohol abuse with intoxication, unspecified (principal); R04.0 Epistaxis; E83.51 Hypocalcemia; F17.210 Nicotine dependence, cigarettes, uncomplicated; S01.511A Laceration without foreign body of lip, initial encounter; Y04.0XXA Assault by unarmed brawl or fight, initial encounter; Y90.8 Blood alcohol level of 240 mg/100 ml or more; Z79.899 Other long term (current) drug therapy
CPT/HCPCS: 12013; 70450; 70486; 71010; 72125; 80048; 80307; 85025; 85610; 85730; 86850; 86900; 86901; 96360; 96361; 99285; J7030

== ENCOUNTER 2017-02-12 23:10 | Observation (INO) | payer MEDICAID, OTHER ==
[~2017-02-12] VITALS: Ht 182.9 cm; Wt 85.0 kg
[2017-02-12 23:13] VITALS: BP 158/98; PULSE 104; RESP 20; TEMP 97.6; O2SAT 99
--- NOTE | 2017-02-12 23:29 | PD ---
HPI Chief Complaint: Fall Time Seen by Provider: 23:21 Travel History International Travel<30 days: No Contact w/Intl Traveler<30days: No Traveled to known affect area: No History of Present Illness HPI The patient is a 46 year old male who presents to the [facility] emergency department with a history of reportedly slipping on wet tile in the bathroom prior to arrival and striking the back of his head. The patient denies having a loss of consciousness. The patient reportedly had a scalp hematoma was some bleeding noted. The patient was initially evaluated by ambulance services and a pressure bandage was applied. The patient reports having a headache, neck pain, and back pain. The patient was placed in full C-spine immobilization on a backboard. The patient's blood sugar was noted to be 536 prior to arrival. The patient reports that he was diagnosed with diabetes 2 years ago. He has not been taking his medications on a regular basis. The patient reports that he also has a history of cirrhosis and pancreatitis. He reports that he has been drinking 5 liquor drinks this evening. He usually drinks between 5 and 6 drinks 3 times per week. The patient is unsure when his tetanus was last updated. He reports that it was done recently at this facility. On review of systems, the patient denies any recent fevers, cough, congestion, chest pain, shortness of breath, abdominal pain, vomiting, diarrhea, urinary symptoms, numbness or tingling to his arms or legs, weakness of his arms or legs, extremity pain. [facility] Past Medical History Narrative Medical The patient's past medical history is significant for cirrhosis, alcohol abuse, diabetes mellitus, chronic renal sufficiency, pancreatitis, esophageal varices. Arthritis: No Asthma: No Autoimmune Disease: No Blood Disorders: Yes (ESOPHAGEAL VARICES) Anxiety: Yes Depression: No Heart Rhythm Problems: No Cancer: No Cardiovascular Problems: Yes (htn) High Cholesterol: No Chemotherapy: No Chest Pain: Yes Congestive Heart Failure: No Cirrhosis: Yes (Stage 4) COPD: No Cerebrovascular Accident: No Diabetes: Yes Diminished Hearing: No Endocrine: Yes Gastrointestinal Disorders: Yes (CIRRHOSIS LIVER) GERD: Yes Genitourinary: No Headaches: No Hiatal Hernia: No Heparin Induced Thrombocytopen: No Hypertension: Yes Immune Disorder: No Implanted Vascular Access Dvce: No Kidney Stones: No Musculoskeletal: Yes Neurologic: Yes Psychiatric: No Reproductive: No Respiratory: Yes Integumentary: Yes (Psoriasis) Immunizations Current: Yes Migraines: No Pancreatitis: Yes Radiation Therapy: No Renal Failure: No Seizures: No Sickle Cell Disease: No Sleep Apnea: No Thyroid Disease: No Ulcer: No Past Surgical History Narrative Surgical The patient's past surgical history is significant for esophageal banding, liver biopsy. Abdominal Surgery: No AICD: No Arteriovenous Shunt: No Cardiac Surgery: No Ear Surgery: No Endocrine Surgery: No Eye Surgery: No Genitourinary Surgery: No Gynecologic Surgery: No Insulin Pump: No Joint Replacement: No Neurologic Surgery: No Oral Surgery: No Pacemaker: No Thoracic Surgery: No Other Surgery: Yes (Liver BX, esophageal banding) Social History Alcohol Use: Yes (5-6 drinks 3 times per week) Tobacco Use: Yes (one half pack per day) Substance Use: No Allergies-Medications (Allergen,Severity, Reaction): Coded Allergies: Dilaudid (Verified Allergy, Mild, Hives, 02/13/17) pt. states he has had Dilaudid and does not have an allergy to it. *MDRO Multi-Drug Resistant Organism (Verified Adverse Reaction, Unknown, ) MRSA PCR (nares) POSITIVE - 12/02/2015 Penicillin (Verified Adverse Reaction, Unknown, Hives, 02/13/17) Reported Meds & Prescriptions Reported Meds & Active Scripts Active Nucla (Hydrocodone-Acetaminophen) 5-325 mg Tab 1 Tab PO Q6H PRN Gnp Vitamin B-1 (Thiamine HCl) 100 Mg Tab 100 Mg PO DAILY Carafate (Sucralfate) 1 Gm Tab 1 Gm PO QID On empty stomach Levemir Inj (Insulin Detemir) 1,000 unit/ 10 ML Vial 20 Units SQ HS Calcium Carbonate 1,500 Mg Tab 1,500 Mg PO DAILY 1,500 mg calcium carbonate (600 mg elemental calcium) Reported Metformin (Metformin HCl) 500 Mg Tab 500 Mg PO DAILY With meals Propranolol (Propranolol HCl) 20 Mg Tab 20 Mg PO Q12HR Xanax (Alprazolam) 1 Mg Tab 1 Mg PO Q6H PRN Multi-Vitamin Daily (Multiple Vitamin) 1 Tab Tab 1 Tab PO DAILY Review of Systems Except as stated in HPI: all other systems reviewed are Neg General / Constitutional: No: Fever Eyes: No: Visual changes HENT: Positive: Headaches, Neck Pain, No: Neck Stiffness Cardiovascular: No: Chest Pain or Discomfort, Dyspnea on exertion Respiratory: No: Shortness of Breath Gastrointestinal: No: Nausea, Vomiting, Diarrhea, Abdominal Pain Genitourinary: No: Dysuria Musculoskeletal: No: Pain Skin: No Rash Neurologic: Positive: Slurred Speech (with an odor of alcohol about him), No: Weakness, Focal Abnormalities, Change in Mentation, Sensory Disturbance Psychiatric: No: Depression Endocrine: No: Polydipsia Hematologic/Lymphatic: No: Easy Bruising Physical Exam Narrative General: The patient is well-developed well-nourished male in no acute distress. The patient is brought in on a back board in full c-spine immobilization by emergency services. Head and Neck exam: Head is normocephalic, evidence of trauma with a pressure bandage in place, dried blood present on his chest related to the bleeding from the scalp. No facial bone tenderness or increased facial bone mobility noted on palpation. The patient's pressure bandage was removed. The patient was noted to have a laceration that is approximately 3 cm on the left occipital scalp. There is an underlying scalp contusion. There is no step-off or crepitus. Eyes: EOMI, pupils are equal round and reactive to light. Nose: Midline septum with pink mucous membranes Mouth: Dentition unremarkable. Moist mucus membranes. Posterior oropharynx is not erythematous. No tonsillar hypertrophy. Uvula midline. Airway patent. Neck: The patient is immobilized in a cervical collar. No tracheal deviation. The trachea appears midline. Cardiovascular: Sinus tachycardia in the low 100s without murmurs, gallops, or rubs. No pulse deficit to the extremities and simultaneous auscultation and palpation of his radial artery. Lungs: Clear to auscultation bilaterally. No wheezes, rhonchi, or rales. No chest wall tenderness to palpation. No erythema or ecchymosis noted. No crepitus , step off, or flail segment noted. Abdomen: Soft, with tenderness on palpation along the suprapubic area, no other tenderness on palpation of the other quadrants of the abdomen. No tenderness on palpation of McBurney's point. No guarding, rebound, or rigidity. No erythema or ecchymosis noted. Extremities: No instability or pain noted on pelvic rock. No clubbing, cyanosis , or edema. 2+ pulses in all 4 extremities. No extremity tenderness or deformity noted on palpation or passive/ active range of motion. Back: The patient was log rolled off of the back board. The patient has spinous process tenderness to palpation along the lower thoracic and lower lumbar area. No stepoff or crepitus noted. No costovertebral angle tenderness to palpation. No erythema or ecchymosis. Neurologic Exam: Cranial nerves 2-12 were intact on exam. Strength is 5/5 in all 4 extremities. No sensory deficits noted. Data Data Last Documented VS Vital Signs Date Time Temp Pulse Resp B/P Pulse Ox O2 Delivery O2 Flow Rate FiO2 02/13/17 01:15 100 16 Automatic Cuff 98 Room Air 02/13/17 00:[address] Brain W/O Iv Contrast(Rout) (02/12/17 23:26) Ct Cerv Spine W/O Contrast (02/12/17 23:26) Electrocardiogram (02/12/17 23:26) Complete Blood Count With Diff (02/12/17 23:26) Comprehensive Metabolic Panel (02/12/17 23:26) Prothrombin Time / Inr (Pt) (02/12/17 23:26) Act Partial Throm Time (Ptt) (02/12/17 23:26) Lipase (02/12/17 23:26) Urinalysis - C+S If Indicated (02/12/17 23:26) Beta Hydroxybutyrate (Acetone) (02/12/17 23:26) Chest, Single Ap (02/12/17 23:26) Iv Access Insert/Monitor (02/12/17 23:26) Ecg Monitoring (02/12/17 23:26) Oximetry (02/12/17 23:26) Blood Gas Venous (Vbg) (02/12/17 23:26) Ct Thor Spine W/O Contrast (02/12/17 23:29) Ct Lumb Spine W/O Contrast (02/12/17 23:29) Ct Abd/Pel W Iv Contrast(Rout) (02/13/17 23:26) Ct Thorax/ Chest W Iv Contrast (02/13/17 00:46) Cefazolin 2 Gm Premix (Ancef 2 Gm Premix (02/13/17 01:00) Cusf-Gdk-Swvqqo (Booster) Inj (Boostrix (02/13/17 01:00) Sodium Chlorid 0.9% 500 Ml Inj (Ns 500 M (02/13/17 01:00) Insulin Human Regular Inj (Novolin R Inj (02/13/17 01:00) Iohexol 350 Inj (Omnipaque 350 Inj) (02/13/17 01:19) Admit Order (Ed Use Only) (02/13/17 01:50) Alcohol (Ethanol) (02/13/17 01:50) Lidocai-Epi 1%-1:100,000 Inj (Xylocaine- (02/13/17 02:00) Labs Laboratory Tests Test 02/12/17 02/12/17 02/13/17 23:20 23:48 00:20 White Blood Count 5.2 TH/MM3 Red Blood Count 3.45 MIL/MM3 Hemoglobin 10.8 GM/DL Hematocrit 32.3 % Mean Corpuscular Volume 93.6 FL Mean Corpuscular Hemoglobin 31.3 PG Mean Corpuscular Hemoglobin 33.5 % Concent Red Cell Distribution Width 17.6 % Platelet Count 39 TH/MM3 Mean Platelet Volume 10.0 FL Neutrophils (%) (Auto) 57.6 % Lymphocytes (%) (Auto) 28.5 % Monocytes (%) (Auto) 11.7 % Eosinophils (%) (Auto) 1.5 % Basophils (%) (Auto) 0.7 % Neutrophils # (Auto) 3.0 TH/MM3 Lymphocytes # (Auto) 1.5 TH/MM3 Monocytes # (Auto) 0.6 TH/MM3 Eosinophils # (Auto) 0.1 TH/MM3 Basophils # (Auto) 0.0 TH/MM3 CBC Comment AUTO DIFF Differential Comment AUTO DIFF CONFIRMED Prothrombin Time 13.4 SEC Prothromb Time International 1.2 RATIO Ratio Activated Partial 28.0 SEC Thromboplast Time Sodium Level 137 MEQ/L Potassium Level 3.4 MEQ/L Chloride Level 98 MEQ/L Carbon Dioxide Level 27.1 MEQ/L Anion Gap 12 MEQ/L Blood Urea Nitrogen 6 MG/DL Creatinine 1.04 MG/DL Estimat Glomerular Filtration 78 ML/MIN Rate Random Glucose 487 MG/DL Calcium Level 8.6 MG/DL Total Bilirubin 1.0 MG/DL Aspartate Amino Transf 86 U/L (AST/SGOT) Alanine Aminotransferase 32 U/L (ALT/SGPT) Alkaline Phosphatase 406 U/L Total Protein 8.1 GM/DL Albumin 3.1 GM/DL Lipase 413 U/L B-Hydroxybutyrate 0.17 MMOL/L Blood Gas Puncture Site RA Blood Gas Patient Temperature 98.6 Venous Blood pH 7.35 Venous Blood Partial Pressure 49 mmHg CO2 Venous Blood Partial Pressure 47 mmHg O2 Venous Blood HCO3 26 mmol/L Venous Blood Oxygen Saturation 72 % Venous Blood Oxygen Content 10.5 Vol % Venous Blood Base Excess 1.1 mmol/L Urine Color YELLOW Urine Turbidity CLEAR Urine pH 6.5 Urine Specific [place] 1.030 Urine Protein NEG mg/dL Urine Glucose (UA) 1000 mg/dL Urine Ketones NEG mg/dL Urine Occult Blood SMALL Urine Nitrite NEG Urine Bilirubin NEG Urine Urobilinogen LESS THAN 2.0 MG/DL Urine Leukocyte Esterase NEG Urine WBC 2 /hpf Microscopic Urinalysis Comment CULT NOT INDICATED MDM Medical Decision Making Medical Screen Exam Complete: Yes Emergency Medical Condition: Yes Medical Record Reviewed: Yes Interpretation(s) Last Impressions Chest CT 02/13/1745 Signed Impressions: Service Date/Time: Monday, February 13, 2017 00:52 - CONCLUSION: 1. Cirrhosis and portal hypertension. 2. Cholelithiasis. 3. Clear lungs. Vincent Mendosa MD Thoracic Spine CT 02/12/172328 Signed Impressions: Service Date/Time: Monday, February 13, 2017 00:52 - CONCLUSION: 1. Tiny disc protrusions are noted as above without canal or foraminal stenosis. 2. No fractures are identified. Vincent Mendosa MD Lumbar Spine CT 02/12/172328 Signed Impressions: Service Date/Time: Monday, February 13, 2017 00:52 - CONCLUSION: No fracture or listhesis. Vincent Mendosa MD Head CT 02/12/172325 Signed Impressions: Service Date/Time: Monday, February 13, 2017 00:47 - CONCLUSION: Scalp soft tissue swelling. Vincent Mendosa MD Chest X-Ray 02/12/172325 Signed Impressions: Service Date/Time: Sunday, February 12, 2017 23:38 - CONCLUSION: No acute disease. Vincent Mendosa MD Cervical Spine CT 02/12/172325 Signed Impressions: Service Date/Time: Monday, February 13, 2017 00:47 - CONCLUSION: Degenerative changes are noted without evidence for acute fracture. Vincent Mendosa MD Differential Diagnosis Intracranial trauma, versus cervical spine trauma, versus other traumatic back injury, versus intra-abdominal trauma, versus pelvis injury Narrative Course During the course of the patients emergency department visit, the patients history, examination, and differential diagnosis were reviewed with the patient. The patient had IV access obtained and blood work sent for analysis. The patient was log rolled off the backboard. The patient had an ECG done on arrival. The patient's ECG shows a sinus rhythm heart rate of 98, no acute ST segment elevation or depression, QRS duration is 105 ms, QTC 412 ms. The patient was initially provided normal saline a 500 mL bolus, Ancef 2 g IV, an update to his tetanus was provided, insulin 10 units subcutaneously was administered. The patients laboratory studies were reviewed and remarkable for a white count of 5.2, hemoglobin 10.8, platelets 39 with 11.7 monocytes, CMP is remarkable for potassium of 3.4, BUNs 6, glucose 487, AST 86, alkaline phosphatase 406, lipase 413, PT 13.4, INR 1.2, PTT 28, beta hydroxybutyrate is 0.17, alcohol level CCCLV, urinalysis shows 1000 glucose all blood. The patient is hyperglycemic due to his medication noncompliance. Radiology studies were reviewed and remarkable for CT scan of the brain shows scalp soft tissue swelling, no other acute abnormality. CT scan of the C-spine shows degenerative changes without any evidence of acute fracture. Head CT scan of the T-spine and L-spine shows degenerative changes, no other acute abnormality. CT scan of the chest reveals cirrhosis and portal hypertension, cholelithiasis, clear lungs. CT scan of the abdomen and pelvis shows a 2 mm right lower lobe renal calculus, cirrhosis and portal hypertension, no other acute abnormality. Given the patient's acute alcohol intoxication, head injury, thrombocytopenia the patient will be admitted to the hospital for observation and serial neurologic examinations. The patients results were discussed with the patient, including the plan of care. I explained that further testing and/ or monitoring is indicated based on the patients history, examination, and/ or laboratory findings. Therefore, I recommended admission for additional evaluation. The patient expressed understanding and was agreeable with this plan. The patient was admitted to the hospital in guarded condition and sent to a bed [facility]. Procedures Procedure Narrative LACERATION LOCATION: Left parietal scalp LENGTH: 4 cm NUMBER OF STITCHES/BOOM: 5 REPAIR: The area of the laceration was prepped with Betadine and sterilely draped. The laceration was infiltrated with 1% lidocaine with epinephrine. The wound was copiously irrigated and explored without evidence of foreign body, tendon injury or neurovascular injury. The wound was closed using boom. This was a single layer repair. A sterile dressing was applied. The patient was advised to keep the dressing clean and dry. Patient tolerated the procedure well. Physician Communication Physician Communication The patient's case was discussed with Dr. Dozier who did agree to the patient for further evaluation and treatment at this time for Diagnosis Primary Impression: Head injury due to trauma Qualified Code: S09.90XA - Traumatic injury of head, initial encounter Additional Impressions: Thrombocytopenia Alcohol intoxication Qualified Code: F10.929 - Alcoholic intoxication with complication Occipital scalp laceration Qualified Code: S01.01XA - Laceration of occipital scalp, initial encounter Admitting Information Admitting Physician Requests: Observation Petty Jain MD Feb 12, 2017 23:29
--- NOTE | 2017-02-12 23:58 | RADRPT ---
EXAM DATE/TIME: 02/12/2017 23:38 [facility] COMPARISON: CHEST SINGLE AP, January 06, 2017, 19:47. INDICATIONS : Fall and hit head on bath tub, chest pain. MEDICAL HISTORY : None. SURGICAL HISTORY : None. ENCOUNTER: Initial ACUITY: 1 day PAIN SCORE: 0/10 LOCATION: Bilateral chest FINDINGS: A single view of the chest demonstrates the lungs to be symmetrically aerated without evidence of mas s, infiltrate or effusion. The cardiomediastinal contours are unremarkable. Osseous structures are intact. CONCLUSION: No acute disease. Vincent Mendosa MD on February 12, 2017 at 23:57 Board Certified Radiologist. This report was verified electronically.
[2017-02-13] VITALS (15 sets, daily range): BP systolic 90–138; BP diastolic 59–78; PULSE 84–106; RESP 13–20; TEMP 97.6–99.8; O2SAT 95–100
[2017-02-13 00:04] LABS: BLOOD GAS VENOUS BASE EXCESS 1.1 mmol/L (-2-2); BLOOD GAS VENOUS HCO3 26 mmol/L (22-26); BLOOD GAS VENOUS O2 CONTENT 10.5 Vol % (9.0-17.0); BLOOD GAS VENOUS O2 HGB SAT 72 % (70-76); BLOOD GAS VENOUS PCO2 49 mmHg (44-48); BLOOD GAS VENOUS PO2 47 mmHg (35-40); BLOOD GAS VENOUS pH 7.35 (7.360-7.400); CRITICAL VALUE NO; DRAW SITE RA; TEMP CORR TO 98.6
[2017-02-13 00:08] LABS: BASOPHIL % 0.7 % (0.0-2.0); EOSINOPHIL # 0.1 TH/MM3 (0-0.4); EOSINOPHIL % 1.5 % (0.0-4.0); HEMATOCRIT 32.3 % (39.0-51.0); LYMPH % 28.5 % (9.0-44.0); LYMPHOCYTE # 1.5 TH/MM3 (1.0-4.8); MEAN CELL VOLUME 93.6 FL (80.0-100.0); MEAN CORPUSCULAR HEMOGLOBIN 31.3 PG (27.0-34.0); MEAN CORPUSCULAR HGB CONC 33.5 % (32.0-36.0); MONO % 11.7 % (0.0-8.0); NEUT % 57.6 % (16.0-70.0); PLATELET COUNT 39 TH/MM3 (150-450); RED BLOOD COUNT 3.45 MIL/MM3 (4.50-5.90); RED CELL DISTRIBUTION WIDTH 17.6 % (11.6-17.2); WHITE BLOOD COUNT 5.2 TH/MM3 (4.0-11.0)
[2017-02-13 00:16] LABS: INTERNATIONAL NORMALIZED RATIO 1.2 RATIO; PROTHROMBIN TIME - PATIENT 13.4 SEC (9.8-11.6)
[2017-02-13 00:17] LABS: HEMO FLAGS AUTO DIFF
[2017-02-13 00:28] LABS: ALKALINE PHOSPHATASE 406 U/L (45-117); ALT (GPT) 32 U/L (12-78); ANION GAP 12 MEQ/L (5-15); AST (GOT) 86 U/L (15-37); BETA-HYDROXYBUTYRATE 0.17 MMOL/L (0.00-0.39); BICARBONATE 27.1 MEQ/L (21.0-32.0); BLOOD UREA NITROGEN 6 MG/DL (7-18); CHLORIDE 98 MEQ/L (98-107); GLOMERULAR FILTRATION RATE 78 ML/MIN (>89); POTASSIUM 3.4 MEQ/L (3.5-5.1); SODIUM (NA) 137 MEQ/L (136-145)
[2017-02-13 00:42] LABS: SCAN/DIFF AUTO DIFF CONFIRMED
[2017-02-13 00:43] LABS: BLOOD, URINE SMALL (NEG); GLUCOSE,URINE 1000 mg/dL (NEG); KETONE, URINE NEG (NEG); NITRITE,URINE NEG (NEG); PH, URINE 6.5 (5.0-8.5); URINE COLOR YELLOW (YELLW/STRAW)
[2017-02-13 00:44] LABS: COMMENT (UR) CULT NOT INDICATED; CULTURE IF INDICATED CULT NOT INDICATED
[2017-02-13] MEDS ORDERED: DIPHTH/TETANUS/ACEL PERTUSSIS (BOOSTER) 0.5 ML VIAL/PFS IM ONE (01:00)
[2017-02-13] MEDS ORDERED: SODIUM CHLORID 0.9% 500 ML INJ 500 ML IV ONE (01:00)
[2017-02-13] MEDS ORDERED: ceFAZolin 2 GM PREMIX 50 ML IV ONE (01:00)
[2017-02-13] MEDS ORDERED: INSULIN HUMAN REGULAR 1,000 UNITS/10 ML VIAL SQ ONE (01:00)
--- NOTE | 2017-02-13 01:17 | RADRPT ---
EXAM DATE/TIME: 02/13/2017 00:47 [facility] COMPARISON: CT BRAIN W/O CONTRAST, January 06, 2017, 18:35. INDICATIONS : Trauma. Patient fell hitting back of head on bathtub. RADIATION DOSE: 52.13 CTDIvol (mGy) MEDICAL HISTORY : Hypertension. Cirrhosis. SURGICAL HISTORY : None. ENCOUNTER: Initial ACUITY: 1 day PAIN SCALE: 10/10 LOCATION: cranial TECHNIQUE: Multiple contiguous axial images were obtained of the head. Using automated exposure control and adj ustment of the mA and/or kV according to patient size, radiation dose was kept as low as reasonably a chievable to obtain optimal diagnostic quality images. DICOM format image data is available electro nically for review and comparison. FINDINGS: Left parietal scalp soft tissue swelling. No fractures. No intracranial hemorrhage, infarct, or mass. Brain is normal in appearance. CONCLUSION: Scalp soft tissue swelling. Vincent Mendosa MD on February 13, 2017 at 1:15 Board Certified Radiologist. This report was verified electronically.
[2017-02-13] MEDS ORDERED: IOHEXOL 350 MG/ML 10 ML VIAL (for RAD DIAG) IV ONE ×2 (01:19→01:21)
--- NOTE | 2017-02-13 01:19 | RADRPT ---
EXAM DATE/TIME: 02/13/2017 00:47 [facility] COMPARISON: CT CERVICAL SPINE W/O CONTRAST, January 06, 2017, 18:35. INDICATIONS : Trauma. Patient fell hitting back of head. RADIATION DOSE: 29.57 CTDIvol (mGy) MEDICAL HISTORY : Hypertension. Cirrhosis. SURGICAL HISTORY : None. ENCOUNTER: Initial ACUITY: 1 day PAIN SCALE: 0/10 LOCATION: neck TECHNIQUE: Volumetric scanning of the cervical spine was performed. Multiplanar reconstructions in the sagittal, coronal and oblique axial planes were performed. Using automated exposure control and adjustment o f the mA and/or kV according to patient size, radiation dose was kept as low as reasonably achievable to obtain optimal diagnostic quality images. DICOM format image data is available electronically f or review and comparison. FINDINGS: Straightening of the cervical lordosis. No prevertebral soft tissue swelling or compression deformity . Odontoid process is intact. Mild disc space narrowing and multilevel osteophyte formation again see n greatest at C5-C7. Cervicothoracic junction is approximated. Mild multilevel uncovertebral hypertro phy. Central disc protrusion at C3-4 with mild canal stenosis again seen. A central disc protrusion a t C4-5 with mild canal stenosis and moderate stenosis at C5-6 with diffuse disc osteophyte disease. T his is stable. CONCLUSION: Degenerative changes are noted without evidence for acute fracture. Vincent Mendosa MD on February 13, 2017 at 1:15 Board Certified Radiologist. This report was verified electronically.
--- NOTE | 2017-02-13 01:23 | RADRPT ---
EXAM DATE/TIME: 02/13/2017 00:52 [facility] COMPARISON: CT ABDOMEN & PELVIS W CONTRAST, February 13, 2017, 0:52. CT CERVICAL SPINE W/O CONTRAST, February 13 17, 0:47. INDICATIONS : Trauma. Fall. IV CONTRAST: 100 cc Omnipaque 350 (iohexol) IV ; Cumulative dose for multiple exams. RADIATION DOSE: 9.96 CTDIvol (mGy) ; Combined studies - Thorax/Abdomen/Pelvis MEDICAL HISTORY : Hypertension. Cardiovascular disease Esophageal varices. GERD. Diabetes. SURGICAL HISTORY : None. ENCOUNTER: Initial ACUITY: 1 day PAIN SCALE: 5/10 LOCATION: Bilateral chest TECHNIQUE: Volumetric scanning of the chest was performed. Using automated exposure control and adjustment of t he mA and/or kV according to patient size, radiation dose was kept as low as reasonably achievable to obtain optimal diagnostic quality images. DICOM format image data is available electronically for review and comparison. Follow-up recommendations for incidentally detected pulmonary nodules are based at a minimum on nodul e size and patient risk factors according to Fleischner Society Guidelines. FINDINGS: LUNGS: There is no consolidation or pneumothorax. No concerning pulmonary nodule is visualized. PLEURA: There is no pleural thickening or pleural effusion. MEDIASTINUM: The heart and great vessels demonstrate no acute abnormality. There is no mediastinal or hilar lymph adenopathy. AXILLAE: Within normal limits. No lymphadenopathy. SKELETAL: Within normal limits for patient age. MISCELLANEOUS: The liver is diffusely nodular in configuration with heterogeneous appearance characteristic of cirrh osis with associated steatosis. There is splenomegaly up to 14.7 cm, dilatation of the left and right portal veins and recanalization of the umbilical vein with numerous intra-abdominal varices. This is consistent with portal hypertension. Cholelithiasis is noted. There is ascites. Gynecomastia. CONCLUSION: 1. Cirrhosis and portal hypertension. 2. Cholelithiasis. 3. Clear lungs. Vincent Mendosa MD on February 13, 2017 at 1:20 Board Certified Radiologist. This report was verified electronically.
--- NOTE | 2017-02-13 01:26 | RADRPT ---
EXAM DATE/TIME: 02/13/2017 00:52 [facility] COMPARISON: CT ABDOMEN & PELVIS W CONTRAST, December 24, 2016, 6:27. INDICATIONS : Trauma. Fall. IV CONTRAST: 100 cc Omnipaque 350 (iohexol) IV ; Cumulative dose for multiple exams. ORAL CONTRAST: No oral contrast ingested. RADIATION DOSE: 9.96 CTDIvol (mGy) ; Combined studies - Thorax/Abdomen/Pelvis MEDICAL HISTORY : Hypertension. Cirrhosis. Gastroesophageal reflux disease.Diabetes. Esophageal varices. SURGICAL HISTORY : None. ENCOUNTER: Initial ACUITY: 1 day PAIN SCALE: 0/10 LOCATION: Abdomen. TECHNIQUE: Volumetric scanning of the abdomen and pelvis was performed. Using automated exposure control and ad justment of the mA and/or kV according to patient size, radiation dose was kept as low as reasonably achievable to obtain optimal diagnostic quality images. DICOM format image data is available electro nically for review and comparison. FINDINGS: There is cirrhosis and portal hypertension with nodular liver, recanalization of the umbilical vein, extensive varices within the anterior abdominal wall, small amount of ascites, splenomegaly. Pancreas , adrenals, left kidney, small bowel, urinary bladder, large bowel unremarkable. Atherosclerotic calc ifications are noted. Lung bases are clear. The osseous structures are intact. 2 mm nonobstructing ca lculus right lower pole kidney. CONCLUSION: 1. Cirrhosis and portal hypertension. 2. 2 mm right lower pole renal calculus. Vincent Mendosa MD on February 13, 2017 at 1:22 Board Certified Radiologist. This report was verified electronically.
--- NOTE | 2017-02-13 01:33 | RADRPT ---
EXAM DATE/TIME: 02/13/2017 00:52 [facility] COMPARISON: CT THORAX W CONTRAST, February 13, 2017, 0:52. CT CERVICAL SPINE W/O CONTRAST, February 13, 2017, 0:47. INDICATIONS : Trauma, fall. RADIATION DOSE: ; Reconstructed from previous dataset, no dose MEDICAL HISTORY : None SURGICAL HISTORY : None. ENCOUNTER: Initial ACUITY: 1 day PAIN SCALE: 6/10 LOCATION: Thoracic spine. TECHNIQUE: Volumetric scanning of the thoracic spine was performed. Multiplanar reconstructions in the sagittal , coronal and oblique axial planes were performed. Using automated exposure control and adjustment o f the mA and/or kV according to patient size, radiation dose was kept as low as reasonably achievable to obtain optimal diagnostic quality images. DICOM format image data is available electronically f or review and comparison. FINDINGS: The vertebral bodies of the thoracic spine are in normal alignment without evidence of subluxation. Vertebral body height is maintained. No fractures are seen. T1-T2: Normal. T2-T3: The thecal sac has a normal diameter. No evidence of disc bulge or protrusion. T3-T4: The thecal sac has a normal diameter. No evidence of disc bulge or protrusion. T4-T5: The thecal sac has a normal diameter. No evidence of disc bulge or protrusion. T5-T6: There is a tiny central disc protrusion without canal or foraminal narrowing. T6-T7: There is a tiny central disc protrusion without canal or foraminal narrowing. T7-T8: There is a right central disc protrusion without canal or foraminal narrowing. T8-T9: The thecal sac has a normal diameter. No evidence of disc bulge or protrusion. T9-T10: The thecal sac has a normal diameter. No evidence of disc bulge or protrusion. T10-T11: The thecal sac has a normal diameter. No evidence of disc bulge or protrusion. T11-T12: The thecal sac has a normal diameter. No evidence of disc bulge or protrusion. T12-L1: The thecal sac has a normal diameter. No evidence of disc bulge or protrusion. CONCLUSION: 1. Tiny disc protrusions are noted as above without canal or foraminal stenosis. 2. No fractures are identified. Vincent Mendosa MD on February 13, 2017 at 1:30 Board Certified Radiologist. This report was verified electronically.
--- NOTE | 2017-02-13 01:35 | RADRPT ---
EXAM DATE/TIME: 02/13/2017 00:52 [facility] COMPARISON: CT THORAX W CONTRAST, February 13, 2017, 0:52. CT THORACIC SPINE W/O CONTRAST, February 13, 2017, 0:52. CT ABDOMEN & PELVIS W CONTRAST, February 13, 2017, 0:52. INDICATIONS : Trauma, fall. RADIATION DOSE: ; Reconstructed from previous dataset, no dose MEDICAL HISTORY : None SURGICAL HISTORY : None. ENCOUNTER: Initial ACUITY: 1 day PAIN SCALE: 3/10 LOCATION: Lumbar spine. TECHNIQUE: Volumetric scanning of the lumbar spine was performed. Multiplanar reconstructions in the sagittal, coronal and oblique axial planes were performed. Using automated exposure control and adjustment of the mA and/or kV according to patient size, radiation dose was kept as low as reasonably achievable t o obtain optimal diagnostic quality images. DICOM format image data is available electronically for review and comparison. FINDINGS: Alignment is normal. Mild anterior osteophyte formation greatest at L5. No fracture or listhesis. Min imal disc bulge at L4-5. CONCLUSION: No fracture or listhesis. Vincent Mendosa MD on February 13, 2017 at 1:32 Board Certified Radiologist. This report was verified electronically.
[2017-02-13] MEDS ORDERED: LIDOCAINE 1%/EPINEPHrine 1:100,000 SOLN 20 ML VIAL INFIL ONE (02:00)
[2017-02-13] MEDS ORDERED: SODIUM CHLORIDE 0.9% FLUSH 10 ML FLUSH IV FLUSH PRN (02:45)
[2017-02-13] MEDS ORDERED: GLUCAGON 1 MG/ML VIAL OTHER PRN (02:45)
[2017-02-13] MEDS ORDERED: DEXTROSE 50% IN WATER 50 ML VIAL(D50) IV PRN (02:45)
[2017-02-13] MEDS ORDERED: NALOXONE HCL 0.4 MG/ML AMP IV PRN (02:45)
[2017-02-13] MEDS: SODIUM CHLORIDE 0.9% FLUSH 10 ML FLUSH IV FLUSH SCH ×2 (07:48→20:49)
[2017-02-13] MEDS: INSULIN ASPART SUPPLEMENTAL SCALE SQ SCH ×4 (07:48→20:56)
[2017-02-13] MEDS ORDERED: LORazepam 1 MG TAB PO PRN (08:15)
[2017-02-13] MEDS ORDERED: LORazepam 2 MG/ML VIAL IV PUSH PRN ×4 (08:15)
[2017-02-13] MEDS ORDERED: FLUMAZENIL 0.5 MG/5 ML VIAL IV PUSH PRN (08:15)
[2017-02-13] MEDS ORDERED: LORazepam 2 MG TAB PO PRN (08:15)
[2017-02-13] MEDS ORDERED: HALOPERIDOL LACTATE 5 MG/ML AMP IM PRN (08:15)
--- NOTE | 2017-02-13 08:20 | EKG ---
Date Performed: 02/13/2017 Time Performed: 00:11:06 PTAGE: 46 years EKG: Sinus rhythm NONSPECIFIC T-WAVE ABNORMALITY BORDERLINE ECG NO PREVIOUS TRACING DOCTOR: Vj Sandoval Interpretating Date/Time 02/13/2017 08:18:54
[2017-02-13] MEDS: FOLIC ACID 1 MG TAB PO SCH (10:06)
[2017-02-13] MEDS: MULTIVITAMINS/MINERALS THERAPEUTIC TAB PO SCH (10:06)
[2017-02-13] MEDS: THIAMINE HCL 100 MG TAB PO SCH (10:06)
--- NOTE | 2017-02-13 12:18 | HHI.HP ---
[facility] No Primary Care Physician Admission Diagnosis Head injury, etoh intoxication, thrombocytopenia Diagnoses: Chief Complaint: fall, head injury Travel History International Travel<30 Days: No Contact w/Intl Traveler <30 Da: No Traveled to Known Affected Are: No History of Present Illness Written by Ramila Clifford, acting as scribe for Dr. Vasquez on 02/13/17 at 12:14. 46-year-old male with history of alcoholic cirrhosis, esophageal varices, thrombocytopenia, diabetes mellitus, presents with acute alcohol intoxication and fall with head injury. The patient reports he was at a friends house, ambulated to the restroom with socks on and the floors were recently waxed; he then all of a sudden slipped backwards, hit his left shoulder on the toilet, and hit the back of his head on the tub. He reports significant amount of bleeding from the head wound. Denies loss of consciousness or nausea/vomiting. Denies any chest pain, palpitations, or shortness of breath. He admits to drinking 5 rum alcoholic beverages prior to the fall. Occipital head wound repaired with adry in the ED, and patient complains of headache/pain at the site of the wound. He also reports pain in the lower back, denies any lower extremity pain/numbness/tingling. He reports he has battled alcohol abuse for many years, previously drank 1 bottle vodka daily, quit for 2 years after diagnosed with cirrhosis, then started drinking again, usually 4-5 liquor beverages 3-4x per week. He also states when he goes fishing he will finish a 12 -pack of beer. He has some desire to quit and plans to start attending AA meetings again. Of note, patient's blood glucose over 400 upon arrival, patient states he has been out of his meds including Levemir for a few months now. Review of Systems Except as stated in HPI: all other systems reviewed are Neg Past Family Social History Past Medical History Alcoholic Cirrhosis Esophageal varices Diabetes mellitus Thrombocytopenia Past Surgical History EGD with esophageal varices banding in [place] Liver biopsy Denies any other procedures Reported Medications NOT TAKING MEDICATIONS RECENTLY, HOWEVER SUPPOSED TO BE ON: Doucette (Hydrocodone-Acetaminophen) 5-325 mg Tab 1 Tab PO Q6H PRN Gnp Vitamin B-1 (Thiamine HCl) 100 Mg Tab 100 Mg PO DAILY Carafate (Sucralfate) 1 Gm Tab 1 Gm PO QID On empty stomach Levemir Inj (Insulin Detemir) 1,000 unit/ 10 ML Vial 20 Units SQ HS Calcium Carbonate 1,500 Mg Tab 1,500 Mg PO DAILY 1,500 mg calcium carbonate ( 600 mg elemental calcium) Metformin (Metformin HCl) 500 Mg Tab 500 Mg PO DAILY With meals Propranolol (Propranolol HCl) 20 Mg Tab 20 Mg PO Q12HR Xanax (Alprazolam) 1 Mg Tab 1 Mg PO Q6H PRN Multi-Vitamin Daily (Multiple Vitamin) 1 Tab Tab 1 Tab PO DAILY Allergies: Coded Allergies: Dilaudid (Verified Allergy, Mild, Hives, 02/13/17) pt. states he has had Dilaudid and does not have an allergy to it. *MDRO Multi-Drug Resistant Organism (Verified Adverse Reaction, Unknown, ) MRSA PCR (nares) POSITIVE - 12/02/2015 Penicillin (Verified Adverse Reaction, Unknown, Hives, 02/13/17) Active Ordered Medications Current Medications Medications (Trade) Dose Ordered Sig/Moni Route Start Time Stop Time Status Last Admin (NS Flush) 2 ml UNSCH PRN IV FLUSH 02/13/17 02:45 (NS Flush) 2 ml BID IV FLUSH 02/13/17 09:00 (Narcan Inj) 0.4 mg UNSCH PRN IV 02/13/17 02:45 (D50w (Vial) Inj) 50 ml UNSCH PRN IV 02/13/17 02:45 (Glucagon Inj) 1 mg UNSCH PRN OTHER 02/13/17 02:45 (Folate) 1 mg DAILY PO 02/13/17 09:00 02/18/17 08:59 02/13/17 10:06 (Vitamin B1) 100 mg DAILY PO 02/13/17 09:00 02/13/17 10:06 (Theragran M Tab) 1 tab DAILY PO 02/13/17 09:00 02/18/17 08:59 02/13/17 10:06 (Romazicon Inj) 0.2 mg Q1M PRN IV PUSH 02/13/17 08:15 (Ativan) 1 mg Q4H PRN PO 02/13/17 08:15 (Ativan Inj) 1 mg Q4H PRN IV PUSH 02/13/17 08:15 (Ativan) 2 mg Q2H PRN PO 02/13/17 08:15 (Ativan Inj) 2 mg Q2H PRN IV PUSH 02/13/17 08:15 (Ativan Inj) 2 mg Q1H PRN IV PUSH 02/13/17 08:15 (Ativan Inj) 2 mg Q15M PRN IV PUSH 02/13/17 08:15 (Haldol Inj) 2 mg Q15M PRN IM 02/13/17 08:15 (Levemir Inj) 20 units HS SQ 02/13/17 21:00 Family History Denies any significant medical problems in his family. Social History Smokes tobacco since age 23, down to 1/2 PPD Also smokes e-cigarettes Drinks alcohol heavily, sometimes no alcohol for a few weeks but then binges on liquor, previously drank 1 bottle of vodka daily until he was diagnosed with cirrhosis; now drinks 4-5 liquor drinks 3-4x/week Denies any illicit drug use Unemployed currently, previously worked in [employer] Physical Exam Vital Signs Vital Signs Date Time Temp Pulse Resp B/P Pulse Ox O2 Delivery O2 Flow Rate FiO2 02/13/17 08:53 Room Air 02/13/17 08:53 98.3 90 15 119/72 100 Room Air 02/13/17 07:15 98 16 115/69 100 Nasal Cannula 3 02/13/17 05:00 105 13 107/60 100 Nasal Cannula 2 02/13/17 04:30 104 14 99/63 100 Nasal Cannula 2 02/13/17 04:00 106 13 110/59 100 Nasal Cannula 2 02/13/17 03:50 104 15 100/59 100 Nasal Cannula 2 02/13/17 03:30 104 15 90/59 95 Room Air 02/13/17 01:15 100 16 Automatic Cuff 98 Room Air 02/13/17 00:23 97.6 95 20 127/78 95 Nasal Cannula 02/13/17 00:00 99 16 127/78 99 Room Air 02/12/17 23:20 Room Air 02/12/17 23:13 97.6 104 20 158/98 99 Physical Exam GENERAL: Well-nourished, well-developed middle aged male patient in [facility]. SKIN: Warm and dry. No rash. HEAD: Normocephalic. Left occipital scalp with 3cm laceration repaired with adry, and underlying hematoma. EYES: Pupils equal and round. No scleral icterus. No injection or drainage. ENT: No nasal bleeding or discharge. Mucous membranes pink and moist. NECK: Supple. Trachea midline. CARDIOVASCULAR: Regular rate and rhythm. S1, S2 noted. No murmur appreciated. RESPIRATORY: No accessory muscle use. Clear to auscultation. Breath sounds equal bilaterally. GASTROINTESTINAL: Abdomen soft, nondistended, mild ascites with +fluid wave, diffuse mild TTP. Normoactive bowel sounds x4. MUSCULOSKELETAL: No obvious deformities. Extremities without clubbing, cyanosis , or edema. Full active ROM of bilateral shoulders. NEUROLOGICAL: Awake and alert. No obvious cranial nerve deficits. Motor grossly within normal limits. 5/5 muscle strength in bilateral upper and lower extremities. Normal speech. PSYCHIATRIC: Appropriate mood and affect; insight and judgment normal. Laboratory Laboratory Tests Test 02/12/17 02/12/17 02/13/17 02/13/17 23:20 23:48 00:20 03:05 White Blood Count 5.2 Red Blood Count 3.45 Hemoglobin 10.8 Hematocrit 32.3 Mean Corpuscular Volume 93.6 Mean Corpuscular Hemoglobin 31.3 Mean Corpuscular Hemoglobin 33.5 Concent Red Cell Distribution Width 17.6 Platelet Count 39 Mean Platelet Volume 10.0 Neutrophils (%) (Auto) 57.6 Lymphocytes (%) (Auto) 28.5 Monocytes (%) (Auto) 11.7 Eosinophils (%) (Auto) 1.5 Basophils (%) (Auto) 0.7 Neutrophils # (Auto) 3.0 Lymphocytes # (Auto) 1.5 Monocytes # (Auto) 0.6 Eosinophils # (Auto) 0.1 Basophils # (Auto) 0.0 CBC Comment AUTO DIFF Differential Comment AUTO DIFF CONFIRMED Prothrombin Time 13.4 Prothromb Time International 1.2 Ratio Activated Partial 28.0 Thromboplast Time Sodium Level 137 Potassium Level 3.4 Chloride Level 98 Carbon Dioxide Level 27.1 Anion Gap 12 Blood Urea Nitrogen 6 Creatinine 1.04 Estimat Glomerular Filtration 78 Rate Random Glucose 487 Calcium Level 8.6 Total Bilirubin 1.0 Aspartate Amino Transf 86 (AST/SGOT) Alanine Aminotransferase 32 (ALT/SGPT) Alkaline Phosphatase 406 Total Protein 8.1 Albumin 3.1 Lipase 413 B-Hydroxybutyrate 0.17 Blood Gas Puncture Site RA Blood Gas Patient Temperature 98.6 Venous Blood pH 7.35 Venous Blood Partial Pressure 49 CO2 Venous Blood Partial Pressure 47 O2 Venous Blood HCO3 26 Venous Blood Oxygen Saturation 72 Venous Blood Oxygen Content 10.5 Venous Blood Base Excess 1.1 Urine Color YELLOW Urine Turbidity CLEAR Urine pH 6.5 Urine Specific Tanner 1.030 Urine Protein NEG Urine Glucose (UA) 1000 Urine Ketones NEG Urine Occult Blood SMALL Urine Nitrite NEG Urine Bilirubin NEG Urine Urobilinogen LESS THAN 2.0 Urine Leukocyte Esterase NEG Urine WBC 2 Microscopic Urinalysis Comment CULT NOT INDICATED Ethyl Alcohol Level 355 Result Diagram: 02/12/17231902/12/172319 Imaging Last Impressions Abdomen/Pelvis CT 02/13/172325 Signed Impressions: Service Date/Time: Monday, February 13, 2017 00:52 - CONCLUSION: 1. Cirrhosis and portal hypertension. 2. 2 mm right lower pole renal calculus. Vincent Mendosa MD Chest CT 02/13/176 Signed Impressions: Service Date/Time: Monday, February 13, 2017 00:52 - CONCLUSION: 1. Cirrhosis and portal hypertension. 2. Cholelithiasis. 3. Clear lungs. Vincent Mendosa MD Thoracic Spine CT 02/12/172328 Signed Impressions: Service Date/Time: Monday, February 13, 2017 00:52 - CONCLUSION: 1. Tiny disc protrusions are noted as above without canal or foraminal stenosis. 2. No fractures are identified. Vincent Mendosa MD Lumbar Spine CT 02/12/172328 Signed Impressions: Service Date/Time: Monday, February 13, 2017 00:52 - CONCLUSION: No fracture or listhesis. Vincent Mendosa MD Head CT 02/12/172325 Signed Impressions: Service Date/Time: Monday, February 13, 2017 00:47 - CONCLUSION: Scalp soft tissue swelling. Vincent Mendosa MD Chest X-Ray 02/12/172325 Signed Impressions: Service Date/Time: Sunday, February 12, 2017 23:38 - CONCLUSION: No acute disease. Vincent Mendosa MD Cervical Spine CT 02/12/17 2326 Signed Impressions: Service Date/Time: Monday, February 13, 2017 00:47 - CONCLUSION: Degenerative changes are noted without evidence for acute fracture. Vincent Mendosa MD Assessment and Plan Problem List: (1) Head injury due to trauma ICD Code: S09.90XA Status: Acute (2) Occipital scalp laceration ICD Code: S01.01XA Status: Acute (3) Thrombocytopenia ICD Code: D69.6 Status: Chronic (4) Alcohol abuse with intoxication ICD Code: F10.129 Status: Acute (5) Alcoholic cirrhosis ICD Code: K70.30 Status: Acute (6) Esophageal varices ICD Code: I85.00 Status: Acute (7) Hyperglycemia ICD Code: R73.9 Status: Acute Assessment and Plan 46-year-old male with history of alcoholic cirrhosis, esophageal varices, thrombocytopenia, diabetes mellitus, presents with acute alcohol intoxication and fall with head injury. Mechanical Fall with +Head Injury/Laceration: sounds mechanical slip and fall while wearing socks in bathroom, also with acute alcohol intoxication. Extensive trauma imaging reviewed including C-T-L Spine CT, Head CT, CXR, Chest CT, abd/pelvis CT grossly unremarkable for acute findings except for scalp soft tissue swelling. -scalp laceration repaired in the ED 02/12, wound care, cleanse with NS, apply antibiotic ointment daily, remove adry in 10-14 days -consult PT, no PT needed at discharge Hyperglycemia with Type 2 Diabetes Mellitus: secondary to noncompliance with medications -start on Novolin 70/30 10u bid -monitor Accu-checks and cover with SSI -check HgbA1c -patient seen by primary care provider, appreciate assistance Thrombocytopenia: platelets 39K, worse than baseline, usually around 60K. Secondary to liver cirrhosis. Patient aware of diagnosis. -avoid antiplatelets -monitor CBC Acute Alcohol Intoxication with Chronic Alcohol Abuse: Etoh level 355 upon arrival. Patient reports history of withdrawal but no seizures. -extensively counseled on alcohol cessation -High risk for withdrawal -Continue CIWA protocol, thiamine/folate/MV -Case management to provide info on alcohol rehab resources Alcoholic Cirrhosis and Esophageal Varices: chronic -CT abd showed cirrhosis, portal hypertension, nodular liver, recanalization of umbilical vein; extensive varices within anterior abdominal wall, small ascites, and splenomegaly -Continue patient's propranolol with hold parameters -strongly encouraged alcohol cessation -avoid hepatotoxins Mild Pancreatitis: lipase 413, secondary to alcohol abuse. -given gentle IVF -patient tolerating oral intake Tobacco Use: smokes 1/2 PPD -counseled on cessation -provide nicotine patch DVT Prophylaxis: teds/SCDs; avoid chemoprophylaxis with thrombocytopenia Discussed Condition With Patient, primary care provider Attending Statement This note was transcribed by scribe [Ramila Clifford]. I, Dr. Damián Vasquez personally performed the history, physical exam, and medical decision making; and confirmed the accuracy of the information in the transcribed note. Authenticated by Dr. Damián Vasquez on 02/15/17 at 09:13. Problem Qualifiers (1) Head injury due to trauma: Qualified Code: S09.90XA - Traumatic injury of head, initial encounter (2) Occipital scalp laceration: Qualified Code: S01.01XA - Laceration of occipital scalp, initial encounter Ramila Clifford PA-C Feb 13, 2017 12:18 Damián Vasquez MD Feb 15, 2017 09:13
[2017-02-13 12:44] LABS: AUTOMATED NEUTROPHIL # 3.8 TH/MM3 (1.8-7.7); BASOPHIL % 0.5 % (0.0-2.0); EOSINOPHIL # 0.1 TH/MM3 (0-0.4); EOSINOPHIL % 1.2 % (0.0-4.0); LYMPH % 15.4 % (9.0-44.0); LYMPHOCYTE # 0.8 TH/MM3 (1.0-4.8); MEAN CORPUSCULAR HEMOGLOBIN 30.3 PG (27.0-34.0); MEAN CORPUSCULAR HGB CONC 32.6 % (32.0-36.0); MONO % 10.4 % (0.0-8.0); NEUT % 72.5 % (16.0-70.0); PLATELET COUNT 32 TH/MM3 (150-450); RED BLOOD COUNT 3.33 MIL/MM3 (4.50-5.90); RED CELL DISTRIBUTION WIDTH 17.6 % (11.6-17.2); WHITE BLOOD COUNT 5.2 TH/MM3 (4.0-11.0)
[2017-02-13 12:46] LABS: HEMO FLAGS AUTO DIFF
[2017-02-13 13:11] LABS: ALT (GPT) 32 U/L (12-78); ANION GAP 9 MEQ/L (5-15); AST (GOT) 72 U/L (15-37); BICARBONATE 28.4 MEQ/L (21.0-32.0); BLOOD UREA NITROGEN 7 MG/DL (7-18); CHLORIDE 104 MEQ/L (98-107); GLOMERULAR FILTRATION RATE 131 ML/MIN (>89); POTASSIUM 3.7 MEQ/L (3.5-5.1); SODIUM (NA) 141 MEQ/L (136-145)
[2017-02-13 13:35] LABS: ALKALINE PHOSPHATASE 339 U/L (45-117); TOTAL BILIRUBIN ADULT 1.1 MG/DL (0.2-1.0)
[2017-02-13 14:10] LABS: PLATELET ESTIMATE SMEAR LOW (NORMAL); PLATELET MORPHOLOGY NORMAL (NORMAL); SCAN/DIFF AUTO DIFF CONFIRMED
[2017-02-13 16:42] LABS: HEMOGLOBIN A1b 0.9 %; HEMOGLOBIN Ao 75.4 %; HEMOGLOBIN F 4.1 %; HEMOGLOBIN LA1C 4.2 %; HEMOGLOBIN P3 5.3 %
[2017-02-13] MEDS: INSULIN HUMAN NPH/R 70/30 1,000 UNITS/10 ML VIAL SQ SCH (18:00)
[2017-02-13] MEDS: PROPRANOLOL HCL 20 MG TAB PO SCH (20:50)
[2017-02-13] MEDS ORDERED: INSULIN DETEMIR 100 UNITS/ML VIAL SQ SCH (21:00)
[2017-02-14] VITALS (9 sets, daily range): BP systolic 100–129; BP diastolic 56–81; PULSE 69–84; RESP 16–18; TEMP 97.8–99.3; O2SAT 96–98
[2017-02-14] MEDS: INSULIN ASPART SUPPLEMENTAL SCALE SQ SCH ×4 (06:44→20:14)
[2017-02-14 07:17] LABS: AUTOMATED NEUTROPHIL # 2.9 TH/MM3 (1.8-7.7); BASOPHIL % 0.5 % (0.0-2.0); HEMATOCRIT 29.6 % (39.0-51.0); LYMPHOCYTE # 0.8 TH/MM3 (1.0-4.8); MEAN CELL VOLUME 93.3 FL (80.0-100.0); MEAN CORPUSCULAR HEMOGLOBIN 30.5 PG (27.0-34.0); MEAN CORPUSCULAR HGB CONC 32.7 % (32.0-36.0); MONO % 11.2 % (0.0-8.0); NEUT % 68.3 % (16.0-70.0); PLATELET COUNT 31 TH/MM3 (150-450); RED BLOOD COUNT 3.17 MIL/MM3 (4.50-5.90); RED CELL DISTRIBUTION WIDTH 17.7 % (11.6-17.2); WHITE BLOOD COUNT 4.3 TH/MM3 (4.0-11.0)
[2017-02-14 07:20] LABS: HEMO FLAGS AUTO DIFF
[2017-02-14 07:38] LABS: BICARBONATE 30.6 MEQ/L (21.0-32.0); POTASSIUM 3.3 MEQ/L (3.5-5.1)
[2017-02-14] MEDS: MAGNESIUM SULFATE 1 GM PREMIX 100 ML IV SCH ×4 (07:51→18:48)
[2017-02-14] MEDS: THIAMINE HCL 100 MG TAB PO SCH (07:52)
[2017-02-14] MEDS: SODIUM CHLORIDE 0.9% FLUSH 10 ML FLUSH IV FLUSH SCH ×2 (07:52→20:14)
[2017-02-14] MEDS: FOLIC ACID 1 MG TAB PO SCH (07:52)
[2017-02-14] MEDS: MULTIVITAMINS/MINERALS THERAPEUTIC TAB PO SCH (07:53)
[2017-02-14] MEDS: PROPRANOLOL HCL 20 MG TAB PO SCH ×2 (08:04→20:14)
[2017-02-14 08:30] LABS: PLATELET ESTIMATE SMEAR LOW (NORMAL); PLATELET MORPHOLOGY NORMAL (NORMAL); SCAN/DIFF AUTO DIFF CONFIRMED
[2017-02-14] MEDS ORDERED: POTASSIUM CHLORIDE 20 MEQ CONTROLLED RELEASE TAB PO ONE (09:00)
[2017-02-14] MEDS ORDERED: CYCLOBENZAPRINE HCL 10 MG TAB PO ONE (09:00)
--- NOTE | 2017-02-14 09:14 | HHI.PR ---
Subjective Remarks Follow up for fall, head injury, thrombocytopenia. The patient reports multiple complaints this morning. He complains of intermittent chest pains overnight, located at the left anterior chest without radiation, described as sharp stabbing, lasts a few minutes up to 30minutes at a time, associated with shortness of breath, nausea and dry heaving, but no vomiting. The pain is reproducible with palpation. He also complains of diffuse global headache worse at the site of his scalp laceration although he believes it is more related to a migraine; denies associated visual changes or photophobia. He also reports continued low back pain, worse then yesterday, denies any distal lower extremity numbness/weakness. He states he feels so sore throughout his entire body. He doesn't feel he can go home today, states he would just have to come right back. Objective Vitals Vital Signs Date Time Temp Pulse Resp B/P Pulse Ox O2 Delivery O2 Flow Rate FiO2 02/14/17 08:05 97.8 70 16 121/66 98 02/14/17 03:43 99.3 79 18 129/81 98 02/13/17 23:22 99.3 84 18 138/67 95 02/13/17 19:34 99.8 100 20 120/73 98 02/13/17 15:02 99.2 99 18 136/68 100 02/13/17 14:52 98 17 119/62 99 02/13/17 12:41 99.0 102 18 123/59 I/O 02/13/17 02/13/17 02/13/17 02/14/17 02/14/17 02/14/17 07:00 15:00 23:00 07:00 15:00 23:00 Output Total 200 ml 400 ml Balance -200 ml -400 ml Output Urine Total 200 ml 400 ml # Voids 1 3 Result Diagram: 02/14/17 0555 02/14/17 0556 Imaging Last Impressions Abdomen/Pelvis CT 02/13/17 2326 Signed Impressions: Service Date/Time: Monday, February 13, 2017 00:52 - CONCLUSION: 1. Cirrhosis and portal hypertension. 2. 2 mm right lower pole renal calculus. Vincent Mendosa MD Chest CT 02/13/17 0046 Signed Impressions: Service Date/Time: Monday, February 13, 2017 00:52 - CONCLUSION: 1. Cirrhosis and portal hypertension. 2. Cholelithiasis. 3. Clear lungs. Vincent Mendosa MD Thoracic Spine CT 02/12/172328 Signed Impressions: Service Date/Time: Monday, February 13, 2017 00:52 - CONCLUSION: 1. Tiny disc protrusions are noted as above without canal or foraminal stenosis. 2. No fractures are identified. Vincent Mendosa MD Lumbar Spine CT 02/12/172328 Signed Impressions: Service Date/Time: Monday, February 13, 2017 00:52 - CONCLUSION: No fracture or listhesis. Vincent Mendosa MD Head CT 02/12/172325 Signed Impressions: Service Date/Time: Monday, February 13, 2017 00:47 - CONCLUSION: Scalp soft tissue swelling. Vincent Mendosa MD Chest X-Ray 02/12/172325 Signed Impressions: Service Date/Time: Sunday, February 12, 2017 23:38 - CONCLUSION: No acute disease. Vincent Mendosa MD Cervical Spine CT 02/12/172325 Signed Impressions: Service Date/Time: Monday, February 13, 2017 00:47 - CONCLUSION: Degenerative changes are noted without evidence for acute fracture. Vincent Mendosa MD Objective Remarks GENERAL: Well-nourished, well-developed middle aged male patient in [facility]. SKIN: Warm and dry. HEENT: Normocephalic. Left occipital scalp with 3cm laceration repaired with adry, and underlying hematoma. Pupils equal and round. Mucous membranes pink and moist. CARDIOVASCULAR: Regular rate and rhythm. S1, S2 noted. No murmur appreciated. Left anterior chest wall TTP. RESPIRATORY: No accessory muscle use. Clear to auscultation. Breath sounds equal bilaterally. GASTROINTESTINAL: Abdomen soft, nondistended, mild ascites with +fluid wave, diffuse mild TTP. Normoactive bowel sounds x4. MUSCULOSKELETAL: No obvious deformities. Extremities without clubbing, cyanosis , or edema. Diffuse lumbar paraspinous muscle tenderness to palpation, no bony point tenderness. NEUROLOGICAL: Awake and alert. No obvious cranial nerve deficits. Motor grossly within normal limits. 5/5 muscle strength in bilateral upper and lower extremities. Normal speech. PSYCHIATRIC: Appropriate mood and affect; insight and judgment normal. Procedures Left occipital scalp laceration repair with adry Medications and IVs Current Medications Medications (Trade) Dose Ordered Sig/Moni Route Start Time Stop Time Status Last Admin (NS Flush) 2 ml UNSCH PRN IV FLUSH 02/13/17 02:45 (NS Flush) 2 ml BID IV FLUSH 02/13/17 09:00 02/14/17 07:52 (Narcan Inj) 0.4 mg UNSCH PRN IV 02/13/17 02:45 (D50w (Vial) Inj) 50 ml UNSCH PRN IV 02/13/17 02:45 (Glucagon Inj) 1 mg UNSCH PRN OTHER 02/13/17 02:45 (Folate) 1 mg DAILY PO 02/13/17 09:00 02/18/17 08:59 02/14/17 07:52 (Vitamin B1) 100 mg DAILY PO 02/13/17 09:00 02/14/17 07:52 (Theragran M Tab) 1 tab DAILY PO 02/13/17 09:00 02/18/17 08:59 02/14/17 07:53 (Romazicon Inj) 0.2 mg Q1M PRN IV PUSH 02/13/17 08:15 (Ativan) 1 mg Q4H PRN PO 02/13/17 08:15 (Ativan Inj) 1 mg Q4H PRN IV PUSH 02/13/17 08:15 (Ativan) 2 mg Q2H PRN PO 02/13/17 08:15 (Ativan Inj) 2 mg Q2H PRN IV PUSH 02/13/17 08:15 (Ativan Inj) 2 mg Q1H PRN IV PUSH 02/13/17 08:15 (Ativan Inj) 2 mg Q15M PRN IV PUSH 02/13/17 08:15 (Haldol Inj) 2 mg Q15M PRN IM 02/13/17 08:15 (NovoLIN 70/30 INJ) 10 units BID@08,17 SQ 02/13/17 17:00 02/13/17 18:00 Propranolol HCl 20 mg 20 mg Q12HR PO 02/13/17 21:00 02/14/17 08:04 (Magnesium Sulfate 1 Gm Premix) 100 ml @ 100 mls/hr Q1H IV 02/14/17 08:00 02/14/17 09:59 02/14/17 07:51 (KCl) 40 meq ONCE ONCE PO 02/14/17 09:00 02/14/17 09:01 02/14/17 07:52 (Flexeril) 10 mg ONCE ONCE PO 02/14/17 09:00 02/14/17 09:01 (Flexeril) 10 mg Q8H PRN PO 02/14/17 16:00 UNV A/P Problem List: (1) Head injury due to trauma ICD Code: S09.90XA Status: Acute (2) Occipital scalp laceration ICD Code: S01.01XA Status: Acute (3) Thrombocytopenia ICD Code: D69.6 Status: Chronic (4) Alcohol abuse with intoxication ICD Code: F10.129 Status: Acute (5) Alcoholic cirrhosis ICD Code: K70.30 Status: Acute (6) Esophageal varices ICD Code: I85.00 Status: Acute (7) Hyperglycemia ICD Code: R73.9 Status: Acute Assessment and Plan 46-year-old male with history of alcoholic cirrhosis, esophageal varices, thrombocytopenia, diabetes mellitus, presents with acute alcohol intoxication and fall with head injury. Mechanical Fall with +Head Injury/Laceration, Lumbar Pain: sounds mechanical slip and fall while wearing socks in bathroom, also with acute alcohol intoxication. Extensive trauma imaging reviewed including C-T-L Spine CT, Head CT, CXR, Chest CT, abd/pelvis CT grossly unremarkable for acute findings except for scalp soft tissue swelling. -scalp laceration repaired in the ED 02/12, wound care, cleanse with NS, apply antibiotic ointment daily, remove adry in 10-14 days -consult PT, no PT needed at discharge -K thermia pad for low back pain -flexeril 10mg q8h prn for muscle spasms Hyperglycemia with Type 2 Diabetes Mellitus: secondary to noncompliance with insulin -start on Novolin 70/30 10u bid -monitor Accu-checks and cover with SSI -HgbA1c 8.1 -patient seen by clinical document improvement educator, appreciate assistance Chest Pain: atypical, reproducible with palpation, suspect related to fall, however need to rule out ACS. Upon review of EMR, Nuclear Stress Test done was unremarkable. -check serial cardiac enzymes/EKGs -monitor on telemetry -replace electrolytes Thrombocytopenia: platelets 39K, worse than baseline, usually around 60K. Secondary to liver cirrhosis. Patient aware of diagnosis. -avoid antiplatelets -monitor CBC Acute Alcohol Intoxication with Chronic Alcohol Abuse: Etoh level 355 upon arrival. Patient reports history of withdrawal but no seizures. -extensively counseled on alcohol cessation -High risk for withdrawal -Seizure precautions -Continue CIWA protocol, thiamine/folate/MV -Case management to provide info on alcohol rehab resources Alcoholic Cirrhosis and Esophageal Varices: chronic -CT abd showed cirrhosis, portal hypertension, nodular liver, recanalization of umbilical vein; extensive varices within anterior abdominal wall, small ascites, and splenomegaly -Continue patient's propranolol with hold parameters -strongly encouraged alcohol cessation -avoid hepatotoxins Mild Pancreatitis: lipase 413, secondary to alcohol abuse. -given gentle IVF -patient tolerating oral intake -lipase improved to 180, resolved Tobacco Use: smokes 1/2 PPD -counseled on cessation -provide nicotine patch Hypokalemia/Hypomagnesemia: K 3.3, Mag 1.0. -Give IV Mag Sulfate x2G, and po KCl replacement -repeat labs this afternoon DVT Prophylaxis: teds/SCDs; avoid chemoprophylaxis with thrombocytopenia Discharge Planning Discharge pending further clinical improvement, possible discharge tomorrow if ACS ruled out and labs stable. Problem Qualifiers (1) Head injury due to trauma: Qualified Code: S09.90XA - Traumatic injury of head, initial encounter (2) Occipital scalp laceration: Qualified Code: S01.01XA - Laceration of occipital scalp, initial encounter Ramila Clifford PA-C Feb 14, 2017 09:14
[2017-02-14] MEDS: INSULIN HUMAN NPH/R 70/30 1,000 UNITS/10 ML VIAL SQ SCH (09:33)
[2017-02-14] MEDS: MUPIROCIN 2% OINT 22 GM TUBE TOPICAL SCH ×2 (10:05→20:15)
[2017-02-14 15:07] LABS: HEMATOCRIT 30.8 % (39.0-51.0); MEAN CELL VOLUME 94.6 FL (80.0-100.0); MEAN CORPUSCULAR HEMOGLOBIN 30.7 PG (27.0-34.0); MEAN CORPUSCULAR HGB CONC 32.4 % (32.0-36.0); PLATELET COUNT 31 TH/MM3 (150-450); RED BLOOD COUNT 3.26 MIL/MM3 (4.50-5.90); WHITE BLOOD COUNT 4.3 TH/MM3 (4.0-11.0)
[2017-02-14 15:11] LABS: REVIEW FLAG FINAL
[2017-02-14 15:24] LABS: MAGNESIUM 1.5 MG/DL (1.5-2.5); POTASSIUM 3.8 MEQ/L (3.5-5.1)
[2017-02-14] MEDS: CYCLOBENZAPRINE HCL 10 MG TAB PO PRN (18:48)
[2017-02-15 03:51] VITALS: PULSE 62
[2017-02-15 04:32] VITALS: BP 109/66; PULSE 69; RESP 18; TEMP 98.5; O2SAT 99
[2017-02-15 05:59] LABS: HEMATOCRIT 33.4 % (39.0-51.0); MEAN CELL VOLUME 94.9 FL (80.0-100.0); MEAN CORPUSCULAR HEMOGLOBIN 30.8 PG (27.0-34.0); MEAN CORPUSCULAR HGB CONC 32.5 % (32.0-36.0); PLATELET COUNT 33 TH/MM3 (150-450); RED BLOOD COUNT 3.52 MIL/MM3 (4.50-5.90); RED CELL DISTRIBUTION WIDTH 18.5 % (11.6-17.2); REVIEW FLAG FINAL; WHITE BLOOD COUNT 3.7 TH/MM3 (4.0-11.0)
[2017-02-15] MEDS: INSULIN ASPART SUPPLEMENTAL SCALE SQ SCH ×2 (06:12→11:00)
[2017-02-15 06:15] LABS: BICARBONATE 28.5 MEQ/L (21.0-32.0); MAGNESIUM 1.5 MG/DL (1.5-2.5); POTASSIUM 3.7 MEQ/L (3.5-5.1)
[2017-02-15] MEDS: CYCLOBENZAPRINE HCL 10 MG TAB PO PRN (06:40)
[2017-02-15 07:40] VITALS: BP 117/75; PULSE 71; RESP 16; TEMP 98; O2SAT 98
[2017-02-15] MEDS ORDERED: MAGNESIUM SULFATE 1 GM PREMIX 100 ML IV ONE (07:45)
[2017-02-15] MEDS ORDERED: INSULIN HUMAN NPH/R 70/30 1,000 UNITS/10 ML VIAL SQ SCH (08:00)
[2017-02-15 08:01] VITALS: PULSE 69
--- NOTE | 2017-02-15 08:01 | HHI.DS ---
Discharge Summary Admission Date Feb 13, 2017 at 01:59 Discharge Date: Feb 15, 2017 Admitting Diagnosis Head injury, etoh intoxication, thrombocytopenia (1) Head injury due to trauma ICD Code: S09.90XA - Unspecified injury of head, initial encounter Diagnosis: Principal (2) Occipital scalp laceration ICD Code: S01.01XA - Laceration without foreign body of scalp, initial encounter Diagnosis: Secondary (3) Thrombocytopenia ICD Code: D69.6 - Thrombocytopenia Diagnosis: Secondary (4) Alcohol abuse with intoxication ICD Code: F10.129 - Alcohol abuse with intoxication, unspecified Diagnosis: Secondary (5) Alcoholic cirrhosis ICD Code: K70.30 - Alcoholic cirrhosis of liver without ascites Diagnosis: Secondary (6) Esophageal varices ICD Code: I85.00 - Esophageal varices without bleeding Diagnosis: Secondary (7) Hyperglycemia ICD Code: R73.9 - Hyperglycemia, unspecified Diagnosis: Secondary (8) Chest pain ICD Code: R07.9 - Chest pain Diagnosis: Secondary (9) DM type 2 (diabetes mellitus, type 2) ICD Code: E11.9 - Type 2 diabetes mellitus without complications Diagnosis: Secondary Procedures Left occipital scalp laceration repair with adry Brief History - From Admission 46-year-old male with history of alcoholic cirrhosis, esophageal varices, thrombocytopenia, diabetes mellitus, presents with acute alcohol intoxication and fall with head injury. The patient reports he was at a friends house, ambulated to the restroom with socks on and the floors were recently waxed; he then all of a sudden slipped backwards, hit his left shoulder on the toilet, and hit the back of his head on the tub. He reports significant amount of bleeding from the head wound. Denies loss of consciousness or nausea/vomiting. Denies any chest pain, palpitations, or shortness of breath. He admits to drinking 5 rum alcoholic beverages prior to the fall. Occipital head wound repaired with ardy in the ED, and patient complains of headache/pain at the site of the wound. He also reports pain in the lower back, denies any lower extremity pain/numbness/tingling. He reports he has battled alcohol abuse for many years, previously ank 1 bottle vodka daily, quit for 2 years after diagnosed with cirrhosis, then started drinking again, usually 4-5 liquor beverages 3-4x per week. He also states when he goes fishing he will finish a 12 -pack of beer. He has some desire to quit and plans to start attending AA meetings again. Of note, patient's blood glucose over 400 upon arrival, patient states he has been out of his meds including Levemir for a few months now. CBC/BMP: 02/15/17 0543 02/15/17 0545 Significant Findings Laboratory Tests Test 02/12/17 02/12/17 02/13/17 02/13/17 23:20 23:48 00:20 03:05 Red Blood Count 3.45 MIL/MM3 (4.50-5.90) Hemoglobin 10.8 GM/DL (13.0-17.0) Hematocrit 32.3 % (39.0-51.0) Red Cell Distribution Width 17.6 % (11.6-17.2) Platelet Count 39 TH/MM3 (150-450) Monocytes (%) (Auto) 11.7 % (0.0-8.0) Prothrombin Time 13.4 SEC (9.8-11.6) Potassium Level 3.4 MEQ/L (3.5-5.1) Blood Urea Nitrogen 6 MG/DL (7-18) Estimat Glomerular Filtration 78 ML/MIN (>89) Rate Random Glucose 487 MG/DL (74-106) Hemoglobin A1c 8.1 % (4.3-6.0) Aspartate Amino Transf 86 U/L (15-37) (AST/SGOT) Alkaline Phosphatase 406 U/L (45-117) Albumin 3.1 GM/DL (3.4-5.0) Lipase 413 U/L (73-393) Venous Blood pH 7.35 (7.360-7.400) Venous Blood Partial Pressure 49 mmHg (44-48) CO2 Venous Blood Partial Pressure 47 mmHg (35-40) O2 Urine Glucose (UA) 1000 mg/dL (NEG) Urine Occult Blood SMALL (NEG) Ethyl Alcohol Level 355 MG/DL (0-5) Test 02/13/17 02/14/17 02/14/17 02/14/17 12:24 05:55 05:56 14:46 Red Blood Count 3.33 MIL/MM3 3.17 MIL/MM3 3.26 MIL/MM3 (4.50-5.90) (4.50-5.90) (4.50-5.90) Hemoglobin 10.1 GM/DL 9.7 GM/DL 10.0 GM/DL (13.0-17.0) (13.0-17.0) (13.0-17.0) Hematocrit 31.0 % 29.6 % 30.8 % (39.0-51.0) (39.0-51.0) (39.0-51.0) Red Cell Distribution Width 17.6 % 17.7 % 18.0 % (11.6-17.2) (11.6-17.2) (11.6-17.2) Platelet Count 32 TH/MM3 31 TH/MM3 31 TH/MM3 (150-450) (150-450) (150-450) Neutrophils (%) (Auto) 72.5 % (16.0-70.0) Monocytes (%) (Auto) 10.4 % 11.2 % (0.0-8.0) (0.0-8.0) Lymphocytes # (Auto) 0.8 TH/MM3 0.8 TH/MM3 (1.0-4.8) (1.0-4.8) Platelet Estimate LOW (NORMAL) LOW (NORMAL) Random Glucose 247 MG/DL 182 MG/DL (74-106) (74-106) Total Bilirubin 1.1 MG/DL (0.2-1.0) Aspartate Amino Transf 72 U/L (15-37) (AST/SGOT) Alkaline Phosphatase 339 U/L (45-117) Albumin 2.8 GM/DL (3.4-5.0) Potassium Level 3.3 MEQ/L (3.5-5.1) Calcium Level 8.3 MG/DL (8.5-10.1) Magnesium Level 1.0 MG/DL (1.5-2.5) Troponin I 0.08 NG/ML 0.09 NG/ML (0.02-0.05) (0.02-0.05) Test 02/14/17 02/15/17 02/15/17 19:59 05:43 05:45 Troponin I 0.08 NG/ML (0.02-0.05) White Blood Count 3.7 TH/MM3 (4.0-11.0) Red Blood Count 3.52 MIL/MM3 (4.50-5.90) Hemoglobin 10.9 GM/DL (13.0-17.0) Hematocrit 33.4 % (39.0-51.0) Red Cell Distribution Width 18.5 % (11.6-17.2) Platelet Count 33 TH/MM3 (150-450) Sodium Level 134 MEQ/L (136-145) Random Glucose 163 MG/DL (74-106) Calcium Level 7.8 MG/DL (8.5-10.1) Imaging Last Impressions Abdomen/Pelvis CT 02/13/172325 Signed Impressions: Service Date/Time: Monday, February 13, 2017 00:52 - CONCLUSION: 1. Cirrhosis and portal hypertension. 2. 2 mm right lower pole renal calculus. Vincent Mendosa MD Chest CT 02/13/176 Signed Impressions: Service Date/Time: Monday, February 13, 2017 00:52 - CONCLUSION: 1. Cirrhosis and portal hypertension. 2. Cholelithiasis. 3. Clear lungs. Vincent Mendosa MD Thoracic Spine CT 02/12/172328 Signed Impressions: Service Date/Time: Monday, February 13, 2017 00:52 - CONCLUSION: 1. Tiny disc protrusions are noted as above without canal or foraminal stenosis. 2. No fractures are identified. Vincent Mendosa MD Lumbar Spine CT 02/12/172328 Signed Impressions: Service Date/Time: Monday, February 13, 2017 00:52 - CONCLUSION: No fracture or listhesis. Vincent Mendosa MD Head CT 02/12/172325 Signed Impressions: Service Date/Time: Monday, February 13, 2017 00:47 - CONCLUSION: Scalp soft tissue swelling. Vincent Mendosa MD Chest X-Ray 02/12/172325 Signed Impressions: Service Date/Time: Sunday, February 12, 2017 23:38 - CONCLUSION: No acute disease. Vincent Mendosa MD Cervical Spine CT 02/12/172325 Signed Impressions: Service Date/Time: Wednesday, February 13, 2017 00:47 - CONCLUSION: Degenerative changes are noted without evidence for acute fracture. Vincent Mendosa MD PE at Discharge GENERAL: Well-nourished, well-developed middle aged male patient in [facility]. SKIN: Warm and dry. HEENT: Normocephalic. Left occipital scalp with 3cm laceration repaired with adry, and underlying hematoma. Pupils equal and round. Mucous membranes pink and moist. CARDIOVASCULAR: Regular rate and rhythm. S1, S2 noted. No murmur appreciated. Left axillary chest wall is exquisitely TTP. RESPIRATORY: No accessory muscle use. Clear to auscultation. Breath sounds equal bilaterally. GASTROINTESTINAL: Abdomen soft, nondistended. RUQ TTP, chronic per patient. Normoactive bowel sounds x4. MUSCULOSKELETAL: No obvious deformities. Extremities without clubbing, cyanosis , or edema. Diffuse lumbar paraspinous muscle tenderness to palpation, no bony point tenderness. NEUROLOGICAL: Awake and alert. No obvious cranial nerve deficits. Motor grossly within normal limits. Normal speech. PSYCHIATRIC: Appropriate mood and affect; insight and judgment normal. Pt update on day of discharge Patient continues to complain of left axillary chest pain that is worse whenever touched or with movement. He did fall onto that side. Offered a rib x -ray, but he declines. No shortness of breath. He had some dry heaving yesterday, no vomiting and has been tolerating diet. He still feels a little weak and dizzy, but has been out of bed with PT. He states that he does not keep track of his diabetes. Previous on metformin and previously on Novolin 70/ 30. He does have a glucometer at home. He admits that he should stop drinking. Hospital Course 46-year-old male with history of alcoholic cirrhosis, esophageal varices, thrombocytopenia, diabetes mellitus, presents with acute alcohol intoxication and fall with head injury. Mechanical Fall with +Head Injury/Laceration, Lumbar Pain: sounds mechanical slip and fall while wearing socks in bathroom, also with acute alcohol intoxication. Extensive trauma imaging reviewed including C-T-L Spine CT, Head CT, CXR, Chest CT, abd/pelvis CT grossly unremarkable for acute findings except for scalp soft tissue swelling. -scalp laceration repaired in the ED 02/12, wound care, cleanse with NS, apply antibiotic ointment daily, remove adry in 10-14 days -consulted PT, no PT needed at discharge -flexeril 10mg q8h prn for muscle spasms Hyperglycemia with Type 2 Diabetes Mellitus: secondary to noncompliance with insulin -started back on Novolin 70/30 10u bid -monitor Accu-checks -HgbA1c 8.1 -patient seen by educator senior clinical, appreciate assistance Chest Pain: atypical, reproducible with palpation, suspect related to fall, however need to rule out ACS. Upon review of EMR, Nuclear Stress Test done was unremarkable. Chest CT unremarkable as above. -ACS ruled out per protocol; troponins flat, nonischemic; EKG with nonspecific T-wave changes -[facility] pain control Thrombocytopenia: platelets remained stable in the 30s throughout admission. Secondary to liver cirrhosis. -avoid antiplatelets Acute Alcohol Intoxication with Chronic Alcohol Abuse: Etoh level 355 upon arrival. Patient reports history of withdrawal but no seizures. -extensively counseled on alcohol cessation -Case management to provide info on alcohol rehab resources Alcoholic Cirrhosis and Esophageal Varices: chronic -CT abd showed cirrhosis, portal hypertension, nodular liver, recanalization of umbilical vein; extensive varices within anterior abdominal wall, small ascites, and splenomegaly -Continue patient's propranolol -strongly encouraged alcohol cessation Mild Pancreatitis: lipase 413, secondary to alcohol abuse. -given gentle IVF -patient tolerating oral intake -lipase improved to 180, resolved Pt Condition on Discharge: Stable Discharge Disposition: Discharge Home Discharge Time: > 30 minutes Discharge Instructions DIET: Follow Instructions for: Heart Healthy Diet, Diabetic Diet Activities you can perform: Regular-No Restrictions Jeffry Norman Feb 15, 2017 08:01 Damián Vasquez MD Feb 18, 2017 00:47
[2017-02-15] MEDS ORDERED: MUPI2OIN TOPICAL (08:04)
[2017-02-15] MEDS ORDERED: NOVO7030P2 SQ (08:04)
[2017-02-15] MEDS ORDERED: CYCL1TAB29 PO (08:04)
[2017-02-15] MEDS: PROPRANOLOL HCL 20 MG TAB PO SCH (08:23)
[2017-02-15] MEDS: FOLIC ACID 1 MG TAB PO SCH (08:23)
[2017-02-15] MEDS: THIAMINE HCL 100 MG TAB PO SCH (08:23)
[2017-02-15] MEDS: MULTIVITAMINS/MINERALS THERAPEUTIC TAB PO SCH (08:23)
[2017-02-15] MEDS: MUPIROCIN 2% OINT 22 GM TUBE TOPICAL SCH (08:23)
[2017-02-15] MEDS: SODIUM CHLORIDE 0.9% FLUSH 10 ML FLUSH IV FLUSH SCH (08:24)
--- NOTE | 2017-02-15 15:20 | EKG ---
Date Performed: 02/14/2017 Time Performed: 13:00:32 PTAGE: 46 years EKG: Sinus rhythm PROLONGED QT INTERVAL Compared to previous tracing, QT interval is somewhat more prolonged. Overall T wave changes have improved ABNORMAL ECG PREVIOUS TRACING : 02/13/2017 00.11 DOCTOR: Javier Unger Interpretating Date/Time 02/15/2017 15:18:32
--- NOTE | 2017-02-15 15:20 | EKG ---
Date Performed: 02/14/2017 Time Performed: 18:53:42 PTAGE: 46 years EKG: Sinus rhythm PROLONGED QT INTERVAL Compared to previous tracing, QT interval is somewhat less prolonged but still slightly abnormal ABNORMAL ECG PREVIOUS TRACING : 02/14/2017 13.00 DOCTOR: Javier Unger Interpretating Date/Time 02/15/2017 15:19:14
== END 2017-02-15 12:23 | disposition home or self-care (01) ==
LOC: NEPE 23:10 → NEDA 02-13 01:59 → NEPFCDU 02-13 15:23
PROVIDERS: ADMIT Internal Medicine; ATTEND Internal Medicine
DX: S01.01XA Laceration without foreign body of scalp, initial encounter (principal); N20.0 Calculus of kidney; F10.129 Alcohol abuse with intoxication, unspecified; D69.6 Thrombocytopenia, unspecified; K70.30 Alcoholic cirrhosis of liver without ascites; I85.10 Secondary esophageal varices without bleeding; E11.65 Type 2 diabetes mellitus with hyperglycemia; F17.210 Nicotine dependence, cigarettes, uncomplicated; K76.6 Portal hypertension; K85.90 Acute pancreatitis without necrosis or infection, unspecified; Z91.14 Patient's other noncompliance with medication regimen; K21.9 Gastro-esophageal reflux disease without esophagitis; E83.42 Hypomagnesemia; E87.6 Hypokalemia; I10 Essential (primary) hypertension; R94.31 Abnormal electrocardiogram [ECG] [EKG]; W01.0XXA Fall on same level from slipping, tripping and stumbling without subsequent striking against object, initial encounter; Z79.899 Other long term (current) drug therapy; Z79.84 Long term (current) use of oral hypoglycemic drugs
CPT/HCPCS: 12002; 70450; 71010; 71260; 72125; 72128; 72131; 74177; 80048; 80053; 80307; 81001; 82010; 82550; 82805; 82948; 83036; 83690; 83735; 84132; 84484; 85025; 85027; 85610; 85730; 90471; 90715; 93005; 96365; 96366; 96367; 96372; 96376; 97161; 99285; G0378; G8987; G8988; J0690; J1815; J3475; J7040; Q9967

== ENCOUNTER 2017-02-27 12:57 | Emergency (ER) | payer OTHER ==
[~2017-02-27] VITALS: Ht 182.9 cm; Wt 81.6 kg
[~2017-02-27 12:57] MED LIST changes: +CYCL1TAB29 PO; -LEVEMIR SQ; -METF500T PO; -METR-1 PO; +MUPI2OIN TOPICAL; +NOVO7030P2 SQ; -TRAZ300T2 PO
[2017-02-27 13:08] VITALS: BP 162/72; PULSE 130; RESP 18; TEMP 98; O2SAT 95
[2017-02-27] MEDS ORDERED: NOVO7030P2 SQ (13:27)
--- NOTE | 2017-02-27 15:02 | RADRPT ---
EXAM DATE/TIME: 02/27/2017 14:27 [place] COMPARISON: CT BRAIN W/O CONTRAST, February 13, 2017, 0:47. INDICATIONS : Headache since closed head injury 2 weeks ago. RADIATION DOSE: 65.42 CTDIvol (mGy) MEDICAL HISTORY : Hypertension. Cirrhosis. Pancreatitis. SURGICAL HISTORY : None. ENCOUNTER: Initial ACUITY: 2 weeks PAIN SCALE: 9/10 LOCATION: cranial TECHNIQUE: Multiple contiguous axial images were obtained of the head. Using automated exposure control and adj ustment of the mA and/or kV according to patient size, radiation dose was kept as low as reasonably a chievable to obtain optimal diagnostic quality images. DICOM format image data is available electro nically for review and comparison. FINDINGS: CEREBRUM: The ventricles are normal for age. No evidence of midline shift, mass lesion, hemorrhage or acute in farction. No extra-axial fluid collections are seen. POSTERIOR FOSSA: The cerebellum and brainstem are intact. The 4th ventricle is midline. The cerebellopontine angle i s unremarkable. EXTRACRANIAL: The visualized portion of the orbits is intact. SKULL: The calvaria is intact. No evidence of skull fracture. CONCLUSION: 1. No acute intracranial abnormality. Raghav Davidson MD on February 27, 2017 at 14:57 Board Certified Radiologist. This report was verified electronically.
[2017-02-27] MEDS ORDERED: KETOROLAC TROMETHAMINE 60 MG/2 ML (IM) VIAL IM ONE (15:15)
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
== END 2017-02-27 15:32 | disposition home or self-care (01) ==
LOC: PHEFT 12:57
DX: R51 Headache (principal); Z48.02 Encounter for removal of sutures; F17.210 Nicotine dependence, cigarettes, uncomplicated; I10 Essential (primary) hypertension; K74.60 Unspecified cirrhosis of liver; E11.9 Type 2 diabetes mellitus without complications; Z88.0 Allergy status to penicillin
CPT/HCPCS: 70450; 96372; 99285; J1885

== ENCOUNTER 2017-04-02 22:06 | Observation (INO) | payer OTHER ==
[~2017-04-02] VITALS: Ht 182.9 cm; Wt 82.0 kg
[~2017-04-02 22:06] MED LIST changes: -CARA1TAB6 PO; -CYCL1TAB29 PO; -GNP100TA3 PO; -MUPI2OIN TOPICAL; -NORC5TAB PO
[2017-04-02 22:10] VITALS: BP 147/101; PULSE 120; RESP 18; TEMP 98.5; O2SAT 95
[2017-04-02] MEDS ORDERED: THIAMINE INJ 100 MG in SODIUM CHLORIDE 0.9% INJ 100 ML IV ONE (22:15)
[2017-04-02] MEDS ORDERED: SODIUM CHLORID 0.9% 500 ML INJ 500 ML IV ONE (22:15)
[2017-04-02] MEDS ORDERED: SODIUM CHLORIDE 0.9% FLUSH 10 ML FLUSH IVF PRN (22:15)
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
[2017-04-02 22:40] LABS: AUTOMATED NEUTROPHIL # 2.9 TH/MM3 (1.8-7.7); BASOPHIL # 0.1 TH/MM3 (0-0.2); BASOPHIL % 1.3 % (0.0-2.0); EOSINOPHIL # 0.1 TH/MM3 (0-0.4); EOSINOPHIL % 2.9 % (0.0-4.0); HEMATOCRIT 34.3 % (39.0-51.0); HEMO FLAGS DIFF FINAL; LYMPH % 25.8 % (9.0-44.0); LYMPHOCYTE # 1.3 TH/MM3 (1.0-4.8); MEAN CELL VOLUME 94.9 FL (80.0-100.0); MEAN CORPUSCULAR HEMOGLOBIN 30.1 PG (27.0-34.0); MEAN CORPUSCULAR HGB CONC 31.7 % (32.0-36.0); MONO % 12.8 % (0.0-8.0); NEUT % 57.2 % (16.0-70.0); PLATELET COUNT 115 TH/MM3 (150-450); RED BLOOD COUNT 3.61 MIL/MM3 (4.50-5.90); RED CELL DISTRIBUTION WIDTH 21.8 % (11.6-17.2)
[2017-04-02 22:45] VITALS: BP 152/90; PULSE 110; RESP 18; O2SAT 97
[2017-04-02 22:49] LABS: POTASSIUM 4.2 MEQ/L (3.5-5.1)
[2017-04-02 22:52] LABS: BICARBONATE 26.5 MEQ/L (21.0-32.0); MAGNESIUM 1.7 MG/DL (1.5-2.5)
[2017-04-02 22:54] LABS: APTT (PATIENT) 25.8 SEC (24.3-30.1); INTERNATIONAL NORMALIZED RATIO 1.1 RATIO; PROTHROMBIN TIME - PATIENT 12.7 SEC (9.8-11.6)
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
[2017-04-02 22:56] LABS: BETA-HYDROXYBUTYRATE 0.18 MMOL/L (0.00-0.39)
[2017-04-02 23:00] VITALS: BP 168/99; PULSE 120; RESP 18; O2SAT 95
[2017-04-02 23:12] LABS: BLOOD, URINE NEG (NEG); GLUCOSE,URINE 1000 OR GREATER mg/dL (NEG); KETONE, URINE NEG (NEG); NITRITE,URINE NEG (NEG)
[2017-04-02 23:28] LABS: URINE COLOR YELLOW (YELLW/STRAW)
[2017-04-02 23:30] VITALS: BP 136/92; PULSE 108; RESP 18; O2SAT 94
[2017-04-02 23:30] LABS: COMMENT (UR) CULT NOT INDICATED; CULTURE IF INDICATED CULT NOT INDICATED; SQUAMOUS EPITHELIAL CELL URINE 0-5 /hpf (0-5)
[2017-04-02] MEDS ORDERED: IOHEXOL 350 MG/ML 10 ML VIAL (for RAD DIAG) IVCONTRAST ONE (23:42)
[2017-04-02] MEDS ORDERED: INSULIN HUMAN REGULAR 1,000 UNITS/10 ML VIAL IV PUSH ONE (23:45)
[2017-04-02] MEDS ORDERED: SODIUM CHLOR 0.9% 1000 ML INJ 1,000 ML IV ONE (23:45)
[2017-04-02] MEDS: SODIUM CHLOR 0.9% 1000 ML INJ 1,000 ML IV SCH (23:47)
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
[2017-04-03] VITALS (13 sets, daily range): BP systolic 124–159; BP diastolic 66–95; PULSE 78–112; RESP 11–18; TEMP 94–100.8; O2SAT 94–98
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
[2017-04-03] MEDS ORDERED: LEVEMIR SQ (00:46)
[2017-04-03] MEDS ORDERED: MAGN64 PO (00:49)
[2017-04-03] MEDS ORDERED: POTA8CAP PO (00:49)
[2017-04-03] MEDS ORDERED: ACYC400T PO (00:51)
[2017-04-03] MEDS ORDERED: SODIUM CHLORIDE 0.9% FLUSH 10 ML FLUSH IV FLUSH PRN (01:45)
[2017-04-03] MEDS ORDERED: FLUMAZENIL 0.5 MG/5 ML VIAL IV PUSH PRN ×2 (01:45→03:00)
[2017-04-03] MEDS ORDERED: DEXTROSE 50% IN WATER 50 ML VIAL(D50) IV PUSH PRN ×3 (01:45)
[2017-04-03] MEDS ORDERED: NALOXONE HCL 0.4 MG/ML AMP IV PUSH PRN (01:45)
[2017-04-03] MEDS ORDERED: LORazepam 2 MG/ML VIAL IV PUSH PRN ×8 (01:45→03:00)
[2017-04-03] MEDS ORDERED: SODIUM CHLORIDE 0.9% FLUSH 10 ML FLUSH IVF PRN (01:45)
[2017-04-03] MEDS ORDERED: GLUCAGON 1 MG/ML VIAL OTHER PRN ×3 (01:45)
[2017-04-03] MEDS ORDERED: LORazepam 2 MG TAB PO PRN ×2 (01:45→03:00)
[2017-04-03] MEDS ORDERED: ONDANSETRON HCL 4 MG/2 ML VIAL IV PUSH ONE (02:45)
[2017-04-03] MEDS ORDERED: INSULIN HUMAN REGULAR 1,000 UNITS/10 ML VIAL IV PUSH ONE (02:45)
[2017-04-03] MEDS ORDERED: MORPHINE SULFATE 4 MG/ML INJ IV PUSH ONE (02:45)
[2017-04-03] MEDS ORDERED: LORazepam 1 MG TAB PO PRN (03:00)
[2017-04-03] MEDS: INSULIN ASPART SUPPLEMENTAL SCALE SQ SCH ×4 (08:07→22:16)
[2017-04-03] MEDS: THIAMINE HCL 100 MG TAB PO SCH (08:07)
[2017-04-03] MEDS ORDERED: SODIUM CHLORIDE 0.9% FLUSH 10 ML FLUSH IV FLUSH SCH (09:00)
[2017-04-03] MEDS: SODIUM CHLOR 0.9% 1000 ML INJ 1,000 ML IV SCH ×2 (09:31→16:52)
[2017-04-03] MEDS: SODIUM CHLORIDE 0.9% FLUSH 10 ML FLUSH IV FLUSH SCH ×2 (09:31→22:17)
[2017-04-03] MEDS ORDERED: ALPRAZolam 1 MG TAB PO PRN (10:45)
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
[2017-04-03] MEDS: INSULIN DETEMIR 100 UNITS/ML VIAL SQ SCH ×2 (14:00→21:00)
--- NOTE | 2017-04-03 14:28 | EKG ---
Date Performed: 04/03/2017 Time Performed: 11:24:36 PTAGE: 46 years EKG: Sinus rhythm NONSPECIFIC T-WAVE ABNORMALITY BORDERLINE ECG PREVIOUS TRACING : 04/03/2017 04.18 Compared to prior tracing no significant change DOCTOR: Venus Clarke Interpretating Date/Time 04/03/2017 14:27:12
--- NOTE | 2017-04-03 14:46 | EKG ---
Date Performed: 04/03/2017 Time Performed: 04:18:33 PTAGE: 46 years EKG: SINUS TACHYCARDIA NONSPECIFIC T-WAVE ABNORMALITY ABNORMAL RHYTHM ECG PREVIOUS TRACING : 04/02/2017 23.54 Compared to prior tracing no significant change DOCTOR: Venus Clarke Interpretating Date/Time 04/03/2017 14:45:13
--- NOTE | 2017-04-03 14:50 | EKG ---
Date Performed: 04/02/2017 Time Performed: 23:54:48 PTAGE: 46 years EKG: SINUS TACHYCARDIA NONSPECIFIC T-WAVE ABNORMALITY ABNORMAL RHYTHM ECG PREVIOUS TRACING : 02/14/2017 18.53 Compared to prior tracing no significant change DOCTOR: Venus Clarke Interpretating Date/Time 04/03/2017 14:50:04
[2017-04-03] MEDS: LORazepam 1 MG TAB PO PRN ×2 (16:51→22:17)
[2017-04-03] MEDS: PROPRANOLOL HCL 20 MG TAB PO SCH (16:51)
[2017-04-04] VITALS (7 sets, daily range): BP systolic 135–160; BP diastolic 76–97; PULSE 78–91; RESP 16–20; TEMP 97.7–99.9; O2SAT 78–100
[2017-04-04] MEDS: SODIUM CHLOR 0.9% 1000 ML INJ 1,000 ML IV SCH ×3 (06:16→23:15)
[2017-04-04] MEDS: INSULIN ASPART SUPPLEMENTAL SCALE SQ SCH ×4 (08:00→21:00)
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
[2017-04-04] MEDS ORDERED: LEVEMIR SQ (09:04)
[2017-04-04] MEDS ORDERED: GNP100TA3 PO (09:04)
[2017-04-04] MEDS ORDERED: NOVO7030P2 SQ (09:04)
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
[2017-04-04] MEDS: THIAMINE HCL 100 MG TAB PO SCH (09:10)
[2017-04-04] MEDS: PROPRANOLOL HCL 20 MG TAB PO SCH (09:10)
[2017-04-04] MEDS: INSULIN DETEMIR 100 UNITS/ML VIAL SQ SCH ×2 (09:11→21:00)
[2017-04-04] MEDS: POTASSIUM CHLORIDE 8 MEQ CONTROLLED RELEASE TAB PO SCH (09:11)
[2017-04-04] MEDS: SODIUM CHLORIDE 0.9% FLUSH 10 ML FLUSH IV FLUSH SCH ×2 (09:13→21:00)
[2017-04-04 10:24] LABS: AUTOMATED NEUTROPHIL # 1.7 TH/MM3 (1.8-7.7); BASOPHIL % 0.8 % (0.0-2.0); EOSINOPHIL # 0.1 TH/MM3 (0-0.4); EOSINOPHIL % 2.1 % (0.0-4.0); HEMATOCRIT 30.7 % (39.0-51.0); LYMPH % 21.6 % (9.0-44.0); LYMPHOCYTE # 0.7 TH/MM3 (1.0-4.8); MEAN CELL VOLUME 91.3 FL (80.0-100.0); MEAN CORPUSCULAR HGB CONC 31.8 % (32.0-36.0); MONO % 16.7 % (0.0-8.0); NEUT % 58.8 % (16.0-70.0); PLATELET COUNT 57 TH/MM3 (150-450); RED BLOOD COUNT 3.37 MIL/MM3 (4.50-5.90); RED CELL DISTRIBUTION WIDTH 20.3 % (11.6-17.2)
[2017-04-04 10:28] LABS: HEMO FLAGS AUTO DIFF
[2017-04-04 10:35] LABS: CHLORIDE 101 MEQ/L (98-107); POTASSIUM 3.6 MEQ/L (3.5-5.1); SODIUM (NA) 138 MEQ/L (136-145)
[2017-04-04 10:39] LABS: ANION GAP 9 MEQ/L (5-15); BICARBONATE 27.6 MEQ/L (21.0-32.0)
[2017-04-04 10:55] LABS: PLATELET ESTIMATE SMEAR LOW (NORMAL); PLATELET MORPHOLOGY NORMAL (NORMAL); SCAN/DIFF AUTO DIFF CONFIRMED
[2017-04-04] MEDS: MAGNESIUM CHLORIDE 64 MG TAB PO SCH (10:57)
[2017-04-04 11:29] LABS: ALKALINE PHOSPHATASE 209 U/L (45-117); ALT (GPT) 29 U/L (12-78); AST (GOT) 65 U/L (15-37); BLOOD UREA NITROGEN 6 MG/DL (7-18); GLOMERULAR FILTRATION RATE 199 ML/MIN (>89); TOTAL BILIRUBIN ADULT 2.2 MG/DL (0.2-1.0)
[2017-04-05 04:00] VITALS: BP 138/80; PULSE 83; RESP 16; TEMP 98.3; O2SAT 97
[2017-04-05] MEDS: INSULIN ASPART SUPPLEMENTAL SCALE SQ SCH (08:19)
[2017-04-05] MEDS: INSULIN DETEMIR 100 UNITS/ML VIAL SQ SCH (08:19)
[2017-04-05 08:29] VITALS: BP 144/83; PULSE 83; RESP 18; TEMP 98.3; O2SAT 97
[2017-04-05] MEDS: MAGNESIUM CHLORIDE 64 MG TAB PO SCH (09:03)
[2017-04-05] MEDS: THIAMINE HCL 100 MG TAB PO SCH (09:04)
[2017-04-05] MEDS: POTASSIUM CHLORIDE 8 MEQ CONTROLLED RELEASE TAB PO SCH (09:04)
[2017-04-05] MEDS: PROPRANOLOL HCL 20 MG TAB PO SCH (09:04)
[2017-04-05] MEDS: SODIUM CHLORIDE 0.9% FLUSH 10 ML FLUSH IV FLUSH SCH (09:05)
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
[2017-04-05 10:01] LABS: AUTOMATED NEUTROPHIL # 2.5 TH/MM3 (1.8-7.7); BASOPHIL % 0.5 % (0.0-2.0); EOSINOPHIL # 0.1 TH/MM3 (0-0.4); EOSINOPHIL % 1.7 % (0.0-4.0); LYMPH % 15.1 % (9.0-44.0); LYMPHOCYTE # 0.5 TH/MM3 (1.0-4.8); MEAN CELL VOLUME 92.1 FL (80.0-100.0); MEAN CORPUSCULAR HEMOGLOBIN 29.2 PG (27.0-34.0); MEAN CORPUSCULAR HGB CONC 31.7 % (32.0-36.0); MONO % 14.5 % (0.0-8.0); NEUT % 68.2 % (16.0-70.0); PLATELET COUNT 64 TH/MM3 (150-450); RED BLOOD COUNT 3.15 MIL/MM3 (4.50-5.90); RED CELL DISTRIBUTION WIDTH 20.4 % (11.6-17.2); WHITE BLOOD COUNT 3.6 TH/MM3 (4.0-11.0)
[2017-04-05 10:04] LABS: HEMO FLAGS AUTO DIFF
[2017-04-05 10:14] LABS: POTASSIUM 3.7 MEQ/L (3.5-5.1)
[2017-04-05 10:18] LABS: BICARBONATE 27.6 MEQ/L (21.0-32.0)
[2017-04-05 10:52] LABS: PLATELET ESTIMATE SMEAR LOW (NORMAL); PLATELET MORPHOLOGY NORMAL (NORMAL); SCAN/DIFF AUTO DIFF CONFIRMED; TARGET CELLS 1+ (NORMAL)
[2017-04-05] MEDS ORDERED: COLA100C PO (11:39)
[2017-04-05] MEDS ORDERED: PANT40TA3 PO (11:40)
[2017-04-05] MEDS ORDERED: MIRA3350 PO (11:45)
[2017-04-05 13:49] LABS: HEMOGLOBIN A1a 1.8 %; HEMOGLOBIN A1b 0.7 %; HEMOGLOBIN Ao 78.7 %; HEMOGLOBIN F 3.9 %; HEMOGLOBIN LA1C 2.6 %; HEMOGLOBIN P3 3.7 %
[2017-04-05] MEDS ORDERED: DOCUSATE SODIUM 100 MG CAP PO SCH (21:00)
[2017-04-06] MEDS ORDERED: POLYETHYLENE GLYCOL 17 GM PKG PO SCH (09:00)
[2017-04-06] MEDS ORDERED: PANTOPRAZOLE SOD 40 MG DELAYED RELEASE TAB PO SCH (09:00)
== END 2017-04-05 10:38 | disposition home or self-care (01) ==
LOC: PHED 22:06 → PHEDA 04-03 01:42 → INTOOBSV 04-03 01:42 → PHICU 04-03 04:29 → PH5A 04-03 08:35
PROVIDERS: ADMIT Hospitalist; ATTEND Hospitalist
DX: E11.65 Type 2 diabetes mellitus with hyperglycemia (principal); F10.229 Alcohol dependence with intoxication, unspecified; R18.8 Other ascites; I10 Essential (primary) hypertension; K76.6 Portal hypertension; D61.818 Other pancytopenia; R07.9 Chest pain, unspecified; M54.2 Cervicalgia; M54.5 Low back pain; G89.29 Other chronic pain; J45.909 Unspecified asthma, uncomplicated; S20.319A Abrasion of unspecified front wall of thorax, initial encounter; G47.30 Sleep apnea, unspecified; L40.9 Psoriasis, unspecified; K85.90 Acute pancreatitis without necrosis or infection, unspecified; Y09 Assault by unspecified means; D69.6 Thrombocytopenia, unspecified; F32.9 Major depressive disorder, single episode, unspecified; F41.9 Anxiety disorder, unspecified; Z72.0 Tobacco use; Z79.4 Long term (current) use of insulin
CPT/HCPCS: 70450; 70486; 71010; 71260; 72125; 74177; 80048; 80053; 80307; 81001; 82010; 82140; 82550; 82948; 83036; 83735; 84484; 85025; 85610; 85730; 86850; 86900; 86901; 86920; 93005; 96360; 96361; 96365; 96372; 96374; 96375; 96376; 99285; G0378; J1815; J2270; J2405; J3411; J7030; J7040; Q9967

== ENCOUNTER 2017-06-04 13:47 | Inpatient (IN) | payer OTHER ==
[~2017-06-04] VITALS: Ht 182.9 cm; Wt 89.9 kg
[~2017-06-04 13:47] MED LIST changes: +ACYC400T PO; -CALC600T4 PO; +COLA100C5 PO; +LEVEMIR SQ; +MAGN64 PO; +MIRA3350 PO; +PANT40TA3 PO; +POTA8CAP PO; +THIA100 PO
[2017-06-04 13:54] VITALS: BP 150/97; PULSE 102; RESP 18; TEMP 98.3; O2SAT 99
[2017-06-04] MEDS ORDERED: XANA1TAB2 PO (14:00)
[2017-06-04] MEDS ORDERED: PROP20TA3 PO (14:00)
--- NOTE | 2017-06-04 14:13 | PD ---
HPI Chief Complaint: Chest Pain Time Seen by Provider: 13:54 Travel History International Travel<30 days: No Contact w/Intl Traveler<30days: No Traveled to known affect area: No History of Present Illness HPI This 46-year-old male is complaining of abdominal and chest pain. He says the pain began about for 5 days ago. He has not had fever or chills. He has noted that his abdomen has become increasingly bloated. He has pain when he tries to drink. He has a history of kidney, pancreatic and liver disease due to alcohol abuse. He says he has not drank for the past month. He is having burning sharp pain on both sides of his chest which is aggravated when he tries to take deep breath. His esophageal varices and has had them banded in the past. He has not had paracentesis in the past. He had a CT scan done April 03, 2017 at which time he was noted to have cirrhosis and portal hypertension. She had extensive varices round the paraumbilical veins in the anterior abdominal wall. There was minimal free fluid noted at that time. He has not been having fever that he is aware of. PFSH Past Medical History Arthritis: No Asthma: Yes Autoimmune Disease: No Blood Disorders: Yes (ESOPHAGEAL VARICES) Anxiety: Yes Depression: No Heart Rhythm Problems: No Cancer: No Cardiovascular Problems: Yes (htn) High Cholesterol: No Chemotherapy: No Chest Pain: Yes Congestive Heart Failure: No Cirrhosis: Yes (Stage 4 (Alcoholic related)) COPD: No Cerebrovascular Accident: No Diabetes: Yes Diminished Hearing: No Endocrine: Yes Gastrointestinal Disorders: Yes (ESOPHAGEAL VARICES) GERD: Yes Genitourinary: No Headaches: No Hiatal Hernia: No Heparin Induced Thrombocytopen: No Hypertension: Yes Immune Disorder: No Implanted Vascular Access Dvce: No Kidney Stones: No Musculoskeletal: Yes (CHRONIC BACK PAIN) Neurologic: Yes Psychiatric: No Reproductive: No Respiratory: Yes Integumentary: Yes (Psoriasis) Immunizations Current: Yes Migraines: No Pancreatitis: Yes Radiation Therapy: No Renal Failure: No Seizures: No Sickle Cell Disease: No Sleep Apnea: Yes Thyroid Disease: No Ulcer: No Past Surgical History Abdominal Surgery: No AICD: No Arteriovenous Shunt: No Cardiac Surgery: No Ear Surgery: No Endocrine Surgery: No Eye Surgery: No Genitourinary Surgery: No Gynecologic Surgery: No Insulin Pump: No Joint Replacement: No Neurologic Surgery: No Oral Surgery: No Pacemaker: No Thoracic Surgery: No Other Surgery: Yes (Liver BX, esophageal banding) Social History Alcohol Use: No (QUIT "ABOUT A MONTH AGO") Tobacco Use: Yes (one half pack per day) Substance Use: No (pt denies using any illegal substances ) Allergies-Medications (Allergen,Severity, Reaction): Coded Allergies: hydromorphone (Unverified Allergy, Mild, Hives, 04/02/17) pt. states he has had Dilaudid and does not have an allergy to it. *MDRO Multi-Drug Resistant Organism (Verified Adverse Reaction, Unknown, ) MRSA PCR (nares) POSITIVE - 12/02/2015 penicillin G (Unverified Adverse Reaction, Unknown, Hives, 04/02/17) Reported Meds & Prescriptions Reported Meds & Active Scripts Active Reported Propranolol (Propranolol HCl) 20 Mg Tab 20 Mg PO DAILY Xanax (Alprazolam) 1 Mg Tab 1 Mg PO Q6H PRN Review of Systems General / Constitutional: No: Fever, Chills Eyes: No: Diploplia, Blurred Vision HENT: No: Headaches, Vertigo Cardiovascular: Positive: Chest Pain or Discomfort, No: Palpitations Respiratory: No: Cough Gastrointestinal: Positive: Nausea, Loss of Appetite, No: Vomiting Genitourinary: No: Frequency, Dysuria Musculoskeletal: No: Myalgias, Arthralgias Neurologic: Positive: Weakness Physical Exam Narrative GENERAL chronically ill-appearing male SKIN: Focused skin assessment warm/dry. He is jaundiced HEAD: Atraumatic. Normocephalic. EYES: Pupils equal and round. There is scleral icterus. No injection or drainage. ENT: No nasal bleeding or discharge. Mucous membranes pink and moist. NECK: Trachea midline. No JVD. CARDIOVASCULAR: Regular rate and rhythm. No murmur appreciated. RESPIRATORY: No accessory muscle use. Clear to auscultation. Breath sounds equal bilaterally. GASTROINTESTINAL: Abdomen distended, firm. Bowel sounds present MUSCULOSKELETAL: No obvious deformities. No clubbing. No cyanosis. No edema. NEUROLOGICAL: Awake and alert. No obvious cranial nerve deficits. Motor grossly within normal limits. Normal speech. PSYCHIATRIC: Appropriate mood and affect; insight and judgment normal. Data Data Last Documented VS Vital Signs Date Time Temp Pulse Resp B/P (MAP) Pulse Ox O2 Delivery O2 Flow Rate FiO2 06/04/17 15:03 96 18 132/85 (101) 97 Room Air 06/04/17 13:54 98.3 Orders Orders Complete Blood Count With Diff (06/04/17 14:02) Comprehensive Metabolic Panel (06/04/17 14:02) Troponin I (06/04/17 14:02) Prothrombin Time / Inr (Pt) (06/04/17 14:02) Act Partial Throm Time (Ptt) (06/04/17 14:02) Lipase (06/04/17 14:02) Urinalysis - C+S If Indicated (06/04/17 14:02) Ammonia (06/04/17 14:02) Chest, Single Ap (06/04/17 14:02) Alcohol (Ethanol) (06/04/17 14:02) Ct Abd/Pel W Iv Contrast(Rout) (06/04/17 14:18) Electrocardiogram (06/04/17 13:53) Iohexol 350 Inj (Omnipaque 350 Inj) (06/04/17 15:20) Admit Order (Ed Use Only) (06/04/17 16:01) Labs Laboratory Tests Test 06/04/17 14:10 06/04/17 15:50 White Blood Count 5.6 TH/MM3 Red Blood Count 3.73 MIL/MM3 Hemoglobin 11.3 GM/DL Hematocrit 35.8 % Mean Corpuscular Volume 96.1 FL Mean Corpuscular Hemoglobin 30.3 PG Mean Corpuscular Hemoglobin Concent 31.5 % Red Cell Distribution Width 23.6 % Platelet Count 63 TH/MM3 Mean Platelet Volume 9.8 FL CBC Comment AUTO DIFF Differential Total Cells Counted 100 Neutrophils % (Manual) 66 % Band Neutrophils % 1 % Lymphocytes % 15 % Monocytes % 15 % Eosinophils % 3 % Neutrophils # (Manual) 3.8 TH/MM3 Differential Comment FINAL DIFF MANUAL Platelet Estimate LOW Platelet Morphology Comment NORMAL Target Cells 2+ Prothrombin Time 14.7 SEC Prothromb Time International Ratio 1.3 RATIO Activated Partial Thromboplast Time 28.8 SEC Blood Urea Nitrogen 5 MG/DL Creatinine 0.71 MG/DL Random Glucose 197 MG/DL Total Protein 8.5 GM/DL Albumin 2.6 GM/DL Calcium Level 7.9 MG/DL Alkaline Phosphatase 385 U/L Aspartate Amino Transf (AST/SGOT) 228 U/L Alanine Aminotransferase (ALT/SGPT) 75 U/L Total Bilirubin 9.7 MG/DL Sodium Level 133 MEQ/L Potassium Level 3.8 MEQ/L Chloride Level 98 MEQ/L Carbon Dioxide Level 24.8 MEQ/L Anion Gap 10 MEQ/L Estimat Glomerular Filtration Rate 121 ML/MIN Ammonia LESS THAN 10 MCMOL/L Troponin I 0.12 NG/ML Lipase 204 U/L Ethyl Alcohol Level LESS THAN 3 MG/DL MDM Medical Decision Making Medical Screen Exam Complete: Yes Emergency Medical Condition: Yes Medical Record Reviewed: Yes Differential Diagnosis Differential includes abdominal pain due to ascites, hepatic failure, bowel obstruction Narrative Course Abdomen appears quite distended and I suspect this represents cumulation of ascites. EKG shows sinus tachycardia. His hemoglobin is 11.3 with a white count of 5000. AST is 228 his bilirubin today is 9. Previous value about a month ago was 2 and review of previous charts does not show any values this high. His troponin is 0.12. He did have an elevated troponins on his last admission which ran about 0.10. Patient has had significant deterioration in his liver function. He'll be admitted for further evaluation Diagnosis Primary Impression: Abdominal pain Qualified Codes: R10.84 - Generalized abdominal pain Additional Impression: Cirrhosis of liver Qualified Codes: K70.31 - Alcoholic cirrhosis of liver with ascites Admitting Information Admitting Physician Requests: Admit Linden Smith MD Jun 04, 2017 14:13
[2017-06-04 14:34] LABS: HEMATOCRIT 35.8 % (39.0-51.0); MEAN CELL VOLUME 96.1 FL (80.0-100.0); MEAN CORPUSCULAR HEMOGLOBIN 30.3 PG (27.0-34.0); MEAN CORPUSCULAR HGB CONC 31.5 % (32.0-36.0); PLATELET COUNT 63 TH/MM3 (150-450); RED BLOOD COUNT 3.73 MIL/MM3 (4.50-5.90); RED CELL DISTRIBUTION WIDTH 23.6 % (11.6-17.2); WHITE BLOOD COUNT 5.6 TH/MM3 (4.0-11.0)
[2017-06-04 14:36] LABS: HEMO FLAGS AUTO DIFF
[2017-06-04 14:41] LABS: CHLORIDE 98 MEQ/L (98-107); POTASSIUM 3.8 MEQ/L (3.5-5.1); SODIUM (NA) 133 MEQ/L (136-145)
--- NOTE | 2017-06-04 14:41 | RADRPT ---
EXAM DATE/TIME: 06/04/2017 14:20 [facility] COMPARISON: CHEST SINGLE AP, April 02, 2017, 22:41. INDICATIONS : Chest pain, short of breath. MEDICAL HISTORY : Cardiovascular disease. Pancreatitis. Cirrhosis SURGICAL HISTORY : None. ENCOUNTER: Initial ACUITY: 3 days PAIN SCORE: 6/10 LOCATION: Bilateral chest FINDINGS: A single view of the chest demonstrates the lungs to be symmetrically aerated without evidence of mas s, infiltrate or effusion. The cardiomediastinal contours are unremarkable. Osseous structures are intact. CONCLUSION: No acute cardiopulmonary process. Diaz Scott MD on June 04, 2017 at 14:39 Board Certified Radiologist. This report was verified electronically.
[2017-06-04 14:45] LABS: ANION GAP 10 MEQ/L (5-15); APTT (PATIENT) 28.8 SEC (24.3-30.1); BICARBONATE 24.8 MEQ/L (21.0-32.0); BLOOD UREA NITROGEN 5 MG/DL (7-18); INTERNATIONAL NORMALIZED RATIO 1.3 RATIO; PROTHROMBIN TIME - PATIENT 14.7 SEC (9.8-11.6)
[2017-06-04 14:48] LABS: ALT (GPT) 75 U/L (12-78); AST (GOT) 228 U/L (15-37); GLOMERULAR FILTRATION RATE 121 ML/MIN (>89)
[2017-06-04 14:49] LABS: ALCOHOL LESS THAN 3 MG/DL (0-5); TOTAL BILIRUBIN ADULT 9.7 MG/DL (0.2-1.0)
--- NOTE | 2017-06-04 14:49 | EKG ---
Date Performed: 06/04/2017 Time Performed: 13:53:02 PTAGE: 46 years EKG: SINUS TACHYCARDIA NONSPECIFIC T-WAVE ABNORMALITY ABNORMAL RHYTHM ECG INTERPRETATION BASED O N A DEFAULT AGE OF 42 YEARS No significant change from prior electrocardiogram. . PREVIOUS TRACING : 04/03/2017 11.24 DOCTOR: Jg Levine Interpretating Date/Time 06/04/2017 14:48:17
[2017-06-04 14:51] LABS: ALKALINE PHOSPHATASE 385 U/L (45-117)
[2017-06-04 14:58] LABS: BANDS 1 % (0-6); EOSINOPHILS 3 % (0-4); NEUTROPHIL # MANUAL DIFF 3.8 TH/MM3 (1.8-7.7); POLYS (SEG NEUTROPHILS) 66 % (16-70); TARGET CELLS 2+ (NORMAL); WBC DIFF SAMPLE 100
[2017-06-04 14:59] LABS: PLATELET ESTIMATE SMEAR LOW (NORMAL); PLATELET MORPHOLOGY NORMAL (NORMAL); SCAN/DIFF FINAL DIFF MANUAL
[2017-06-04 15:03] VITALS: BP 132/85; PULSE 96; RESP 18; O2SAT 97
[2017-06-04] MEDS ORDERED: IOHEXOL 350 MG/ML 10 ML VIAL (for RAD DIAG) IVCONTRAST ONE (15:20)
--- NOTE | 2017-06-04 15:50 | RADRPT ---
EXAM DATE/TIME: 06/04/2017 15:13 [facility] COMPARISON: CT ABDOMEN & PELVIS W CONTRAST, April 02, 2017, 23:18. INDICATIONS : Intermittent upper abdominal pain radiating to chest. Abdominal distention. IV CONTRAST: 95 cc Omnipaque 350 (iohexol) IV ORAL CONTRAST: No oral contrast ingested. RADIATION DOSE: 15.79 CTDIvol (mGy) MEDICAL HISTORY : Pancreatitis. Gastroesophageal reflux disease. Cirrhosis.Hypertension. Diabetes. Esophageal varices. Thrombocytopenia. SURGICAL HISTORY : Esophageal banding. ENCOUNTER: Initial ACUITY: 4 - 6 days PAIN SCALE: 7/10 LOCATION: upper quadrant TECHNIQUE: Volumetric scanning of the abdomen and pelvis was performed. Using automated exposure control and ad justment of the mA and/or kV according to patient size, radiation dose was kept as low as reasonably achievable to obtain optimal diagnostic quality images. DICOM format image data is available electro nically for review and comparison. FINDINGS: LOWER LUNGS: The visualized lower lungs are clear. LIVER: Cirrhotic appearance of the liver which is heterogeneous and nodular. Multiple gallstones in the gall bladder lumen. Recanalization of the paraumbilical vein emanating from the left portal with extensive varicosities in the subcutaneous tissues of the abdomen. SPLEEN: Enlarged measuring 16.2 cm in greatest AP dimension. PANCREAS: Within normal limits. KIDNEYS: Normal in size and shape. There is no mass, stone or hydronephrosis. ADRENAL GLANDS: Within normal limits. VASCULAR: There is no aortic aneurysm. BOWEL/MESENTERY: The stomach, small bowel, and colon demonstrate no acute abnormality. Diffuse abdominal ascites. ABDOMINAL WALL: Extensive varicosities emanating from the recanalized umbilical vein. RETROPERITONEUM: There is no lymphadenopathy. BLADDER: No wall thickening or mass. REPRODUCTIVE: Within normal limits. INGUINAL: There is no lymphadenopathy or hernia. MUSCULOSKELETAL: Within normal limits for patient age. CONCLUSION: 1. CT findings of cirrhosis or portal hypertension. Liver is heterogeneous and nodular. Spleen is enl arged 2. Recanalization of the paraumbilical vein with extensive subcutaneous varicosities throughout the a bdomen. These are most prominent right para midline. 3. Diffuse abdominal ascites. If percutaneous paracentesis is considered, recommend careful ultrasoun d surveillance for regional varicosities prior to access. 4. Cholelithiasis Diaz Scott MD on June 04, 2017 at 15:42 Board Certified Radiologist. This report was verified electronically.
[2017-06-04 15:56] LABS: GLUCOSE,URINE NEG (NEG); KETONE, URINE NEG (NEG); NITRITE,URINE NEG (NEG); PH, URINE 7.5 (5.0-8.5)
[2017-06-04 16:05] LABS: BLOOD, URINE TRACE (NEG)
[2017-06-04 16:06] LABS: URINE COLOR YELLOW (YELLW/STRAW)
[2017-06-04 16:07] LABS: COMMENT (UR) CULT NOT INDICATED; CULTURE IF INDICATED CULT NOT INDICATED; SQUAMOUS EPITHELIAL CELL URINE 0-5 /hpf (0-5); WBC, URINE 0-2 /hpf (0-5)
[2017-06-04 16:15] VITALS: BP 140/83; PULSE 90; RESP 18; O2SAT 98
--- NOTE | 2017-06-04 16:43 | HHI.HP ---
[facility] Service [facility] Primary Care Physician No Primary Care Physician Admission Diagnosis ABDOMINAL PAIN, ASCITES Diagnoses: Chief Complaint: Abdominal distention Travel History International Travel<30 Days: No Contact w/Intl Traveler <30 Da: No Traveled to Known Affected Are: No History of Present Illness This patient is a 46-year-old gentleman with a 12 year history of liver failure area and he had been taking medications up until about a month ago. He says he has been unable to follow-up with his primary care doctor due to insurance reasons. He presents to the emergency room with increasing abdominal girth and discomfort. His also complaining of abdominal pain and back pain which are moderate to severe and worse with movement and worse when he tries to eat. He has a history of esophageal varices which have been banded. He also says he has a history of kidney problems related to his liver. Recently he was in the hospital for GI bleed. Patient does have increased abdominal girth on exam with tenderness to palpation. There is evidence of hepatosplenomegaly and some telangiectasias are prominent. He denies any fevers or chills. He has had poor appetite due to his abdominal distention and has decreased oral intake. Patient is presented to the emergency room and admitted to the hospital for further evaluation for ascites, abdominal pain and worsening liver failure Review of Systems Constitutional: DENIES: Diaphoretic episodes, Fatigue, Fever, Weight gain, Weight loss, Chills, Dizziness, Change in appetite, Night Sweats Endocrine: DENIES: Heat/cold intolerance, Polydipsia, Polyuria, Polyphagia Eyes: DENIES: Blurred vision, Diplopia, Eye inflammation, Eye pain, Vision loss , Photosensitivity, Double Vision Ears, nose, mouth, throat: DENIES: Tinnitus, Hearing loss, Vertigo, Nasal discharge, Oral lesions, Throat pain, Hoarseness, Ear Pain, Running Nose, Epistaxis, Sinus Pain, Toothache, Odynophagia Respiratory: DENIES: Apneas, Cough, Snoring, Wheezing, Hemoptysis, Sputum production, Shortness of breath Cardiovascular: DENIES: Chest pain, Palpitations, Syncope, Dyspnea on Exertion , PND, Lower Extremity Edema, Orthopnea, Claudication Gastrointestinal: COMPLAINS OF: Abdominal pain, Nausea Genitourinary: DENIES: Sexual dysfunction, Urinary frequency, Urinary incontinence, Urgency, Hematuria, Dysuria, Nocturia, Penile Discharge, Testicular Pain, Testicular Swelling Musculoskeletal: DENIES: Joint pain, Muscle aches, Stiffness, Joint Swelling, Back pain, Neck pain Integumentary: COMPLAINS OF: Rash, DENIES: Abnormal pigmentation, Nail changes , Pruritus Immunologic/allergic: DENIES: Eczema, Urticaria Neurologic: DENIES: Abnormal gait, Headache, Localized weakness, Paresthesias, Seizures, Speech Problems, Tremor, Poor Balance Psychiatric: COMPLAINS OF: Anxiety, DENIES: Confusion, Mood changes, Depression , Hallucinations, Agitation, Suicidal Ideation, Homicidal Ideation, Delusions Past Family Social History Past Medical History cirrhosis dm2 anxiety Past Surgical History Liver biopsy and variceal banding Reported Medications Reviewed in the EMR Also reports having taken insulin for his diabetes although he has not been on it due to poor insurance Allergies: Coded Allergies: hydromorphone (Unverified Allergy, Mild, Hives, 04/02/17) pt. states he has had Dilaudid and does not have an allergy to it. *MDRO Multi-Drug Resistant Organism (Verified Adverse Reaction, Unknown, ) MRSA PCR (nares) POSITIVE - 12/02/2015 penicillin G (Unverified Adverse Reaction, Unknown, Hives, 04/02/17) Active Ordered Medications Reviewed in the EMR Family History reviewed in the EMR, mother and father are alive and well Social History Patient does smoke cigarettes half pack a day, quit alcohol about a month ago and has a long history of alcoholism Physical Exam Vital Signs Vital Signs Date Time Temp Pulse Resp B/P (MAP) Pulse Ox O2 Delivery O2 Flow Rate FiO2 06/04/17 16:15 90 18 140/83 (102) 98 Room Air 06/04/17 15:03 96 18 132/85 (101) 97 Room Air 06/04/17 13:54 98.3 102 18 150/97 (114) 99 Physical Exam GENERAL: This is a well-nourished, well-developed patient, in no apparent distress. SKIN: Dry skin, diffuse telangiectasia HEAD: Atraumatic. Normocephalic. No temporal or scalp tenderness. EYES: Pupils equal round and reactive. Extraocular motions intact. Jaundiced. No injection or drainage. ENT: Nose without bleeding, purulent drainage or septal hematoma. Throat without erythema, tonsillar hypertrophy or exudate. Uvula midline. Airway patent. NECK: Trachea midline. No JVD or lymphadenopathy. Supple, nontender, no meningeal signs. CARDIOVASCULAR: Regular rate and rhythm without murmurs, gallops, or rubs. RESPIRATORY: Clear to auscultation. Breath sounds equal bilaterally. No wheezes , rales, or rhonchi. GASTROINTESTINAL: Abdomen soft, non-tender, grossly distended with visible varices. No hepato-splenomegaly, or palpable masses. No guarding. MUSCULOSKELETAL: Extremities without clubbing, cyanosis, or edema. No joint tenderness, effusion, or edema noted. No calf tenderness. Negative Homans sign bilaterally. NEUROLOGICAL: Awake and alert. Cranial nerves II through XII intact. Motor and sensory grossly within normal limits. Five out of 5 muscle strength in all muscle groups. Normal speech. Laboratory Laboratory Tests Test 06/04/17 14:10 06/04/17 15:50 White Blood Count 5.6 Red Blood Count 3.73 Hemoglobin 11.3 Hematocrit 35.8 Mean Corpuscular Volume 96.1 Mean Corpuscular Hemoglobin 30.3 Mean Corpuscular Hemoglobin Concent 31.5 Red Cell Distribution Width 23.6 Platelet Count 63 Mean Platelet Volume 9.8 CBC Comment AUTO DIFF Differential Total Cells Counted 100 Neutrophils % (Manual) 66 Band Neutrophils % 1 Lymphocytes % 15 Monocytes % 15 Eosinophils % 3 Neutrophils # (Manual) 3.8 Differential Comment FINAL DIFF MANUAL Platelet Estimate LOW Platelet Morphology Comment NORMAL Target Cells 2+ Prothrombin Time 14.7 Prothromb Time International Ratio 1.3 Activated Partial Thromboplast Time 28.8 Blood Urea Nitrogen 5 Creatinine 0.71 Random Glucose 197 Total Protein 8.5 Albumin 2.6 Calcium Level 7.9 Alkaline Phosphatase 385 Aspartate Amino Transf (AST/SGOT) 228 Alanine Aminotransferase (ALT/SGPT) 75 Total Bilirubin 9.7 Sodium Level 133 Potassium Level 3.8 Chloride Level 98 Carbon Dioxide Level 24.8 Anion Gap 10 Estimat Glomerular Filtration Rate 121 Ammonia LESS THAN 10 Troponin I 0.12 Lipase 204 Ethyl Alcohol Level LESS THAN 3 Urine Color YELLOW Urine Turbidity CLEAR Urine pH 7.5 Urine Specific Equality 1.035 Urine Protein NEG Urine Glucose (UA) NEG Urine Ketones NEG Urine Occult Blood TRACE Urine Nitrite NEG Urine Bilirubin LARGE Urine Leukocyte Esterase NEG Urine WBC 0-2 Urine Squamous Epithelial Cells 0-5 Microscopic Urinalysis Comment CULT NOT INDICATED Result Diagram: 06/04/17 1410 06/04/17 1410 Imaging Last Impressions Abdomen/Pelvis CT 06/04/17 1418 Signed Impressions: Service Date/Time: Sunday, June 04, 2017 15:13 - CONCLUSION: 1. CT findings of cirrhosis or portal hypertension. Liver is heterogeneous and nodular. Spleen is enlarged 2. Recanalization of the paraumbilical vein with extensive subcutaneous varicosities throughout the abdomen. These are most prominent right para midline. 3. Diffuse abdominal ascites. If percutaneous paracentesis is considered, recommend careful ultrasound surveillance for regional varicosities prior to access. 4. Cholelithiasis Diaz Scott MD Chest X-Ray 06/04/17 1402 Signed Impressions: Service Date/Time: Sunday, June 04, 2017 14:20 - CONCLUSION: No acute cardiopulmonary process. Diaz Scott MD Capmarceloi VTE Risk Assessment Caprini VTE Risk Assessment: Mod/High Risk (score >= 2) VTE Pharm Contraindication: End Stage Liver Disease Caprini Risk Assessment Model Point Value = 1 Point Value = 2 Point Value = 3 Point Value = 5 Age 41-60 Minor surgery BMI > 25 kg/m2 Swollen legs Varicose veins or History of unexplained or recurrent spontaneous Oral contraceptives or hormone replacement Sepsis (< 1 month) Serious lung disease, including pneumonia (< 1 month) Abnormal pulmonary function Acute myocardial infarction Congestive heart failure (< 1 month) History of inflammatory bowel disease Medical patient at bed rest Age 61-74 Arthroscopic surgery Major open surgery (> 45 min) Laparoscopic surgery (> 45 min) Malignancy Confined to bed (> 72 hours) Immobilizing plaster cast Central venous access Age >= 75 History of VTE Family history of VTE Factor V Leiden Prothrombin [id number] Lupus anticoagulant Anticardiolipin antibodies Elevated serum homocysteine Heparin-induced thrombocytopenia Other congenital or acquired thrombophilia Stroke (< 1 month) Elective arthroplasty Hip, pelvis, or leg fracture Acute spinal cord injury (< 1 month) Prophylaxis Regimen Total Risk Factor Score Risk Level Prophylaxis Regimen 0-1 Low Early ambulation 2 Moderate Order ONE of the following: *Sequential Compression Device (SCD) *Heparin 5000 units SQ BID 3-4 Higher Order ONE of the following medications: *Heparin 5000 units SQ TID *Enoxaparin/Lovenox 40 mg SQ daily (WT < 150 kg, CrCl > 30 mL/min) *Enoxaparin/Lovenox 30 mg SQ daily (WT < 150 kg, CrCl > 10-29 mL/min) *Enoxaparin/Lovenox 30 mg SQ BID (WT < 150 kg, CrCl > 30 mL/min) AND/OR *Sequential Compression Device (SCD) 5 or more Highest Order ONE of the following medications: *Heparin 5000 units SQ TID (Preferred with Epidurals) *Enoxaparin/Lovenox 40 mg SQ daily (WT < 150 kg, CrCl > 30 mL/min) *Enoxaparin/Lovenox 30 mg SQ daily (WT < 150 kg, CrCl > 10-29 mL/min) *Enoxaparin/Lovenox 30 mg SQ BID (WT < 150 kg, CrCl > 30 mL/min) AND *Sequential Compression Device (SCD) Assessment and Plan Problem List: (1) Cirrhosis of liver ICD Code: K74.60 - Cirrhosis of liver Status: Chronic Plan: Continue with medical management for cirrhosis Follow for diuresis and patient with ascites Will evaluate for paracentesis, empiric antibiotics for Sbp Patient education (2) DM type 2 (diabetes mellitus, type 2) ICD Code: E11.9 - Type 2 diabetes mellitus without complications Status: Acute Plan: Continue insulin per sliding scale, diabetic diet Hemoglobin A1c 8. patient has not been on medications due to poor insurance. (3) Alcoholism ICD Code: F10.20 - Alcoholism Status: Chronic Plan: [facility] protocol Physician Certification 2 Midnight Certification Type: Admission for Inpatient Services Order for Inpatient Services The services are ordered in accordance with Medicare regulations or non- Medicare payer requirements, as applicable. In the case of services not specified as inpatient-only, they are appropriately provided as inpatient services in accordance with the 2-midnight benchmark. Estimated LOS (days): 4 4 days is the estimated time the patient will need to remain in the hospital, assuming treatment plan goals are met and no additional complications. Post-Hospital Plan: Home Problem Qualifiers (1) Cirrhosis of liver: Qualified Codes: K70.31 - Alcoholic cirrhosis of liver with ascites Gabriella Grove MD Jun 04, 2017 16:43
[2017-06-04] MEDS ORDERED: DEXTROSE 50% IN WATER 50 ML VIAL(D50) IV PUSH PRN (16:45)
[2017-06-04] MEDS ORDERED: ONDANSETRON HCL 4 MG/2 ML VIAL IVP PRN (16:45)
[2017-06-04] MEDS ORDERED: SENNOSIDES 8.6 MG TAB PO PRN (16:45)
[2017-06-04] MEDS ORDERED: NALOXONE HCL 0.4 MG/ML AMP IV PUSH PRN (16:45)
[2017-06-04] MEDS ORDERED: SODIUM CHLORIDE 0.9% FLUSH 10 ML FLUSH IV FLUSH PRN (16:45)
[2017-06-04] MEDS ORDERED: GLUCAGON 1 MG/ML VIAL OTHER PRN (16:45)
[2017-06-04 17:00] VITALS: BP 140/74; PULSE 90; RESP 18; TEMP 97.6; O2SAT 94
[2017-06-04] MEDS: FUROSEMIDE 40 MG/4 ML VIAL IV PUSH SCH (17:32)
[2017-06-04] MEDS: CIPROFLOXACIN 400 MG PREMIX 200 ML IV SCH ×2 (17:32→19:55)
[2017-06-04] MEDS: INSULIN ASPART SUPPLEMENTAL SCALE SQ SCH ×2 (17:33→20:09)
[2017-06-04 20:00] VITALS: BP 157/85; PULSE 114; RESP 20; TEMP 99.5; O2SAT 96
[2017-06-04] MEDS: SODIUM CHLORIDE 0.9% FLUSH 10 ML FLUSH IV FLUSH SCH (20:09)
[2017-06-04] MEDS ORDERED: ACETAMINOPHEN 325 MG TAB PO ONE (23:45)
[2017-06-05] VITALS: BP 130/73; PULSE 106; RESP 18; TEMP 100.5; O2SAT 97
[2017-06-05 04:00] VITALS: TEMP 99.4
[2017-06-05] MEDS: CIPROFLOXACIN 400 MG PREMIX 200 ML IV SCH ×2 (05:28→17:33)
[2017-06-05 06:40] LABS: HEMATOCRIT 31.3 % (39.0-51.0); MEAN CELL VOLUME 95.5 FL (80.0-100.0); MEAN CORPUSCULAR HEMOGLOBIN 30.8 PG (27.0-34.0); MEAN CORPUSCULAR HGB CONC 32.2 % (32.0-36.0); PLATELET COUNT 49 TH/MM3 (150-450); RED BLOOD COUNT 3.28 MIL/MM3 (4.50-5.90); WHITE BLOOD COUNT 4.9 TH/MM3 (4.0-11.0)
[2017-06-05 06:54] LABS: INTERNATIONAL NORMALIZED RATIO 1.5 RATIO; PROTHROMBIN TIME - PATIENT 16.5 SEC (9.8-11.6)
[2017-06-05 06:55] LABS: POTASSIUM 3.2 MEQ/L (3.5-5.1)
[2017-06-05 07:03] LABS: HEMO FLAGS AUTO DIFF
[2017-06-05 07:40] LABS: BICARBONATE 26.3 MEQ/L (21.0-32.0)
[2017-06-05 07:48] LABS: NEUTROPHIL # MANUAL DIFF 3.7 TH/MM3 (1.8-7.7); PLATELET ESTIMATE SMEAR LOW (NORMAL); PLATELET MORPHOLOGY NORMAL (NORMAL); POLYS (SEG NEUTROPHILS) 75 % (16-70); SCAN/DIFF FINAL DIFF MANUAL; TARGET CELLS 2+ (NORMAL); WBC DIFF SAMPLE 100
[2017-06-05 07:50] VITALS: BP 125/70; PULSE 111; RESP 20; TEMP 98.8; O2SAT 92
[2017-06-05] MEDS: INSULIN ASPART SUPPLEMENTAL SCALE SQ SCH ×4 (08:00→21:23)
[2017-06-05] MEDS: FUROSEMIDE 40 MG/4 ML VIAL IV PUSH SCH (09:27)
[2017-06-05] MEDS: SODIUM CHLORIDE 0.9% FLUSH 10 ML FLUSH IV FLUSH SCH ×2 (09:28→21:23)
[2017-06-05 11:42] LABS: INDIRECT BILIRUBIN 2.7 MG/DL (0.0-0.8); TOTAL BILIRUBIN ADULT 9.2 MG/DL (0.2-1.0)
[2017-06-05 11:50] VITALS: BP 130/69; PULSE 111; RESP 20; TEMP 98.3; O2SAT 94
--- NOTE | 2017-06-05 13:22 | HHI.PR ---
Subjective Remarks Patient seen and evaluated today in follow-up for ascites with known hepatic cirrhosis from alcohol Minimal urine output after Lasix overnight. Complaints of discomfort. Radiology for paracentesis later this afternoon. Care plan discussed with patient and with nursing team Objective Vitals Vital Signs Date Time Temp Pulse Resp B/P (MAP) Pulse Ox O2 Delivery O2 Flow Rate FiO2 06/05/17 11:50 98.3 111 20 130/69 (89) 94 06/05/17 09:07 18 06/05/17 07:50 98.8 111 20 125/70 (88) 92 06/05/17 04:00 99.4 06/05/17 00:00 100.5 106 18 130/73 (92) 97 06/05/17 00:00 100.5 106 18 130/73 (92) 97 06/04/17 20:00 99.5 114 20 157/85 (109) 96 06/04/17 20:00 99.5 114 20 157/85 (109) 96 06/04/17 17:08 06/04/17 17:00 97.6 90 18 140/74 (96) 94 06/04/17 16:15 90 18 140/83 (102) 98 Room Air 06/04/17 15:03 96 18 132/85 (101) 97 Room Air 06/04/17 13:54 98.3 102 18 150/97 (114) 99 I/O 06/04/17 06/04/17 06/04/17 06/05/17 06/05/17 06/05/17 07:00 15:00 23:00 07:00 15:00 23:00 Intake Total 360 ml 740 ml Output Total 150 ml Balance 210 ml 740 ml Intake Oral 360 ml 740 ml Output Urine Total 150 ml # Voids 2 2 # Bowel Movements 0 0 Result Diagram: 06/05/1751406/05/1715 Objective Remarks GENERAL: This is a well-nourished, well-developed patient, in no apparent distress. jaundiced CARDIOVASCULAR: Regular rate and rhythm without murmurs, gallops, or rubs. RESPIRATORY: Clear to auscultation. Breath sounds equal bilaterally. No wheezes , rales, or rhonchi. GASTROINTESTINAL: Abdomen soft, mildly tender with distention. Normal active bowel sounds MUSCULOSKELETAL: Extremities without clubbing, cyanosis, or edema. NEURO: Alert & Oriented x4 to person, place, time, situation. Moves all ext x4 A/P Problem List: (1) Cirrhosis of liver ICD Code: K74.60 - Cirrhosis of liver Status: Chronic Plan: Continue with medical management for cirrhosis Follow for diuresis and patient with ascites Will plan for paracentesis, empiric antibiotics for SBP Patient education (2) DM type 2 (diabetes mellitus, type 2) ICD Code: E11.9 - Type 2 diabetes mellitus without complications Status: Acute Plan: Will add Levemir long-acting and 3 times a day NovoLog Continue insulin per sliding scale, diabetic diet Hemoglobin A1c 8. patient has not been on medications due to poor insurance. (3) Alcoholism ICD Code: F10.20 - Alcoholism Status: Chronic Plan: [facility] protocol Discharge Planning Pending progress Problem Qualifiers (1) Cirrhosis of liver: Qualified Codes: K70.31 - Alcoholic cirrhosis of liver with ascites Gabriella Grove MD Jun 05, 2017 13:22
[2017-06-05 15:50] VITALS: BP 121/74; PULSE 101; RESP 20; TEMP 98.1; O2SAT 94
[2017-06-05] MEDS: INSULIN HUMAN REGULAR 1,000 UNITS/10 ML VIAL SQ SCH (17:32)
--- NOTE | 2017-06-05 19:09 | PD.RAD ---
Post US Procedure Prog Note Pre Procedure Diagnosis: (1) Ascites Post Procedure Diagnosis: (1) Ascites Procedure Date: Jun 05, 2017 Supervising Radiologist: Alvaro Sahni Proceduralist/Assist: Tanika Vaughn RDMS Estimated blood loss: 0 Anesthesia: Local Plan of Activity Patient to Unit: Nursing Unit Patient Condition: Fair See PACS Report for procedural detail/treatment Drainage Procedure Procedure 1 Imaging Guidance: Ultrasound Side: Right Procedure Type: Paracentesis Tu[place]: 6 Drainage: Suction Fluid Description: Clear, Yellow Alvaro Sahni MD Jun 05, 2017 19:09
[2017-06-05 20:00] VITALS: BP_SYST 119; BP_SYST 121; BP_DIAS 75; BP_DIAS 78; PULSE 101; PULSE 103; RESP 20; TEMP 99.5; TEMP 99.6; O2SAT 95; O2SAT 97
[2017-06-05 20:22] LABS: PERITONEAL HISTIOCYTES 29 %; PERITONEAL LYMPHS 58 %; PERITONEAL MESOTHELIAL 9 %; PERITONEAL POLYS(SEGS) 4 %; PERITONEAL WBC 69 /MM3 (0-10)
[2017-06-05] MEDS: INSULIN DETEMIR 100 UNITS/ML VIAL SQ SCH (21:22)
[2017-06-06] VITALS: BP_SYST 121; BP_SYST 131; BP_DIAS 63; BP_DIAS 75; PULSE 103; RESP 20; TEMP 99.5; O2SAT 93; O2SAT 95
[2017-06-06 04:00] VITALS: BP 128/70; PULSE 94; RESP 20; TEMP 99.8; O2SAT 97
[2017-06-06] MEDS: CIPROFLOXACIN 400 MG PREMIX 200 ML IV SCH ×2 (05:28→22:00)
[2017-06-06 08:00] VITALS: BP 129/76; PULSE 94; RESP 18; TEMP 99.3; O2SAT 98
[2017-06-06] MEDS: INSULIN ASPART SUPPLEMENTAL SCALE SQ SCH ×4 (08:00→23:06)
[2017-06-06] MEDS: SODIUM CHLORIDE 0.9% FLUSH 10 ML FLUSH IV FLUSH SCH ×2 (09:43→21:00)
[2017-06-06] MEDS: INSULIN HUMAN REGULAR 1,000 UNITS/10 ML VIAL SQ SCH ×3 (09:44→18:24)
--- NOTE | 2017-06-06 09:47 | RADRPT ---
EXAM DATE/TIME: 06/05/2017 08:53 [place] COMPARISON: No previous studies available for comparison. INDICATIONS : Ascites. MEDICAL HISTORY : Pancreatitis. Gastroesophageal reflux disease. Cirrhosis.Hypertension. Diabetes. Esophageal varices. SURGICAL HISTORY : Esophogeal banding. ENCOUNTER: Sequela ACUITY: 4 - 6 days PAIN SCORE: 9/10 LOCATION: Right lower quadrant FLUID: Total volume of 70 cc of clear, yellow fluid was removed. Fluid was sent to lab for ordered studies. Post procedure scanning reveals no hematoma or other complication. TECHNIQUE: 1. Ultrasound guidance for abdominal paracentesis. 2. Paracentesis. The risks, benefits, and alternatives to ultrasound guided paracentesis were explained to the patient in detail including the risk of bleeding and infection. Written and verbal informed consent was obt ained. With the patient on the ultrasound table, ultrasound imaging was used to select the most appropriate approach for paracentesis. Overlying skin was prepped and draped in the usual sterile fashion and wi th a local anesthetic, a dermatotomy was made with an 11 blade scalpel. A 6 English [id number] ca theter was introduced into the peritoneal cavity and fluid was collected. The patient tolerated the procedure well and left the ultrasound suite in stable condition. CONCLUSION: Uncomplicated ultrasound guided paracentesis. Alvaro Sahni MD on June 06, 2017 at 9:45 Board Certified Radiologist. This report was verified electronically.
[2017-06-06] MEDS: FUROSEMIDE 40 MG/4 ML VIAL IV PUSH SCH (10:10)
[2017-06-06] MEDS ORDERED: SODIUM CHLOR 0.9% 1000 ML INJ 1,000 ML IV ONE (10:30)
[2017-06-06 12:00] VITALS: BP 118/83; PULSE 110; RESP 20; TEMP 99.5; O2SAT 97
--- NOTE | 2017-06-06 13:22 | HHI.PR ---
Subjective Remarks Patient seen today in follow-up for abdominal pain with liver failure. He is status post paracentesis with only 70 mL removed. Patient still quite distended with abdominal pain. Reports poor urine outflow Care plan discussed with patient and nursing team Objective Vitals Vital Signs Date Time Temp Pulse Resp B/P (MAP) Pulse Ox O2 Delivery O2 Flow Rate FiO2 06/06/17 11:57 20 06/06/17 04:00 99.8 94 20 128/70 (89) 97 06/06/17 00:00 99.5 103 20 121/75 (90) 95 06/05/17 20:00 99.6 101 20 119/78 (92) 97 06/05/17 15:50 98.1 101 20 121/74 (90) 94 I/O 06/05/17 06/05/17 06/05/17 06/06/17 06/06/17 06/06/17 07:00 15:00 23:00 07:00 15:00 23:00 Intake Total 740 ml 500 ml 440 ml 236 ml Output Total 50 ml 425 ml Balance 740 ml 500 ml 390 ml -189 ml Intake Oral 740 ml 500 ml 240 ml 236 ml IV Total 200 ml Output Urine Total 50 ml 425 ml Bladder Scan Volume Amount 360 ml # Voids 2 3 2 # Bowel Movements 0 0 Result Diagram: 06/05/1751406/05/17514 Objective Remarks GENERAL: This is a well-nourished, well-developed patient, in no apparent distress. jaundiced CARDIOVASCULAR: Regular rate and rhythm without murmurs, gallops, or rubs. RESPIRATORY: Clear to auscultation. Breath sounds equal bilaterally. No wheezes , rales, or rhonchi. GASTROINTESTINAL: Abdomen soft, mildly tender with distention. Normal active bowel sounds MUSCULOSKELETAL: Extremities without clubbing, cyanosis, or edema. NEURO: Alert & Oriented x4 to person, place, time, situation. Moves all ext x4 A/P Problem List: (1) Cirrhosis of liver ICD Code: K74.60 - Cirrhosis of liver Status: Chronic Plan: Continue with medical management for cirrhosis with jaundice, coagulopathy, ascites and increased portal vein varicosities Follow for diuresis in patient with ascites Continue empiric antibiotics for SBP, follow-up paracentesis studies Continue accurate intake and output meld score 20 but with on going etoh dependency therefore high 30 day mortality risk, add steroids, vitamins, aldactone (2) DM type 2 (diabetes mellitus, type 2) ICD Code: E11.9 - Type 2 diabetes mellitus without complications Status: Acute Plan: Continue Levemir long-acting and 3 times a day NovoLog Continue insulin per sliding scale, diabetic diet Hemoglobin A1c 8. patient has not been on medications due to poor insurance. (3) Alcoholism ICD Code: F10.20 - Alcoholism Status: Chronic Plan: [facility] protocol (4) Urinary retention ICD Code: R33.9 - Retention of urine, unspecified Plan: Postvoid residual for 300 We'll add Flomax and plan for Cabrera if not successful Discharge Planning Pending progress Problem Qualifiers (1) Cirrhosis of liver: Qualified Codes: K70.31 - Alcoholic cirrhosis of liver with ascites Gabriella Grove MD Jun 06, 2017 13:22
[2017-06-06] MEDS ORDERED: SODIUM CHLORID 0.9% 500 ML INJ 500 ML IV ONE (13:30)
[2017-06-06 14:40] LABS: HEMATOCRIT 29.9 % (39.0-51.0); MEAN CELL VOLUME 97.8 FL (80.0-100.0); MEAN CORPUSCULAR HEMOGLOBIN 31.4 PG (27.0-34.0); MEAN CORPUSCULAR HGB CONC 32.1 % (32.0-36.0); PLATELET COUNT 57 TH/MM3 (150-450); RED BLOOD COUNT 3.06 MIL/MM3 (4.50-5.90); RED CELL DISTRIBUTION WIDTH 23.7 % (11.6-17.2); WHITE BLOOD COUNT 4.4 TH/MM3 (4.0-11.0)
[2017-06-06 14:42] LABS: HEMO FLAGS AUTO DIFF
[2017-06-06] MEDS: THIAMINE HCL 100 MG TAB PO SCH (14:45)
[2017-06-06] MEDS: TAMSULOSIN HCL 0.4 MG CAP PO SCH (14:45)
[2017-06-06] MEDS: PANTOPRAZOLE SOD 40 MG DELAYED RELEASE TAB PO SCH (14:48)
[2017-06-06 15:10] LABS: POTASSIUM 2.9 MEQ/L (3.5-5.1)
[2017-06-06 15:22] LABS: BANDS 1 % (0-6); EOSINOPHILS 1 % (0-4); NEUTROPHIL # MANUAL DIFF 3.3 TH/MM3 (1.8-7.7); POLYS (SEG NEUTROPHILS) 73 % (16-70); WBC DIFF SAMPLE 100
[2017-06-06 15:23] LABS: TARGET CELLS 1+ (NORMAL)
[2017-06-06 15:24] LABS: OVALOCYTES 1+ (NORMAL); PLATELET ESTIMATE SMEAR LOW (NORMAL); PLATELET MORPHOLOGY NORMAL (NORMAL); SCAN/DIFF FINAL DIFF MANUAL
[2017-06-06 15:29] LABS: CALCIUM-PROTEIN CORRECTED 7.2 MG/DL (8.5-10.1)
[2017-06-06] MEDS ORDERED: PHYTONADIONE 5 MG TAB PO ONE (15:45)
[2017-06-06 15:46] LABS: MAGNESIUM 1.1 MG/DL (1.5-2.5)
[2017-06-06 16:00] VITALS: BP_SYST 132; BP_SYST 139; BP_DIAS 73; BP_DIAS 79; PULSE 118; PULSE 98; RESP 14; RESP 20; TEMP 99.3; TEMP 99.4; O2SAT 96; O2SAT 97
[2017-06-06] MEDS ORDERED: POTASSIUM CHLOR 20 MEQ PREMIX 100 ML IV ONE (16:30)
[2017-06-06] MEDS ORDERED: POTASSIUM CHLORIDE 10 MEQ CONTROLLED RELEASE TAB PO ONE (16:30)
--- NOTE | 2017-06-06 16:46 | MB ---
cc: EMERY RICO MD DATE OF CONSULTATION 06/06/17 [address] Gabriella Grove REASON FOR REFERRAL Cirrhosis, worsening ascites. HISTORY OF PRESENT ILLNESS Thank you for the consultation. A 46-year-old male who has history of cirrhosis since age of 34, about 12 years ago secondary to alcohol. The patient has had multiple visits to the hospital where he has exacerbation of his cirrhosis. The patient is not taking any medication because of insurance issue. He came complaining of abdominal pain going to the back with distension of the abdomen. The patient also has history of varices which was banded. Last endoscopy was done by Dr. Caicedo about six months ago which showed gastropathy secondary to portal hypertension, grade 1 esophageal varices. No active bleeding. The patient is currently laying in bed comfortably. He stated that he stopped drinking about a month ago. Before that, he was drinking severely. The patient has distension of his abdomen, but it is better since the weekend. He denied any other symptoms as far as hematemesis, nausea or vomiting. No sign of GI bleed but a lot of discomfort with his abdomen. REVIEW OF SYSTEMS The patient complained of weakness, distension of the abdomen, gastritis, anxiety. ALLERGIES HYDROMORPHONE PENICILLIN MULTIDRUG RESISTANT ORGANISM SOCIAL HISTORY Positive for tobacco, quit alcohol about a month ago, not sure if that is very accurate. FAMILY HISTORY Noncontributory PAST SURGICAL HISTORY 1. Cirrhosis 2. Liver biopsy 3. Variceal banding 4. Diabetes, 5. Anxiety. PHYSICAL EXAMINATION GENERAL: Alert, oriented in no acute distress at this time. VITAL SIGNS: Stable. No fever. HEENT: Pupils are round, reactive to light. Sclerae icteric. Jaundice. NECK: Supple. No JVD. CHEST: Clear to auscultation and percussion. CARDIAC: Regular rate and rhythm. No murmur or gallop. ABDOMEN: Soft, distended with some visible varices on the abdominal wall, no hepatosplenomegaly. EXTREMITIES: No clubbing or cyanosis. NEUROLOGIC: Alert, oriented, mild anxiety. PSYCHIATRIC: Psychologically appropriate. LABORATORY DATA White count 4.4, hemoglobin 9.6 down from 11.3, most likely related to rehydration. Platelets 57. INR 1.5. Peritoneal fluid showed white blood cells 69, red blood cells 3,996. Total bilirubin 9.2, AST 173 down from 228, ALT 57, alk phos 271, albumin 2.3. Hepatitis C was negative in 2016. IMAG[address] STUD[address] CT scan of the abdomen consistent with cirrhosis and portal hypertension, nodular liver. Spleen is enlarged, abdominal ascites, significant varicosities. ASSESSMENT/PLAN A 46-year-old male with alcohol-induced cirrhosis. The patient has ascites with significant varicosity and secondary to portal hypertension with anemia. The patient is noncompliant with medication. He needs to be on diuretics. Beta-lazaro. He had an endoscopy six months ago which showed gastropathy and esophageal varices. We will plan on doing upper endoscopy to make sure that there is no worsening of his varices that requires banding. The patient needs to be abstinent from alcohol completely. Further plan to follow based on the finding on the endoscopy. MD JEANINE Knowles/ /3:35 PM /4:33 PM
[2017-06-06] MEDS ORDERED: CALCIUM GLUCONATE INJ 1 GM in SODIUM CHLORIDE 0.9% INJ 100 ML IV ONE ×2 (17:00→21:00)
[2017-06-06] MEDS: MAGNESIUM SULFATE 1 GM PREMIX 100 ML IV SCH ×2 (17:30→17:44)
[2017-06-06] MEDS ORDERED: MAGNESIUM SULFATE 1 GM PREMIX 100 ML IV SCH (19:00)
[2017-06-06 20:00] VITALS: BP 122/65; PULSE 99; RESP 18; TEMP 98.4; O2SAT 96
[2017-06-06] MEDS: INSULIN DETEMIR 100 UNITS/ML VIAL SQ SCH (23:06)
[2017-06-06] MEDS: predniSONE 20 MG TAB PO SCH (23:07)
[2017-06-07] VITALS: BP 125/68; PULSE 96; RESP 18; TEMP 99.7; O2SAT 99
[2017-06-07 07:06] LABS: INTERNATIONAL NORMALIZED RATIO 1.5 RATIO; PROTHROMBIN TIME - PATIENT 16.7 SEC (9.8-11.6)
[2017-06-07 07:16] LABS: BICARBONATE 24.7 MEQ/L (21.0-32.0)
[2017-06-07 07:32] VITALS: BP 115/70; PULSE 91; RESP 17; TEMP 98.4; O2SAT 95
[2017-06-07 07:37] LABS: CALCIUM-PROTEIN CORRECTED 7.3 MG/DL (8.5-10.1)
[2017-06-07] MEDS: SPIRONOLACTONE 25 MG TAB PO SCH (08:26)
[2017-06-07] MEDS: TAMSULOSIN HCL 0.4 MG CAP PO SCH (08:26)
[2017-06-07] MEDS: predniSONE 20 MG TAB PO SCH ×2 (08:26→21:45)
[2017-06-07] MEDS: THIAMINE HCL 100 MG TAB PO SCH (08:26)
[2017-06-07] MEDS: PANTOPRAZOLE SOD 40 MG DELAYED RELEASE TAB PO SCH (08:26)
[2017-06-07] MEDS: INSULIN HUMAN REGULAR 1,000 UNITS/10 ML VIAL SQ SCH ×2 (08:27→17:41)
[2017-06-07] MEDS: INSULIN ASPART SUPPLEMENTAL SCALE SQ SCH ×4 (08:27→21:00)
[2017-06-07] MEDS: SODIUM CHLORIDE 0.9% FLUSH 10 ML FLUSH IV FLUSH SCH ×2 (08:27→21:46)
[2017-06-07] MEDS: CIPROFLOXACIN 400 MG PREMIX 200 ML IV SCH (09:43)
[2017-06-07 12:00] VITALS: BP 124/75; PULSE 89; RESP 16; TEMP 98.2; O2SAT 95
--- NOTE | 2017-06-07 12:14 | HHI.PR ---
Subjective Remarks Patient seen and evaluated today in follow-up for her failure. Scheduled for Endoscopy today. I did discuss with the patient end-of-life issues. He would like to have a DO NOT RESUSCITATE status. This decision was made during this hospital encounter. He would like to also consider hospice. Currently his pain is controlled Objective Vitals Vital Signs Date Time Temp Pulse Resp B/P (MAP) Pulse Ox O2 Delivery O2 Flow Rate FiO2 06/07/17 07:32 98.4 91 17 115/70 (85) 95 06/07/17 00:00 99.7 96 18 125/68 (87) 99 06/06/17 20:00 98.4 99 18 122/65 (84) 96 06/06/17 18:00 20 06/06/17 16:00 99.4 98 14 139/73 (95) 96 06/06/17 16:00 99.3 118 20 132/79 (96) 97 I/O 06/06/17 06/06/17 06/06/17 06/07/17 06/07/17 06/07/17 07:00 15:00 23:00 07:00 15:00 23:00 Intake Total 440 ml 2856 ml 1522 ml 480 ml Output Total 50 ml 1801 ml 2001 ml 300 ml 300 ml Balance 390 ml 1055 ml -479 ml 180 ml -300 ml Intake Oral 240 ml 1356 ml 1222 ml 280 ml IV Total 200 ml 1500 ml 300 ml 200 ml Output Urine Total 50 ml 1800 ml 2000 ml 300 ml 300 ml Stool Total 1 ml 1 ml Bladder Scan Volume Amount 360 ml # Voids 3 2 1 # Bowel Movements 0 0 Result Diagram: 06/06/17 1415 06/07/17 0623 Objective Remarks GENERAL: This is a well-nourished, well-developed patient, in no apparent distress. jaundiced CARDIOVASCULAR: Regular rate and rhythm without murmurs, gallops, or rubs. RESPIRATORY: Clear to auscultation. Breath sounds equal bilaterally. No wheezes , rales, or rhonchi. GASTROINTESTINAL: Abdomen soft, mildly tender with distention. Normal active bowel sounds MUSCULOSKELETAL: Extremities without clubbing, cyanosis, or edema. NEURO: Alert & Oriented x4 to person, place, time, situation. Moves all ext x4 A/P Problem List: (1) Cirrhosis of liver ICD Code: K74.60 - Cirrhosis of liver Status: Chronic Plan: Continue with medical management for cirrhosis with jaundice, coagulopathy, ascites and increased portal vein varicosities endoscopy pending Follow for diuresis in patient with ascites no evidence of sbp, dc cipro Continue accurate intake and output meld score 20 but with on going etoh dependency therefore high 30 day mortality risk, add steroids, vitamins, aldactone hospice consult added (2) DM type 2 (diabetes mellitus, type 2) ICD Code: E11.9 - Type 2 diabetes mellitus without complications Status: Acute Plan: Continue Levemir long-acting and 3 times a day NovoLog, adjusted for hyperglycemia Continue insulin per sliding scale, diabetic diet Hemoglobin A1c 8. patient has not been on medications due to poor insurance. (3) Alcoholism ICD Code: F10.20 - Alcoholism Status: Chronic Plan: ciwa protocol (4) Urinary retention ICD Code: R33.9 - Retention of urine, unspecified Plan: resolved continue Flomax (5) Electrolyte abnormality ICD Code: E87.8 - Other disorders of electrolyte and fluid balance, not elsewhere classified Plan: hypomagnesemia, hypokalemia and hypocalcemia, we will replace and continue to follow follow-up phosphorus Assessment and Plan CODE STATUS addressed during this encounter and DO NOT RESUSCITATE has been entered in hospice consult has been made Discharge Planning Pending progress Problem Qualifiers (1) Cirrhosis of liver: Qualified Codes: K70.31 - Alcoholic cirrhosis of liver with ascites Gabriella Grove MD Jun 07, 2017 12:14
[2017-06-07 13:03] LABS: MAGNESIUM 1.6 MG/DL (1.5-2.5)
[2017-06-07] MEDS ORDERED: CALCIUM GLUCONATE INJ 1 GM in DEXTROSE 5% IN WATER 100ML INJ 100 ML IV ONE ×2 (14:00)
--- NOTE | 2017-06-07 16:21 | GIPROC ---
[facility] [address] [place] [address], [id number] EGD PROCEDURE REPORT EXAM DATE: 06/07/2017 PATIENT NAME: Kar Jonas MR #: [id number] BIRTHDATE: 1970 ATTENDING: Jackie Bangura MD ORDER #: [id number] HEAD FIELD HOCKEY COACH: Geovanny Riggs CST STATUS: inpatient INDICATIONS: The patient is a 46 yr old male here for an EGD due to acute post hemorrhagic anemia and Cirrhosis PROCEDURE PERFORMED: EGD, diagnostic MEDICATIONS: None and Per Anesthesia. TOPICAL ANESTHETIC: CONSENT: The patient understands the risks and benefits of the procedure and understands that these risks include, but are not limited to: sedation, allergic reaction, infection, perforation and/or bleeding. Alternative means of evaluation and treatment include, among others: physical exam, x-rays, and/or surgical intervention. The patient elects to proceed with this endoscopic procedure. medical equipment was checked for proper function. Hand hygiene and appropriate measures for infection prevention was taken. After the risks, benefits and alternatives of the procedure were thoroughly explained, Informed consent was verified, confirmed and timeout was successfully executed by the treatment team. The patient was anesthetized with topical anesthesia and the [id number] (Pedi C) endoscope was introduced through the mouth and advanced to the second portion of the duodenum. Retroflexed views revealed no abnormalities The gastroscope was then slowly withdrawn and removed. ESOPHAGUS: There was a single small varix in the distal esophagus. The varices were not bleeding. There was evidence of prior scarring. STOMACH: There was erythematous moderate gastritis in the gastric antrum. Severe portal hypertensive gastropathy was found in the gastric body. DUODENUM: Mild duodenal inflammation was found in the duodenal bulb. ADVERSE EVENTS: There were no complications. IMPRESSIONS: 1. There was erythematous gastritis in the gastric antrum 2. Portal hypertensive gastropathy was found in the gastric body 3. Duodenal inflammation was found in the duodenal bulb 4. Retroflexed views revealed no abnormalities RECOMMENDATIONS: 1. Anti-reflux regimen 2. Continue PPI 3. Inderal 10mg 1 po bid PATIENT CONDITION: fair DISPOSITION: Inpatient REPEAT EXAM: Return 6 months EGD with sclerotherapy Jackie Bangura MD eSigned: Jackie Bangura MD 06/07/2017 4:21 PM cc: PATIENT NAME: Kar Jonas MR#: [id number]
[2017-06-07 18:00] VITALS: BP 147/88; PULSE 104; RESP 14; TEMP 96.8; O2SAT 99
[2017-06-07 20:45] VITALS: BP 151/93; PULSE 101; RESP 16; TEMP 97; O2SAT 98
[2017-06-07] MEDS ORDERED: INSULIN DETEMIR 100 UNITS/ML VIAL SQ SCH (21:00)
[2017-06-08 00:59] VITALS: BP 125/81; PULSE 81; RESP 16; O2SAT 97
[2017-06-08 07:50] VITALS: BP 137/74; PULSE 71; RESP 20; TEMP 97.5; O2SAT 98
[2017-06-08] MEDS: SODIUM CHLORIDE 0.9% FLUSH 10 ML FLUSH IV FLUSH SCH (08:20)
[2017-06-08] MEDS: SPIRONOLACTONE 25 MG TAB PO SCH (08:20)
[2017-06-08] MEDS: PANTOPRAZOLE SOD 40 MG DELAYED RELEASE TAB PO SCH (08:20)
[2017-06-08] MEDS: THIAMINE HCL 100 MG TAB PO SCH (08:20)
[2017-06-08] MEDS: INSULIN ASPART SUPPLEMENTAL SCALE SQ SCH ×3 (08:21→17:14)
[2017-06-08] MEDS: TAMSULOSIN HCL 0.4 MG CAP PO SCH (08:21)
[2017-06-08] MEDS: predniSONE 20 MG TAB PO SCH (08:21)
[2017-06-08] MEDS: INSULIN HUMAN REGULAR 1,000 UNITS/10 ML VIAL SQ SCH ×3 (08:21→17:21)
[2017-06-08 08:32] LABS: CHLORIDE 101 MEQ/L (98-107); POTASSIUM 4.3 MEQ/L (3.5-5.1); SODIUM (NA) 134 MEQ/L (136-145)
[2017-06-08 08:35] LABS: ANION GAP 6 MEQ/L (5-15); BICARBONATE 27.5 MEQ/L (21.0-32.0); BLOOD UREA NITROGEN 8 MG/DL (7-18); MAGNESIUM 1.6 MG/DL (1.5-2.5)
[2017-06-08 08:39] LABS: GLOMERULAR FILTRATION RATE 125 ML/MIN (>89)
[2017-06-08] MEDS ORDERED: PROPRANOLOL HCL 10 MG TAB PO SCH (09:00)
[2017-06-08 11:50] VITALS: BP 109/68; PULSE 76; RESP 20; TEMP 96.9; O2SAT 98
[2017-06-08] MEDS ORDERED: PANT40TA3 PO (13:04)
[2017-06-08] MEDS ORDERED: TAMS5CAP PO (13:04)
[2017-06-08] MEDS ORDERED: PROP10TA6 PO (13:04)
[2017-06-08] MEDS ORDERED: NOVORP2 SQ (13:04)
[2017-06-08] MEDS ORDERED: PRED20 PO (13:04)
[2017-06-08] MEDS ORDERED: LEVEMIR SQ (13:04)
[2017-06-08] MEDS ORDERED: SPIR25 PO (13:04)
--- NOTE | 2017-06-08 13:05 | HHI.DCPOC ---
Discharge Care Plan Diagnosis: (1) Urinary retention (2) DM type 2 (diabetes mellitus, type 2) (3) Cirrhosis of liver Goals to Promote Your Health * To prevent worsening of your condition and complications * To maintain your health at the optimal level Directions to Meet Your Goals Take your medications as prescribed Follow your dietary instruction Follow activity as directed Keep your appointments as scheduled Take your immunizations and boosters as scheduled If your symptoms worsen call your PCP, if no PCP go to Urgent Care Center or Emergency Room Smoking is Dangerous to Your Health. Avoid second hand smoke Call the 24-hour hour crisis hotline for domestic abuse at Gabriella Grove MD Jun 08, 2017 13:05
--- NOTE | 2017-06-08 13:07 | HHI.DS ---
Discharge Summary Admission Date Jun 04, 2017 at 16:02 Discharge Date: Jun 08, 2017 Admitting Diagnosis ABDOMINAL PAIN, ASCITES (1) Cirrhosis of liver ICD Code: K74.60 - Cirrhosis of liver Status: Chronic (2) DM type 2 (diabetes mellitus, type 2) ICD Code: E11.9 - Type 2 diabetes mellitus without complications Status: Acute (3) Alcoholism ICD Code: F10.20 - Alcoholism Status: Chronic (4) Urinary retention ICD Code: R33.9 - Retention of urine, unspecified (5) Electrolyte abnormality ICD Code: E87.8 - Other disorders of electrolyte and fluid balance, not elsewhere classified Procedures egd: Varices, gastropathy with gastritis and duodenitis Brief History - From Admission This patient is a 46-year-old gentleman with a 12 year history of liver failure area and he had been taking medications up until about a month ago. He says he has been unable to follow-up with his primary care doctor due to insurance reasons. He presents to the emergency room with increasing abdominal girth and discomfort. His also complaining of abdominal pain and back pain which are moderate to severe and worse with movement and worse when he tries to eat. He has a history of esophageal varices which have been banded. He also says he has a history of kidney problems related to his liver. Recently he was in the hospital for GI bleed. Patient does have increased abdominal girth on exam with tenderness to palpation. There is evidence of hepatosplenomegaly and some telangiectasias are prominent. He denies any fevers or chills. He has had poor appetite due to his abdominal distention and has decreased oral intake. Patient is presented to the emergency room and admitted to the hospital for further evaluation for ascites, abdominal pain and worsening liver failure CBC/BMP: 06/06/17 1415 06/08/17 0812 Significant Findings Laboratory Tests Test 06/05/17 19:10 06/06/17 14:15 06/07/17 06:23 06/08/17 08:12 Peritoneal Fluid WBC 69 /MM3 (0-10) Peritoneal Fluid RBC 3996 /MM3 (0-0) Red Blood Count 3.06 MIL/MM3 (4.50-5.90) Hemoglobin 9.6 GM/DL (13.0-17.0) Hematocrit 29.9 % (39.0-51.0) Red Cell Distribution Width 23.7 % (11.6-17.2) Platelet Count 57 TH/MM3 (150-450) Neutrophils % (Manual) 73 % (16-70) Monocytes % 9 % (0-8) Platelet Estimate LOW (NORMAL) Target Cells 1+ (NORMAL) Ovalocytes 1+ (NORMAL) Blood Urea Nitrogen 6 MG/DL (7-18) 6 MG/DL (7-18) Random Glucose 153 MG/DL (74-106) 187 MG/DL (74-106) 241 MG/DL (74-106) Calcium Level 7.1 MG/DL (8.5-10.1) 7.3 MG/DL (8.5-10.1) 7.8 MG/DL (8.5-10.1) Magnesium Level 1.1 MG/DL (1.5-2.5) Potassium Level 2.9 MEQ/L (3.5-5.1) Protein Corrected Calcium 7.2 MG/DL (8.5-10.1) 7.3 MG/DL (8.5-10.1) Prothrombin Time 16.7 SEC (9.8-11.6) Creatinine 0.59 MG/DL (0.60-1.30) Sodium Level 134 MEQ/L (136-145) 134 MEQ/L (136-145) Phosphorus Level 1.7 MG/DL (2.5-4.9) Imaging Last Impressions Cyst Biopsy Asp-Paracentesis US 06/05/17 0000 Signed Impressions: Service Date/Time: Monday, June 05, 2017 08:53 - CONCLUSION: Uncomplicated ultrasound guided paracentesis. Alvaro Sahni MD Abdomen/Pelvis CT 06/04/17 1418 Signed Impressions: Service Date/Time: Sunday, June 04, 2017 15:13 - CONCLUSION: 1. CT findings of cirrhosis or portal hypertension. Liver is heterogeneous and nodular. Spleen is enlarged 2. Recanalization of the paraumbilical vein with extensive subcutaneous varicosities throughout the abdomen. These are most prominent right para midline. 3. Diffuse abdominal ascites. If percutaneous paracentesis is considered, recommend careful ultrasound surveillance for regional varicosities prior to access. 4. Cholelithiasis Diaz Scott MD Chest X-Ray 06/04/17 1402 Signed Impressions: Service Date/Time: Sunday, June 04, 2017 14:20 - CONCLUSION: No acute cardiopulmonary process. Diaz Scott MD PE at Discharge GENERAL: This is a well-nourished, well-developed patient, in no apparent distress. jaundiced CARDIOVASCULAR: Regular rate and rhythm without murmurs, gallops, or rubs. RESPIRATORY: Clear to auscultation. Breath sounds equal bilaterally. No wheezes , rales, or rhonchi. GASTROINTESTINAL: Abdomen soft, mildly tender with distention. Normal active bowel sounds MUSCULOSKELETAL: Extremities without clubbing, cyanosis, or edema. NEURO: Alert & Oriented x4 to person, place, time, situation. Moves all ext x4 Pt update on day of discharge Patient seen today. Pain improved. Urine output adequate. No new issues today. Discharge plans discussed with patient Hospital Course This patient is a 46-year-old gentleman with long-standing history of cirrhosis and diabetes. He has been out of care for a while. He is coming into the hospital complaining of abdominal distention and uncontrolled blood sugars. Insulin was started and his blood sugars improved. He also was seen by uke driver with upper endoscopy showing gastritis and duodenitis as well as significant portal-tension related varices. Patient has no desire to pursue further aggressive care and hospice consult. His medications were adjusted including diuretics and steroids as well as a proton pump inhibitor. Patient's pain was well controlled and he was discharged to hospice care center Pt Condition on Discharge: Good Discharge Disposition: Hospice/Med Facility Discharge Time: <= 30 minutes Discharge Instructions DIET: Follow Instructions for: As Tolerated, No Restrictions Activities you can perform: Regular-No Restrictions New Medications: Insulin Detemir Inj (Levemir Inj) 1,000 unit/ 10 ML Vial 18 UNITS SQ HS for Blood Sugar Management, #31 INJECTION Do not mix with any other Insulin. Insulin Human Regular Inj (Novolin R Inj) 1,000 Unit/10 Ml Vial 10 UNITS SQ TIDAC for Blood Sugar Management, #90 INJECTION Pantoprazole (Pantoprazole) 40 Mg Tab 40 MG PO DAILY for gastritis for 30 Days, #30 TAB Prednisone (Prednisone) 20 Mg Tab 20 MG PO BID for liver failure, #62 TAB Propranolol (Propranolol) 10 Mg Tab 10 MG PO Q12HR for portal htn, #62 TAB Spironolactone (Aldactone) 25 Mg Tab 25 MG PO DAILY for fluid, #30 TAB Tamsulosin (Flomax) 0.4 Mg Cap 0.4 MG PO DAILY for uUrinary retention, #31 CAP Continued Medications: Alprazolam (Xanax) 1 Mg Tab 1 MG PO Q6H PRN for ANXIETY, TAB 0 Refills Propranolol (Propranolol) 20 Mg Tab 20 MG PO DAILY for Blood Pressure Management, #60 TAB 0 Refills Gabriella Grove MD Jun 08, 2017 13:07
[2017-06-08 15:00] VITALS: BP 133/75; PULSE 69; RESP 20; TEMP 96.1; O2SAT 100
[2017-06-09 09:46] LABS: HEMOGLOBIN A1a 1.9 %; HEMOGLOBIN A1b 0.7 %; HEMOGLOBIN Ao 79.4 %; HEMOGLOBIN F 4.2 %; HEMOGLOBIN LA1C 2.7 %; HEMOGLOBIN P3 3.6 %
== END 2017-06-08 18:27 | disposition hospice, inpatient (51) | DRG 433 ==
LOC: PHED 13:47 → PHEDA 16:02 → PH3A 17:05
PROVIDERS: ADMIT Hospitalist; ATTEND Hospitalist
PROC: 0W9G3ZX Drainage of Peritoneal Cavity, Percutaneous Approach, Diagnostic (ICD-10-PCS; principal; 2017-06-05)
PROC: 0DJ08ZZ Inspection of Upper Intestinal Tract, Via Natural or Artificial Opening Endoscopic (ICD-10-PCS; 2017-06-07)
DX: K70.31 Alcoholic cirrhosis of liver with ascites (principal); K76.6 Portal hypertension; D68.9 Coagulation defect, unspecified; I85.00 Esophageal varices without bleeding; E11.65 Type 2 diabetes mellitus with hyperglycemia; E83.42 Hypomagnesemia; D64.9 Anemia, unspecified; F41.9 Anxiety disorder, unspecified; F17.210 Nicotine dependence, cigarettes, uncomplicated; G89.29 Other chronic pain; M54.9 Dorsalgia, unspecified; E83.51 Hypocalcemia; E87.6 Hypokalemia; K29.70 Gastritis, unspecified, without bleeding; K29.80 Duodenitis without bleeding; K72.90 Hepatic failure, unspecified without coma; F10.20 Alcohol dependence, uncomplicated; R33.9 Retention of urine, unspecified; Z66 Do not resuscitate; Z91.14 Patient's other noncompliance with medication regimen
CPT/HCPCS: 49083; 71010; 74177; 76937; 80048; 80053; 80076; 80307; 81001; 82140; 82948; 83036; 83690; 83735; 84100; 84155; 84484; 85007; 85027; 85610; 85730; 87070; 87205; 88112; 88305; 89051; 93005; C1729; J0610; J0744; J1815; J1940; J2405; J3475; J3480; J7030; J7040; J7512; Q9967